=== PATIENT | female | born 1970 | race African-American/Black ===

== ENCOUNTER → 2016-10-05 | Outpatient (CLI) | payer OTHER ==
--- NOTE | 2016-10-05 12:25 | P.PN ---
Subjective This is follow-up visit for this patient with a history of severe and chronic low back pain secondary to lumbar degenerative disc disease, lumbar facet arthropathy, we have done interventional pain management injection, radiofrequency ablation of the medial branch lumbar area, and this helped her low back pain significantly, and is currently on pain medications 1- [place] 10/325 every 6 hours 2- Motrin 800 mg when necessary Patient denies any side effects of the medication, denies excessive drowsiness or sleepiness, denies suicidal ideation, and reports that the current pain medication is helping To control the pain and improve activity of daily living the description is complaining of neck pain happened today, he denies any motor or sensory deficit she denies any numbness or tingling sensation in the upper extremities Physical Examinations : 1-Constitutiona : Cooperative , not in acute distress . 2-HEENT : nech ; supple , no Lymphadenopathy , no Thyromegaly , normal thyroid size . eyes : no ptosis , no icterus, no photophobia . ENT : normal of hearing , normal oropharynx , no Thrush . 3- Respiratory : Chest clear to auscultations Bilaterally , no wheezing , no Rhonchi . 4- Cardiovascular : regular rate and rhythem , S1 , S2 , no S3 , no S4. 5- Gastrointestinal : abdomen soft no tenderness , bowel sounds positive all four quadrents , no organomegally . 6- Genitourinary : Defferred . 7- neurologic : Cranial nerve II to XII intact , no focal neurological deffecit . 8-psychatric : alert , oriented X 3 , appropriate affect , intact judgment and insight . 9-Lymphatic : no Lymphadenopathy . 10- musculoskeltal : exams of the cervical spine = motor strength normal bilateral upper extremities positive trigger point on the left-sided cervical paravertebral muscles . exams of the Lumber spine = motor strength lower extremities ,thigh and legs .5/5 deep tendon reflexes : normal Knee Jerk , normal ankle Jerk . Assessment and plan = - Chronic low back pain secondary to lumbar degenerative disc disease , lumbar spondylosis with facet arthropathy without myelopathy , status post radiofrequency ablation of the medial branch lumbar area, pain in the low back area improved. -chronic and current use of high-risk medication (Opioids). The patient was counseled about risk of opioid use, psychological risk associated with opioids and was orally counseled to not overuse , abuse , divert ,or sell dictations to take medications as prescribed only , and to restore medication in safe location , and patient counseled against driving while using narcotic medications, and also not to use alcohol or any illicit recreational drugs the patient's verbalized understanding that the lack of compliance will result in failure to renew narcotic prescription and possible discharge from the clinic - diagnoses, prognosis, and treatment options including but not limited to physical therapy, surgical interventions, interventional therapies and medication management including narcotics and adjuvant medication were discussed with the patient and all questions answered to the patient's satisfaction. -medication refile =1- and she will follow up with the pain clinic in 2 months Objective - Vital Signs Vital signs: Vital Signs Temp 98.8 F 10/05/16 12:02 Pulse 87 10/05/16 12:02 Resp 16 10/05/16 12:02 BP 172/85 10/05/16 12:02 Pulse Ox 97 10/05/16 12:02 Intake & Output 10/04/16 10/05/16 10/05/16 18:59 06:59 18:59 Weight 79.832 kg
== END | disposition home or self-care (01) ==
CPT/HCPCS: 99211

== ENCOUNTER → 2016-11-30 | Outpatient (CLI) | payer OTHER ==
[2016-11-30 12:20] VITALS: BP 265/102; PULSE 98; RESP 18
--- NOTE | 2016-11-30 12:49 | P.PN ---
Progress Note - Text Patient returns for followup for chronic back pain with radiation to lower extremities bilaterally. Patient recently underwent left and right lumbar RFA near the end of 2015, which provided some relief for 3-4 months' interval. Patient continues on [place] and Motrin medications for pain with good relief. Patient denies adverse drug effects from medications. Today, pt denies new- onset weakness, bowel/bladder incontinence, or any other signs or symptoms of cauda equina syndrome. There are no signs of acute intoxication, and no indications of medication diversion or overuse. In addition to above, 13-point review of systems is also negative for chest pain , shortness of breath, changes in vision, changes in hearing, new onset weakness , abdominal pain, diarrhea, extreme fatigue, malaise, fever, skin changes, homicidal or suicidal ideation, or bowel or bladder incontinence. Vital Signs: Reviewed in EMR Gen: WDWN, AAOx3, NAD HEENT: NCAT, EOMI, hearing grossly normal Pulm: resp unlabored Abd: soft, NT, ND Neck: supple, trachea midline ROM in flexion lumbar spine: reduced ROM in extension lumbar spine: reduced Lumbar paravertebral tenderness: bilateral Facet loading: + bilaterally, worse on left side SI joint tenderness: + bilaterally, L > R Desmond's test: + bilaterally, L > R Straight leg raise: neg Lower extremity: +4/5 extremity strength bilaterally Neuro: CN II-XII grossly intact Imaging: Reviewed in EMR Assessment: 1. lumbar spondylosis without myelopathy 2. sacroiliitis 3. chronic pain syndrome 4. tobacco abuse Plan: 1. Explanation: Opioid and psychological risk scores were reviewed. Diagnoses , prognoses, and multiple treatment options including but not limited to physical therapy, interventional therapies, adjuvant medical therapies, narcotic medication therapies, and surgery were discussed with the patient and all questions were answered to the patient's satisfaction. 2. Opioid agreement: Patient has previously signed narcotic agreement, and was orally counseled to not overuse, abuse, divert, or cell medications, and to take them as prescribed by only 1 healthcare provider. The patient was also counseled to store opioid medications in a safe and preferably locked location. Patient was also counseled against driving while using narcotic medications and also to not use alcohol or any illicit or recreational drugs. The patient verbalized understanding that lack of compliance with any of the above and likely result in failure to renew narcotic prescriptions, possible discharge from the clinic, and possible legal ramifications thereafter if indicated. 3. Counseling: The patient was counseled extensively on SMOKING CESSATION, BODY MASS INDEX, EXERCISE. Specifically, the patient was instructed regarding the importance of smoking cessation, obesity, and exercise in the context of both chronic pain and overall health. 4. Procedures: repeat right lumbar RFA in 4-6 weeks, then left lumbar RFA after that 5. Consultations: None 6. Investigations: none 7. Medications: [place] 10/325 TID #90 with one refill 8. Disposition: f/u for procedure as scheduled PQRS measures: 1-Patient's medications are documented in the chart. 2-Tobacco use is positive, counseling given 3-Patient has not had a pneumococcal vaccine. 4-Advanced care planning discussed, patient unable to give. 5-Opioid contract signed with the patient 6-Pain positive, follow-up visit or procedure scheduled 7-Patient's blood pressure measured and documented, and patient will follow up with the primary care due to hypertension. 8-Patient's weight was measured, and body mass index ABOVE the normal limits, and counseling was done. Patient instructed to follow up with PCP. 9-Patient WAS NOT identified as an unhealthy alcohol user.
== END | disposition home or self-care (01) ==
LOC: PNWHC3 12:03
PROVIDERS: ATTEND Anesthesiology
DX: G89.4 Chronic pain syndrome (principal); M47.816 Spondylosis without myelopathy or radiculopathy, lumbar region; M46.1 Sacroiliitis, not elsewhere classified; I10 Essential (primary) hypertension; E66.9 Obesity, unspecified; F17.200 Nicotine dependence, unspecified, uncomplicated; Z71.6 Tobacco abuse counseling; Z79.899 Other long term (current) drug therapy
CPT/HCPCS: 99211

== ENCOUNTER 2017-01-06 10:41 | Day surgery (SDC) | payer OTHER ==
[2017-01-04 15:43] VITALS: BMI 28.4
[2017-01-06 11:58] VITALS: TEMP 98
[2017-01-06] MEDS: LACTATED RINGERS 1,000 ML IV SCH ×2 (12:18→12:55)
[2017-01-06] MEDS ORDERED: LIDOCAINE 1% 20 ML VIAL (10MG/ML) FOR IV START INTRADERMA ONE (12:18)
[2017-01-06] MEDS ORDERED: fentaNYL (PF) 50 MCG/ML 2 ML AMP ONE (12:49)
[2017-01-06] MEDS ORDERED: TRIAMCINOLONE ACETONIDE 40 MG/ML 1 ML VIAL ONE (12:49)
[2017-01-06] MEDS ORDERED: BUPIVACAINE (PF) 0.5% 30 ML VIAL ONE (12:49)
[2017-01-06] MEDS ORDERED: MIDAZOLAM 2 MG/2 ML VIAL ONE (12:49)
--- NOTE | 2017-01-06 13:11 | P.PCN ---
Date of Procedure: 01/06/17 Procedure(s) Performed: PREOPERATIVE DIAGNOSIS: 1-Lumbar Spondylosis with Facet Arthropathy without myelopathy. 2- sacroiliitis POSTOPERATIVE DIAGNOSIS: 1- Lumbar Spondylosis with Facet Arthropathy without myelopathy. 2- sacroiliitis PROCEDURES : Right Radiofrequency thermocoagulation, L3-L4, L4-L5, and L5-S1 medial branch, with fluoroscopic guidance ANESTHESIA: IV sedation with versed 4 mg and fentaneyl 100 mcg and local infiltration with lidocaine 1% 6 ml EBL: Minimal PROCEDURE INDICATION: The patient with low back pain secondary to lumbar facet arthropathy who had more than 50% relief of her pain with previous diagnostic lumbar medial branch block with bupivacaine. PROCEDURE DESCRIPTION / TECHNIQUE: The patient was seen and identified in the preoperative area. Risks, benefits, complications, including but not limited to risk of infection ,bleeding , allergic reactions to the medications and no complete pain releife , and alternatives were discussed with the patient, the patient agreed to proceed with the procedure and signed the consent. IV was started. Vital signs remained stable throughout the procedure. Patient was taken to the OR and time out was completed. The patient was placed in the prone position on the procedure table. The lumber area was prepped and draped in the usual sterile fashion. . Vital signs were closely monitored during the procedure .IV sedation was used during the procedure to decrease patients anxiety. Using AP and then oblique fluoroscopy, the ``eye of the Davis dog corresponding to the connection between the superior and transverse articular processes of right L3, L4, and L5 were identified, marked, and localized with 1 % lidocaine. Subsequently, a 18 -wr radiofrequency cannula with a 10- mm active tip was advanced guided by fluoroscopy to each of the ``eyes of the Davis dog at right L3, L4, and L5. Each site then underwent sensory testing at 50 Hz and 0 to 1 volt and motor testing at 2.5 Hz and 0 to 3 volt with local stimulation, but no radicular symptoms down the legs. Thereafter the right L3-4, L4-5, and L5-S1 sites underwent radiofrequency thermocoagulation at 80 degrees celsius for 90 seconds after injecting 0.5 ml of PF lidocaine 1%. ,then After the thermocoagulation done , 1 ml of the block solution containing Kenalog 40 mg and 3 ml of marain 0.5% was injected at the right L3- 4 , L4-5 , and L5-S1, levels after negative aspiration of CSF and blood and with no paresthesias. Cannulas were retracted while injecting lidocaine 1% until the needle is out. At the end of the procedure, the skin was cleansed and bandages were applied. COMPLICATIONS: No acute complications. DISPOSITION / PLANS: The patient was placed in a supine position and transferred to the recovery area in a stable condition for observation and was discharged from the recovery room after meeting discharge criteria. Home discharge instructions given to the patient by the staff. The patient was reexamined prior to discharge. The patient will schedule a follow up in the clinic in 2-4 weeks.
[2017-01-06 13:49] VITALS: BP 154/98; PULSE 57; RESP 20
[2017-01-06] MEDS ORDERED: IV FLUID CONTINUATION 1,000 ML IV ONE (13:49)
--- NOTE | 2017-01-06 14:04 | FL ---
Fluoroscopy INDICATION: Pain FINDINGS: Fluoroscopy time: 25 seconds. Images obtained: 4. IMPRESSIONS: 1. Documentation of fluoroscopy.
== END 2017-01-06 13:52 ==
LOC: ORPAIN 10:41
PROVIDERS: ATTEND Specialist
DX: M47.816 Spondylosis without myelopathy or radiculopathy, lumbar region (principal); M46.96 Unspecified inflammatory spondylopathy, lumbar region; M46.1 Sacroiliitis, not elsewhere classified; Z88.8 Allergy status to other drugs, medicaments and biological substances
CPT/HCPCS: 64635; 64636; 99152; J2250; J3301; J3010

== ENCOUNTER → 2017-01-24 | Outpatient (CLI) | payer OTHER ==
--- NOTE | 2017-01-24 13:02 | P.PN ---
Subjective Principal diagnosis: This is follow-up visit for this patient with a history of severe and chronic low back pain secondary to , lumbar spondylosis with facet arthropathy , we have done interventional pain management injection,, diagnostic medial branch block , RFA of the medial branches lumbar area ,and is currently on pain medications 1-[place] 10/325 every 6 hour Patient denies any side effects of the medication, denies excessive drowsiness or sleepiness, denies suicidal ideation, and reports that the current pain medication is NOT helping To control the pain and improve activity of daily living Patient denies any motor or sensory deficit , patient denies any fever or night sweats, denies any change in the bowel movements or urination Physical Examinations : 1-Constitutiona : Cooperative , not in acute distress . 2-HEENT : nech ; supple , no Lymphadenopathy , no Thyromegaly , normal thyroid size . eyes : no ptosis , no icterus, no photophobia . ENT : normal of hearing , normal oropharynx , no Thrush . 3- Respiratory : Chest clear to auscultations Bilaterally , no wheezing , no Rhonchi . 4- Cardiovascular : regular rate and rhythem , S1 , S2 , no S3 , no S4. 5- Gastrointestinal : abdomen soft no tenderness , bowel sounds positive all four quadrents , no organomegally . 6- Genitourinary : Defferred . 7- neurologic : Cranial nerve II to XII intact , no focal neurological deffecit . 8-psychatric : alert , oriented X 3 , appropriate affect , intact judgment and insight . 9-Lymphatic : no Lymphadenopathy . 10- musculoskeltal : exams of the Lumber spine = motor strength lower extremities ,thigh and legs .5/5 deep tendon reflexes : normal Knee Jerk , normal ankle Jerk . Assessment and plan= - Chronic low back pain secondary to , lumbar spondylosis with facet arthropathy without myelopathy , status post radiofrequency ablation of the medial branch lumbar area Left side in July 2016 on the right side done in December 2016 , patient doing well, her pain improved significantly after the radiofrequency - chronic and current use of high-risk medication (Opioids). The patient was counseled about risk of opioid use, psychological risk associated with opioids and was orally counseled to not overuse , divert,or sell dictations to take medications as prescribed only , and to restore medication in safe location , and the patient counseled against driving while using narcotic medications, and also not to use alcohol or any illicit recreational drugs, the patient's verbalized understanding that the lack of compliance will result in failure to renew narcotic prescription and possible discharge from the clinic - diagnoses, prognosis, and treatment options including but not limited to physical therapy, surgical interventions, interventional therapies , and medication management including narcotics and adjuvant medication were discussed with the patient . She will be given prescription refill to [facility] 10/325 every 6 hours since 120 with 2 refills Objective - Vital Signs Vital signs: Intake & Output 01/23/17 01/24/17 01/24/17 18:59 06:59 18:59 Weight 77.564 kg
[2017-01-24 13:10] VITALS: BP 135/88; PULSE 76; RESP 16; TEMP 98.2
== END | disposition home or self-care (01) ==
LOC: PNWHC3 12:06
PROVIDERS: ATTEND Specialist
DX: M47.816 Spondylosis without myelopathy or radiculopathy, lumbar region (principal); M46.96 Unspecified inflammatory spondylopathy, lumbar region; G89.29 Other chronic pain
CPT/HCPCS: 99211

== ENCOUNTER → 2017-04-18 | Outpatient (CLI) | payer OTHER ==
[2017-04-18 12:05] VITALS: BP 147/98; PULSE 98; RESP 18
--- NOTE | 2017-04-18 12:49 | P.PN ---
Progress Note - Text This is a 47-year-old female with history of chronic axial lower back pain due to degenerative disc disease and lumbar spondylosis without myelopathy. The patient has been getting injections on the lumbar spine which have been giving her temporary pain relief, she also takes [place] 10 mg 4 times a day for her pain. Her pain has been relatively well controlled however she complains of weight loss after she had her cholecystectomy. I advised the patient to follow-up with her primary care physician to workup her weight loss problem. I will decrease the patient's [place] from 4 to 3 pills a day starting next month. The patient was not really happy about this decision however I told her that for chronic nonmalignant pain patient should not be on opioids for long time. We will see the patient 2 months from now for follow-up.
== END | disposition home or self-care (01) ==
LOC: PNWHC3 11:48
PROVIDERS: ATTEND Anesthesiology
DX: M51.36 Other intervertebral disc degeneration, lumbar region (principal); M47.816 Spondylosis without myelopathy or radiculopathy, lumbar region
CPT/HCPCS: 99211

== ENCOUNTER → 2017-06-13 | Outpatient (CLI) | payer OTHER ==
[2017-06-13 12:17] VITALS: BP 149/94; PULSE 76; RESP 16; TEMP 97.6
--- NOTE | 2017-06-13 12:37 | P.PN ---
Progress Note - Text This is a 47-year-old female with lower back pain with radiation to the legs bilaterally however the pain does not cross the knees. The patient has been on opioids for many years as she states and last time I saw her I went down on the dose of [place] from to 4 pills a day to 3 times a day. The patient states that her pain has been getting worse lately and she usually gets good relief of pain after getting lumbar medial branch I'll defer see ablation that she had previously She denies any bowel or bladder dysfunction. The patient was diagnosed recently with stage II kidney dysfunction. At this point I will schedule the patient to have lumbar medial branch RFA and I will continue with [place] 3 pills a day as needed for pain. The patient is alert oriented 3 in no apparent distress she does not show any signs of oversedation , and she denies any suicidal or homicidal thoughts.
== END | disposition home or self-care (01) ==
LOC: PNWHC3 11:42
PROVIDERS: ATTEND Anesthesiology
DX: M54.5 Low back pain (principal); N28.9 Disorder of kidney and ureter, unspecified; Z79.899 Other long term (current) drug therapy; Z79.891 Long term (current) use of opiate analgesic
CPT/HCPCS: 99211

== ENCOUNTER 2017-06-28 09:37 | Day surgery (SDC) | payer OTHER ==
[~2017-06-28 09:37] MED LIST: LACTATED RINGERS 1,000 ML IV ONE
[2017-06-28 09:54] VITALS: TEMP 98.2
[2017-06-28] MEDS ORDERED: LIDOCAINE 1% 20 ML VIAL (10MG/ML) FOR IV START INTRADERMA ONE (10:10)
--- NOTE | 2017-06-28 10:48 | P.PCN ---
Date of Procedure: 06/28/17 Procedure(s) Performed: PREOPERATIVE DIAGNOSIS: 1-Lumbar Spondylosis with Facet Arthropathy without myelopathy. 2-sacroiliitis POSTOPERATIVE DIAGNOSIS: 1- Lumbar Spondylosis with Facet Arthropathy without myelopathy. 2-sacroiliitis PROCEDURES : Right Radiofrequency thermocoagulation, L3-L4, L4-L5, and L5-S1 medial branch, with fluoroscopic guidance ANESTHESIA: IV sedation with versed 4 mg and fentaneyl 100 mcg and local infiltration with lidocaine 1% 6 ml EBL: Minimal PROCEDURE INDICATION: The patient with low back pain secondary to lumbar facet arthropathy who had more than 50% relief of her pain with previous diagnostic lumbar medial branch block with bupivacaine. PROCEDURE DESCRIPTION / TECHNIQUE: The patient was seen and identified in the preoperative area. Risks, benefits, complications, including but not limited to risk of infection ,bleeding , allergic reactions to the medications and no complete pain releife , and alternatives were discussed with the patient, the patient agreed to proceed with the procedure and signed the consent. IV was started. Vital signs remained stable throughout the procedure. Patient was taken to the OR and time out was completed. The patient was placed in the prone position on the procedure table. The lumber area was prepped and draped in the usual sterile fashion. . Vital signs were closely monitored during the procedure .IV sedation was used during the procedure to decrease patients anxiety. Using AP and then oblique fluoroscopy, the ``eye of the Davis dog corresponding to the connection between the superior and transverse articular processes of right L3, L4, and L5 were identified, marked, and localized with 1 % lidocaine. Subsequently, a 18 -pu radiofrequency cannula with a 10- mm active tip was advanced guided by fluoroscopy to each of the ``eyes of the Davis dog at right L3, L4, and L5. Each site then underwent sensory testing at 50 Hz and 0 to 1 volt and motor testing at 2.5 Hz and 0 to 3 volt with local stimulation, but no radicular symptoms down the legs. Thereafter the right L3-4, L4-5, and L5-S1 sites underwent radiofrequency thermocoagulation at 80 degrees celsius for 90 seconds after injecting 0.5 ml of PF lidocaine 1%. then After the thermocoagulation done , 1 ml of the block solution containing Kenalog 40 mg and 3 ml of marain 0.5% was injected at the right L3- 4 , L4-5 , and L5-S1, levels after negative aspiration of CSF and blood and with no paresthesias. Cannulas were retracted while injecting lidocaine 1% until the needle is out. At the end of the procedure, the skin was cleansed and bandages were applied. COMPLICATIONS: No acute complications. DISPOSITION / PLANS: The patient was placed in a supine position and transferred to the recovery area in a stable condition for observation and was discharged from the recovery room after meeting discharge criteria. Home discharge instructions given to the patient by the staff. The patient was reexamined prior to discharge. The patient will schedule a follow up in the clinic in 2-4 weeks.
[2017-06-28 10:59] VITALS: RESP 16
--- NOTE | 2017-06-28 11:05 | FL ---
EXAMINATION TYPE: FL guided pain mgmt statistic DATE OF EXAM: 06/28/2017 CLINICAL HISTORY: Low back pain. TECHNIQUE: Fluoroscopy. COMPARISON: None. FINDINGS: Fluoroscopic guidance was provided during pain relief procedure performed by Dr. Thomas . A total of 12 seconds of fluoroscopic time was utilized during the procedure and 3 spot images are acquired. Images acquired shows needle localization at several levels in the lower lumbar spine. IMPRESSION: As Above.
[2017-06-28 11:15] VITALS: BP 129/85; PULSE 77
[2017-06-28] MEDS ORDERED: IV FLUID CONTINUATION 1,000 ML IV ONE (11:15)
== END 2017-06-28 11:20 | disposition home or self-care (01) ==
LOC: ORPAIN 09:37
PROVIDERS: ATTEND Specialist
DX: M46.96 Unspecified inflammatory spondylopathy, lumbar region (principal); M47.816 Spondylosis without myelopathy or radiculopathy, lumbar region; M46.1 Sacroiliitis, not elsewhere classified; Z88.8 Allergy status to other drugs, medicaments and biological substances
CPT/HCPCS: 64635; 64636 ×2; 99152; 99153 ×2; J2250; J3301; J3010

== ENCOUNTER → 2017-08-08 | Outpatient (CLI) | payer OTHER ==
[2017-08-08 12:39] VITALS: BP 157/100; PULSE 82; RESP 18
--- NOTE | 2017-08-08 12:55 | P.PN ---
Progress Note - Text Progress Note Date: 08/08/17 This is a 47-year-old female with chronic history of right lower back pain. The patient had multiple injections in the back including lumbar epidural steroid injection and medial branch block also lately RFA on the medial branches which gave her only very short period of pain relief. By physical exam today she is alert oriented 3 in no apparent distress however she says that her pain is 8 out of 10 today. She has significant tenderness around the right sacroiliac joint. She denies any bowel or bladder dysfunction or any weakness in the lower extremities. I think the patient may benefit from getting right sacroiliac joint steroid injection under fluoroscopic guidance and if it does not give long period of pain relief then we can plan on doing RFA on the right sacroiliac joint. The patient takes [place] 10 mg 3 times a day and I'll give her prescription to last her for 2 months. PQRS measures: 1-Patient's medications are documented in the chart. 2-Tobacco use is negative, counseling given 3-Patient has not had a pneumococcal vaccine. 4-Advanced care planning discussed, patient unable to give 5-Opioid contract signed with the patient. 6-Pain positive, follow-up visit or procedure scheduled 7-Patient's blood pressure measured and documented , blood pressure is moderately elevated and the patient is encouraged to follow-up with her family physician.. 8-Patient's weight was measured, and body mass index ABOVE the normal limits, and counseling was done. Patient instructed to follow up with PCP. 9-Patient WAS NOT identified as an unhealthy alcohol user.
== END | disposition home or self-care (01) ==
LOC: PNWHC3 12:17
PROVIDERS: ATTEND Anesthesiology
DX: M54.5 Low back pain (principal)
CPT/HCPCS: 99211

== ENCOUNTER → 2017-08-15 | Outpatient (CLI) | payer OTHER ==
[2017-08-15 15:21] LABS: Amorphous Sediment,Urine Rare /hpf; Appearance,Urine Cloudy (Clear); Bilirubin,Urine Negative (Negative); CH 29.3; CHCM 32.6; Glucose,Urine (UA) Negative (Negative); HCT 42.3 % (34.0-46.0); Ketones,Urine Negative (Negative); Leukocyte Esterase,Urine Negative (Negative); MCH 29.8 pg (25.0-35.0); MCV 90.3 fL (80.0-100.0); Mean Platelet Volume 8.6; Mucus,Urine Rare /hpf; Nitrite,Urine Negative (Negative); PH, Urine 5.5 (5.0-8.0); Particle Count 3958; Protein,Urine Trace (Negative); RBC 4.68 m/uL (3.80-5.40); RBC,Urine 1 /hpf (0-5); RDW 13.9 % (11.5-15.5); Specific Gravity,Urine 1.024 (1.001-1.035); Squamous Epithelial Cell,Urine 16 /hpf (0-4); UA Billing (MACRO vs. MICRO) MICRO; WBC 9.8 k/uL (3.8-10.6); WBC,Urine 3 /hpf (0-5)
[2017-08-15 15:25] LABS: ALT 31 U/L (9-52); AST 24 U/L (14-36); Alkaline Phosphatase 45 U/L (38-126); Anion Gap 9 mmol/L; Blood Urea Nitrogen 13 mg/dL (7-17); Carbon Dioxide 26 mmol/L (22-30); Chloride 105 mmol/L (98-107); Glucose 87 mg/dL (74-99); Non-African American GFR(MDRD) >60 (>60 ml/min/1.73 sqM); Phosphorous 3.4 mg/dL (2.5-4.5); Potassium 4.3 mmol/L (3.5-5.1); Sodium 140 mmol/L (137-145); Total Bilirubin 0.5 mg/dL (0.2-1.3); Total Protein 7.5 g/dL (6.3-8.2)
== END | disposition home or self-care (01) ==
LOC: LABWHC1 13:35
PROVIDERS: ATTEND Internal Medicine Nephrology
DX: D64.9 Anemia, unspecified (principal); E83.39 Other disorders of phosphorus metabolism; N39.0 Urinary tract infection, site not specified
CPT/HCPCS: 36415; 80053; 81001; 84100; 85027

== ENCOUNTER → 2017-10-03 | Outpatient (CLI) | payer OTHER ==
[2017-10-03 14:20] VITALS: BP 166/91; PULSE 86; RESP 16; TEMP 98.1
--- NOTE | 2017-10-03 14:35 | P.PN ---
Progress Note - Text Progress Note Date: 10/03/17 Patient returns for followup for chronic left hand and low back and hip pain. Patient recently underwent R SIJ injection with 100% relief of pain on the right side of her low back and hip. Patient continues on [place] medications for pain with good relief. Patient denies adverse drug effects from medications. Today, pt denies new-onset weakness, bowel/bladder incontinence, or any other signs or symptoms of cauda equina syndrome. There are no signs of acute intoxication, and no indications of medication diversion or overuse. In addition to above, 13-point review of systems is also negative for chest pain , shortness of breath, changes in vision, changes in hearing, new onset weakness , abdominal pain, diarrhea, extreme fatigue, malaise, fever, skin changes, homicidal or suicidal ideation, or bowel or bladder incontinence. Vital Signs: Reviewed in EMR Gen: WDWN, AAOx3, NAD HEENT: NCAT, EOMI, hearing grossly normal Pulm: resp unlabored Abd: soft, NT, ND Neck: supple, trachea midline ROM in flexion lumbar spine: reduced ROM in extension lumbar spine: reduced Lumbar paravertebral tenderness: + Facet loading: + bilateral SI joint tenderness: + L side Desmond's test: + L side Straight leg raise: neg Lower extremity: decreased ROM dorsiflexion/plantarflexion strength, hip flexion/extension, and knee flexion/extension secondary to pain Neuro: CN II-XII grossly intact, muscle strength lower extremities PRESERVED Imaging: Reviewed in EMR Assessment: 1. SIJ dysfunction 2. lumbar spondylosis without myelopathy 3. chronic pain syndrome Plan: 1. Explanation: Opioid and psychological risk scores were reviewed. Diagnoses , prognoses, and multiple treatment options including but not limited to physical therapy, interventional therapies, adjuvant medical therapies, narcotic medication therapies, and surgery were discussed with the patient and all questions were answered to the patient's satisfaction. 2. Opioid agreement: Patient has previously signed narcotic agreement, and was orally counseled to not overuse, abuse, divert, or cell medications, and to take them as prescribed by only 1 healthcare provider. The patient was also counseled to store opioid medications in a safe and preferably locked location. Patient was also counseled against driving or operating heavy equipment while using narcotic medications and also to not use alcohol or any illicit or recreational drugs. The patient verbalized understanding that lack of compliance with any of the above and likely result in failure to renew narcotic prescriptions, possible discharge from the clinic, and possible legal ramifications thereafter if indicated. 3. Counseling: The patient was counseled extensively on BODY MASS INDEX, EXERCISE. Specifically, the patient was instructed regarding the importance of weight control, and exercise in the context of both chronic pain and overall health. 4. Procedures: L SIJ injection 5. Consultations: None 6. Investigations: None 7. Medications: [place] 10/325 #75 with no refill (for October) 8. Disposition: f/u for procedure as scheduled and for follow-up visit in clinic in 6 weeks; anticipate decreasing [place] to #60 PQRS measures: 1-Patient's medications are documented in the chart. 2-Tobacco use is positive 3-Patient has not had a pneumococcal vaccine. 4-Advanced care planning discussed, patient unable to give. 5-Opioid contract signed with the patient. 6-Pain positive, follow-up visit or procedure scheduled 7-Patient's blood pressure measured and documented, and patient will follow up with the primary care due to hypertension. 8-Patient's weight was measured, and body mass index WNL 9-Patient WAS NOT identified as an unhealthy alcohol user.
== END | disposition home or self-care (01) ==
LOC: PNWHC3 13:40
PROVIDERS: ATTEND Anesthesiology
DX: M47.816 Spondylosis without myelopathy or radiculopathy, lumbar region (principal); M53.88 Other specified dorsopathies, sacral and sacrococcygeal region; G89.4 Chronic pain syndrome; Z79.891 Long term (current) use of opiate analgesic; Z72.0 Tobacco use; Z71.6 Tobacco abuse counseling
CPT/HCPCS: 99211

== ENCOUNTER 2017-11-14 09:29 | Day surgery (SDC) | payer OTHER ==
[2017-11-14] MEDS ORDERED: LACTATED RINGERS 1,000 ML IV SCH (09:45)
[2017-11-14 10:15] VITALS: TEMP 97.7
[2017-11-14] MEDS ORDERED: LIDOCAINE 1% 20 ML VIAL (10MG/ML) FOR IV START INTRADERMA ONE (10:19)
--- NOTE | 2017-11-14 10:48 | P.PCN ---
Date of Procedure: 11/14/17 Surgeon: Padilla Leiva Pathology: none sent Condition: stable Disposition: PACU Description of Procedure: PREOPERATIVE DIAGNOSIS: 1-Right sacroiliitis. 2 Lumbar DDD POSTOPERATIVE DIAGNOSIS:. 1-Right sacroiliitis. 2 Lumbar DDD PROCEDURES: Right Sacroiliac joint steroid injection with fluoroscopic guidance ANESTHESIA: Local with 1% lidocaine; conscious sedation EBL: Minimal. PROCEDURE INDICATIONS: This patient with a history of low back pain secondary to sacroiliitis and lumbar DDD unresponsive to conservative management, presents for R SI joint injection today. No use of blood thinners. PROCEDURE DESCRIPTION: The patient was seen and identified in the preoperative area. Risks, benefits, complications, and alternatives were discussed with the patient (including but not limited to incomplete pain relief, bleeding, infection, nerve damage, and allergies to medications), the patient agreed to proceed with the procedure and signed the consent after all questions were answered. Patient was taken to the OR and time out was completed to verify proper patient , position, laterality of pain, and allergies. Pt was placed in the prone position and a pillow was placed under the abdomen to reduce lumbar lordosis. The lumbosacral area was prepped and draped in the usual sterile fashion. Critical pause was taken. Vital signs were closely monitored during the procedure. The fluoroscopic camera was placed in contralateral oblique view and right sacroiliiac joint lower pole was identified. After local infiltration with 1% lidocaine 2 ml, Subsequently, a 22-gauge 3.5 inch spinal needle was introduced into the posteroinferior aspect of the right sacroiliac joint under direct fluoroscopic visualization. Subsequently, 4 ml of a solution of a total of 4 ml solution containing total 2 mL of 0.5% preservative-free bupivicaine mixed with 80 mg of Kenalog was injected after negative aspiration for CSF, blood, and air and negative for paresthesia. Needle was withdrawn intact. Skin was cleansed, and bandages were applied. COMPLICATIONS: None. COMMENTS: DISPOSITION / PLANS: The patient was placed in a supine position and transferred to the recovery area in a stable condition for observation and was discharged from the recovery room after meeting discharge criteria. Home discharge instructions given to the patient by the staff. The patient was reexamined prior to discharge. The patient will return for follow-up visit in clinic in November.
[2017-11-14] MEDS ORDERED: IV FLUID CONTINUATION 700 ML IV ONE (10:55)
[2017-11-14 10:59] VITALS: RESP 18
[2017-11-14 11:13] VITALS: BP 134/76; PULSE 77
--- NOTE | 2017-11-14 11:25 | FL ---
EXAMINATION TYPE: FL guided pain mgmt statistic DATE OF EXAM: 11/14/2017 CLINICAL HISTORY: Low back and right sacroiliac joint pain. TECHNIQUE: Fluoroscopy. COMPARISON: None. FINDINGS: Fluoroscopic guidance was provided during pain relief procedure performed by Dr. Leiva . A total of 3 seconds of fluoroscopic time was utilized during the procedure and two spot images are a cquired. Images acquired shows needle localization at level of sacroiliac joint. IMPRESSION: As Above.
== END 2017-11-14 11:30 | disposition home or self-care (01) ==
LOC: ORPAIN 09:29
PROVIDERS: ATTEND Anesthesiology
DX: M46.1 Sacroiliitis, not elsewhere classified (principal); M51.36 Other intervertebral disc degeneration, lumbar region; M51.26 Other intervertebral disc displacement, lumbar region; I10 Essential (primary) hypertension; F32.9 Major depressive disorder, single episode, unspecified; E78.5 Hyperlipidemia, unspecified; Z88.8 Allergy status to other drugs, medicaments and biological substances; Z90.710 Acquired absence of both cervix and uterus
CPT/HCPCS: J2250; J3301; J3010; G0260; 27096

== ENCOUNTER → 2017-11-24 | Outpatient (CLI) | payer OTHER ==
[2017-11-24 13:28] VITALS: BP 149/88; PULSE 88; RESP 16
--- NOTE | 2017-11-24 19:16 | P.PN ---
Subjective Progress Note Date: 11/24/17 This is follow-up visit for this patient with a history of severe and chronic low back pain secondary to lumbar degenerative disc disease, lumbar facet arthropathy, sacroiliitis we have done radiofrequency ablation of the medial branch lumbar area , she gets good pain relief , and recently we have done right-sided sacroiliac joint steroid injection , she had excellent pain relief after the right sacroiliac joint steroid injection done on 2 different occasions , hip pain and trunk from 6-8/10 before the procedure ,the decreased to 0/10 after the procedure patient currently on [place] 10/325 2-3 times a day Patient denies any side effects of the medication, denies excessive drowsiness or sleepiness, denies suicidal ideation, and reports that the current pain medication is NOT helping To control the pain and improve activity of daily living . Patient denies any motor or sensory deficit, denies change in bowel movement or urination, patient denies any fever or night sweats and patient here for follow-up visit and medication refill Objective - Vital Signs Vital signs: Vital Signs Temp Pulse 88 11/24/17 13:18 Resp 16 11/24/17 13:18 BP 149/88 11/24/17 13:18 Pulse Ox Intake & Output 11/24/17 11/24/17 11/25/17 06:59 18:59 06:59 Weight 68.039 kg - Exam Physical Examinations : 1-Constitutiona : Cooperative , not in acute distress . 2-HEENT : nech ; supple , no Lymphadenopathy , normal thyroid size . eyes : no ptosis , no icterus, no photophobia . ENT : normal of hearing , normal oropharynx , no Thrush . 3- Respiratory : Chest clear to auscultations Bilaterally , no wheezing , no Rhonchi . 4- Cardiovascular : regular rate and rhythem , S1 , S2 , no S3 , no S4. 5- Gastrointestinal : abdomen soft no tenderness , bowel sounds positive all four quadrents , no organomegally . 6- Genitourinary : Defferred . 7- neurologic : Cranial nerve II to XII intact , no focal neurological deffecit . 8-psychatric : alert , oriented X 3 , appropriate affect , intact judgment and insight . 9-Lymphatic : no Lymphadenopathy . 10- musculoskeltal : , Lumber spine = normal moter stegnth lower extremities ,thigh and legs .5/5 deep tendon reflexes : normal Knee Jerk , normal ankle Jerk . lumber facet Loading Test positive strait leg raising test negative bilaterally Fabere test negative bilaterally Sever tenderness over the Sacroiliac joint on the Right , and negative Left side Assessment and Plan Plan: Assessment and plan= chronic low back pain secondary to lumbar degenerative disc disease , lumbar spondylosis with lumbar facet arthropathy , and right sacroiliitis chronic and current use of high-risk medication (opioids) Patient denies any side effects of the current pain medication and the current treatment/medication ML and the patient to do activity of daily living , Diagnoses, prognosis, treatment options, including but not limited to physical therapy, medication management, interventional therapies, and surgery, were discussed with the patient All the questions answered Patient signed the narcotic agreement, and he was orally counseled, not to overuse, not to abuse, not to Divert , not tp sell pain medication, and to take it as prescribed only, Patient was counseled not to drive or operate heavy equipment while using narcotic medication, and advised not to use alcohol or any Illicit drugs while using the narcotis, the patient's verbalized understanding that lack of compliance with any of the above instructions and will likely to cause discharge from the pain service, not to renew his narcotic prescriptions, patient had a good result after the right sacroiliac joint steroid injections done twice, she will be good candidate for radiofrequency ablation of the right sacroiliac joint , ( radiofrequency ablation of the right L5-S1 dorsal ramus , and the radiofrequency ablation of the right side lateral branches S1/S2/S3 Medication managements= patient will be given prescription refills for [place] 10/325 every 6-8 hours dispense 70 with 1 refill, and she could benefit from Motrin 600 mg 3 times a day when necessary , Time with Patient: Less than 30
== END | disposition home or self-care (01) ==
LOC: PNWHC3 12:28
PROVIDERS: ATTEND Specialist
DX: G89.29 Other chronic pain (principal); M51.36 Other intervertebral disc degeneration, lumbar region; M47.816 Spondylosis without myelopathy or radiculopathy, lumbar region; M46.96 Unspecified inflammatory spondylopathy, lumbar region; M46.1 Sacroiliitis, not elsewhere classified; Z79.891 Long term (current) use of opiate analgesic
CPT/HCPCS: 99211

== ENCOUNTER 2017-12-26 07:22 | Day surgery (SDC) | payer OTHER ==
[2017-12-21 09:29] VITALS: BMI 25.9
[~2017-12-26 07:22] MED LIST changes: -LACTATED RINGERS 1,000 ML IV ONE; +LACTATED RINGERS 1,000 ML IV SCH
[2017-12-26 07:59] VITALS: TEMP 98.8
[2017-12-26] MEDS ORDERED: LIDOCAINE 1% 20 ML VIAL (10MG/ML) FOR IV START INTRADERMA ONE (08:10)
--- NOTE | 2017-12-26 09:19 | P.PCN ---
Date of Procedure: 12/26/17 Procedure(s) Performed: PREOPERATIVE DIAGNOSIS: 1-Lumbosacral spondylosis with facet arthropathy without myelopathy. 2- sacroiliit. post operative Diagnosis: . 1-Lumbosacral spondylosis with facet arthropathy without myelopathy. 2- sacroiliit. PROCEDURES: 1- Right radiofrequency thermocoagulation/ablation of the L5 dorsal ramus. 2- Right multi-site radiofrequency thermocoagulation/ablation of the S1, S2, lateral branchs. The procedure was performed using fluoroscopic guidance during needle placement to assure proper position and maximize safety . ANESTHESIA: LOCAL ANESTHESIA = moderate sedation with intravenous versed 3 mg and Fentanyle 100 mcg EBL: NONE INDICATION/MEDICAL NECESSITY: History of low back pain secondary to sacroiliitis and lumbosacral arthropathy unresponsive to more conservative treatments. The patient reported more than 50 % relief of pain symptoms following 2 previous diagnostic blocks with Bupivacaine. PROCEDURE DESCRIPTION: The patient was seen and identified in the preoperative area. Risks, benefits, complications, and alternatives were discussed with the patient. The patient agreed to proceed with the procedure and signed the consent. Vital signs were checked before and after the procedure and they remained stable. Patient ambulated to the procedure room and time out was completed. The patient was placed in the prone position on the procedure table and a pillow was placed under the abdomen to reduce lumbar lordosis. The lumbosacral area was prepped and draped in the usual sterile fashion. Critical pause was taken. L5 Dorsal Ramus RF: Using right oblique fluoroscopy, the junction of the transverse process and the superior articular process of the right S1 vertebra, which correspond to the fluoroscopic image of the "eye of the Davis dog" was identified. Subsequently, a 10-cm 20 -gauge radiofrequency cannula with a 10-mm active tip was advanced under fluoroscopic guidance until contact was made with periosteum. At this level, the Sensory testing of the L5 dorsal ramus was performed at 50 Hz and 0 to 1 volt with production of concordant pain starting at 0.5 volt. Motor stimulation was done at 2.5 Hz with stimulation of mulitifidus muscle contration . No radicular symptoms or paresthesias were produced during the testing. Subsequently, the L5 dorsal ramus was subjected to a radiofrequency ablation at 80 degree celsius for 90 seconds . after 0.5% Bupivacaine 1 ml injected at each level after negative aspirations .. S1, S2, Lateral Branch RF: The lateral margins of the Right S1, S2, foramina were identified using AP fluoroscopy. Under fluoroscopic guidance, three 10-cm 20 -gauge radiofrequency cannula with a 10-mm active tip were inserted at 8-10 mm peripheral to the posterior S1 foramen, at various locations using clock-face coordinates. The center of the clock was registered at the lateral margin of the foramen. The 2: 30, 4:00, and 5:30 oclock positions were used. At this level, the sensory testing of the S1 lateral branch was performed at 50 Hz and 0 to 1 volt at the three levels with production of concordant pain starting at 0.5 volt. Motor stimulation was done at 2.5 Hz. No radicular symptoms or paresthesias were produced during the testing. Subsequently, the S1 lateral branch was subjected to a radiofrequency ablation at a mode of 90 seconds at 80 degrees Celsius at the 3 levels after negative motor and sensory testing and after injecting 0.5 ml of preservative free Bupivacaine 0.5 %. The same procedure was performed at the level of the S2 foramen. . The plane was to the lateral branches for this S3 also , but I could not visualize the S3 foraminal for this reason we" doing only the lateral branches for S1 and S2 The needle was withdrawn intact after each injection. COMPLICATIONS: The patient tolerated the procedure well without any acute complications. DISPOSTION/PLAN: The patient ambulated to the recovery area after the procedure in a stable condition for observation. Patient was reexamined prior to discharge. Patient was observed for 30 minutes in the recovery area and was discharged home, accompanied by an adult, after meeting discharged criteria. Discharge instructions were give to the patient by the staff. Patient was specifically instructed not to drive today and to rest for the rest of the day. The patient will schedule a follow up visit in the clinic in weeks or earlier if needed.
[2017-12-26] MEDS ORDERED: IV FLUID CONTINUATION 725 ML IV ONE (09:24)
[2017-12-26 09:28] VITALS: RESP 18
[2017-12-26 09:38] VITALS: BP 131/95; PULSE 85
--- NOTE | 2017-12-26 10:42 | FL ---
EXAMINATION TYPE: FL guided pain mgmt statistic DATE OF EXAM: 12/26/2017 COMPARISON: NONE HISTORY: Back pain. Radio frequency right sacroiliac joint. TECHNIQUE: Fluoroscopy. FINDINGS/IMPRESSION: Fluoroscopic guidance was provided during procedure performed by Dr. Crain. A total of 6 seconds of fluoroscopic time was utilized during the procedure and 23 spot images was a cquired.
== END 2017-12-26 09:48 | disposition home or self-care (01) ==
LOC: ORPAIN 07:22
PROVIDERS: ATTEND Specialist
DX: G89.29 Other chronic pain (principal); M47.817 Spondylosis without myelopathy or radiculopathy, lumbosacral region; M46.1 Sacroiliitis, not elsewhere classified; M51.36 Other intervertebral disc degeneration, lumbar region; I10 Essential (primary) hypertension; K21.9 Gastro-esophageal reflux disease without esophagitis; F41.9 Anxiety disorder, unspecified; F31.9 Bipolar disorder, unspecified; F17.200 Nicotine dependence, unspecified, uncomplicated; Z88.8 Allergy status to other drugs, medicaments and biological substances
CPT/HCPCS: 64635; 64640 ×2; J2250; J3301; J3010; 99152; 99153

== ENCOUNTER → 2018-01-19 | Outpatient (CLI) | payer OTHER ==
[2018-01-19 13:52] VITALS: BP 140/85; PULSE 98; RESP 16
--- NOTE | 2018-01-19 14:34 | P.PN ---
Subjective Progress Note Date: 01/19/18 Principal diagnosis: Right lower back pain The patient has severe facet arthropathy at the L5-S1 level as per her last MRI that was done in 2015. She's been having RFA on the lumbar medial branches and the lateral branches of the sacral area. After her last sacral RFA she feels numbness in her vagina that lasted for about 8 hours after the procedure. The patient wants us to go up on her [place] to 90 pills per month as she was taking previously. Objective - Vital Signs Vital signs: Vital Signs Temp Pulse 98 01/19/18 13:43 Resp 16 01/19/18 13:43 BP 140/85 01/19/18 13:43 Pulse Ox Intake & Output 01/18/18 01/19/18 01/19/18 18:59 06:59 18:59 Weight 73.028 kg - Constitutional General appearance: Present: average body habitus - EENT ENT: Absent: hard of hearing, hearing grossly normal, NA/AT, normal oropharynx, other, pharyngeal erythema, thrush, tonsillar exudates, tonsillar swelling - Respiratory Respiratory: bilateral: CTA - Cardiovascular Rhythm: regular - Neurologic Neurologic: Present: CNII-XII intact - Psychiatric Psychiatric: Present: A&O x's 3, appropriate affect, intact judgment & insight Assessment and Plan Plan: This is a 47-year-old female with lumbar spondylosis without myelopathy and severe facet arthropathy at the L5-S1 level as per MRI. The patient is doing better after the last RFA of the sacroiliac joint which gave her 1 week of very good pain relief then the pain came back with lower intensity afterwards. However she asks me today for follow-up on her [place], but I told her that we cannot do that at this point and we have to continue with the same dose of [place] and even we have to plan on going down on it further in the future. Explanation: Opioid and psychological risk scores were reviewed. Diagnoses, prognoses, and multiple treatment options including but not limited to physical therapy, interventional therapies, adjuvant medical therapies, narcotic medication therapies, and surgery were discussed with the patient and all questions were answered to the patient's satisfaction. Opioid agreement: Signed with the patient and the patient is warned not to use opioids while driving or before driving and not to combine opioids with benzodiazepines or alcohol. I'll give her prescription for 75 pills of [place] 10 mg with 1 refill and we'll see HER-2 months from now.
== END | disposition home or self-care (01) ==
LOC: PNWHC3 13:29
PROVIDERS: ATTEND Anesthesiology
DX: M47.816 Spondylosis without myelopathy or radiculopathy, lumbar region (principal); M46.87 Other specified inflammatory spondylopathies, lumbosacral region; Z79.891 Long term (current) use of opiate analgesic
CPT/HCPCS: 99211

== ENCOUNTER 2018-01-26 08:21 | Day surgery (SDC) | payer OTHER ==
[2018-01-25 09:36] VITALS: BMI 25.9
[2018-01-26 08:37] VITALS: TEMP 97.2
[2018-01-26] MEDS ORDERED: LIDOCAINE 1% 20 ML VIAL (10MG/ML) FOR IV START INTRADERMA ONE (08:42)
[2018-01-26] MEDS ORDERED: LIDOCAINE 1% INJ 10MG/ML (20 ML MDV) ONE (10:21)
[2018-01-26] MEDS ORDERED: PROPOFOL 10 MG/ML 20 ML VIAL IV ONE (10:21)
[2018-01-26 11:02] VITALS: BP 138/88; PULSE 83
[2018-01-26 11:05] VITALS: RESP 16
--- NOTE | 2018-01-26 11:19 | P.PCN ---
Date of Procedure: 01/26/18 Procedure(s) Performed: Procedure: Esophagogastroduodenoscopy and biopsy. Preoperative diagnosis: Epigastric pain. Postoperative diagnosis: 1. Sliding hiatal hernia with suspected Malka esophagitis. 2. Antral gastritis. 3. Biopsies obtained from the duodenum, antrum and esophagus. Preparation and sedation: Was provided by anesthesia. Brief clinical history: The patient is a 47-year-old female who is scheduled for this evaluation because of epigastric pains that has been going on since even before she had her gallbladder surgery around 1 year ago. This is not improving with Prilosec. She has no alarm alarm symptoms. Procedure: With the patient on her left lateral decubitus position and after informed consent and adequate sedation, I passed the Olympus-GIF 160 video upper endoscope through the cricopharyngeus down the esophagus. GE junction was around 36 cm from the incisors and there was a small sliding hiatal hernia. The distal esophagus showed some white sticky exudates that could represent malka esophagitis, but there was no erosions, ulcers or strictures. No Flor's esophagus. The endoscope was then passed into the stomach which was insufflated with air and inspected in detail including the retroflex view in the cardia. There was mottling and erythema in the antrum and couple of healed erosions but no ulcers or bleeding. Pyloric channel, duodenal bulb, post bulbar area and descending duodenum appeared within normal limits. Because of her symptoms, I obtained biopsies from the duodenum, antrum and esophagus then the endoscope was withdrawn. The patient tolerated the procedure well. Plan: The patient was reassured. Will await biopsy results and make further plans based on her course and biopsy results. We will keep you updated on her progress.
== END 2018-01-26 11:32 | disposition home or self-care (01) ==
LOC: ORWHC2ENDO 08:21
DX: K29.50 Unspecified chronic gastritis without bleeding (principal); K21.0 Gastro-esophageal reflux disease with esophagitis; B37.81 Candidal esophagitis; K44.9 Diaphragmatic hernia without obstruction or gangrene; I10 Essential (primary) hypertension; I25.10 Atherosclerotic heart disease of native coronary artery without angina pectoris; M19.90 Unspecified osteoarthritis, unspecified site; K58.9 Irritable bowel syndrome, unspecified; Z88.8 Allergy status to other drugs, medicaments and biological substances; Z79.899 Other long term (current) drug therapy
CPT/HCPCS: 88305; 88312; 43239; J2001; J2704

== ENCOUNTER → 2018-03-16 | Outpatient (CLI) | payer OTHER ==
[2018-03-16 14:39] VITALS: BP 156/100; PULSE 74; RESP 16
--- NOTE | 2018-03-18 18:57 | P.PAINPG ---
Subjective Progress Note Date: 03/16/18 This is 47 years old female, with a chronic history of severe low back pain, he is diagnosed with lumbar facet arthropathy without myelopathy, and sacroiliitis , we have done interventional pain management procedures on her she got excellent pain relief, and recently we did the radiofrequency ablation of the right sacroiliac joint, and she reports her pain on the right side improved significantly but she is currently complaining of severe pain on her left side, the pain is localized in the low back area on the left side, she denies any motor or sensory deficit, she denies any fever or night sweats and there is no change in the bowel movements or urination, patient had the radiofrequency ablation of the medial branch lumbar area done and of 2015 we did radiofrequency ablation of the left side medial branch lumbar area at L3/L4 5/L5 -S1 , and patient did fairly well until recently she started complaining of pain on the left side, she continued to use [place] 10/325 every 8 hours, she denies any side effect of the medication, and she reported the current medication helping her to control her pain and improve quality of life and do activities of daily livings Objective - Vital Signs Vital signs: Vital Signs Temp Pulse 74 03/16/18 14:29 Resp 16 03/16/18 14:29 BP 156/100 03/16/18 14:29 Pulse Ox 97 03/16/18 14:29 - Exam Physical Examinations : 1-Constitutiona : Cooperative , not in acute distress . 2-HEENT : nech ; supple , no Lymphadenopathy , normal thyroid size . eyes : no ptosis , no icterus , no photophobia . ENT : normal of hearing , normal oropharynx , no Thrush . 3- Respiratory : Chest clear to auscultations Bilaterally , no wheezing , no Rhonchi . 4- Cardiovascular : regular rate and rhythem , S1 , S2 , no S3 , no S4. 5- Gastrointestinal : abdomen soft no tenderness , bowel sounds , no organomegally . 6- Genitourinary : Defferred . 7- neurologic : Cranial nerve II to XII intact , no focal neurological deffecit . 8-psychatric : alert , oriented X 3 , appropriate affect , intact judgment and insight . 9-Lymphatic : no Lymphadenopathy . 10- musculoskeltal : , Lumber spine = normal moter stegnth lower extremities ,thigh and legs .5/5 deep tendon reflexes : normal Knee Jerk , normal ankle Jerk . lumber facet Loading Test positive on the left side strait leg raising test negative bilaterally Fabere test negative bilaterally Sever tenderness over the Sacroiliac joint on the Left side Assessment and Plan Plan: Assessment and plan= chronic low back pain secondary to sacroiliitis , lumbar spondylosis with lumbar facet arthropathy . Pain improved on the right side after radiofrequency ablation of the lumbar medial branch on the right side and radiofrequency of the right sacroiliac joint on the right side Currently she is complaining of severe pain on the left side on the exam positive for lumbar facet arthropathy etiology, that causing the pain, patient had radiofrequency ablation of the medial branch on the left side done more than a year ago, and she had excellent pain relief chronic and current use of high-risk medication (opioids) Patient denies any side effects of the current pain medication and the current treatment/medication helping the patient to do activity of daily living , Diagnoses, prognosis, treatment options, including but not limited to physical therapy, medication management, interventional therapies, and surgery, were discussed with the patient All the questions answered The narcotic consent was signed and patient agreed and understood the side effects and complications of opioid treatment. Patient signed the narcotic agreement, and was orally counseled, not to overuse, not to abuse, not to Divert , not tp sell pain medication, and to take it as prescribed only, Patient was counseled not to drive or operate heavy equipment while using narcotic medication, and advised not to use alcohol or any Illicit drugs while using the narcotis, the patient's verbalized understanding that lack of compliance with any of the above instructions, will likely to cause discharge from, the pain service, not to renew his narcotic prescriptions Medication managements= patient will be given prescription refills for [place] 10/325 every 8 hours dispense 75 with one refill Patient will be scheduled to have repeat radiofrequency ablation of the left- sided medial branch at L3-4 /L4 5/L5-S1 under fluoroscopy guidance , PQRS Measure Charge Sheet Measure #130: Documentation of Current Meds in Medical Chart: Patient's medications documented in chart Measure #226: Tobacco Use: Screen & Cessation Intervention: Pt screened for tobacco use AND intervention given Measure #111: Pneumonia Vaccination: Pneumococcal vaccine NOT administered or previously given Measure #47: Advance Care Plan: Advance care planning discussed & documented, plan or surrogate given Measure #412: Opioid Treatment Agreement: Documented signed opioid trtmnt agreemnt min once during opioid trtmnt Measure #408: Opioid Therapy Follow-up Evaluation: Patient had f/u eval minimum every 3 months during opioid therapy Measure #317: Preventitive Care & Scrn High Bld Press & F/U: Pre-hypertensive or hypertensive BP documented, pt will f/u with PCP Measure #128: Body Mass Index (BMI) Screening & Follow-up: BMI documented ABOVE normal parameters - f/u documented Measure #131: Pain Assessment & Follow-up: Pain positive & plan documented, Follow-up scheduled Measure #431: Unhealthy Alcohol Use Preventative Care & Scrn: Patient not identified as an unhealthy alcohol user PQRS Narrative: Smoking Status Current every day smoker Do You Want the Pneumonia No Vaccine AT THIS TIME? Narcotic Agreement Date Signed 10/03/17 Blood Pressure 156/100 Pain Intensity [Lower Back] 8 Scale Used Numeric (1 - 10) Hx Alcohol Use (MH) Yes: occ Home Medications: Ambulatory Orders Albuterol Inhaler [Ventolin Hfa Inhaler] 2 puff INHALATION Q6H PRN 09/29/15 Aspirin [Adult Low Dose Aspirin EC] 81 mg PO DAILY 09/05/17 HYDROcodone/APAP 10-325MG [[place] 10-325] 1 tab PO Q6H PRN #75 tab 11/24/17 Lisinopril [Zestril] 20 mg PO QAM 01/25/18 Omeprazole [PriLOSEC] 20 mg PO AC-BRKFST 01/25/18 Controlled Substance Measures - Controlled Substance Measures Is patient prescribed a controlled substance at discharge?: Yes When asked, does pt state using other controlled substances?: No If prescribed controlled substance>3 days was MAPS reviewed?: Yes If Rx opioid, was Start Talking consent form obtained?: Yes If opioid is for acute pain is fill amount 7 days or less?: No Was information provided regarding opioid addiction?: Yes
== END | disposition home or self-care (01) ==
LOC: PNWHC3 13:07
PROVIDERS: ATTEND Specialist
DX: G89.29 Other chronic pain (principal); M54.5 Low back pain; M46.1 Sacroiliitis, not elsewhere classified; M47.816 Spondylosis without myelopathy or radiculopathy, lumbar region; M46.86 Other specified inflammatory spondylopathies, lumbar region; F17.200 Nicotine dependence, unspecified, uncomplicated; Z79.891 Long term (current) use of opiate analgesic; Z79.51 Long term (current) use of inhaled steroids; Z79.82 Long term (current) use of aspirin; Z79.899 Other long term (current) drug therapy
CPT/HCPCS: 99211

== ENCOUNTER 2018-04-01 16:23 | Emergency (ER) | payer OTHER ==
[2018-04-01 16:37] VITALS: BP 148/102; PULSE 94; RESP 16; TEMP 97.8
[2018-04-01] MEDS ORDERED: MORPHINE SULFATE 2 MG/ML SYRINGE IM STA (17:02)
[2018-04-01] MEDS ORDERED: LIDOCAINE 5% PATCH TOPICAL STA (17:03)
--- NOTE | 2018-04-01 17:10 | ED ---
Back Pain HPI - General Chief Complaint: Back Pain/Injury Stated Complaint: Back Pain Time Seen by Provider: 04/01/18 16:54 Source: patient, RN notes reviewed Mode of arrival: ambulatory Limitations: no limitations - History of Present Illness Initial Comments: this is a 48-year-old female presented to emergency department for chronic back pain. Patient states she is scheduled for an ablation on Tuesday. Patient states that she's been having increasing pain last couple days with no trauma. She states she's had exacerbation of her chronic back pain. She has any bowel, bladder and incontinence or retention. Denies any saddle last seizures or lower extremity paresthesias. She does have some pain that radiates from her left low back to her left knee there is no social paresthesia. Patient denies any discoloration of her leg. She has no difficulty walking other than complaining of pain to her lumbar region. Patient denies abdominal pain, nausea , vomiting, diarrhea constipation. - Related Data Home Medications Medication Instructions Recorded Confirmed Albuterol Inhaler [Ventolin Hfa 2 puff INHALATION Q6H PRN 09/29/15 04/01/18 Inhaler] Aspirin [Adult Low Dose Aspirin EC] 81 mg PO DAILY 09/05/17 04/01/18 Lisinopril [Zestril] 20 mg PO QAM 01/25/18 04/01/18 Omeprazole [PriLOSEC] 20 mg PO AC-BRKFST 01/25/18 04/01/18 Previous Rx's Medication Instructions Recorded HYDROcodone/APAP 10-325MG [[place] 1 tab PO Q6H PRN #75 tab 11/24/17 10-325] Allergies Allergy/AdvReac Type Severity Reaction Status Date / Time pregabalin [From Lyrica] Allergy Swelling Verified 04/01/18 16:37 of ankles quetiapine fumarate Allergy Swelling Verified 04/01/18 16:37 [From Seroquel] of ankles Review of Systems ROS Statement: Those systems with pertinent positive or pertinent negative responses have been documented in the HPI. ROS Other: All systems not noted in ROS Statement are negative. Past Medical History Past Medical History: Chest Pain / Angina, GERD/Reflux, Hypertension, Musculoskeletal Disorder, Osteoarthritis (OA), Renal Disease Additional Past Medical History / Comment(s): Herniated discs, IBS, coughing fits that result in SOB, uses Albuterol Inhaler PRN, chronic diarrhea. Kidney failure stage 2, sees Dr Rogers. History of Any Multi-Drug Resistant Organisms: None Reported Past Surgical History: Appendectomy, Cholecystectomy, Heart Catheterization, Hysterectomy, Orthopedic Surgery Additional Past Surgical History / Comment(s): Left knee surgery, left hand surgery FOR TENDON DAMAGE, ANAL FISSURES, HEART CATH 08/11/16-NO BLOCKAGE. Past Anesthesia/Blood Transfusion Reactions: No Reported Reaction Past Psychological History: Anxiety, Bipolar, Depression Smoking Status: Current every day smoker Past Alcohol Use History: Occasional Past Drug Use History: None Reported - Past Family History Father Family Medical History: Cancer General Exam Limitations: no limitations General appearance: alert, in no apparent distress Respiratory exam: Present: normal lung sounds bilaterally. Absent: respiratory distress, wheezes, rales, rhonchi, stridor Cardiovascular Exam: Present: regular rate, normal rhythm, normal heart sounds. Absent: systolic murmur, diastolic murmur, rubs, gallop, clicks GI/Abdominal exam: Present: soft, normal bowel sounds. Absent: distended, tenderness, guarding, rebound, rigid Extremities exam: Present: normal inspection, full ROM, normal capillary refill. Absent: tenderness, pedal edema, joint swelling, calf tenderness Back exam: Present: normal inspection, full ROM (Discomfort with range of motion ), tenderness (Left lumbar region), paraspinal tenderness. Absent: vertebral tenderness Skin exam: Present: warm, dry, intact, normal color. Absent: rash Course Vital Signs 04/01/18 16:34 Temperature 97.8 F Pulse Rate 94 Respiratory 16 Rate Blood Pressure 148/102 O2 Sat by Pulse 98 Oximetry Medical Decision Making - Medical Decision Making 48-year-old female presented for chronic pain. Patient has no acute findings, no red flag symptoms has normal exam at this time. Patient we given a sharp pain meds and discharged. She was also given Lidoderm patch. Patient has an appointment for ablation on Tuesday. Return parameters were discussed. Disposition Clinical Impression: Acute exacerbation of chronic low back pain Disposition: HOME SELF-CARE Condition: Stable Instructions: Chronic Back Pain (ED) Additional Instructions: Please return to the Emergency Department if symptoms worsen or any other concerns. Is patient prescribed a controlled substance at d/c from ED?: No Referrals: Channing Hernandez DO [Primary Care Provider] - 1-2 days Time of Disposition: 17:10
== END 2018-04-01 18:10 | disposition home or self-care (01) ==
LOC: EC 16:23
DX: G89.29 Other chronic pain (principal); M54.5 Low back pain; I12.9 Hypertensive chronic kidney disease with stage 1 through stage 4 chronic kidney disease, or unspecified chronic kidney disease; N18.2 Chronic kidney disease, stage 2 (mild); K58.9 Irritable bowel syndrome, unspecified; K21.9 Gastro-esophageal reflux disease without esophagitis; F17.200 Nicotine dependence, unspecified, uncomplicated; Z79.82 Long term (current) use of aspirin; Z79.899 Other long term (current) drug therapy; Z88.8 Allergy status to other drugs, medicaments and biological substances; Z95.818 Presence of other cardiac implants and grafts
CPT/HCPCS: 99283; 96372; J2270

== ENCOUNTER 2018-04-04 07:30 | Day surgery (SDC) | payer OTHER ==
[2018-04-03 14:54] VITALS: BMI 26.8
[2018-04-04 06:45] VITALS: TEMP 97
[~2018-04-04 07:30] MED LIST changes: +LIDOCAINE 1% 20 ML VIAL (10MG/ML) FOR IV START INTRADERMA ONE
--- NOTE | 2018-04-04 07:56 | P.PCN ---
Date of Procedure: 04/04/18 Procedure(s) Performed: PREOPERATIVE DIAGNOSIS: 1-Lumbar Spondylosis with Facet Arthropathy without myelopathy. 2-sacroiliitis POSTOPERATIVE DIAGNOSIS: 1- Lumbar Spondylosis with Facet Arthropathy without myelopathy. 2-sacroiliitis PROCEDURES : Left Radiofrequency thermocoagulation, L3-L4, L4-L5, and L5-S1 medial branch, with fluoroscopic guidance ANESTHESIA: Moderate sedation with intravenous versed 2 mg and fentaneyl 100 mcg and local infiltration with lidocaine 1% 6 ml EBL: Minimal PROCEDURE INDICATION: The patient with low back pain secondary to lumbar facet arthropathy who had more than 50% relief of her pain with previous diagnostic lumbar medial branch block with bupivacaine. PROCEDURE DESCRIPTION / TECHNIQUE: The patient was seen and identified in the preoperative area. Risks, benefits, complications, including but not limited to risk of infection ,bleeding , allergic reactions to the medications and no complete pain releife , and alternatives were discussed with the patient, the patient agreed to proceed with the procedure and signed the consent. IV was started. Vital signs remained stable throughout the procedure. Patient was taken to the OR and time out was completed. The patient was placed in the prone position on the procedure table. The lumber area was prepped and draped in the usual sterile fashion. . Vital signs were closely monitored during the procedure .IV sedation was used during the procedure to decrease patients anxiety. Using AP and then oblique fluoroscopy, the ``eye of the Davis dog corresponding to the connection between the superior and transverse articular processes of left L3, L4, and L5 were identified, marked, and localized with 1 % lidocaine. Subsequently, a 18 [id number] radiofrequency cannula with a 10- mm active tip was advanced guided by fluoroscopy to each of the ``eyes of the Davis dog at left L3, L4, and L5. Each site then underwent sensory testing at 50 Hz and 0 to 1 volt and motor testing at 2.5 Hz and 0 to 3 volt with local stimulation, but no radicular symptoms down the legs.then the left L3 -4, L4-5, and L5-S1 sites underwent radiofrequency thermocoagulation at 80 degrees celsius for 90 seconds after injecting 0.5 ml of PF lidocaine 1%. then After the thermocoagulation done , 1 ml of the block solution containing Kenalog 40 mg and 3 ml Ropivacain 0.5% was injected at the left L3-4 , L4-5 , and L5-S1, levels after negative aspiration of CSF and blood and with no paresthesias. Cannulas were retracted while injecting lidocaine 1% until the needle is out. At the end of the procedure, the skin was cleansed and bandages were applied. COMPLICATIONS: No acute complications. DISPOSITION / PLANS: The patient was placed in a supine position and transferred to the recovery area in a stable condition for observation and was discharged from the recovery room after meeting discharge criteria. Home discharge instructions given to the patient by the staff. The patient was reexamined prior to discharge. The patient will schedule a follow up in the clinic in 2-4 weeks.
[2018-04-04 08:03] VITALS: BP 117/79; RESP 18
[2018-04-04] MEDS ORDERED: IV FLUID CONTINUATION 1,000 ML IV ONE (08:04)
--- NOTE | 2018-04-04 08:19 | FL ---
EXAMINATION TYPE: FL guided pain mgmt statistic DATE OF EXAM: 04/04/2018 HISTORY: Pain 9sec fluoro time,3 images scanned
[2018-04-04 08:21] VITALS: PULSE 79
== END 2018-04-04 09:30 | disposition home or self-care (01) ==
LOC: ORPAIN 07:30
PROVIDERS: ATTEND Specialist
DX: M47.816 Spondylosis without myelopathy or radiculopathy, lumbar region (principal); M46.1 Sacroiliitis, not elsewhere classified; I10 Essential (primary) hypertension; K21.9 Gastro-esophageal reflux disease without esophagitis; Z88.8 Allergy status to other drugs, medicaments and biological substances
CPT/HCPCS: 64635; 64636; J2250; J3301; J3010; 99152

== ENCOUNTER → 2018-05-11 | Outpatient (CLI) | payer OTHER ==
[2018-05-11 13:52] VITALS: BP 130/80; PULSE 101; RESP 16
--- NOTE | 2018-05-11 21:19 | P.PAINPG ---
Subjective Progress Note Date: 05/11/18 This is follow-up visit for this patient with a history of severe and chronic low back pain secondary to lumbar degenerative disc disease, lumbar facet arthropathy, sacroiliitis We have done an interventional pain procedure, radiofrequency ablation of the medial branch lumbar area, and radiofrequency ablation of the sacroiliac joint The patient currently on [place] 10/325 every 8 hours Patient denies any side effect of the medication , patient denies any excessive drowsiness or sleepiness, patient denies any suicidal ideation, Patient reported that the current medication is helping to control the pain and improve the activity of daily livings, Patient denies any motor or sensory deficit, denies any change in the bowel movement or urination, patient denies any fever or night sweats. Patient here today for follow-up visit and medication refill Objective - Vital Signs Vital signs: Vital Signs Temp Pulse 101 H 05/11/18 13:41 Resp 16 05/11/18 13:41 BP 130/80 05/11/18 13:41 Pulse Ox Intake & Output 05/11/18 05/11/18 05/12/18 06:59 18:59 06:59 Weight 70.76 kg - Exam Physical Examinations : 1-Constitutiona : Cooperative , not in acute distress . 2-HEENT : nech ; supple , no Lymphadenopathy , normal thyroid size . eyes : no ptosis , no icterus , no photophobia . ENT : normal of hearing , normal oropharynx , no Thrush . 3- Respiratory : Chest clear to auscultations Bilaterally , no wheezing , no Rhonchi . 4- Cardiovascular : regular rate and rhythem , S1 , S2 , no S3 , no S4. 5- Gastrointestinal : abdomen soft no tenderness , bowel sounds , no organomegally . 6- Genitourinary : Defferred . 7- neurologic : Cranial nerve II to XII intact , no focal neurological deffecit . 8-psychatric : alert , oriented X 3 , appropriate affect , intact judgment and insight . 9-Lymphatic : no Lymphadenopathy . 10- musculoskeltal : Lumber spine moter stegnth lower extremities ,thigh and legs 5/5 Right side , 5/5 Left side deep tendon reflexes : normal Knee Jerk , normal ankle Jerk positive lumber facet Loading Test Range of motion of the lumbar spine Flexion 60 degrees, extension 30 degrees strait leg raising test negative bilaterally Fabere test negative bilaterally mild tenderness over the Sacroiliac joint on the R and L sides Assessment and Plan Plan: Assessment and plan= chronic low back pain secondary to sacroiliitis, lumbar spondylosis with lumbar facet arthropathy . Pain improved after the radiofrequency ablation of the medial branch chronic and current use of high-risk medication (opioids) Patient denies any side effects of the current pain medication and the current treatment/medication helping the patient to do activity of daily living , Diagnoses, prognosis, treatment options, including but not limited to physical therapy, medication management, interventional therapies, and surgery, were discussed with the patient All the questions answered The narcotic consent was signed and patient agreed and understood the side effects and complications of opioid treatment. Patient signed the narcotic agreement, and was orally counseled, not to overuse, not to abuse, not to Divert , not tp sell pain medication, and to take it as prescribed only, Patient was counseled not to drive or operate heavy equipment while using narcotic medication, and advised not to use alcohol or any Illicit drugs while using the narcotis, the patient's verbalized understanding that lack of compliance with any of the above instructions, will likely to cause discharge from, the pain service, not to renew his narcotic prescriptions Medication managements= patient will be given prescription refills for [place] 10/325 every 8 hours dispense 90 with 1 refill MAPS are reviewed today and it was appropriate, urine drug screen done today , PQRS Measure Charge Sheet Measure #130: Documentation of Current Meds in Medical Chart: Patient's medications documented in chart Measure #226: Tobacco Use: Screen & Cessation Intervention: Pt screened for tobacco use AND intervention given Measure #111: Pneumonia Vaccination: Pneumococcal vaccine NOT administered or previously given Measure #47: Advance Care Plan: Advance care planning discussed & documented, pt chose/unable to give Measure #412: Opioid Treatment Agreement: Documented signed opioid trtmnt agreemnt min once during opioid trtmnt Measure #408: Opioid Therapy Follow-up Evaluation: Patient had f/u eval minimum every 3 months during opioid therapy Measure #317: Preventitive Care & Scrn High Bld Press & F/U: Normal blood pressure, f/u not required Measure #128: Body Mass Index (BMI) Screening & Follow-up: BMI documented ABOVE normal parameters - f/u documented Measure #131: Pain Assessment & Follow-up: Pain positive & plan documented, Follow-up scheduled Measure #431: Unhealthy Alcohol Use Preventative Care & Scrn: Patient not identified as an unhealthy alcohol user PQRS Narrative: Smoking Status Current every day smoker Do You Want the Pneumonia No Vaccine AT THIS TIME? Narcotic Agreement Date Signed 10/03/17 Blood Pressure 130/80 Pain Intensity [Right Lower 7 Back] Scale Used Numeric (1 - 10) Hx Alcohol Use (MH) Yes: occ Home Medications: Ambulatory Orders Albuterol Inhaler [Ventolin Hfa Inhaler] 2 puff INHALATION Q6H PRN 09/29/15 Aspirin [Adult Low Dose Aspirin EC] 81 mg PO DAILY 09/05/17 Lisinopril [Zestril] 20 mg PO QAM 01/25/18 Omeprazole [PriLOSEC] 20 mg PO AC-BRKFST 01/25/18 HYDROcodone/APAP 10-325MG [[place] 10-325] 1 tab PO Q6H PRN #90 tab 05/11/18 HYDROcodone/APAP 10-325MG [[place] 10-325] 1 tab PO Q8HR PRN 30 Days #90 tab 05/11 Controlled Substance Measures - Controlled Substance Measures Is patient prescribed a controlled substance at discharge?: Yes When asked, does pt state using other controlled substances?: No If prescribed controlled substance>3 days was MAPS reviewed?: Yes If Rx opioid, was Start Talking consent form obtained?: Yes If opioid is for acute pain is fill amount 7 days or less?: No Was information provided regarding opioid addiction?: Yes
== END ==
LOC: PNWHC3 13:09
PROVIDERS: ATTEND Specialist
DX: G89.29 Other chronic pain (principal); M47.816 Spondylosis without myelopathy or radiculopathy, lumbar region; M46.96 Unspecified inflammatory spondylopathy, lumbar region; M46.1 Sacroiliitis, not elsewhere classified; F17.200 Nicotine dependence, unspecified, uncomplicated; Z79.899 Other long term (current) drug therapy; Z79.82 Long term (current) use of aspirin; Z79.891 Long term (current) use of opiate analgesic
CPT/HCPCS: 80307; G0482; G0463; 99211

== ENCOUNTER → 2018-07-06 | Outpatient (CLI) | payer OTHER ==
[2018-07-06 13:26] VITALS: BP 142/92; PULSE 80; RESP 16
--- NOTE | 2018-07-07 19:55 | P.PAINPG ---
Subjective Progress Note Date: 07/06/18 This is 47 years old female, with a chronic history of severe low back pain, he is diagnosed with lumbar facet arthropathy without myelopathy, and sacroiliitis , we have done interventional pain management procedures , we have done radiofrequency ablation on the left side lumbar area in February 2018, and also we have done radiofrequency ablation of the right sacroiliac joint in December 2017, and radiofrequency ablation of the right-sided lumbar medial branch in June 2017, she got excellent pain relief after the interventional pain procedures, but currently she is complaining of severe numbness and tingling sensation in the lower extremities she denies any motor or sensory deficit, she denies any fever or night sweats and there is no change in the bowel movements or urination , she continued to use [place] 10/325 every 8 hours, she denies any side effect of the medication, and she reported the current medication helping her to control her pain and improve quality of life and do activities of daily livings Physical Examinations : 1-Constitutiona : Cooperative , not in acute distress . 2-HEENT : nech ; supple , no Lymphadenopathy , normal thyroid size . eyes : no ptosis , no icterus , no photophobia . ENT : normal of hearing , normal oropharynx , no Thrush . 3- Respiratory : Chest clear to auscultations Bilaterally , no wheezing , no Rhonchi . 4- Cardiovascular : regular rate and rhythem , S1 , S2 , no S3 , no S4. 5- Gastrointestinal : abdomen soft no tenderness , bowel sounds , no organomegally . 6- Genitourinary : Defferred . 7- neurologic : Cranial nerve II to XII intact , no focal neurological deffecit . 8-psychatric : alert , oriented X 3 , appropriate affect , intact judgment and insight . 9-Lymphatic : no Lymphadenopathy . 10- musculoskeltal : , Lumber spine = normal moter stegnth lower extremities ,thigh and legs .5/5 bilaterally, normal sensation in the lower extremity deep tendon reflexes : normal Knee Jerk , normal ankle Jerk . lumber facet Loading Test positive on the right side only strait leg raising test also developed 30 bilaterally Fabere test positive bilaterally Sever tenderness over the Sacroiliac joint on the right side only Assessment and plan= chronic low back pain secondary to sacroiliitis , lumbar spondylosis with lumbar facet arthropathy . Patient currently complaining of severe numbness and tingling sensation in the lower extremity( lummbar radiculitis ) The narcotic consent was signed and patient agreed and understood the side effects and complications of opioid treatment. Patient signed the narcotic agreement, and was orally counseled, not to overuse, not to abuse, not to Divert , not tp sell pain medication, and to take it as prescribed only, Patient was counseled not to drive or operate heavy equipment while using narcotic medication, and advised not to use alcohol or any Illicit drugs while using opioids understanding that lack of compliance with any of the above instructions, will likely to cause discharge from, the pain service, not to renew his narcotic prescriptions Medication managements= patient will be given prescription refills for [place] 10/325 every 8 hours ,with one refill Patient will be referred to had MRI of the lumbar spine , without contrast She could benefit from lumbar epidural steroid injections , Objective - Vital Signs Vital signs: Vital Signs Temp Pulse 80 07/06/18 13:16 Resp 16 07/06/18 13:16 BP 142/92 07/06/18 13:16 Pulse Ox 98 07/06/18 13:16 PQRS Measure Charge Sheet Measure #130: Documentation of Current Meds in Medical Chart: Patient's medications documented in chart Measure #226: Tobacco Use: Screen & Cessation Intervention: Pt screened for tobacco use AND intervention given Measure #111: Pneumonia Vaccination: Pneumococcal vaccine NOT administered or previously given Measure #47: Advance Care Plan: Advance care planning discussed & documented, pt chose/unable to give Measure #412: Opioid Treatment Agreement: Documented signed opioid trtmnt agreemnt min once during opioid trtmnt Measure #408: Opioid Therapy Follow-up Evaluation: Patient had f/u eval minimum every 3 months during opioid therapy Measure #317: Preventitive Care & Scrn High Bld Press & F/U: Pre-hypertensive or hypertensive BP documented, pt will f/u with PCP Measure #128: Body Mass Index (BMI) Screening & Follow-up: BMI documented ABOVE normal parameters - f/u documented Measure #131: Pain Assessment & Follow-up: Follow-up scheduled Measure #431: Unhealthy Alcohol Use Preventative Care & Scrn: Patient not identified as an unhealthy alcohol user PQRS Narrative: Smoking Status Current every day smoker Do You Want the Pneumonia No Vaccine AT THIS TIME? Narcotic Agreement Date Signed 10/03/17 Blood Pressure 142/92 Pain Intensity [Bilateral Leg] 8 Scale Used Numeric (1 - 10) Hx Alcohol Use (MH) Yes: occ Home Medications: Ambulatory Orders Albuterol Inhaler [Ventolin Hfa Inhaler] 2 puff INHALATION Q6H PRN 09/29/15 Aspirin [Adult Low Dose Aspirin EC] 81 mg PO DAILY 09/05/17 Lisinopril [Zestril] 20 mg PO QAM 01/25/18 Omeprazole [PriLOSEC] 20 mg PO AC-BRKFST 01/25/18 ALPRAZolam [Xanax] 1 mg PO HS PRN 07/06/18 HYDROcodone/APAP 10-325MG [Agu[place] 10-325] 1 tab PO Q8HR PRN 30 Days #90 tab 07/06 HYDROcodone/APAP 10-325MG [[place] 10-325] 1 tab PO Q8HR PRN 30 Days #90 tab 07/06 Ibuprofen [Motrin] 600 mg PO Q8HR PRN #90 tab 07/06/18 Controlled Substance Measures - Controlled Substance Measures Is patient prescribed a controlled substance at discharge?: Yes When asked, does pt state using other controlled substances?: No If prescribed controlled substance>3 days was MAPS reviewed?: Yes If Rx opioid, was Start Talking consent form obtained?: Yes If opioid is for acute pain is fill amount 7 days or less?: No Was information provided regarding opioid addiction?: Yes
== END ==
LOC: PNWHC3 12:57
PROVIDERS: ATTEND Specialist
DX: G89.29 Other chronic pain (principal); M47.816 Spondylosis without myelopathy or radiculopathy, lumbar region; M46.96 Unspecified inflammatory spondylopathy, lumbar region; M46.1 Sacroiliitis, not elsewhere classified; F17.200 Nicotine dependence, unspecified, uncomplicated; Z79.899 Other long term (current) drug therapy; Z79.82 Long term (current) use of aspirin; Z79.891 Long term (current) use of opiate analgesic; Z79.1 Long term (current) use of non-steroidal anti-inflammatories (NSAID)
CPT/HCPCS: 99211

== ENCOUNTER 2018-07-20 06:16 | Day surgery (SDC) | payer OTHER ==
[2018-07-14 13:58] VITALS: BMI 26.9
[~2018-07-20 06:16] MED LIST changes: -LACTATED RINGERS 1,000 ML IV SCH; -LIDOCAINE 1% 20 ML VIAL (10MG/ML) FOR IV START INTRADERMA ONE; +SODIUM CHLORIDE 0.9% 500 ML 500 ML IV SCH
[2018-07-20 06:37] VITALS: TEMP 98.1
--- NOTE | 2018-07-20 07:26 | P.PCN ---
Date of Procedure: 07/20/18 Surgeon: Margarette Collins Pathology: none sent Condition: stable Disposition: PACU Description of Procedure: PREOPERATIVE DIAGNOSIS: 1-Lumbar radiculopathy 2- Lumber Degenerative Disc Diseases. POSTOPERATIVE DIAGNOSIS: 1-Lumbar radiculopathy. 2-Lumber Degenerative Disc Diseases PROCEDURE 1. Lumbar epidural steroid injection under fluoroscopic guidance at the L5-S1 level. 2. Lumbar epidurogram. ANESTHESIA: Local with 1% lidocaine; IV sedation with Versed -2--mg ,and 100 fentanyl EBL: Minimal PROCEDURE INDICATION: The patient with low back pain and radiculitis symptoms unresponsive to conservative treatment. Fluoroscopy was used to optimize visualization of the needle placement and to maximize safety. PROCEDURE DESCRIPTION / TECHNIQUE: The patient was seen and identified in the preoperative area. Risks, benefits , complications including but not limited to infections ,bleeding ,allergic reaction to the medications ,nerve damage and not complete pain relief , and alternatives were discussed with the patient. The patient agreed to proceed with the procedure and signed the consent. IV was started, and vital signs were stable. Patient was taken to the OR and time out was completed. The patient was placed in the prone position on procedure table and a pillow was placed under the abdomen to reduce lumbar lordosis. The lumbosacral area was prepped and draped in the usual sterile fashion with ChloraPrep.Patient was closely monitored during the procedure. Conscious sedation was used during the procedure to decrease patients anxiety. Vital signs were monitered during the entire procedure. Using anterior-posterior fluoroscopy, the L5-S1 interlaminar space was identified and the skin over this site was marked and then infiltrated with 1% lidocaine subcutaneously. Subsequently, a 20-gauge Tuohy epidural needle was inserted and advanced toward the epidural space using the Loss of resistance to air technique and guided by AP and lateral fluoroscopy. The correct needle position in the epidural space was verified with the injection of 1 mL of the water soluble contrast dye Omnipaque 180 contrast and observing an excellent epidurogram with the epidural spread of the dye, after negative aspiration for blood and CSF and in the absence of paresthesias. Again after negative aspiration, a 8 ml mixture containing 40 mg of Kenalog and 5 ml of preservative free Normal Saline, and 2 ml of preservative free ropivacaine 0.5% solution was injected and a washout of epidurogram was seen. Needle was withdrawn intact, skin was cleansed, and bandages were applied. patient tolerated procedure well and was transferred to PACU in stable condition. COMPLICATIONS: None
[2018-07-20 07:33] VITALS: PULSE 71; RESP 16
[2018-07-20 07:46] VITALS: BP 124/82
--- NOTE | 2018-07-20 08:20 | FL ---
EXAMINATION TYPE: FL guided pain mgmt statistic DATE OF EXAM: 07/20/2018 HISTORY: Pain LESI 5 SECS FLUORO AND 2 PAPER IMAGES
== END 2018-07-20 07:58 | disposition home or self-care (01) ==
LOC: ORPAIN 06:16
PROVIDERS: ATTEND Anesthesiology
DX: M51.16 Intervertebral disc disorders with radiculopathy, lumbar region (principal); Z88.8 Allergy status to other drugs, medicaments and biological substances
CPT/HCPCS: 62323; J2250; J3301; J3010; Q9966; 99152

== ENCOUNTER → 2018-08-22 | Day surgery (SDC) | payer OTHER ==
[2018-08-01 11:08] VITALS: BMI 27.1
[~2018-08-22] MED LIST changes: +SODIUM CHLORIDE 0.9% 250 ML IV ONE
[2018-08-22 08:56] VITALS: RESP 18; TEMP 98.6
--- NOTE | 2018-08-22 09:45 | P.PCN ---
Date of Procedure: 08/22/18 Procedure(s) Performed: PREOPERATIVE DIAGNOSIS: 1- Lumbar radiculopathy. 2-Lumbar spondylosis with Facet arthropathy without myelopathy POSTOPERATIVE DIAGNOSIS: 1-Lumber radiculopathy. 2-Lumbar spondylosis with Facet arthropathy without myelopathy PROCEDURE 1. Lumbar epidural steroid injection under fluoroscopic guidance at the L5-S1 level. 2. Lumbar epidurogram. ANESTHESIA: Local with 1% lidocaine 3 ml and , moderate sedation with intravenous Versed 2 mg ,and fentanyle 100 Mcg EBL: Minimal PROCEDURE INDICATION: The patient with low back pain and radiculitis symptoms unresponsive to conservative treatment. Fluoroscopy was used to optimize visualization of the needle placement and to maximize safety. PROCEDURE DESCRIPTION / TECHNIQUE: The patient was seen and identified in the preoperative area. Risks, benefits , complications including but not limited to infections ,bleeding ,allergic reaction to the medications ,nerve damage and not complete pain releife , and alternatives were discussed with the patient. The patient agreed to proceed with the procedure and signed the consent. IV was started, and vital signs were stable. Patient was taken to the OR and time out was completed. The patient was placed in the prone position on procedure table and a pillow was placed under the abdomen to reduce lumbar lordosis. The lumbosacral area was prepped and draped in the usual sterile fashion.ere closely monitored during the procedure. Conscious sedation was used during the procedure to decrease patients anxiety. Vital signs was monitered during the entire procedure. Using anterior-posterior fluoroscopy, the L5-S1 interlaminar space was identified and the skin over this site was marked and then infiltrated with 1% lidocaine subcutaneously. Subsequently, a 20-gauge Tuohy epidural needle was inserted and advanced toward the epidural space using the ``Loss of resistance technique and guided by AP and lateral fluoroscopy. The correct needle position in the epidural space was verified with the injection of 2 mL of the water soluble contrast dye Isovue 200 contrast and observing an excellent epidurogram with the epidural spread of the dye, after negative aspiration for blood and CSF and in the absence of paresthesias. Again after negative aspiration, a 6 ml mixture containing 40 mg of Depo-medrol , and 2 ml of preservative free Normal Saline, and 2 ml of preservative free lidocaine 1% solution was injected and a washout of epidurogram was seen. Needle was withdrawn intact, skin was cleansed, and bandages were applied. COMPLICATIONS: None DISPOSITION / PLANS: The patient was placed in a supine position and transferred to the recovery area in a stable condition for observation. There was no evidence of lower extremity motor or sensory deficit after the procedure. Patient was discharged from the recovery room after meeting discharge criteria. Home discharge instructions were given to the patient by the staff. The patient was reexamined prior to discharge. The patient will schedule a follow up in the clinic in 2-4 weeks.
--- NOTE | 2018-08-22 09:59 | FL ---
EXAMINATION TYPE: FL guided pain mgmt statistic DATE OF EXAM: 08/22/2018 HISTORY: Pain 3 SEC FL, 1 FILM
[2018-08-22 10:21] VITALS: BP 122/82; PULSE 76
== END | disposition home or self-care (01) ==
LOC: ORPAIN 08:01
PROVIDERS: ATTEND Specialist
DX: M47.26 Other spondylosis with radiculopathy, lumbar region (principal); M46.96 Unspecified inflammatory spondylopathy, lumbar region; Z88.8 Allergy status to other drugs, medicaments and biological substances
CPT/HCPCS: 62323; J2250; J1030; J3010; Q9966

== ENCOUNTER → 2018-08-31 | Outpatient (CLI) | payer OTHER ==
[2018-08-31 14:03] VITALS: BP 167/99; PULSE 82; RESP 16
--- NOTE | 2018-08-31 14:15 | P.PN ---
Subjective Progress Note Date: 08/31/18 Principal diagnosis: low back pain Diana is a 48 y/o female presenting as a follow up for low back pain. She is s /p LESI at 5/ on 08/23/18 and has had RFA earlier this year on the lumbar spine. She reports of the recent lumbar epidural steroid injection significant improved her pain. She reports her back pain is about 3 out of 10 now. She continues to have bilateral lower extremity aching in both legs. The pain is nondermatomal was not related to any back flexion or extension. She reports she see her primary care physician yesterday and she does not believe he is alert any lab work to rule out any electrolyte disturbances or mineral deficiencies. She reports she continues to take [place] as needed and denies any side effects from the medications. There is been no changes in her medical, social, surgical history since the last time with seen her. Objective - Exam General: Awake and alert oriented 3 no distress Respiratory exam: No audible wheezing no accessory muscle usage Cardiovascular exam: regular rate, palpable bilateral pulses, no lower extremity edema Abdominal exam: No distention nontender to palpation Cervical spine: Normal alignment, Spurling's negative, facet loading negative Lumbar spine: Loss of lumbar lordosis, normal alignment, tender to palpation over bilateral paraspinal muscles, facet loading is negative bilaterally. Straight leg raise is negative. Sacroiliac joints: Nontender to palpation, AUGUSTIN is negative, Gaenselon negative Neuro exam: Normal sensation in bilateral upper extremities, deep tendon reflexes are 2+ bilateral upper extremities. Normal sensation in bilateral lower extremities. Deep tendon reflexes are 2+ in lower extremities Psych exam: Cooperative, appropriate mood Assessment and Plan Assessment: #1 lumbar spondylosis without myelopathy #2 sacroiliitis #3 lumbar radiculopathy #4 lower extremity pain Plan: On today's visit I have discussed the patient she should follow up with her primary care physician in order to rule out any electrolyte or mineral deficiencies as a cause of her lower extremity pain. I will refill her medications today. They're dated 28 days apart. Maps was reviewed and is normal. Urine drug screen has been appropriate. Opioid start talking form has been in the chart. Narcotic contract also been signed in the chart. We will see the patient back in 8-10 weeks we will follow-up on her MRI that she is can have done in August
== END ==
LOC: PNWHC3 13:44
PROVIDERS: ATTEND Hospitalist
DX: M47.26 Other spondylosis with radiculopathy, lumbar region (principal); M46.1 Sacroiliitis, not elsewhere classified; M79.669 Pain in unspecified lower leg
CPT/HCPCS: 99211

== ENCOUNTER → 2018-10-26 | Outpatient (CLI) | payer OTHER ==
[2018-10-26 14:30] VITALS: BP 155/98; PULSE 86; RESP 20
--- NOTE | 2018-10-26 14:58 | P.PN ---
Subjective Progress Note Date: 10/26/18 This is 48 years old female, with a chronic history of severe low back pain, she is diagnosed with lumbar facet arthropathy without myelopathy, and sacroiliitis, we have done interventional pain management procedures , we have done lumbar epidural steroid injections , and she gets excellent pain relief, and her activity of daily livings improved significantly, she denies any motor or sensory deficit, she denies any fever or night sweats and there is no change in the bowel movements or urination, she continued to use [place] 10/325 every 8 hours, she denies any side effect of the medication, and she reported the current medication helping her to control her pain and improve quality of life and do activities of daily livings Physical Examinations : 1-Constitutiona : Cooperative , not in acute distress . 2-HEENT : nech ; supple , no Lymphadenopathy , normal thyroid size . eyes : no ptosis , no icterus , no photophobia . ENT : normal of hearing , normal oropharynx , no Thrush . 3- Respiratory : Chest clear to auscultations Bilaterally , no wheezing , no Rhonchi . 4- Cardiovascular : regular rate and rhythem , S1 , S2 , no S3 , no S4. 5- Gastrointestinal : abdomen soft no tenderness , bowel sounds , no organomegally . 6- Genitourinary : Defferred . 7- neurologic : Cranial nerve II to XII intact , no focal neurological deffecit . 8-psychatric : alert , oriented X 3 , appropriate affect , intact judgment and insight . 9-Lymphatic : no Lymphadenopathy . 10- musculoskeltal : , Lumber spine = normal moter stegnth lower extremities ,thigh and legs .5/5 bilaterally, normal sensation in the lower extremity deep tendon reflexes : normal Knee Jerk , normal ankle Jerk . lumber facet Loading Test positive on the right side only strait leg raising test also developed 60 bilaterally Fabere test positive bilaterally some tenderness over the Sacroiliac joint on the right side only Assessment and plan= chronic low back pain secondary to sacroiliitis , lumbar spondylosis with lumbar facet arthropathy . Lumbar radiculopathy Pain improved significantly( or than 50% decrease in her pain level and improving activity) after lumbar epidural steroid injections The narcotic consent was signed and patient agreed and understood the side effects and complications of opioid treatment. Patient signed the narcotic agreement, and was orally counseled, not to overuse, not to abuse, not to Divert , not tp sell pain medication, and to take it as prescribed only, Patient was counseled not to drive or operate heavy equipment while using narcotic medication, and advised not to use alcohol or any Illicit drugs while using opioids understanding that lack of compliance with any of the above instructions, will likely to cause discharge from, the pain service, not to renew his narcotic prescriptions Medication managements= patient will be given prescription refills for [place] 10/325 every 8 hours ,with one refill MAPS reviewed and it was appropriate . SIDE NOTE = patient had ovarian cyst and she will have the fluoroscopic cyst removal from her ovary in November 06, and patient will get pain medication for a few days from her gas pumper, PQRS Measure Charge Sheet Measure #130: Documentation of Current Meds in Medical Chart: Patient's medications documented in chart Measure #226: Tobacco Use: Screen & Cessation Intervention: Pt screened for tobacco use AND intervention given Measure #111: Pneumonia Vaccination: Pneumococcal vaccine NOT administered or previously given Measure #47: Advance Care Plan: Advance care planning discussed & documented, pt chose/unable to give Measure #412: Opioid Treatment Agreement: Documented signed opioid trtmnt agreemnt min once during opioid trtmnt Measure #408: Opioid Therapy Follow-up Evaluation: Patient had f/u eval minimum every 3 months during opioid therapy Measure #317: Preventitive Care & Scrn High Bld Press & F/U: Pre-hypertensive or hypertensive BP documented, pt will f/u with PCP Measure #128: Body Mass Index (BMI) Screening & Follow-up: BMI documented ABOVE normal parameters - f/u documented Measure #131: Pain Assessment & Follow-up: Follow-up scheduled Measure #431: Unhealthy Alcohol Use Preventative Care & Scrn: Patient not identified as an unhealthy alcohol user PQRS Narrative: - Controlled Substance Measures Is patient prescribed a controlled substance at discharge?: Yes When asked, does pt state using other controlled substances?: No If prescribed controlled substance>3 days was MAPS reviewed?: Yes If Rx opioid, was Start Talking consent form obtained?: Yes If opioid is for acute pain is fill amount 7 days or less?: No Was information provided regarding opioid addiction?: Yes Objective - Vital Signs Vital signs: Vital Signs Temp Pulse 86 10/26/18 14:22 Resp 20 01/31/19 14:22 BP 155/98 10/26/18 14:22 Pulse Ox 99 10/26/18 14:22 Intake & Output 10/25/18 10/26/18 10/26/18 18:59 06:59 18:59 Weight 76.204 kg
== END ==
LOC: PNWHC3 13:58
PROVIDERS: ATTEND Specialist
DX: G89.29 Other chronic pain (principal); M47.26 Other spondylosis with radiculopathy, lumbar region; M46.96 Unspecified inflammatory spondylopathy, lumbar region; M46.1 Sacroiliitis, not elsewhere classified; Z79.891 Long term (current) use of opiate analgesic
CPT/HCPCS: 99211

== ENCOUNTER → 2018-12-21 | Outpatient (CLI) | payer OTHER ==
[2018-12-21 11:01] VITALS: BP 162/102; PULSE 94; RESP 16
--- NOTE | 2018-12-21 11:12 | P.PN ---
Subjective Progress Note Date: 12/21/18 This is a 48-year-old lady with history of chronic lower back pain with radiation to the lower extremities however today she denies any pain in her legs but she complains of increasing pain in her lower back surgery on the left side of her lower back. She had multiple injection previously including lumbar spine medial branch RFA and lumbar epidural steroid injection. She usually gets very good results after these injections. She still takes Stamps 10 mg 3 times a day for her pain. Today, pt denies new-onset weakness, bowel/bladder incontinence, or any other signs or symptoms of cauda equina syndrome. There are no signs of acute intoxication, and no indications of medication diversion or overuse. In addition to above, 13-point review of systems is also negative for chest pain, shortness of breath, changes in vision, changes in hearing, new onset weakness, abdominal pain, diarrhea, extreme fatigue, malaise, fever, skin changes, homicidal or suicidal ideation, or bowel or bladder incontinence. Vital Signs: Reviewed in EMR Gen: AAOx3, NAD HEENT: PERRLA,hearing grossly normal Pulm: resp unlabored Neck: supple, trachea midline Neuro exam of the lower extremities: Areflexia, normal muscle strength bilaterally and symmetrically Straight leg raising test: Desmond's test: Range of motion of the lumbar spine: Facet loading test: Positive bilaterally Tenderness in the paravertebral musculature: Positive tenderness in the lumbar paravertebral area bilaterally more on the left side than the right side Neuro: CN II-XII grossly intact, Imaging: Reviewed in EMR/chart Assessment: Lumbar spondylosis without myelopathy Lumbar degenerative disc disease with a severe degree at L5-S1 level Opioid dependence Plan: 1. Explanation: Opioid and psychological risk scores were reviewed. Diagnoses, prognoses, and multiple treatment options including but not limited to physical therapy, interventional therapies, adjuvant medical therapies, narcotic medication therapies, and surgery were discussed with the patient and all questions were answered to the patient's satisfaction. 2. Opioid agreement: Signed with the patient and the patient is warned not to use opioids while driving or before driving and not to combine opioids with benzodiazepines or alcohol. 3. Counseling: The patient was counseled extensively on SMOKING CESSATION, BODY MASS INDEX, EXERCISE. Specifically, the patient was instructed regarding the importance of smoking cessation, obesity, and exercise in the context of both chronic pain and overall health. 4. Procedures: Schedule for left lumbar medial branch RFA for levels L3 4, L4 5, and L5-S1. 5. Consultations: None 6. Investigations: None 7. Medications: Continue Stamps 10 mg 3 times a day. 8. Disposition: Return to clinic in 8 weeks into the above-mentioned procedure as soon as possible 9. Maps were reviewed and were appropriate. PQRS measures: 1-Patient's medications are documented in the chart. 2-Tobacco use is positive, counseling given 3-Patient has not had a pneumococcal vaccine. 4-Advanced care planning discussed, patient unable to give 5-Opioid contract signed with the patient. 6-Pain positive, follow-up visit or procedure scheduled 7-Patient's blood pressure measured and documented above limits. The patient will follow up with his primary care physician. 8-Patient's weight was measured, and body mass index ABOVE the normal limits, and counseling was done. Patient instructed to follow up with PCP. 9-Patient WAS NOT identified as an unhealthy alcohol user. Controlled Substance Measures Is patient prescribed a controlled substance at discharge?: Yes When asked, does pt state using other controlled substances?: No If prescribed controlled substance>3 days was MAPS reviewed?: Yes If Rx opioid, was Start Talking consent form obtained?: Yes If opioid is for acute pain is fill amount 7 days or less?: No Was information provided regarding opioid addiction?: Yes Objective - Vital Signs Vital signs: Vital Signs Temp Pulse 94 12/21/18 10:56 Resp 16 12/21/18 10:56 BP 162/102 12/21/18 10:56 Pulse Ox 94 L 12/21/18 10:56 Intake & Output 12/20/18 12/21/18 12/21/18 18:59 06:59 18:59 Weight 79.832 kg
== END | disposition home or self-care (01) ==
LOC: PNWHC3 10:33
PROVIDERS: ATTEND Anesthesiology
DX: G89.29 Other chronic pain (principal); M51.37 Other intervertebral disc degeneration, lumbosacral region; M47.816 Spondylosis without myelopathy or radiculopathy, lumbar region; F11.20 Opioid dependence, uncomplicated; Z72.0 Tobacco use; Z71.6 Tobacco abuse counseling
CPT/HCPCS: 99211

== ENCOUNTER 2019-01-04 08:57 | Day surgery (SDC) | payer OTHER ==
[2019-01-02 14:33] VITALS: BMI 28.8
[~2019-01-04 08:57] MED LIST changes: +LACTATED RINGERS 1,000 ML IV SCH; -SODIUM CHLORIDE 0.9% 250 ML IV ONE; -SODIUM CHLORIDE 0.9% 500 ML 500 ML IV SCH
[2019-01-04] MEDS ORDERED: LIDOCAINE 1% 20 ML VIAL (10MG/ML) FOR IV START INTRADERMA ONE (09:34)
[2019-01-04 09:37] VITALS: RESP 16; TEMP 97.5
--- NOTE | 2019-01-04 10:05 | P.PCN ---
Date of Procedure: 01/04/19 Procedure(s) Performed: PREOPERATIVE DIAGNOSIS: 1-Lumbar Spondylosis with Facet Arthropathy without myelopathy. 2-sacroiliitis POSTOPERATIVE DIAGNOSIS: 1- Lumbar Spondylosis with Facet Arthropathy without myelopathy. 2-sacroiliitis PROCEDURES : Left Radiofrequency thermocoagulation, L3-L4, L4-L5, and L5-S1 medial branch, with fluoroscopic guidance ANESTHESIA: Moderate sedation with intravenous versed 2 mg and fentaneyl 150 mcg and local infiltration with lidocaine 1% 6 ml EBL: Minimal PROCEDURE INDICATION: The patient with low back pain secondary to lumbar facet arthropathy who had more than 50% relief of her pain with previous diagnostic lumbar medial branch block with bupivacaine. PROCEDURE DESCRIPTION / TECHNIQUE: The patient was seen and identified in the preoperative area. Risks, benefits, complications, including but not limited to risk of infection ,bleeding , allergic reactions to the medications and no complete pain releife , and alternatives were discussed with the patient, the patient agreed to proceed with the procedure and signed the consent. IV was started. Vital signs remained stable throughout the procedure. Patient was taken to the OR and time out was completed. The patient was placed in the prone position on the procedure table. The lumber area was prepped and draped in the usual sterile fashion. . Vital signs were closely monitored during the procedure .IV sedation was used during the procedure to decrease patients anxiety. Using AP and then oblique fluoroscopy, the ``eye of the Davis dog corresponding to the connection between the superior and transverse articular processes of left L3, L4, and L5 were identified, marked, and localized with 1% lidocaine. Subsequently, a [id number] radiofrequency cannula with a 10-mm active tip was advanced guided by fluoroscopy to each of the ``eyes of the Davis dog at left L3, L4, and L5. Each site then underwent sensory testing at 50 Hz and 0 to 1 volt and motor testing at 2.5 Hz and 0 to 3 volt with local stimulation, but no radicular symptoms down the legs.then the left L3-4, L 4-5, and L5-S1 sites underwent radiofrequency thermocoagulation at 80 degrees celsius for 90 seconds after injecting 0.5 ml of PF lidocaine 1%. then After the thermocoagulation done , 1 ml of the block solution containing Depo-Medrol 40 mg and 3 ml Ropivacain 0.5% was injected at the left L3-4 , L4-5 , and L5-S1, levels after negative aspiration of CSF and blood and with no paresthesias. Cannulas were retracted while injecting lidocaine 1% until the needle is out. At the end of the procedure, the skin was cleansed and bandages were applied. COMPLICATIONS: No acute complications. DISPOSITION / PLANS: The patient was placed in a supine position and transferred to the recovery area in a stable condition for observation and was discharged from the recovery room after meeting discharge criteria. Home discharge instructions given to the patient by the staff. The patient was reexamined prior to discharge. The patient will schedule a follow up in the clinic in 2-4 weeks.
--- NOTE | 2019-01-04 10:12 | FL ---
Fluoroscopy INDICATION: Pain FINDINGS: Fluoroscopy time: 5 seconds. Images obtained: 4. IMPRESSIONS: 1. Documentation of fluoroscopy.
[2019-01-04 10:32] VITALS: BP 121/89; PULSE 88
[2019-01-04] MEDS ORDERED: IV FLUID CONTINUATION 1,000 ML IV ONE (10:34)
== END 2019-01-04 10:35 | disposition home or self-care (01) ==
LOC: ORPAIN 08:57
PROVIDERS: ATTEND Specialist
DX: M47.816 Spondylosis without myelopathy or radiculopathy, lumbar region (principal); M46.1 Sacroiliitis, not elsewhere classified; Z88.8 Allergy status to other drugs, medicaments and biological substances
CPT/HCPCS: 64635; 64636; J2250; J1030; J3010; 99152

== ENCOUNTER 2019-01-18 07:50 | Day surgery (SDC) | payer OTHER ==
[2019-01-15 16:02] VITALS: BMI 29.3
[2019-01-18 08:41] VITALS: RESP 16; TEMP 98.9
[2019-01-18] MEDS ORDERED: LIDOCAINE 1% 20 ML VIAL (10MG/ML) FOR IV START INTRADERMA ONE (08:41)
[2019-01-18] MEDS ORDERED: LACTATED RINGERS 1,000 ML IV ONE (08:51)
--- NOTE | 2019-01-18 09:35 | P.PCN ---
Date of Procedure: 01/18/19 Procedure(s) Performed: PREOPERATIVE DIAGNOSIS: 1-Lumbar Spondylosis with Facet Arthropathy without myelopathy. 2- sacroiliitis. POSTOPERATIVE DIAGNOSIS: 1- Lumbar Spondylosis with Facet Arthropathy without myelopathy. 2-sacroiliitis. PROCEDURES : Right Radiofrequency thermocoagulation, L3-L4, L4-L5, and L5-S1 medial branch, with fluoroscopic guidance ANESTHESIA: Moderate sedation with intravenous versed 3 mg and fentaneyl 100 mcg, and local infiltration with Ropivacaine 0.5 % . EBL: Minimal PROCEDURE INDICATION: The patient with low back pain secondary to lumbar facet arthropathy who had more than 50% relief of her pain with previous diagnostic lumbar medial branch block with bupivacaine. PROCEDURE DESCRIPTION / TECHNIQUE: The patient was seen and identified in the preoperative area. Risks, benefits, complications, including but not limited to risk of infection ,bleeding , allergic reactions to the medications and no complete pain releife , and alternatives were discussed with the patient, the patient agreed to proceed with the procedure and signed the consent. IV was started. Vital signs remained stable throughout the procedure. Patient was taken to the OR and time out was completed. The patient was placed in the prone position on the procedure table. The lumber area was prepped and draped in the usual sterile fashion. . Vital signs were closely monitored during the procedure .IV sedation was used during the procedure to decrease patients anxiety. Using AP and then oblique fluoroscopy, the ``eye of the Davis dog corresponding to the connection between the superior and transverse articular processes of right L3, L4, and L5 were identified, marked, and localized with 1% lidocaine. Subsequently, a 18 -uw radiofrequency cannula with a 10- mm active tip was advanced guided by fluoroscopy to each of the``eyes of the Davis dog at right L3, L4, and L5. Each site then underwent sensory testing at 50 Hz and 0 to 1 volt and motor testing at 2.5 Hz and 0 to 3 volt with local stimulation, but no radicular symptoms down the legs. Thereafter the right L3-4, L4-5, and L5-S1 sites underwent radiofrequency thermocoagulation at 80 degrees celsius for 90 seconds after injecting 0.5 ml of PF Ropivacaine 1ml, then after the thermocoagulation done , 1 ml of the block solution containing Depo-medrol 40 mg and 3 ml of Ropivacaine 0.5% was injected at the right L3-4 , L4-5 , and L5-S1, levels after negative aspiration of CSF and blood and with no paresthesias. Cannulas were retracted while injecting lidocaine 1% until the needle is out. At the end of the procedure, the skin was cleansed and bandages were applied. COMPLICATIONS: No acute complications. DISPOSITION / PLANS: The patient was placed in a supine position and transferred to the recovery area in a stable condition for observation and was discharged from the recovery room after meeting discharge criteria. Home discharge instructions given to the patient by the staff. The patient was reexamined prior to discharge. The patient will schedule a follow up in the clinic in 2-4 weeks.
[2019-01-18] MEDS ORDERED: IV FLUID CONTINUATION 1,000 ML IV ONE (09:42)
[2019-01-18 09:56] VITALS: BP 129/69; PULSE 64
--- NOTE | 2019-01-18 10:38 | FL ---
EXAMINATION TYPE: FL guided pain mgmt statistic DATE OF EXAM: 01/18/2019 CLINICAL HISTORY: Low back pain. TECHNIQUE: Fluoroscopy. COMPARISON: None. FINDINGS: Fluoroscopic guidance was provided during pain relief procedure performed by Dr. Thomas . A total of 9 seconds of fluoroscopic time was utilized during the procedure and 3 spot images are acquired. Images acquired shows multilevel localization of the lumbar spine. IMPRESSION: As Above.
== END 2019-01-18 10:05 | disposition home or self-care (01) ==
LOC: ORPAIN 07:50
PROVIDERS: ATTEND Specialist
DX: M47.816 Spondylosis without myelopathy or radiculopathy, lumbar region (principal); M46.1 Sacroiliitis, not elsewhere classified; J45.909 Unspecified asthma, uncomplicated; I20.9 Angina pectoris, unspecified; Z91.09 Other allergy status, other than to drugs and biological substances
CPT/HCPCS: 81025; 64635; 64636 ×2; J2250; J1030; J3010; 99152

== ENCOUNTER → 2019-02-08 | Outpatient (CLI) | payer OTHER ==
[2019-02-08 11:44] VITALS: BP 143/100; PULSE 89; RESP 16
--- NOTE | 2019-02-08 12:18 | P.PN ---
Progress Note - Text Progress Note Date: 02/08/19 Patient returns for followup for chronic left hand and low back and hip pain. He status post bilateral radio frequency ablation of L3-L4, L4-L5, L5-S1. He reports relief greater than 80%. VAS in her low back is a 2 out of 10 in severity. She has some complaints of pain in her cervical spine along the midline. Denies any radiating symptoms into her extremities, any numbness or tingling. VAS in her neck is a 5-6 out of 10 in severity describes as a throbbing aching pain localized to her midline cervical spine. This intermittent, and relatively infrequent. This been ongoing for the past 2-3 days. Patient denies adverse drug effects from medications. Today, pt denies new-onset weakness, bowel/bladder incontinence, or any other signs or symptoms of cauda equina syndrome. There are no signs of acute intoxication, and no indications of medication diversion or overuse. In addition to above, 13-point review of systems is also negative for chest pain, shortness of breath, changes in vision, changes in hearing, new onset weakness, abdominal pain, diarrhea, extreme fatigue, malaise, fever, skin changes, homicidal or suicidal ideation, or bowel or bladder incontinence. Vital Signs: Reviewed in EMR Gen: WDWN, AAOx3, NAD HEENT: NCAT, EOMI, hearing grossly normal Pulm: resp unlabored Abd: soft, NT, ND Neck: supple, trachea midline ROM in flexion lumbar spine: Pain with flexion greater than 60 ROM in extension lumbar spine: Pain with extension at -10 Lumbar paravertebral tenderness: + Facet loading: + bilateral SI joint tenderness: Negative bilateral Desmond's test: Negative bilateral Straight leg raise: Negative bilateral Lower extremity: Muscle strength 5 out of 5 in quadriceps, hamstring, dorsiflexion, plantar flexion Cervical spine exam: Tenderness to palpation along cervical paraspinal musculature from C3 to C6 area flexion-extension appropriate lateral rotation appropriate bilateral. No pain with movement. No numbness and tingling in extremities or digits, 5 out of 5 muscle strength in tricep, bicep, deltoid, wrist flexors and extensors, and hand chemist. Deep tendon reflex symmetrical bilateral in tricep, brachioradialis and biceps. Negative Karen's, negative Lhermitte Sign, no gait abnormalities Neuro: CN II-XII grossly intact, muscle strength lower extremities PRESERVED Imaging: Reviewed in EMR Assessment: 1. Lumbar spondylosis without myelopathy 2. Myofascial paincervical paraspinals 3. Tobacco dependence 4. Opioid dependence Plan: 1. Explanation: Opioid and psychological risk scores were reviewed. Diagnoses, prognoses, and multiple treatment options including but not limited to physical therapy, interventional therapies, adjuvant medical therapies, narcotic medication therapies, and surgery were discussed with the patient and all questions were answered to the patient's satisfaction. 2. Opioid agreement: Patient has previously signed narcotic agreement, and was orally counseled to not overuse, abuse, divert, or cell medications, and to take them as prescribed by only 1 healthcare provider. The patient was also counseled to store opioid medications in a safe and preferably locked location. Patient was also counseled against driving or operating heavy equipment while using narcotic medications and also to not use alcohol or any illicit or recreational drugs. The patient verbalized understanding that lack of compliance with any of the above and likely result in failure to renew narcotic prescriptions, possible discharge from the clinic, and possible legal ramifications thereafter if indicated. 3. Counseling: The patient was counseled extensively on BODY MASS INDEX, EXERCISE. Specifically, the patient was instructed regarding the importance of weight control, and exercise in the context of both chronic pain and overall he alth. 4. Procedures: None at the moment, discussed cervical paraspinal trigger point injections bilaterally. We'll proceed with conservative therapy first with increasing water intake as well as magnesium oxide. I strongly advised her to undertake smoking cessation. 5. Consultations: None 6. Investigations: Maps reviewed and appropriate with patient's history. Her last UDS was in April 2018. We'll repeat in April 7. Medications: [place] 10/325 #70 tablets with one refill 8. Disposition: Follow-up in 8 weeks. Discussed cervical trigger point injections of her bilateral paraspinal muscles. I advised her to increase her water intake to over 80 ounces a day. We'll prescribe her magnesium oxide 400 mg twice a day. PQRS measures: 1-Patient's medications are documented in the chart. 2-Tobacco use is positive, counseling refused 3-Patient has not had a pneumococcal vaccine. 4-Advanced care planning discussed, patient unable to give. 5-Opioid contract signed with the patient. 6-Pain positive, follow-up visit or procedure scheduled 7-Patient's blood pressure measured and documented, and patient will follow up with the primary care due to hypertension. 8-Patient's weight was measured, and body mass index WNL 9-Patient WAS NOT identified as an unhealthy alcohol user.
== END ==
LOC: PNWHC3 11:31
PROVIDERS: ATTEND Anesthesiology
DX: M47.816 Spondylosis without myelopathy or radiculopathy, lumbar region (principal); M79.18 Myalgia, other site; F11.20 Opioid dependence, uncomplicated; F17.200 Nicotine dependence, unspecified, uncomplicated; Z79.891 Long term (current) use of opiate analgesic
CPT/HCPCS: 99211

== ENCOUNTER → 2019-04-05 | Outpatient (CLI) | payer OTHER ==
[2019-04-05 13:38] VITALS: BP 138/87; PULSE 97; RESP 16; TEMP 98.8
--- NOTE | 2019-04-06 13:13 | P.PAINPG ---
Subjective Progress Note Date: 04/05/19 Patient returns for followup for chronic low back and hip pain and medication management. At her last visit she was counseled extensively on smoking cessation and her prescription for [place] 10 was reduced from #90 to #70 stop Patient is taking medications appropriately and denies adverse drug effects from medications. She ran out of her [place] a few days ago and is upset that her prescription was reduced. Today her primary pain complaint is her low back and bilateral lower extremities left greater than right. Leg pain is described as a constant ache in her thighs however she is unable to localize as to whether this is anterior, lateral or posterior thigh pain. She did slip a few weeks ago and this seems to have aggravated her back pain. She also fell on her left knee which is causing some knee pain. Today, pt denies new-onset weakness, bowel/bladder incontinence, or any other signs or symptoms of cauda equina syndrome. There are no signs of acute intoxication, and no indications of medication diversion or overuse. In addition to above, 13-point review of systems is also negative for chest pain, shortness of breath, changes in vision, changes in hearing, new onset weakness, abdominal pain, diarrhea, extreme fatigue, malaise, fever, skin changes, homicidal or suicidal ideation, or bowel or bladder incontinence. Vital Signs: Reviewed in EMR Gen: WDWN, AAOx3, NAD HEENT: NCAT, EOMI, hearing grossly normal Pulm: resp unlabored Abd: Nondistended Psych: Normal mood and affect Neck: supple, trachea midline ROM in flexion lumbar spine: Pain with flexion greater than 60 ROM in extension lumbar spine: Pain with extension at -10 Lumbar paravertebral tenderness: + , Trigger point palpable in bilateral paraspinal musculature Facet loading: + bilateral SI joint tenderness: Negative bilateral Desmond's test: Negative bilateral Straight leg raise: Negative bilateral Lower extremity: Muscle strength 5 out of 5 in quadriceps, hamstring, dorsiflexion, plantar flexion Neuro: CN II-XII grossly intact, muscle strength lower extremities PRESERVED. No clonus. Imaging: No new imaging Assessment: 1. Lumbar spondylosis without myelopathy 2. Myofascial pain lumbar paraspinals 3. Tobacco dependence 4. Opioid dependence Plan: 1. Explanation: Opioid and psychological risk scores were reviewed. Diagnoses, prognoses, and multiple treatment options including but not limited to physical therapy, interventional therapies, adjuvant medical therapies, narcotic medication therapies, and surgery were discussed with the patient and all questions were answered to the patient's satisfaction. 2. Opioid agreement: Patient has previously signed narcotic agreement, and was orally counseled to not overuse, abuse, divert, or cell medications, and to take them as prescribed by only 1 healthcare provider. The patient was also counseled to store opioid medications in a safe and preferably locked location. Patient was also counseled against driving or operating heavy equipment while using narcotic medications and also to not use alcohol or any illicit or recreational drugs. The patient verbalized understanding that lack of compliance with any of the above and likely result in failure to renew narcotic prescriptions, possible discharge from the clinic, and possible legal ramifications thereafter if indicated. We discussed that we would not be increasing her narcotic prescription as long-term opioids are not likely to address her chronic pain completely. 3. Counseling: The patient was counseled extensively on smoking cessation, BODY MASS INDEX, EXERCISE. Specifically, the patient was instructed regarding the importance of smoking cessation, and exercise in the context of both chronic pain and overall health. 4. Procedures: Will schedule lumbar paraspinal trigger point injections bilaterally. 5. Consultations: As a cotherapy prescription given today for lumbar stretching and strengthening, core strengthening, home exercise program. The patient was counseled extensively on the importance of daily exercises as it pertains to the lumbar spine. 6. Investigations: Maps reviewed and appropriate with patient's history. Her last UDS was in April 2018. We'll repeat in April 7. Medications: [place] 10/325 #70 tablets with one refill. New prescription for Flexeril 5 mg 3 times a day when necessary given today with one refill. Patient encouraged to take this in place of narcotics 8. Disposition: Follow-up for procedure. Objective - Vital Signs Vital signs: Vital Signs Temp 98.8 F 04/05/19 13:31 Pulse 97 04/05/19 13:31 Resp 16 04/05/19 13:31 BP 138/87 04/05/19 13:31 Pulse Ox 98 04/05/19 13:31 Intake & Output 04/05/19 04/06/19 04/06/19 18:59 06:59 18:59 Weight 83.461 kg PQRS Measure Charge Sheet Measure #130: Documentation of Current Meds in Medical Chart: Patient's medications documented in chart Measure #226: Tobacco Use: Screen & Cessation Intervention: Pt screened for tobacco use AND intervention given Measure #111: Pneumonia Vaccination: Pneumococcal vaccine NOT administered or previously given Measure #47: Advance Care Plan: Advance care planning discussed & documented, pt chose/unable to give Measure #412: Opioid Treatment Agreement: Documented signed opioid trtmnt agreemnt min once during opioid trtmnt Measure #408: Opioid Therapy Follow-up Evaluation: Patient had f/u eval minimum every 3 months during opioid therapy Measure #317: Preventitive Care & Scrn High Bld Press & F/U: Normal blood pressure, f/u not required Measure #128: Body Mass Index (BMI) Screening & Follow-up: BMI documented ABOVE normal parameters - f/u documented Measure #131: Pain Assessment & Follow-up: Pain positive & plan documented, Follow-up scheduled Measure #431: Unhealthy Alcohol Use Preventative Care & Scrn: Patient not identified as an unhealthy alcohol user PQRS Narrative: Smoking Status Current every day smoker Narcotic Agreement Date Signed 04/05/19 Blood Pressure 138/87 Pain Intensity [Bilateral 7 Lower Back] Scale Used Numeric (1 - 10) Hx Alcohol Use (MH) Yes: occ Home Medications: Ambulatory Orders Albuterol Inhaler [Ventolin Hfa Inhaler] 2 puff INHALATION Q6H PRN 09/29/15 Lisinopril [Zestril] 20 mg PO QAM 01/25/18 Omeprazole [PriLOSEC] 20 mg PO AC-BRKFST 01/25/18 HYDROcodone/APAP 10-325MG [[place] 10-325] 1 tab PO Q8HR PRN 30 Days #90 tab 10/26/18 Aspirin [Adult Low Dose Aspirin EC] 81 mg PO DAILY 01/04/19 Controlled Substance Measures - Controlled Substance Measures Is patient prescribed a controlled substance at discharge?: Yes When asked, does pt state using other controlled substances?: No If prescribed controlled substance>3 days was MAPS reviewed?: Yes If Rx opioid, was Start Talking consent form obtained?: Yes If opioid is for acute pain is fill amount 7 days or less?: No Was information provided regarding opioid addiction?: Yes
== END | disposition home or self-care (01) ==
LOC: PNWHC3 12:59
PROVIDERS: ATTEND Anesthesiology
DX: G89.29 Other chronic pain (principal); M47.816 Spondylosis without myelopathy or radiculopathy, lumbar region; M79.18 Myalgia, other site; F11.20 Opioid dependence, uncomplicated; F17.200 Nicotine dependence, unspecified, uncomplicated
CPT/HCPCS: 99211

== ENCOUNTER 2019-04-17 08:28 | Day surgery (SDC) | payer OTHER ==
[2019-04-16 11:57] VITALS: BMI 29.9
[2019-04-17 09:27] VITALS: TEMP 97.6
[2019-04-17] MEDS ORDERED: IV FLUID CONTINUATION 500 ML IV ONE (10:42)
[2019-04-17 10:44] VITALS: RESP 16
[2019-04-17 11:00] VITALS: BP 138/78; PULSE 79
--- NOTE | 2019-04-17 12:19 | P.PCN ---
Date of Procedure: 04/17/19 Procedure(s) Performed: Date of procedure: 04/17/2019 Preoperative Diagnosis: myofascial pain syndrome of lumbar paraspinal muscles Postoperative diagnosis: Same Anesthesia: Local, moderate sedation with 1 mg Versed Surgeon: Rosalina Marin M.D. Estimated blood loss: 0 ml Indications for procedure: This is a 49-year-old patient with myofascial pain and palpable trigger points in bilateral lumbar paraspinal muscles. The patient consents for an injection after an explanation of risks including but not limited to bleeding and infection, benefits, and alternatives and the patient has signed a consent form indicating understanding of all of them. Description of procedure: After informed consent was obtained the patient's back was sterilely prepped in the usual fashion with ChloraPrep. #8 trigger points were identified via palpation of the bilateral lumbar paraspinal muscles and marked sterilely. Each trigger point was injected with a 25-gauge half inch needle, with 1.2 mL of ropivacaine 0.5% for total of 10 mls. The patient's vital signs were stable afterwards and the procedure was tolerated well. Patient was discharged home with follow-up instructions.
== END 2019-04-17 11:13 | disposition home or self-care (01) ==
LOC: ORPAIN 08:28
PROVIDERS: ATTEND Anesthesiology
DX: M79.18 Myalgia, other site (principal); M47.816 Spondylosis without myelopathy or radiculopathy, lumbar region; M54.5 Low back pain; M25.559 Pain in unspecified hip; G89.29 Other chronic pain; F11.20 Opioid dependence, uncomplicated; F17.210 Nicotine dependence, cigarettes, uncomplicated; Z79.899 Other long term (current) drug therapy
CPT/HCPCS: 20552; J2250

== ENCOUNTER → 2019-05-09 | Outpatient (CLI) | payer OTHER ==
--- NOTE | 2019-05-09 15:27 | P.PAINPG ---
Subjective Progress Note Date: 05/09/19 CC: Low back pain She returns from follow-up after trigger point injections. She states that she had good benefit from trigger point injections however, the relief only lasted for 5 days. Today she states that the worse pain is in her right lower back. This pain has previously improved with the lumbar RFA that she would like a lumbar RFA today. Otherwise she does not report any new symptoms. Today, pt denies new-onset weakness, bowel/bladder incontinence, or any other signs or symptoms of cauda equina syndrome. There are no signs of acute intoxication, and no indications of medication diversion or overuse. In addition to above, 13-point review of systems is also negative for chest pain, shortness of breath, changes in vision, changes in hearing, new onset weakness, abdominal pain, diarrhea, extreme fatigue, malaise, fever, skin changes, homicidal or suicidal ideation, or bowel or bladder incontinence.. Objective - Vital Signs Vital signs: Vital Signs Temp Pulse 105 H 05/09/19 12:33 Resp 18 05/09/19 12:33 BP 179/112 05/09/19 12:33 Pulse Ox 98 05/09/19 12:33 Intake & Output 05/08/19 05/09/19 05/09/19 18:59 06:59 18:59 Weight 84.368 kg - Exam Gen: WDWN, AAOx3, NAD HEENT: NCAT, EOMI, hearing grossly normal Pulm: resp unlabored Abd: soft, NT, ND Neck: supple, trachea midline ROM in flexion lumbar spine: Normal ROM in extension lumbar spine: Normal Lumbar paravertebral tenderness: She does have pain more so on the right side and left side Facet loading: Positive Neuro: muscle strength lower extremities he has full strength 5 out of 5. Assessment and Plan Plan: Assessment: 1. Lumbar facet arthropathy 2. Myofascial pain 3. Chronic opioid use Plan: 1. I have scheduled her for right lumbar RFA per her request 2. I did decrease her opiate dosage 60 tablets of [place] per month down from 70 tablets of [place] per month, she was upset about this. I asked her to take magnesium 400 mg per day for myofascial pain. 3. She'll be seen in follow-up for her procedure and a weak follow-up for medication PQRS Measure Charge Sheet PQRS Narrative: Smoking Status Current every day smoker Narcotic Agreement Date Signed 04/05/19 Blood Pressure 179/112 Pain Intensity [Right Lower 7 Back] Scale Used Numeric (1 - 10) Hx Alcohol Use (MH) Yes: occ Home Medications: Ambulatory Orders Albuterol Inhaler [Ventolin Hfa Inhaler] 2 puff INHALATION Q6H PRN 09/29/15 Lisinopril [Zestril] 20 mg PO QAM 01/25/18 Omeprazole [PriLOSEC] 20 mg PO AC-BRKFST 01/25/18 HYDROcodone/APAP 10-325MG [[place] 10-325] 1 tab PO Q8HR PRN 30 Days #90 tab 10/26/18 Aspirin [Adult Low Dose Aspirin EC] 81 mg PO DAILY 01/04/19 Controlled Substance Measures - Controlled Substance Measures Is patient prescribed a controlled substance at discharge?: Yes When asked, does pt state using other controlled substances?: No If prescribed controlled substance>3 days was MAPS reviewed?: Yes If Rx opioid, was Start Talking consent form obtained?: Yes Was information provided regarding opioid addiction?: Yes
== END ==
CPT/HCPCS: 99211

== ENCOUNTER → 2019-07-04 | Outpatient (CLI) | payer OTHER ==
[2019-07-04 13:06] VITALS: BP 142/88; PULSE 89; RESP 18
--- NOTE | 2019-07-05 14:35 | P.PAINPG ---
Subjective Progress Note Date: 07/04/19 CC: Low back pain This is a 49-year-old female patient who returns today for follow-up. She has been previously diagnosed with myofascial pain syndrome, lumbar facet arthropathy. She has been managed with a combination of pain medications and interventional procedures. At her last appointment in April, she had requested lumbar radiofrequency ablation, however has not yet undergone the procedure. It is scheduled for later this month. She returns today for follow-up. Otherwise she does not report any new symptoms. Over the last few visits, we have weaned her [place] 10/325 from 90 tablets to 60 tablets. Of note, she has been recently diagnosed with type 2 diabetes. She has had a significant amount of diarrhea since being on metformin and was recently switched to pioglitazone. Today, pt denies new-onset weakness, bowel/bladder incontinence, or any other signs or symptoms of cauda equina syndrome. There are no signs of acute intoxication, and no indications of medication diversion or overuse. In addition to above, 13-point review of systems is also negative for chest pain, shortness of breath, changes in vision, changes in hearing, new onset weakness, abdominal pain, diarrhea, extreme fatigue, malaise, fever, skin changes, homicidal or suicidal ideation, or bowel or bladder incontinence.. Objective Vitals: Reviewed in EMR HEENT: NCAT, EOMI, hearing grossly normal Pulm: resp unlabored Abd: Nondistended Neck: supple, trachea midline ROM in flexion lumbar spine: Normal ROM in extension lumbar spine: Normal Lumbar paravertebral tenderness: She does have pain more so on the right side and left side Facet loading: Positive Neuro: muscle strength lower extremities she has full strength 5 out of 5. Assessment and Plan Plan: Assessment: 1. Lumbar facet arthropathy 2. Myofascial pain 3. Chronic opioid use Plan: 1. Right lumbar RFA is scheduled for later this month 2. At her last visit, her opiate dosage was reduced from 70 tablets to 60 tablets of [place] per month. I informed her that this time, given that she will undergo procedure, we will not reduce her opioids. However, at next visit the plan will be to reduce to 50 tablets. She is amenable to this. 3. We had a lengthy discussion regarding the importance of weight loss and smoking cessation. I spent 3 minutes on discussion of smoking cessation, as it pertains to chronic pain states and overall well-being. I encouraged her to quit smoking and begin exercising. 4. Follow-up: for procedure and in 8 weeks for medication management PQRS Measure Charge Sheet Measure #130: Documentation of Current Meds in Medical Chart: Patient's medications documented in chart Measure #226: Tobacco Use: Screen & Cessation Intervention: Pt screened for tobacco use AND intervention given Measure #111: Pneumonia Vaccination: Pneumococcal vaccine NOT administered or previously given Measure #47: Advance Care Plan: Advance care planning discussed & documented, pt chose/unable to give Measure #412: Opioid Treatment Agreement: Documented signed opioid trtmnt agreemnt min once during opioid trtmnt Measure #408: Opioid Therapy Follow-up Evaluation: Patient had f/u eval minimum every 3 months during opioid therapy Measure #317: Preventitive Care & Scrn High Bld Press & F/U: Pre-hypertensive or hypertensive BP documented, pt will f/u with PCP Measure #128: Body Mass Index (BMI) Screening & Follow-up: BMI documented ABOVE normal parameters - f/u documented Measure #131: Pain Assessment & Follow-up: Pain positive & plan documented, Follow-up scheduled Measure #431: Unhealthy Alcohol Use Preventative Care & Scrn: Patient not i dentified as an unhealthy alcohol user PQRS Narrative: Smoking Status Current every day smoker Narcotic Agreement Date Signed 04/05/19 Hx Alcohol Use (MH) Yes: occ Home Medications: Ambulatory Orders Albuterol Inhaler [Ventolin Hfa Inhaler] 2 puff INHALATION Q6H PRN 09/29/15 Lisinopril [Zestril] 20 mg PO QAM 01/25/18 Omeprazole [PriLOSEC] 20 mg PO AC-BRKFST PRN 01/25/18 HYDROcodone/APAP 10-325MG [[place] 10-325] 1 tab PO Q8HR PRN 30 Days #90 tab 10/26/18 Cyclobenzaprine [Flexeril] 5 mg PO BID PRN 06/28/19 Pioglitazone [Actos] 15 mg PO DAILY 06/28/19 Loratadine [Claritin] 10 mg PO DIRECTED PRN 07/04/19 amLODIPine [Norvasc] 5 mg PO DAILY 07/04/19 Controlled Substance Measures - Controlled Substance Measures Is patient prescribed a controlled substance at discharge?: Yes When asked, does pt state using other controlled substances?: No If prescribed controlled substance>3 days was MAPS reviewed?: Yes If Rx opioid, was Start Talking consent form obtained?: Yes If opioid is for acute pain is fill amount 7 days or less?: No Was information provided regarding opioid addiction?: Yes
== END | disposition home or self-care (01) ==
LOC: PNWHC3 12:47
PROVIDERS: ATTEND Anesthesiology
DX: M46.96 Unspecified inflammatory spondylopathy, lumbar region (principal); M79.18 Myalgia, other site; F11.90 Opioid use, unspecified, uncomplicated; F17.200 Nicotine dependence, unspecified, uncomplicated; Z79.84 Long term (current) use of oral hypoglycemic drugs
CPT/HCPCS: 99211

== ENCOUNTER 2019-07-23 07:52 | Day surgery (SDC) | payer OTHER ==
[2019-07-19 11:29] VITALS: BMI 29.9
[2019-07-23 08:17] VITALS: TEMP 97.3
[2019-07-23 08:18] LABS: Glucose,Whole Blood 156 mg/dL (75-99)
[2019-07-23] MEDS ORDERED: LIDOCAINE 1% 20 ML VIAL (10MG/ML) FOR IV START INTRADERMA ONE (08:18)
[2019-07-23] MEDS ORDERED: IV FLUID CONTINUATION 1,000 ML IV ONE ×2 (09:17)
--- NOTE | 2019-07-23 09:19 | P.PCN ---
Date of Procedure: 07/23/19 Procedure(s) Performed: PREOPERATIVE DIAGNOSIS: 1-Lumbar Spondylosis with Facet Arthropathy without myelopathy. 2- sacroiliitis. POSTOPERATIVE DIAGNOSIS: 1- Lumbar Spondylosis with Facet Arthropathy without myelopathy. 2-sacroiliitis. PROCEDURES : Right Radiofrequency thermocoagulation, L3 , L4 , and L5 medial branch, with fluoroscopic guidance (fluoroscopy images available in the Radiology Department ) ANESTHESIA: Moderate sedation with intravenous versed 4 mg and fentaneyl 100 mcg, and local infiltration with Ropivacaine 0.5 % . EBL: Minimal PROCEDURE INDICATION: The patient with low back pain secondary to lumbar facet arthropathy who had more than 50% relief of her pain with previous diagnostic lumbar medial branch block with bupivacaine. PROCEDURE DESCRIPTION / TECHNIQUE: The patient was seen and identified in the preoperative area. Risks, benefits, complications, including but not limited to risk of infection ,bleeding , allergic reactions to the medications and no complete pain releife , and alternatives were discussed with the patient, the patient agreed to proceed with the procedure and signed the consent. IV was started. Vital signs remained stable throughout the procedure. Patient was taken to the OR and time out was completed. The patient was placed in the prone position on the procedure table. The lumber area was prepped and draped in the usual sterile fashion. . Vital signs were closely monitored during the procedure .IV sedation was used during the procedure to decrease patients anxiety. Using AP and then oblique fluoroscopy, the ``eye of the Davis dog corresponding to the connection between the superior and transverse articular processes of right L3, L4, and L5 were identified, marked, and localized with 1% lidocaine. Subsequently, a [id number] radiofrequency cannula with a 10- mm active tip was advanced guided by fluoroscopy to each of the``eyes of the Davis dog at right L3, L4, and L5. Each site then underwent sensory testing at 50 Hz and 0 to 1 volt and motor testing at 2.5 Hz and 0 to 3 volt with local stimulation, but no radicular symptoms down the legs. Thereafter the right L3 , L4 , and L5 sites underwent radiofrequency thermocoagulation at 80 degrees celsius for 90 seconds after injecting 0.5 ml of PF Ropivacaine 1ml, then after the thermocoagulation done , 1 ml of the block solution containing Depo-medrol 40 mg and 3 ml of Ropivacaine 0.5% was injected at the right L3 , L4, and L5, levels after negative aspiration of CSF and blood and with no paresthesias. Cannulas were retracted while injecting lidocaine 1% until the needle is out. At the end of the procedure, the skin was cleansed and bandages were applied. COMPLICATIONS: No acute complications. DISPOSITION / PLANS: The patient was placed in a supine position and transferred to the recovery area in a stable condition for observation and was discharged from the recovery room after meeting discharge criteria. Home discharge instructions given to the patient by the staff. The patient was reexamined prior to discharge. The patient will schedule a follow up in the clinic in 2-4 weeks.
[2019-07-23 09:23] VITALS: RESP 18
--- NOTE | 2019-07-23 09:27 | FL ---
Fluoroscopy INDICATION: Pain FINDINGS: Fluoroscopy time: 8 seconds. Images obtained: 4. IMPRESSIONS: 1. Documentation of fluoroscopy.
[2019-07-23 09:36] VITALS: BP 109/72; PULSE 79
== END 2019-07-23 09:50 | disposition home or self-care (01) ==
LOC: ORPAIN 07:52
PROVIDERS: ATTEND Specialist
DX: M47.816 Spondylosis without myelopathy or radiculopathy, lumbar region (principal); M46.1 Sacroiliitis, not elsewhere classified; E11.9 Type 2 diabetes mellitus without complications
CPT/HCPCS: 64635; 64636; J2250; J1030; J3010; 99152

== ENCOUNTER → 2019-08-29 | Outpatient (CLI) | payer OTHER ==
[2019-08-29 12:48] VITALS: BP 133/82; PULSE 90; RESP 16
--- NOTE | 2019-08-29 13:31 | P.PAINPG ---
Subjective Progress Note Date: 08/29/19 This is Follow up Visit for this 49 years old female, with a chronic history of severe low back pain, he is diagnosed with lumbar facet arthropathy without myelopathy, and sacroiliitis, her pain management pain interventional pain management procedures and medication management ,she denies any motor or sensory deficit, she denies any fever or night sweats and there is no change in the bowel movements or urination, she continued to use [place] 10/325 every 8 hours, she denies any side effect of the medication, and she reported the current medication helping her to control her pain and improve quality of life and do activities of daily livings, recently we have done [place] the median branch lumbar area on the right side and we are waiting for insurance approval to do the RFA on the left side, she is currently getting 60 tablets of [place] 10/325 and the plan was to decrease it to 50 tablets this visit, but patient reported that her pain level increased significantly over the last few weeks, and hopefully we can decrease the quantity of the [place] to 50 Visit by that time hopefully we will be able to do the RFA of the medial branch on the left side Objective - Vital Signs Vital signs: Vital Signs Temp Pulse 90 08/29/19 12:42 Resp 16 08/29/19 12:42 BP 133/82 08/29/19 12:42 Pulse Ox 98 08/29/19 12:42 - Exam Physical Examinations : -Constitutiona : Cooperative , not in acute distress . -HEENT : nech : supple , no Lymphadenopathy , normal thyroid size . : eyes : no ptosis , no icterus, no photophobia . - neurologic : Cranial nerve II to XII intact , no focal neurological deffecit . -psychatric : alert , oriented X 3 , appropriate affect , intact judgment and insight . -Lymphatic : no Lymphadenopathy . - musculoskeltal : Lumber spine moter stegnth lower extremities ,thigh and legs 5/5 Right side , 5/5 Left side deep tendon reflexes : normal Knee Jerk , normal ankle Jerk lumber facet Loading Test = positive Left Assessment and Plan Plan: Assessment and plan= chronic low back pain secondary to lumbar degenerative disc disease , lumbar spondylosis with lumbar facet arthropathy, sacroiliitis . chronic and current use of high-risk medication (opioids) Patient denies any side effects of the current pain medication and the current treatment/medication helping the patient to do activity of daily living , Diagnoses, prognosis, treatment options, including but not limited to physical therapy, medication management, interventional therapies, and surgery, were discussed with the patient All the questions answered The narcotic consent was signed and patient agreed and understood the side effects and complications of opioid treatment. Patient signed the narcotic agreement, and was orally counseled, not to overuse, not to abuse, not to Divert , not tp sell pain medication, and to take it as prescribed only, Patient was counseled not to drive or operate heavy equipment while using narcotic medication, and advised not to use alcohol or any Illicit drugs while using the narcotis. understanding that lack of compliance with any of the above instructions, will likely to cause discharge from, the pain service, not to renew his narcotic prescriptions MAPS Reviwed and it was apropriate . Medication managements= patient will be given prescription refills for [place] 10/325 every 8 hours dispense 60 with 1 refill Interventions= patient will be scheduled for RFA of the medial branch lumbar area left side L3, L4, L5 , Time with Patient: Less than 30 PQRS Measure Charge Sheet Measure #130: Documentation of Current Meds in Medical Chart: Patient's medications documented in chart Measure #226: Tobacco Use: Screen & Cessation Intervention: Pt screened for tobacco use AND intervention given Measure #111: Pneumonia Vaccination: Pneumococcal vaccine NOT administered or previously given Measure #47: Advance Care Plan: Advance care planning discussed & documented, pt chose/unable to give Measure #412: Opioid Treatment Agreement: Documented signed opioid trtmnt agreemnt min once during opioid trtmnt Measure #408: Opioid Therapy Follow-up Evaluation: Patient had f/u eval minimum every 3 months during opioid therapy Measure #317: Preventitive Care & Scrn High Bld Press & F/U: Normal blood pressure, f/u not required Measure #128: Body Mass Index (BMI) Screening & Follow-up: BMI documented ABOVE normal parameters - f/u documented Measure #131: Pain Assessment & Follow-up: Pain positive & plan documented, Follow-up scheduled Measure #431: Unhealthy Alcohol Use Preventative Care & Scrn: Patient not identified as an unhealthy alcohol user PQRS Narrative: Smoking Status Current every day smoker Narcotic Agreement Date Signed 04/05/19 Blood Pressure 133/82 Pain Intensity [Lower Back] 8 Scale Used Numeric (1 - 10) Hx Alcohol Use (MH) Yes: occ Home Medications: Ambulatory Orders Albuterol Inhaler [Ventolin Hfa Inhaler] 2 puff INHALATION Q6H PRN 09/29/15 Lisinopril [Zestril] 20 mg PO QAM 01/25/18 Omeprazole [PriLOSEC] 20 mg PO AC-BRKFST PRN 01/25/18 Pioglitazone [Actos] 15 mg PO BID 06/28/19 Loratadine [Claritin] 10 mg PO DIRECTED PRN 07/04/19 amLODIPine [Norvasc] 5 mg PO DAILY 07/04/19 Cyclobenzaprine [Flexeril] 5 mg PO BID PRN #60 tab 08/29/19 HYDROcodone/APAP 10-325MG [[place] 10-325] 1 tab PO Q8HR PRN 30 Days #60 tab 08/29/19 HYDROcodone/APAP 10-325MG [[place] 10-325] 1 tab PO Q8HR PRN 30 Days #60 tab 08/29/19 Controlled Substance Measures - Controlled Substance Measures Is patient prescribed a controlled substance at discharge?: Yes When asked, does pt state using other controlled substances?: No If prescribed controlled substance>3 days was MAPS reviewed?: Yes If Rx opioid, was Start Talking consent form obtained?: Yes If opioid is for acute pain is fill amount 7 days or less?: No Was information provided regarding opioid addiction?: Yes
== END ==
LOC: PNWHC3 12:30
PROVIDERS: ATTEND Specialist
DX: G89.29 Other chronic pain (principal); M51.36 Other intervertebral disc degeneration, lumbar region; M47.816 Spondylosis without myelopathy or radiculopathy, lumbar region; M46.96 Unspecified inflammatory spondylopathy, lumbar region; M46.1 Sacroiliitis, not elsewhere classified; F17.200 Nicotine dependence, unspecified, uncomplicated; Z79.899 Other long term (current) drug therapy; Z79.891 Long term (current) use of opiate analgesic
CPT/HCPCS: 99211

== ENCOUNTER 2019-10-03 09:07 | Day surgery (SDC) | payer OTHER ==
[2019-09-28 14:35] VITALS: BMI 29.7
[~2019-10-03 09:07] MED LIST changes: +BUPIVACAINE (PF) 0.5% 30 ML VIAL ONE; +MIDAZOLAM 2 MG/2 ML VIAL ONE; +fentaNYL (PF) 50 MCG/ML 2 ML AMP ONE; +methylPREDNISolone ACETATE 40 MG/ML 1 ML VIAL ONE
[2019-10-03 09:32] VITALS: TEMP 98.6
[2019-10-03] MEDS ORDERED: LIDOCAINE 1% 20 ML VIAL (10MG/ML) FOR IV START INTRADERMA ONE (09:35)
[2019-10-03 09:42] LABS: Glucose,Whole Blood 123 mg/dL (75-99)
--- NOTE | 2019-10-03 10:27 | P.PCN ---
Date of Procedure: 10/03/19 Procedure(s) Performed: PREOPERATIVE DIAGNOSIS: 1-Lumbar Spondylosis with Facet Arthropathy without myelopathy. 2- sacroiliitis. POSTOPERATIVE DIAGNOSIS: 1- Lumbar Spondylosis with Facet Arthropathy without myelopathy. 2-sacroiliitis. PROCEDURES : Left Radiofrequency thermocoagulation, L3 , L4 , and L5 medial branch, with fluoroscopic guidance (fluoroscopy images available in the Radiology Department ) ANESTHESIA: Moderate sedation with intravenous versed 3 mg and fentaneyl 100 mcg, and local infiltration with Ropivacaine 0.5 % . EBL: Minimal PROCEDURE INDICATION: The patient with low back pain secondary to lumbar facet arthropathy who had more than 50% relief of her pain with previous diagnostic lumbar medial branch block with bupivacaine. PROCEDURE DESCRIPTION / TECHNIQUE: The patient was seen and identified in the preoperative area. Risks, benefits, complications, including but not limited to risk of infection ,bleeding , allergic reactions to the medications and no complete pain releife , and alternatives were discussed with the patient, the patient agreed to proceed with the procedure and signed the consent. IV was started. Vital signs remained stable throughout the procedure. Patient was taken to the OR and time out was completed. The patient was placed in the prone position on the procedure table. The lumber area was prepped and draped in the usual sterile fashion. . Vital signs were closely monitored during the procedure .IV sedation was used during the procedure to decrease patients anxiety. Using AP and then oblique fluoroscopy, the ``eye of the Davis dog corresponding to the connection between the superior and transverse articular processes of Left L3, L4, and L5 were identified, marked, and localized with 1% lidocaine. Subsequently, a 18 [id number] radiofrequency cannula with a 10-mm active tip was advanced guided by fluoroscopy to each of the``eyes of the Davis dog at Left L3, L4, and L5. Each site then underwent sensory testing at 50 Hz and 0 to 1 volt and motor testing at 2.5 Hz and 0 to 3 volt with local stimulation, but no radicular symptoms down the legs. Thereafter the Left L3 , L4 , and L5 sites underwent radiofrequency thermocoagulation at 80 degrees celsius for 90 seconds after injecting 0.5 ml of PF Ropivacaine 1ml, then after the thermocoagulation done , 1 ml of the block solution containing Depo-medrol 40 mg and 3 ml of Ropivacaine 0.5% was injected at the Left L3 , L4, and L5, levels after negative aspiration of CSF and blood and with no paresthesias. Cannulas were retracted while injecting lidocaine 1% until the needle is out. At the end of the procedure, the skin was cleansed and bandages were applied. COMPLICATIONS: No acute complications. DISPOSITION / PLANS: The patient was placed in a supine position and transferred to the recovery area in a stable condition for observation and was discharged from the recovery room after meeting discharge criteria. Home discharge instructions given to the patient by the staff. The patient was reexamined prior to discharge. The patient will schedule a follow up in the clinic in 2-4 weeks.
[2019-10-03] MEDS ORDERED: LACTATED RINGERS 1,000 ML IV ONE ×2 (10:33)
[2019-10-03 10:39] VITALS: BP 94/76; PULSE 72; RESP 16
[2019-10-03] MEDS ORDERED: IV FLUID CONTINUATION 1,000 ML IV ONE (10:55)
--- NOTE | 2019-10-03 20:04 | FL ---
EXAMINATION TYPE: FL guided pain mgmt statistic DATE OF EXAM: 10/03/2019 FLUOROSCOPY Fluoroscopy time of 6 seconds was used during left lumbar radiofrequency ablation. 3 image/s documen t/s the procedure.
== END 2019-10-03 11:03 | disposition home or self-care (01) ==
LOC: ORPAIN 09:07
PROVIDERS: ATTEND Specialist
DX: M47.816 Spondylosis without myelopathy or radiculopathy, lumbar region (principal); M46.1 Sacroiliitis, not elsewhere classified; Z88.1 Allergy status to other antibiotic agents; Z88.2 Allergy status to sulfonamides; Z88.8 Allergy status to other drugs, medicaments and biological substances; Z90.710 Acquired absence of both cervix and uterus
CPT/HCPCS: 64635; 64636; J2250; J1030; J3010; 99152

== ENCOUNTER → 2019-10-22 | Outpatient (CLI) | payer OTHER ==
[2019-10-22 13:03] VITALS: BP 112/78; PULSE 87; RESP 18
--- NOTE | 2019-10-22 13:21 | P.PAINPG ---
Subjective Progress Note Date: 10/22/19 This is Follow up Visit for this 49 years old female, with a chronic history of severe low back pain, he is diagnosed with lumbar facet arthropathy without myelopathy, and sacroiliitis, her pain management pain interventional pain management procedures and medication management ,she denies any motor or sensory deficit, she denies any fever or night sweats and there is no change in the bowel movements or urination, she continued to use [place] 10/325 every 8 hours, Flexeril 5 mg when necessary ,she denies any side effect of the medication, and she reported the current medication helping her to control her pain and improve quality of life and do activities of daily livings, recently we have done an RFA of the medial branch lumbar area, this improved her pain level and improve her quality of life. Objective - Vital Signs Vital signs: Vital Signs Temp Pulse 87 10/22/19 12:58 Resp 18 10/22/19 12:58 BP 112/78 10/22/19 12:58 Pulse Ox 97 10/22/19 12:58 - Exam Physical Examinations : -Constitutiona : Cooperative , not in acute distress . -HEENT : nech : supple , no Lymphadenopathy , normal thyroid size . : eyes : no ptosis , no icterus, no photophobia . - neurologic : Cranial nerve II to XII intact , no focal neurological deffecit . -psychatric : alert , oriented X 3 , appropriate affect , intact judgment and insight . -Lymphatic : no Lymphadenopathy . - musculoskeltal : . Lumber spine moter stegnth lower extremities ,thigh and legs 5/5 Right side , 5/5 Left side Assessment and Plan Assessment: Assessment and plan= chronic low back pain secondary to lumbar degenerative disc disease , lumbar spondylosis with lumbar facet arthropathy, and sacroiliitis chronic and current use of high-risk medication (opioids) Patient denies any side effects of the current pain medication and the current treatment/medication helping the patient to do activity of daily living , Diagnoses, prognosis, treatment options, including but not limited to physical therapy, medication management, interventional therapies, and surgery, were discussed with the patient All the questions answered The narcotic consent was signed and patient agreed and understood the side effects and complications of opioid treatment. Patient signed the narcotic agreement, and was orally counseled, not to overuse, not to abuse, not to Divert , not tp sell pain medication, and to take it as prescribed only, Patient was counseled not to drive or operate heavy equipment while using narcotic medication, and advised not to use alcohol or any Illicit drugs while using the narcotis. understanding that lack of compliance with any of the above instructions, will likely to cause discharge from, the pain service, not to renew his narcotic prescriptions MAPS Reviwed and it was apropriate . Medication managements= patient will be given prescription refills for [place] 10/325 every 12 hours when necessary dispense 60 with 1 refill, Flexeril 5 mg daily dispense 30 with one refill , Time with Patient: Less than 30 PQRS Measure Charge Sheet Measure #130: Documentation of Current Meds in Medical Chart: Patient's medications documented in chart Measure #226: Tobacco Use: Screen & Cessation Intervention: Pt screened for tobacco use AND intervention given Measure #111: Pneumonia Vaccination: Pneumococcal vaccine administered or previo usly received Measure #47: Advance Care Plan: Advance care planning discussed & documented, pt chose/unable to give Measure #412: Opioid Treatment Agreement: Documented signed opioid trtmnt agreemnt min once during opioid trtmnt Measure #408: Opioid Therapy Follow-up Evaluation: Patient had f/u eval minimum every 3 months during opioid therapy Measure #317: Preventitive Care & Scrn High Bld Press & F/U: Normal blood pressure, f/u not required Measure #128: Body Mass Index (BMI) Screening & Follow-up: BMI documented ABOVE normal parameters - f/u documented Measure #131: Pain Assessment & Follow-up: Pain positive & plan documented, Follow-up scheduled Measure #431: Unhealthy Alcohol Use Preventative Care & Scrn: Patient not identified as an unhealthy alcohol user PQRS Narrative: Smoking Status Current every day smoker Narcotic Agreement Date Signed 04/05/19 Blood Pressure 112/78 Pain Intensity [Back] 6 Scale Used Numeric (1 - 10) Hx Alcohol Use (MH) Yes: occ Home Medications: Ambulatory Orders Albuterol Inhaler [Ventolin Hfa Inhaler] 2 puff INHALATION Q6H PRN 09/29/15 Lisinopril [Zestril] 20 mg PO QAM 01/25/18 Pioglitazone [Actos] 15 mg PO BID 06/28/19 Loratadine [Claritin] 10 mg PO DIRECTED PRN 07/04/19 amLODIPine [Norvasc] 5 mg PO DAILY 07/04/19 Cyclobenzaprine [Flexeril] 5 mg PO BID PRN #60 tab 08/29/19 HYDROcodone/APAP 10-325MG [[place] 10-325] 1 tab PO Q8HR PRN 30 Days #60 tab 08/29/19 HYDROcodone/APAP 10-325MG [[place] 10-325] 1 tab PO Q8HR PRN 30 Days #60 tab Controlled Substance Measures - Controlled Substance Measures Is patient prescribed a controlled substance at discharge?: Yes When asked, does pt state using other controlled substances?: No If prescribed controlled substance>3 days was MAPS reviewed?: Yes If Rx opioid, was Start Talking consent form obtained?: Yes If opioid is for acute pain is fill amount 7 days or less?: No Was information provided regarding opioid addiction?: Yes
== END | disposition home or self-care (01) ==
LOC: PNWHC3 12:42
PROVIDERS: ATTEND Specialist
DX: G89.29 Other chronic pain (principal); M51.36 Other intervertebral disc degeneration, lumbar region; M47.816 Spondylosis without myelopathy or radiculopathy, lumbar region; M46.96 Unspecified inflammatory spondylopathy, lumbar region; M46.1 Sacroiliitis, not elsewhere classified; F17.200 Nicotine dependence, unspecified, uncomplicated; Z79.899 Other long term (current) drug therapy
CPT/HCPCS: 99211

== ENCOUNTER → 2020-02-20 | Outpatient (CLI) | payer OTHER ==
--- NOTE | 2020-02-20 13:27 | P.PAINPG ---
Subjective Progress Note Date: 02/20/20 THIS ENCOUNTER WAS PERFORMED A TELEMEDICINE VISIT VIA SECURE TWO-WAY AUDIO TO MINIMIZE RISK AND TRANSMISSION OF COVID-19. This is a Follow up Visit for this 49 years old female, with a chronic history of severe low back pain, she is diagnosed with lumbar facet arthropathy without myelopathy, and sacroiliitis Today, pain located in bilateral low back, occasionally radiating to left lower extremity- buttock, posterior thigh, occasional numbness, denies weakness. Pain rated 8/10, described as sharp stabbing, worse with standing, sitting; better with medications. her pain has been managed with a combination of interventional pain management procedures and medication management ,most recently she underwent lumbar radiofrequency ablation, last done in September 2019. She obtained son benefit from this, lasting 6 months. she continues to use [place] 10/325 every 12 hours, Flexeril 5 mg when necessary ,she denies any side effect of the medication, and she reported the current medication helping her to control her pain and improve quality of life and do activities of daily livings Review of systems is negative for chest pain, shortness of breath, changes in vision, changes in hearing, new onset weakness, abdominal pain, diarrhea, extreme fatigue, malaise, fever, skin changes, homicidal or suicidal ideation, or bowel or bladder incontinence. Objective Physical exam is unable to be performed due to audio only telemetry visit Assessment and Plan Assessment: Assessment and plan= chronic low back pain secondary to lumbar degenerative disc disease , lumbar spondylosis with lumbar facet arthropathy, and sacroiliitis chronic and current use of high-risk medication (opioids) Patient denies any side effects of the current pain medication and the current treatment/medication helping the patient to do activity of daily living , The narcotic consent was signed and is on file MAPS Reviewed and it was appropriate . Medication managements= patient will be given prescription refills for [place] 10/325 every 12 hours when necessary dispense 60 with 1 refill, Flexeril 5 mg daily dispense 60 with one refillthis was increased from 30 tablets per month Procedures: Patient will benefit from repeat lumbar radiofrequency ablation to L3, L4, L5 medial branches for facets L4-5 and L5-S1, left side first follow-up: For above-mentioned procedure and in 2 months for medication management PQRS Measure Charge Sheet PQRS Narrative: Smoking Status Current every day smoker Narcotic Agreement Date Signed 04/05/19 Hx Alcohol Use (MH) Yes: occ Home Medications: Ambulatory Orders Albuterol Inhaler (Mhu) [Ventolin Hfa Inhaler] 2 puff INHALATION Q6H PRN 09/29/15 Lisinopril [Zestril] 20 mg PO QAM 01/25/18 Pioglitazone [Actos] 15 mg PO BID 06/28/19 Loratadine [Claritin] 10 mg PO DIRECTED PRN 07/04/19 amLODIPine [Norvasc] 5 mg PO DAILY 07/04/19 HYDROcodone/APAP 10-325MG [[place] 10-325] 1 tab PO Q8HR PRN 30 Days #60 tab 08/29/19 Cyclobenzaprine [Flexeril] 5 mg PO BID PRN #60 tab 12/17/19 HYDROcodone/APAP 10-325MG [[place] 10-325] 1 tab PO Q8HR PRN 30 Days #60 tab 12/17/19 Cyclobenzaprine [Flexeril] 5 mg PO BID PRN #60 tab 12/31/19 HYDROcodone/APAP 10-325MG [[place] 10-325] 1 tab PO Q6HR PRN 30 Days #60 tab 12/31/19 Controlled Substance Measures - Controlled Substance Measures Is patient prescribed a controlled substance at discharge?: Yes When asked, does pt state using other controlled substances?: No If prescribed controlled substance>3 days was MAPS reviewed?: Yes If Rx opioid, was Start Talking consent form obtained?: Yes If opioid is for acute pain is fill amount 7 days or less?: No Was information provided regarding opioid addiction?: Yes
== END | disposition home or self-care (01) ==
LOC: PNWHC3 07:16
PROVIDERS: ATTEND Anesthesiology
DX: Z53.9 Procedure and treatment not carried out, unspecified reason (principal)

== ENCOUNTER 2020-03-13 08:52 | Day surgery (SDC) | payer OTHER ==
[2020-03-12 10:29] VITALS: BMI 30.2
[~2020-03-13 08:52] MED LIST changes: -BUPIVACAINE (PF) 0.5% 30 ML VIAL ONE; -MIDAZOLAM 2 MG/2 ML VIAL ONE; -fentaNYL (PF) 50 MCG/ML 2 ML AMP ONE; -methylPREDNISolone ACETATE 40 MG/ML 1 ML VIAL ONE
[2020-03-13] MEDS ORDERED: LACTATED RINGERS 1,000 ML IV ONE (09:41)
[2020-03-13] MEDS ORDERED: LIDOCAINE 1% (10MG/ML) FOR IV START INTRADERMA ONE (09:51)
[2020-03-13 09:54] LABS: Glucose,Whole Blood 143 mg/dL (75-99)
[2020-03-13 09:56] VITALS: TEMP 97.3
[2020-03-13] MEDS ORDERED: MIDAZOLAM 2 MG/2 ML VIAL ONE (10:21)
[2020-03-13] MEDS ORDERED: LIDOCAINE 4% (PF) 5 ML AMP ONE (10:21)
[2020-03-13] MEDS ORDERED: fentaNYL (PF) 50 MCG/ML 2 ML AMP ONE (10:21)
--- NOTE | 2020-03-13 10:48 | P.PCN ---
Date of Procedure: 03/13/20 Procedure(s) Performed: PREOPERATIVE DIAGNOSIS: Lumbar Spondylosis POSTOPERATIVE DIAGNOSIS: Same PROCEDURES: Radiofrequency ablation of the L3, L4, L5 medial branches with fluoroscopic guidance on the left side SURGEON: Rosalina Marin MD. ANESTHESIA: Lidocaine 1% 5 mL, Moderate sedation with intravenous Versed and fentanyl, sedation time 19 minutes EBL: Minimal Fluoroscopy was used for the procedure and images were saved in the radiology portion of the chart. PROCEDURE INDICATION: The patient with low back pain secondary to lumbar facet arthropathy who had more than 50% relief of pain with previous diagnostic lumbar medial branch block X2. PROCEDURE DESCRIPTION / TECHNIQUE: The patient was seen and identified in the preoperative area. Risks, benefits, complications, including but not limited to risk of infection ,bleeding , allergic reactions to the medications and incomplete pain relief , and alternatives were discussed with the patient, the patient agreed to proceed with the procedure and signed the consent. IV was started. The operative site was marked. Patient was taken to the OR and time out was completed. The patient was placed in the prone position on the procedure table. The lumbar area was prepped and draped in the usual sterile fashion. . Vital signs were closely monitored during the procedure .IV sedation was used during the procedure to decrease patients anxiety. Using AP and then oblique fluoroscopy, the "eye of the Davis dog" corresponding to the connection between the superior and transverse articular processes of the L4 and L5 as well as the sacral ala were identified, marked, and localized with 1% lidocaine. Subsequently, an 18 guage 100 mL radiofrequency cannula with a 10-mm active tip was advanced guided by fluoroscopy to the identified target at each site. Needle positioning was confirmed on AP, oblique and lateral fluoroscopy. Motor testing at 2.5 Hz was done with paraspinal muscle stimulation only, and no radicular symptoms down the legs. Then 1 mL of 4% lidocaine was injected in each site. Radiofrequency thermocoagulation at 80 degrees celsius for 90 seconds was then performed. [place] were removed. Sterile dressings were applied. COMPLICATIONS: No acute complications. DISPOSITION / PLANS: The patient was placed in a supine position and transferred to the recovery area in a stable condition for observation and was discharged from the recovery room after meeting discharge criteria. Home discharge instructions given to the patient by the staff. The patient will follow up in clinic in 4 weeks.
[2020-03-13] MEDS ORDERED: IV FLUID CONTINUATION 1,000 ML IV ONE (10:53)
--- NOTE | 2020-03-13 11:09 | FL ---
EXAMINATION TYPE: FL guided pain mgmt statistic DATE OF EXAM: 03/13/2020 FLUOROSCOPY Fluoroscopy time of 13 seconds was used during 3 level left-sided lumbar radiofrequency ablation. 8 image/s document/s the procedure.
[2020-03-13 11:12] VITALS: BP 126/79; PULSE 76; RESP 17
== END 2020-03-13 11:25 | disposition home or self-care (01) ==
LOC: ORPAIN 08:52
PROVIDERS: ATTEND Anesthesiology
DX: M47.816 Spondylosis without myelopathy or radiculopathy, lumbar region (principal); R73.03 Prediabetes; Z90.710 Acquired absence of both cervix and uterus
CPT/HCPCS: 64635; 64636; J2001; J2250; J3010; 99152

== ENCOUNTER → 2020-04-16 | Outpatient (CLI) | payer OTHER ==
--- NOTE | 2020-04-16 14:05 | P.PAINPG ---
Subjective Progress Note Date: 04/16/20 This is a Follow up Visit for this 50 year old female, with a chronic history of severe low back pain, she is diagnosed with lumbar facet arthropathy without myelopathy, and sacroiliitis. She has been managed with a combination of medications and interventional pain procedures. She most recently underwent radiofrequency ablation of left L3, L4, L5 medial branches on 03/13/2020. She returns today for follow-up. She reports excellent pain relief from this procedure, and would like to schedule right sided radiofrequency ablation. Today, pain is located in the right low back, rated as 5-7/10, described as an aching, radiating, throbbing pain. Pain is worse with standing, sitting and better with medications, injections. She does report a new pain in the left groin that she describes as a twinge, this is intermittent and has been ongoing for 2 weeks. she continues to use [place] 10/325 every 12 hours, Flexeril 5 mg when necessary ,she denies any side effect of the medication, and she reported the current medication helping her to control her pain and improve quality of life and do activities of daily livings Review of systems is negative for chest pain, shortness of breath, changes in vision, changes in hearing, new onset weakness, abdominal pain, diarrhea, extreme fatigue, malaise, fever, skin changes, homicidal or suicidal ideation, or bowel or bladder incontinence. Objective Physical exam: Vitals: Reviewed in EMR GENERAL: Well appearing, in no acute distress PSYCH: Mood and affect is appropriate. Awake, alert, and oriented SKIN: Skin color, texture, turgor normal, no rashes or lesions HEENT: Normocephalic, atraumatic. EOM intact CV: No pedal edema RESP: Respirations are unlabored, no audible wheezing GI: Abdomen non-distended MUSCULOSKELETAL: Bilateral lower extremity strength is normal and symmetric. No atrophy or tone abnormalities are noted. Lumbar spine: Straight leg raising in the sitting position is negative for radicular pain tenderness to palpation over the lumbar spine and right-sided paraspinous muscles. Positive on the right side for pain with facet loading and back extension/rotation. Extremities: Peripheral joint ROM is full and pain free without obvious instability or laxity in all four extremities. No edema or skin discolorations noted. Left sided Fadir test is negative NEUR: Cranial nerves are grossly intact No loss of sensation is noted. Assessment and Plan Assessment: Assessment and plan= chronic low back pain secondary to lumbar degenerative disc disease , lumbar spondylosis with lumbar facet arthropathy, and sacroiliitis chronic and current use of high-risk medication (opioids) Patient denies any side effects of the current pain medication and the current treatment/medication helping the patient to do activity of daily living , The narcotic consent was signed and is on file MAPS Reviewed and it was appropriate . Urine drug screen ordered today Medication managements= patient will be given prescription refills for [place] 10/325 every 12 hours when necessary dispense 60 with 1 refill, Flexeril 5 mg daily dispense 60 with one refill Procedures: Patient has good benefit from repeat lumbar radiofrequency ablation to L3, L4, L5 medial branches on the left side, we will schedule her for right- sided procedure follow-up: For above-mentioned procedure and in 2 months for medication manageme nt PQRS Measure Charge Sheet Measure #130: Documentation of Current Meds in Medical Chart: Patient's medications documented in chart Measure #226: Tobacco Use: Screen & Cessation Intervention: Pt screened for tobacco use AND intervention given Measure #111: Pneumonia Vaccination: Pneumococcal vaccine NOT administered or previously given Measure #47: Advance Care Plan: Advance care planning discussed & documented, pt chose/unable to give Measure #412: Opioid Treatment Agreement: Documented signed opioid trtmnt agreemnt min once during opioid trtmnt Measure #408: Opioid Therapy Follow-up Evaluation: Patient had f/u eval minimum every 3 months during opioid therapy Measure #317: Preventitive Care & Scrn High Bld Press & F/U: Normal blood pressure, f/u not required Measure #128: Body Mass Index (BMI) Screening & Follow-up: BMI documented ABOVE normal parameters - f/u documented Measure #131: Pain Assessment & Follow-up: Pain positive & plan documented, Follow-up scheduled Measure #431: Unhealthy Alcohol Use Preventative Care & Scrn: Patient not identified as an unhealthy alcohol user PQRS Narrative: Smoking Status Current every day smoker Narcotic Agreement Date Signed 04/05/19 Hx Alcohol Use (MH) Yes: occ Home Medications: Ambulatory Orders Albuterol Inhaler (Mhu) [Ventolin Hfa Inhaler] 2 puff INHALATION Q6H PRN 09/29/15 lisinopriL [Zestril] 20 mg PO QAM 01/25/18 Loratadine [Claritin] 10 mg PO DIRECTED 07/04/19 amLODIPine [Norvasc] 5 mg PO DAILY 07/04/19 DULoxetine HCL [Cymbalta] 20 mg PO DAILY 03/12/20 Ondansetron HCl [Zofran] 4 mg PO DAILY 03/12/20 traZODone HCL 100 mg PO HS 03/12/20 Cyclobenzaprine [Flexeril] 5 mg PO BID PRN #60 tab 04/16/20 HYDROcodone/APAP 10-325MG [[place] 10-325] 1 tab PO Q8HR PRN 30 Days #60 tab 04/16/20 HYDROcodone/APAP 10-325MG [[place] 10-325] 1 tab PO Q8HR PRN 30 Days #60 tab 04/16/20 Controlled Substance Measures - Controlled Substance Measures Is patient prescribed a controlled substance at discharge?: Yes When asked, does pt state using other controlled substances?: No If prescribed controlled substance>3 days was MAPS reviewed?: Yes If Rx opioid, was Start Talking consent form obtained?: Yes If opioid is for acute pain is fill amount 7 days or less?: No Was information provided regarding opioid addiction?: Yes
[2020-04-16 14:09] VITALS: BP 116/73; PULSE 83; RESP 16
== END | disposition home or self-care (01) ==
LOC: PNWHC3 13:27
PROVIDERS: ATTEND Anesthesiology
DX: G89.29 Other chronic pain (principal); M51.36 Other intervertebral disc degeneration, lumbar region; M47.816 Spondylosis without myelopathy or radiculopathy, lumbar region; M46.1 Sacroiliitis, not elsewhere classified; Z98.890 Other specified postprocedural states; Z79.899 Other long term (current) drug therapy
CPT/HCPCS: 80307; G0482; G0463; 99211

== ENCOUNTER 2020-05-08 12:12 | Day surgery (SDC) | payer OTHER ==
[2020-05-08] MEDS ORDERED: LIDOCAINE 1% (10MG/ML) FOR IV START INTRADERMA ONE (13:34)
[2020-05-08 13:43] VITALS: TEMP 97.4
[2020-05-08 13:54] LABS: Glucose,Whole Blood 111 mg/dL (75-99)
[2020-05-08] MEDS ORDERED: methylPREDNISolone ACETATE 40 MG/ML 1 ML VIAL ONE (14:02)
[2020-05-08] MEDS ORDERED: ROPIVACAINE 5MG/ML 20ML VIAL ONE (14:02)
[2020-05-08] MEDS ORDERED: fentaNYL (PF) 50 MCG/ML 2 ML AMP ONE (14:02)
[2020-05-08] MEDS ORDERED: MIDAZOLAM 2 MG/2 ML VIAL ONE (14:02)
--- NOTE | 2020-05-08 14:36 | P.PCN ---
Date of Procedure: 05/08/20 Procedure(s) Performed: PREOPERATIVE DIAGNOSIS: 1-Lumbar Spondylosis with Facet Arthropathy without myelopathy. POSTOPERATIVE DIAGNOSIS: 1- Lumbar Spondylosis with Facet Arthropathy without myelopathy. PROCEDURES : Right Radiofrequency thermocoagulation, L3 , L4 , and L5 medial branch, with fluoroscopic guidance (fluoroscopy images available in the radiology department) ( to denervate the facet joint at L4-5 ,and L5-S1 levels ) ANESTHESIA: Moderate sedation with intravenous versed 4 mg and fentaneyl 200 mcg, and local infiltration with Ropivacaine 0.5 % . EBL: Minimal PROCEDURE INDICATION: The patient with low back pain secondary to lumbar facet arthropathy who had more than 50% relief of her pain with previous diagnostic lumbar medial branch block with bupivacaine. PROCEDURE DESCRIPTION / TECHNIQUE: The patient was seen and identified in the preoperative area. Risks, benefits, complications, including but not limited to risk of infection ,bleeding , allergic reactions to the medications and no complete pain releife , and alternatives were discussed with the patient, the patient agreed to proceed with the procedure and signed the consent. IV was started. Vital signs remained stable throughout the procedure. Patient was taken to the OR and time out was completed. The patient was placed in the prone position on the procedure table. The lumber area was prepped and draped in the usual sterile fashion. . Vital signs were closely monitored during the procedure .IV sedation was used during the procedure to decrease patients anxiety. Using AP and then oblique fluoroscopy, the ``eye of the Davis dog corresponding to the connection between the superior and transverse articular processes of right L3, L4, and L5 were identified, marked, and localized with 1% lidocaine. Subsequently, a 18 [id number] radiofrequency cannula with a 10- mm active tip was advanced guided by fluoroscopy to each of the``eyes of the Davis dog at right L3, L4, and L5. Each site then underwent sensory testing at 50 Hz and 0 to 1 volt and motor testing at 2.5 Hz and 0 to 3 volt with local stimulation, but no radicular symptoms down the legs. Thereafter each sites underwent radiofrequency thermocoagulation at 80 degrees celsius for 90 seconds after injecting 0.5 ml of PF Ropivacaine 1ml, then after the thermocoagulation done , 1 ml of the block solution containing Depo-Medrol 40 mg and 3 ml of Ropivacaine 0.5% was injected at the right L3 , L4 , and L5 , levels after negative aspiration of CSF and blood and with no paresthesias. Cannulas were retracted while injecting lidocaine 1% until the needle is out At the end of the procedure, the skin was cleansed and bandages were applied. COMPLICATIONS: No acute complications. DISPOSITION / PLANS: The patient was placed in a supine position and transferred to the recovery area in a stable condition for observation and was discharged from the recovery room after meeting discharge criteria. Home discharge instructions given to the patient by the staff. The patient was reexamined prior to discharge. The patient will schedule a follow up in the clinic in 2-4 weeks.
[2020-05-08] MEDS ORDERED: IV FLUID CONTINUATION 1,000 ML IV ONE (14:42)
[2020-05-08 14:47] VITALS: PULSE 88; RESP 18
[2020-05-08 15:09] VITALS: BP 125/74
--- NOTE | 2020-05-08 16:46 | FL ---
EXAMINATION TYPE: FL guided pain mgmt statistic DATE OF EXAM: 05/08/2020 CLINICAL HISTORY: Low back pain. TECHNIQUE: Fluoroscopy. COMPARISON: None. FINDINGS: Fluoroscopic guidance was provided during pain relief procedure performed by Dr. Thomas . A total of 0.32 minutes of fluoroscopic time was utilized during the procedure and 4 spot images a re acquired. Images acquired shows needle localization at several levels in the mid to lower lumbar spine. Incidental spina bifida defect L5 level. IMPRESSION: As Above.
== END 2020-05-08 15:14 | disposition home or self-care (01) ==
LOC: ORPAIN 12:12
PROVIDERS: ATTEND Specialist
DX: M47.816 Spondylosis without myelopathy or radiculopathy, lumbar region (principal); Z90.710 Acquired absence of both cervix and uterus; R73.03 Prediabetes; Z88.8 Allergy status to other drugs, medicaments and biological substances; Z88.2 Allergy status to sulfonamides
CPT/HCPCS: 64635; 64636; J2250; J1030; J3010; J2795; 99152; 99153

== ENCOUNTER → 2020-06-11 | Outpatient (CLI) | payer OTHER ==
--- NOTE | 2020-06-11 12:50 | P.PN ---
Subjective Progress Note Date: 06/11/20 This is a 50-year-old lady with history of mostly axial lower back pain with no radiation to the lower extremities. The patient also denies any paresthesia or weakness in the lower extremities. Her pain is worse on the right side of her spine. She did have lumbar medial branch RFA last month which did not give her the expected pain relief. She controls her pain by combination of interventional pain procedures and oral opioids including Jasper 10 mg twice a day. She also uses Flexeril 5 mg twice a day if needed. Patient denies new-onset weakness, bowel/bladder incontinence, or any other signs or symptoms of cauda equina syndrome. There are no signs of acute intoxication, and no indications of medication diversion or overuse. In addition to above, 13-point review of systems is also negative for chest pain, shortness of breath, changes in vision, changes in hearing, new onset weakness, abdominal pain, diarrhea, extreme fatigue, malaise, fever, skin changes, homicidal or suicidal ideation, or bowel or bladder incontinence. Vital Signs: Reviewed in EMR Gen: AAOx3, NAD HEENT: PERRLA,hearing grossly normal Pulm: resp unlabored Heart: Regular Neck: supple, trachea midline Neuro exam of the lower extremities: Normal muscle strength bilaterally Straight leg raising test: Negative bilaterally Positive tenderness in the lumbar paravertebral musculature bilaterally Positive tenderness around the right sacroiliac joint significantly Neuro: CN II-XII grossly intact, Imaging: Reviewed in EMR/chart Assessment: Lumbar spondylosis without myelopathy Right sacroiliitis Plan: 1. Explanation: Opioid and psychological risk scores were reviewed. Diagnoses, prognoses, and multiple treatment options including but not limited to physical therapy, interventional therapies, adjuvant medical therapies, narcotic medication therapies, and surgery were discussed with the patient and all questions were answered to the patient's satisfaction. 2. Opioid agreement: Signed with the patient and the patient is warned not to use opioids while driving or before driving and not to combine opioids with benzodiazepines or alcohol. 3. Counseling: The patient was counseled extensively on SMOKING CESSATION, BODY MASS INDEX, EXERCISE. Specifically, the patient was instructed regarding the importance of smoking cessation, obesity, and exercise in the context of both chronic pain and overall health. 4. Procedures: Scheduled for right sacroiliac joint steroid injection 5. Consultations: None 6. Investigations: None 7. Medications: Continue Jasper 10 mg twice a day if needed for pain 8. Disposition: Return to clinic in 8 weeks and for the above-mentioned procedure as soon as possible 9. Maps were reviewed and were appropriate.
[2020-06-11 13:01] VITALS: BP 142/91; PULSE 75; RESP 14; TEMP 98.1
== END | disposition home or self-care (01) ==
LOC: PNWHC3 12:28
PROVIDERS: ATTEND Anesthesiology
DX: M47.816 Spondylosis without myelopathy or radiculopathy, lumbar region (principal); M46.1 Sacroiliitis, not elsewhere classified; Z79.891 Long term (current) use of opiate analgesic; Z79.899 Other long term (current) drug therapy
CPT/HCPCS: 99211

== ENCOUNTER 2020-07-01 13:06 | Day surgery (SDC) | payer OTHER ==
[2020-06-30 11:06] VITALS: BMI 29.9
[2020-07-01] MEDS ORDERED: LIDOCAINE 1% (10MG/ML) FOR IV START INTRADERMA ONE (13:20)
[2020-07-01 13:30] VITALS: TEMP 97
[2020-07-01 13:31] LABS: Glucose,Whole Blood 107 mg/dL (75-99)
[2020-07-01] MEDS ORDERED: fentaNYL (PF) 50 MCG/ML 2 ML AMP ONE (13:53)
[2020-07-01] MEDS ORDERED: MIDAZOLAM 2 MG/2 ML VIAL ONE (13:53)
[2020-07-01] MEDS ORDERED: ROPIVACAINE 5MG/ML 20ML VIAL ONE (13:53)
[2020-07-01] MEDS ORDERED: methylPREDNISolone ACETATE 40 MG/ML 1 ML VIAL ONE (13:53)
--- NOTE | 2020-07-01 14:08 | P.PCN ---
Date of Procedure: 07/01/20 Procedure(s) Performed: Procedure= Right sacroiliac joints steroid injection under fluoroscopy guidance (fluoroscopy image stored on file in the radiology Department ) Preoperative diagnosis= 1-Right sacroiliitis 2-lumbar degenerative disc disease 3-lumbar facet arthropathy Postoperative diagnosis=Same as preop Diagnosis . Complication = none Condition= stable Anesthesia= moderate sedation with intravenous Versed 2 mg , and fentanyl 100 micrograms . Indication for the procedure= patient complaining of low back pain , examination was positive for severe tenderness over the sacroiliac joints bilaterally and patient diagnosed with sacroiliitis, for this reason , she was good candidate f or sacroiliac joint steroid injection. Description of the procedure= procedure risk and benefits discussed with the patient, including but not limited, risk of infection and bleeding, and ALLERGIC reaction to the medication and not complete pain relief and patient agreed with the preceding patient taken to the operating room, placed in prone position or standard monitors applied to the patient then after induction of anesthesia back prepped with chlorhexidine 3 times , Then under strict sterile technique, I did the right sacroiliac joint the which was identified under fluoroscopy guidance been local infiltration of the skin and subcu interstitial with lidocaine 1% then 22-gauge Qu[place]ke Needle advanced slowly under fluoroscopy and placed in the right sacroiliac joint needle placement confirmed with AP and oblique and lateral view and after appropriate needle placement confirmed and after negative aspiration, or heme , then Ropivacaine 0.5% 3 mL, and 40 mg of Depo-Medrol mixed together and injected in the right sacroiliac joint after negative aspiration patient tolerated the procedure well without any complication.
[2020-07-01] MEDS ORDERED: IV FLUID CONTINUATION 1,000 ML IV ONE (14:10)
[2020-07-01 14:17] VITALS: BP 112/78; PULSE 78; RESP 18
--- NOTE | 2020-07-01 15:02 | FL ---
EXAMINATION TYPE: FL guided pain mgmt statistic DATE OF EXAM: 07/01/2020 CLINICAL HISTORY: Right sacroiliac joint pain. TECHNIQUE: Fluoroscopy. COMPARISON: None. FINDINGS: Fluoroscopic guidance was provided during pain relief procedure performed by Dr. Thomas . A total of 4 seconds of fluoroscopic time was utilized during the procedure and single spot images are acquired. Single image acquired shows needle localization inferior right sacroiliac joint. IMPRESSION: As Above.
== END 2020-07-01 14:39 | disposition home or self-care (01) ==
LOC: ORPAIN 13:06
PROVIDERS: ATTEND Specialist
DX: M46.1 Sacroiliitis, not elsewhere classified (principal); M51.36 Other intervertebral disc degeneration, lumbar region; M47.816 Spondylosis without myelopathy or radiculopathy, lumbar region; E11.9 Type 2 diabetes mellitus without complications; Z90.710 Acquired absence of both cervix and uterus; Z88.2 Allergy status to sulfonamides; Z88.8 Allergy status to other drugs, medicaments and biological substances
CPT/HCPCS: J2250; J1030; J3010; J2795; G0260; 27096

== ENCOUNTER 2020-07-22 13:16 | Day surgery (SDC) | payer OTHER ==
[2020-07-21 10:33] VITALS: BMI 29.9
[2020-07-22] MEDS ORDERED: LACTATED RINGERS 1,000 ML IV SCH (13:27)
[2020-07-22 13:33] VITALS: TEMP 97.8
[2020-07-22] MEDS ORDERED: LACTATED RINGERS 1,000 ML IV ONE ×2 (13:34→14:11)
[2020-07-22 13:35] LABS: Glucose,Whole Blood 97 mg/dL (75-99)
[2020-07-22] MEDS ORDERED: MIDAZOLAM 2 MG/2 ML VIAL ONE (13:36)
[2020-07-22] MEDS ORDERED: methylPREDNISolone ACETATE 40 MG/ML 1 ML VIAL ONE (13:36)
[2020-07-22] MEDS ORDERED: fentaNYL (PF) 50 MCG/ML 2 ML AMP ONE (13:36)
[2020-07-22] MEDS ORDERED: ROPIVACAINE 5MG/ML 20ML VIAL ONE (13:36)
--- NOTE | 2020-07-22 13:51 | P.PCN ---
Date of Procedure: 07/22/20 Description of Procedure: Procedure: Sacroiliac joint injection right Preoperative diagnosis: Sacroiliitis Postoperative diagnosis: Sacroiliitis Imaging: Fluoroscopy was used, images where saved to the medical record Complications: none Anesthesia: 1% lidocaine 5cc 2 mg of Versed 100 g fentanyl Description of the procedure: procedure risk and benefits discussed with the patient, including but not limited, risk of infection and bleeding, and allergic reaction to the medication and incomplete pain relief. Patient agreed and signed consent. Patient was taken to the room and placed in a prone position. Chlorhexidine was used to cleanse the skin. Under sterile conditions patient skin was anesthetized 1% lidocaine. Subcutaneous tissues were also anesthetized with a total 5 mL of 1% lidocaine. After that, a 22-gauge spinal needle was advanced through the anesthetized location under fluoroscopic guidance. Needle was advanced into the inferior portion of the sacroiliac joint. IV contrast was used to confirm spread within the joint. After adequate spread was achieved, 2.5 ML's of 0.5% ropivacaine with 40 mg of depomedrol was injected into the joint (steroid split between both sides if bilateral). Patient tolerated the procedure well. Sent to the recovery room in stable condition. Patient will follow up as directed.
[2020-07-22 13:57] VITALS: RESP 16
[2020-07-22 14:11] VITALS: BP 134/88; PULSE 80
[2020-07-22] MEDS ORDERED: IV FLUID CONTINUATION 800 ML IV ONE (14:11)
--- NOTE | 2020-07-22 14:11 | FL ---
EXAMINATION TYPE: FL guided pain mgmt statistic DATE OF EXAM: 07/22/2020 CLINICAL HISTORY: Right sacroiliac joint pain. TECHNIQUE: Fluoroscopy. COMPARISON: None. FINDINGS: Fluoroscopic guidance was provided during pain relief procedure performed by Dr. Stark . A total of 3 seconds of fluoroscopic time was utilized during the procedure and 1 spot images are a cquired. Single image acquired shows needle localization at inferior level of sacroiliac joint. IMPRESSION: As Above.
== END 2020-07-22 14:27 | disposition home or self-care (01) ==
LOC: ORPAIN 13:16
PROVIDERS: ATTEND Hospitalist
DX: M46.1 Sacroiliitis, not elsewhere classified (principal); M53.3 Sacrococcygeal disorders, not elsewhere classified; E11.9 Type 2 diabetes mellitus without complications; Z88.2 Allergy status to sulfonamides; Z88.8 Allergy status to other drugs, medicaments and biological substances; Z90.710 Acquired absence of both cervix and uterus
CPT/HCPCS: J2250; J1030; J3010; J2795; G0260; 27096; 99152

== ENCOUNTER → 2020-08-06 | Outpatient (CLI) | payer OTHER ==
[2020-08-06 11:35] VITALS: BP 153/90; PULSE 74; RESP 16; TEMP 98.2
--- NOTE | 2020-08-06 15:10 | P.PN ---
Subjective Progress Note Date: 08/06/20 This is Follow up Visit for this 50 years old female, with a chronic history of severe low back pain, he is diagnosed with lumbar facet arthropathy without myelopathy, and sacroiliitis, her pain management pain interventional pain management procedures and medication management ,she denies any motor or sensory deficit, she denies any fever or night sweats and there is no change in the bowel movements or urination, she continued to use [place] 10/325 every 8 hours, Flexeril 5 mg when necessary ,she denies any side effect of the medication, and she reported the current medication helping her to control her pain and improve quality of life and do activities of daily livings, recently we have done an RFA of the medial branch lumbar area, this improved her pain level and improve her quality of life. Recently we did right-sided sacroiliac joint steroid injection she gets good benefit for a few weeks after each injection Objective - Vital Signs Vital signs: Vital Signs Temp 98.2 F 08/06/20 11:27 Pulse 74 08/06/20 11:27 Resp 16 08/06/20 11:27 BP 153/90 08/06/20 11:27 Pulse Ox 98 08/06/20 11:27 Intake & Output 08/05/20 08/06/20 08/06/20 18:59 06:59 18:59 Weight 84.368 kg - Exam Physical Examinations : -Constitutiona : Cooperative , not in acute distress . -HEENT : nech : supple , no Lymphadenopathy , normal thyroid size . : eyes : no ptosis , no icterus, no photophobia . - neurologic : Cranial nerve II to XII intact , no focal neurological deffecit . -psychatric : alert , oriented X 3 , appropriate affect , intact judgment and insight . -Lymphatic : no Lymphadenopathy . - musculoskeltal : Lumber spine moter stegnth lower extremities ,thigh and legs 5/5 Right side , 5/5 Left side deep tendon reflexes : normal Knee Jerk , normal ankle Jerk lumber facet Loading Test =positive Right , positive Left Range of motion of the lumbar spine Flexion 30 degrees, extension 10 degrees strait leg raising test = positive at 45 degree Fabere test= positive Right , and positive LT . Sever tenderness over the Sacroiliac joint on the Right , and Left sides Gaenslen test= positive right ,and positive left . Seated flexion test= positive right ,and positive Left . Assessment and Plan Plan: Assessment and plan= chronic low back pain secondary to lumbar degenerative disc disease , lumbar spondylosis with lumbar facet arthropathy, and bilateral sacroiliitis Patient had significant improvement of her low back pain after a right sacroiliac joint steroid injections done on 2 different occasions chronic and current use of high-risk medication (opioids) Patient denies any side effects of the current pain medication and the current treatment/medication helping the patient to do activity of daily living , Diagnoses, prognosis, treatment options, including but not limited to physical therapy, medication management, interventional therapies, and surgery, were discussed with the patient All the questions answered The narcotic consent was signed and patient agreed and understood the side effects and complications of opioid treatment. Patient signed the narcotic agreement, and was orally counseled, not to overuse, not to abuse, not to Divert , not tp sell pain medication, and to take it as prescribed only, Patient was counseled not to drive or operate heavy equipment while using narcotic medication, and advised not to use alcohol or any Illicit drugs while using the narcotis. understanding that lack of compliance with any of the above instructions, will likely to cause discharge from, the pain service, not to renew his narcotic prescriptions MAPS Reviwed and it was apropriate . Medication managements= patient will be given prescription refills for [place] 10/325 every 8 hours when necessary dispense 75 with 1 refill, Flexeril 5 mg daily dispense 30 with one refill Interventions= patient could benefit from RFA of the right sacroiliac joint, (RFA the L5-S1 dorsal ramus, RFA of the lateral branches S1, S2, S3 ) , Time with Patient: Less than 30 - PQRS measures = - Patient's medications are documented in the chart. -Tobacco use is positive and counseling.Given. -Patient's has not received pneumococcal vaccine. -Advanced care planning discussed, patient not eligible. -Opiate contract signed. -Pain positive and follow-up visit/procedure is scheduled. -Patient's blood pressure measured [153/90 ] , and documented in the record ,and patient will follow up with the primary care. -Patient's weight was measured and body mass index [ 30.0 ] above the normal limits and counseling was done. and patient instructed to follow-up with the primary care physician. -Patient was not identified as an unhealthy alcohol user Time with Patient: Less than 30
== END | disposition home or self-care (01) ==
LOC: PNWHC3 10:54
PROVIDERS: ATTEND Specialist
DX: M46.1 Sacroiliitis, not elsewhere classified (principal); M51.36 Other intervertebral disc degeneration, lumbar region; M47.816 Spondylosis without myelopathy or radiculopathy, lumbar region; Z79.891 Long term (current) use of opiate analgesic
CPT/HCPCS: 99211

== ENCOUNTER 2020-08-12 07:12 | Day surgery (SDC) | payer OTHER ==
[2020-08-08 10:09] VITALS: BMI 29.9
[2020-08-12 07:38] VITALS: TEMP 97.3
[2020-08-12 07:38] LABS: Glucose,Whole Blood 124 mg/dL (75-99)
[2020-08-12] MEDS ORDERED: LIDOCAINE 1% (10MG/ML) FOR IV START INTRADERMA ONE (07:39)
[2020-08-12] MEDS ORDERED: PROPOFOL 10 MG/ML 20 ML VIAL IV ONE (07:46)
[2020-08-12] MEDS ORDERED: LIDOCAINE 1% INJ 10MG/ML (20 ML MDV) ONE (07:46)
--- NOTE | 2020-08-12 08:08 | P.PCN ---
Date of Procedure: 08/12/20 Description of Procedure: BRIEF HISTORY: Patient is a 50-year-old female presenting for outpatient colonoscopy for screening for malignant neoplasm of the colon. Previously she has undergone endoscopic evaluation with colonoscopy in 2015 which was incomplete due to a tortuous colon. She does have a history of IBS. PROCEDURE PERFORMED: Colonoscopy aborted/incomplete secondary to poor prep. PREOPERATIVE DIAGNOSIS: Screening for malignant neoplasm of the colon, last colonoscopy 2014. ESTIMATED BLOOD LOSS: Minimal. IV sedation per Anesthesia. PROCEDURE: After informed consent was obtained, the patient, was brought into the endoscopy unit. IV sedation was administered by Anesthesia under continuous monitoring. Digital rectal examination was normal. Initially the Olympus CF-190 flexible video colonoscope was then inserted in the rectum, gradually advanced into the descending colon at which time the procedure was aborted secondary to poor prep. The prep was extremely poor with liquid and solid stool throughout the entire examined colon. The patient tolerated the procedure well. IMPRESSION: Incomplete/aborted colonoscopy secondary to poor prep. RECOMMENDATIONS: Findings of this examination were discussed with the patient. Okay to resume diet. Okay to resume medications. Recommend repeat colonoscopy in 3-6 months with 2 day prep for screening.
[2020-08-12 08:40] VITALS: BP 146/92; PULSE 76; RESP 20
== END 2020-08-12 08:34 | disposition home or self-care (01) ==
LOC: ORWHC2ENDO 07:12
PROVIDERS: ATTEND Internal Medicine
DX: Z12.11 Encounter for screening for malignant neoplasm of colon (principal); K21.9 Gastro-esophageal reflux disease without esophagitis; I12.9 Hypertensive chronic kidney disease with stage 1 through stage 4 chronic kidney disease, or unspecified chronic kidney disease; E11.22 Type 2 diabetes mellitus with diabetic chronic kidney disease; N18.2 Chronic kidney disease, stage 2 (mild); E78.5 Hyperlipidemia, unspecified; F17.210 Nicotine dependence, cigarettes, uncomplicated; K58.9 Irritable bowel syndrome, unspecified; Z90.49 Acquired absence of other specified parts of digestive tract; Z90.710 Acquired absence of both cervix and uterus; Z98.890 Other specified postprocedural states; I10 Essential (primary) hypertension; Z79.84 Long term (current) use of oral hypoglycemic drugs; Z79.891 Long term (current) use of opiate analgesic; Z79.899 Other long term (current) drug therapy; Z88.2 Allergy status to sulfonamides; Z88.8 Allergy status to other drugs, medicaments and biological substances; Z97.2 Presence of dental prosthetic device (complete) (partial)
CPT/HCPCS: 45330; J2001; J2704; 45378

== ENCOUNTER 2020-08-18 14:55 | Emergency (ER) | payer OTHER ==
[2020-08-18 15:05] VITALS: RESP 18
[2020-08-18] MEDS ORDERED: KETOROLAC 15 MG/ML 1 ML VIAL IVP STA (16:03)
[2020-08-18] MEDS ORDERED: diazePAM 2 MG TAB PO STA (16:04)
[2020-08-18 16:39] LABS: Basophils # (A) 0.1 k/uL (0-0.2); Basophils % (A) 1 %; Eosinophils # (A) 0.2 k/uL (0-0.7); Eosinophils % (A) 2 %; HCT 43.7 % (34.0-46.0); HGB 14.7 gm/dL (11.4-16.0); Lymphocytes # (A) 2.3 k/uL (1.0-4.8); Lymphocytes % (A) 20 %; MCHC 33.7 g/dL (31.0-37.0); MCV 86.1 fL (80.0-100.0); Mean Platelet Volume 7.9; Monocytes # (A) 0.3 k/uL (0-1.0); Monocytes % (A) 3 %; Neutrophils # (A) 8.1 k/uL (1.3-7.7); Neutrophils % (A) 73 %; Platelet Count 248 k/uL (150-450); RBC 5.08 m/uL (3.80-5.40); RDW 13.1 % (11.5-15.5); WBC 11.1 k/uL (3.8-10.6)
[2020-08-18 16:44] LABS: Appearance,Urine Cloudy (Clear); Bacteria,Urine Rare /hpf; Bilirubin,Urine Negative (Negative); Blood,Urine Negative (Negative); Color,Urine Yellow; Glucose,Urine (UA) Negative (Negative); Ketones,Urine Negative (Negative); Leukocyte Esterase,Urine Negative (Negative); Mucus,Urine Occasional /hpf; Nitrite,Urine Negative (Negative); Protein,Urine Trace (Negative); RBC,Urine 2 /hpf (0-5); Specific Gravity,Urine 1.013 (1.001-1.035); Squamous Epithelial Cell,Urine 7 /hpf (0-4); Urobilinogen,Urine <2.0 mg/dL (<2.0); WBC,Urine 9 /hpf (0-5)
[2020-08-18 16:45] LABS: Albumin 4.5 g/dL (3.5-5.0); Calcium 9.8 mg/dL (8.4-10.2); Total Bilirubin 0.7 mg/dL (0.2-1.3); Total Protein 7.5 g/dL (6.3-8.2)
[2020-08-18] MEDS ORDERED: MORPHINE SULFATE 4 MG/ML SYRINGE IVP STA (17:06)
--- NOTE | 2020-08-18 17:07 | ED ---
Back Pain HPI - General Chief Complaint: Back Pain/Injury Stated Complaint: Back pain Time Seen by Provider: 08/18/20 15:42 Source: patient Limitations: no limitations - History of Present Illness Initial Comments: Patient is a 50-year-old female presenting to the emergency Department with complaints of an acute low back pain that started about 2 hours prior to arrival. Patient states she doesn't history of chronic low back pain, she currently gets several different treatments to help control her pain, takes [place] at home. Patient states she was washing a dish at home prior to arrival when she started having some very sharp discomfort in her very low back with some radiation across both sides. Patient states she stopped and take a break but the pain continued. Patient states the pain was very intense for about 10 minutes. She states this pain was different than her normal back pain. She states she does have a history of kidney disease but has not been to her PCP for a checkup in quite a few years. She denies history of kidney stones. She denies any fever, chills, nausea, vomiting, saddle paresthesias. She denies any bowel or bladder incontinence. He denies any falls or trauma. She is no further complaints at this time. Upon arrival to the ER vitals are stable. - Related Data Home Medications Medication Instructions Recorded Confirmed lisinopriL [Zestril] 20 mg PO PC-LUNCH 01/25/18 08/08/20 traZODone HCL 100 mg PO HS PRN 03/12/20 08/08/20 Pioglitazone [Actos] 15 mg PO DAILY 05/08/20 08/08/20 Loratadine 10 mg PO DAILY 06/15/20 08/08/20 Previous Rx's Medication Instructions Recorded Cyclobenzaprine [Flexeril] 5 mg PO BID PRN #60 tab 04/16/20 Atorvastatin [Lipitor] 20 mg PO DAILY #30 tab 06/16/20 HYDROcodone/APAP 10-325MG [[place] 1 tab PO Q8HR PRN 30 Days #75 tab 08/06/20 10-325] Allergies Allergy/AdvReac Type Severity Reaction Status Date / Time pregabalin [From Lyrica] Allergy Swelling Verified 08/18/20 15:02 of ankles quetiapine fumarate Allergy Swelling Verified 08/18/20 15:02 [From Seroquel] of ankles sulfamethoxazole Allergy Rash/Hives Verified 08/18/20 15:02 [From Bactrim] trimethoprim [From Bactrim] Allergy Rash/Hives Verified 08/18/20 15:02 Review of Systems ROS Statement: Those systems with pertinent positive or pertinent negative responses have been documented in the HPI. ROS Other: All systems not noted in ROS Statement are negative. Past Medical History Past Medical History: Chest Pain / Angina, Diabetes Mellitus, GERD/Reflux, Hyperlipidemia, Hypertension, Osteoarthritis (OA), Renal Disease Additional Past Medical History / Comment(s): angina, Herniated discs, IBS, coughing fits that result in SOB, chronic diarrhea, Kidney failure stage II History of Any Multi-Drug Resistant Organisms: None Reported Past Surgical History: Appendectomy, Cholecystectomy, Heart Catheterization, Hy sterectomy, Orthopedic Surgery Additional Past Surgical History / Comment(s): Left knee arthroscopy, left hand surgery for tendon injury, ANAL FISSURES, PAIN CLINIC PROCEDURES cyst removed from left ovary, right oophorectomy. Past Anesthesia/Blood Transfusion Reactions: No Reported Reaction Past Psychological History: Anxiety, Bipolar, Depression Smoking Status: Current every day smoker Past Alcohol Use History: None Reported Past Drug Use History: None Reported - Past Family History Father Family Medical History: Cancer General Exam - General Exam Comments Initial Comments: GENERAL: Patient is well-developed and well-nourished. Patient is nontoxic and in mild distress. HEAD: Atraumatic, normocephalic. EYES: Pupils equal round and reactive to light, extraocular movements intact, sclera anicteric, conjunctiva are normal. Eyelids were unremarkable. ENT: TMs normal, nares patent, oropharynx clear without exudates. Moist mucous membranes. NECK: Normal range of motion, supple without lymphadenopathy or JVD. LUNGS: Unlabored respirations. Breath sounds clear to auscultation bilaterally and equal. No wheezes rales or rhonchi. HEART: Regular rate and rhythm without murmurs, rubs or gallops. ABDOMEN: Soft, nontender, normoactive bowel sounds. No guarding, no rebound. No masses appreciated. : Deferred MUSCULOSKELETAL: Normal extremities with adequate strength and normal range of motion, no pitting or edema. No clubbing or cyanosis. She has some mild discomfort with palpation of the lower lumbar region, lumbar paraspinals. She has full trunk range of motion. Patient is equal in bilateral lower extremities. Her strength is 5 out of 5 in the lower extremities bilaterally. NEUROLOGICAL: Patient is alert and oriented x 3. Motor and sensory are also intact. Cranial nerves II through XII grossly intact. Symmetrical smile. Normal speech, normal gait. PSYCH: Normal mood, normal affect. SKIN: Warm, Dry, normal turgor, no rashes or lesions noted. Limitations: no limitations Course Vital Signs 08/18/20 08/18/20 08/18/20 15:02 16:40 17:22 Temperature 97.8 F 98.1 F Pulse Rate 100 98 96 Respiratory 18 18 18 Rate Blood Pressure 152/96 128/89 118/87 O2 Sat by Pulse 100 97 98 Oximetry Medical Decision Making - Medical Decision Making Patient is a 50-year-old female, with history of chronic low back pain presenting with an acute onset of back pain that is different. Her vital signs are stable she is afebrile. She has no neuro deficits, no saddle paresthesias, no bowel or bladder incontinence. I did check basic labs which are normal, her kidney function is normal, her urine shows no evidence of infection or hematuria. To give patient some pain meds, she reports improvement in her symptoms. I discussed the patient is most likely an acute flare of her chronic pain. She is stable for discharge. She will follow-up with her normal physicians. Strict return parameters were discussed with the patient and she verbalized understanding. Case discussed with Dr. Ruby - Lab Data Result diagrams: 08/18/20 16:26 08/18/20 16:26 Lab Results 08/18/20 08/18/20 08/18/20 Range/Units 16:26 16:26 16:28 WBC 11.1 H (3.8-10.6) k/uL RBC 5.08 (3.80-5.40) m/uL Hgb 14.7 (11.4-16.0) gm/dL Hct 43.7 (34.0-46.0) % MCV 86.1 (80.0-100.0) fL MCH 29.0 (25.0-35.0) pg MCHC 33.7 (31.0-37.0) g/dL RDW 13.1 (11.5-15.5) % Plt Count 248 (150-450) k/uL MPV 7.9 Neutrophils % 73 % Lymphocytes % 20 % Monocytes % 3 % Eosinophils % 2 % Basophils % 1 % Neutrophils # 8.1 H (1.3-7.7) k/uL Lymphocytes # 2.3 (1.0-4.8) k/uL Monocytes # 0.3 (0-1.0) k/uL Eosinophils # 0.2 (0-0.7) k/uL Basophils # 0.1 (0-0.2) k/uL Sodium 138 (137-145) mmol/L Potassium 4.0 (3.5-5.1) mmol/L Chloride 107 (98-107) mmol/L Carbon Dioxide 23 (22-30) mmol/L Anion Gap 8 mmol/L BUN 16 (7-17) mg/dL Creatinine 1.02 (0.52-1.04) mg/dL Est GFR (CKD-EPI)AfAm 74 (>60 ml/min/1.73 sqM) Est GFR (CKD-EPI)NonAf 64 (>60 ml/min/1.73 sqM) Glucose 127 H (74-99) mg/dL Calcium 9.8 (8.4-10.2) mg/dL Total Bilirubin 0.7 (0.2-1.3) mg/dL AST 24 (14-36) U/L ALT 20 (4-34) U/L Alkaline Phosphatase 100 (38-126) U/L Total Protein 7.5 (6.3-8.2) g/dL Albumin 4.5 (3.5-5.0) g/dL Urine Color Yellow Urine Appearance Cloudy H (Clear) Urine pH 6.0 (5.0-8.0) Ur Specific [place] 1.013 (1.001-1.035) Urine Protein Trace H (Negative) Urine Glucose (UA) Negative (Negative) Urine Ketones Negative (Negative) Urine Blood Negative (Negative) Urine Nitrite Negative (Negative) Urine Bilirubin Negative (Negative) Urine Urobilinogen <2.0 (<2.0) mg/dL Ur Leukocyte Esterase Negative (Negative) Urine RBC 2 (0-5) /hpf Urine WBC 9 H (0-5) /hpf Ur Squamous Epith Cells 7 H (0-4) /hpf Urine Bacteria Rare H (None) /hpf Urine Mucus Occasional H (None) /hpf Disposition Clinical Impression: Acute exacerbation of chronic low back pain Disposition: HOME SELF-CARE Condition: Stable Instructions (If sedation given, give patient instructions): Acute Low Back Pain (ED) Additional Instructions: Please return to the Emergency Department if symptoms worsen or any other concerns. Continue with your already prescribed pain medication. Apply heat and/or ice to the area, rest. Follow-up with your regular physicians. Is patient prescribed a controlled substance at d/c from ED?: No Referrals: Mariely Wheeler MD [Primary Care Provider] - 1-2 days
[2020-08-18 17:24] VITALS: BP 118/87; PULSE 96; TEMP 98.1
== END 2020-08-18 17:24 | disposition home or self-care (01) ==
LOC: EC 14:55
DX: M54.5 Low back pain (principal); G89.29 Other chronic pain; F31.9 Bipolar disorder, unspecified; F41.9 Anxiety disorder, unspecified; F17.200 Nicotine dependence, unspecified, uncomplicated; E11.9 Type 2 diabetes mellitus without complications; I10 Essential (primary) hypertension; Z79.84 Long term (current) use of oral hypoglycemic drugs; Z79.899 Other long term (current) drug therapy; Z88.1 Allergy status to other antibiotic agents; Z88.2 Allergy status to sulfonamides; Z88.8 Allergy status to other drugs, medicaments and biological substances; Z95.5 Presence of coronary angioplasty implant and graft; Z90.721 Acquired absence of ovaries, unilateral; X50.3XXA Overexertion from repetitive movements, initial encounter; Y93.G1 Activity, food preparation and clean up; Y92.89 Other specified places as the place of occurrence of the external cause
CPT/HCPCS: 99283; 96374; 96375; 36415; 80053; 85025; 81001; J2270; J1885

== ENCOUNTER → 2020-10-01 | Outpatient (CLI) | payer OTHER ==
[2020-10-01 13:32] VITALS: BP 149/90; PULSE 79; RESP 18; TEMP 98.9
--- NOTE | 2020-10-01 13:46 | P.PN ---
Subjective Progress Note Date: 10/01/20 This is a 50-year-old lady with history of chronic lower back pain with aching pain in both thighs anteriorly. The patient also has tingling in her toes with allodynia to touch most likely due to diabetic peripheral neuropathy. The patient tried Lyrica before which cause severe swelling in her feet but she never tried Neurontin as she states. She is scheduled to have right sacroiliac joint RFA after with response to sacroiliac joint steroid injection previously. The patient has been using [place] 5 mg twice a day and occasionally Flexeril 5 mg. Patient denies new-onset weakness, bowel/bladder incontinence, or any other signs or symptoms of cauda equina syndrome. There are no signs of acute intoxication, and no indications of medication diversion or overuse. In addition to above, 13-point review of systems is also negative for chest pain, shortness of breath, changes in vision, changes in hearing, new onset weakness, abdominal pain, diarrhea, extreme fatigue, malaise, fever, skin changes, homicidal or suicidal ideation, or bowel or bladder incontinence. Vital Signs: Reviewed in EMR Gen: AAOx3, NAD HEENT: PERRLA,hearing grossly normal Pulm: resp unlabored Neck: supple, trachea midline Neuro exam of the lower extremities: Decreased muscle strength to 4 out of 5 for knee flexion and extension bilaterally and normal ankle flexion and extension bilaterally. Straight leg raising test: Desmond's test: Range of motion of the lumbar spine: Facet loading test: Tenderness in the paravertebral musculature: Positive tenderness around the right sacroiliac joint and also on the right side of her lower lumbar spine. Neuro: CN II-XII grossly intact, Imaging: Reviewed in EMR/chart Assessment: Lumbar spondylosis without myelopathy Bilateral sacroiliitis Plan: 1. Explanation: Opioid and psychological risk scores were reviewed. Diagnoses, prognoses, and multiple treatment options including but not limited to physical therapy, interventional therapies, adjuvant medical therapies, narcotic medication therapies, and surgery were discussed with the patient and all questions were answered to the patient's satisfaction. 2. Opioid agreement: Signed with the patient and the patient is warned not to use opioids while driving or before driving and not to combine opioids with benzodiazepines or alcohol. 3. Counseling: The patient was counseled extensively on SMOKING CESSATION, BODY MASS INDEX, EXERCISE. Specifically, the patient was instructed regarding the importance of smoking cessation, obesity, and exercise in the context of both chronic pain and overall health. 4. Procedures: The patient is scheduled already for right sacroiliac joint RFA 5. Consultations: None 6. Investigations: None 7. Medications: Continue [place] 5 mg twice a day, and I will add Neurontin 300 mg to be increased gradually up to 900 mg a day. 8. Disposition: Return to the above-mentioned procedure as scheduled and to pain clinic in 8 weeks. 9. Maps were reviewed and were appropriate. Controlled Substance Measures Is patient prescribed a controlled substance at discharge?: Yes When asked, does pt state using other controlled substances?: No If prescribed controlled substance>3 days was MAPS reviewed?: Yes If Rx opioid, was Start Talking consent form obtained?: Yes If opioid is for acute pain is fill amount 7 days or less?: No Was information provided regarding opioid addiction?: Yes Objective - Vital Signs Vital signs: Vital Signs Temp 98.9 F 10/01/20 13:27 Pulse 79 10/01/20 13:27 Resp 18 10/01/20 13:27 BP 149/90 10/01/20 13:27 Pulse Ox 97 10/01/20 13:27 Intake & Output 09/30/20 10/01/20 10/01/20 18:59 06:59 18:59 Weight 85.729 kg
== END | disposition home or self-care (01) ==
LOC: PNWHC3 13:18
PROVIDERS: ATTEND Anesthesiology
DX: M46.1 Sacroiliitis, not elsewhere classified (principal); M47.816 Spondylosis without myelopathy or radiculopathy, lumbar region; Z79.891 Long term (current) use of opiate analgesic; Z79.899 Other long term (current) drug therapy
CPT/HCPCS: 80307; G0482; G0463; 99212

== ENCOUNTER 2020-10-09 13:42 | Day surgery (SDC) | payer OTHER ==
[2020-10-07 15:05] VITALS: BMI 30.4
[2020-10-09 14:07] LABS: Glucose,Whole Blood 97 mg/dL (75-99)
[2020-10-09 14:09] VITALS: RESP 16; TEMP 97.2
[2020-10-09] MEDS ORDERED: methylPREDNISolone ACETATE 40 MG/ML 1 ML VIAL ONE (14:33)
[2020-10-09] MEDS ORDERED: fentaNYL (PF) 50 MCG/ML 2 ML AMP ONE (14:33)
[2020-10-09] MEDS ORDERED: MIDAZOLAM 2 MG/2 ML VIAL ONE (14:33)
[2020-10-09] MEDS ORDERED: ROPIVACAINE 5MG/ML 20ML VIAL ONE (14:33)
--- NOTE | 2020-10-09 14:48 | P.PCN ---
Date of Procedure: 10/09/20 Procedure(s) Performed: Procedure= Right sacroiliac joints steroid injection under fluoroscopy guidance (fluoroscopy image stored on file in the radiology Department ). Preoperative diagnosis= 1-sacroiliitis 2-lumbar spondylosis with facet arthropathy Postoperative diagnosis=Same as preop Diagnosis . Complication = none Condition= stable Anesthesia= moderate sedation with intravenous Versed 4 mg , and fentanyl 100 micrograms . Indication for the procedure= patient complaining of low back pain , examination was positive for severe tenderness over the sacroiliac joints bilaterally and patient diagnosed with sacroiliitis, for this reason , she was good candidate for sacroiliac joint steroid injection. Description of the procedure= procedure risk and benefits discussed with the patient, including but not limited, risk of infection and bleeding, and ALLERGIC reaction to the medication and not complete pain relief and patient agreed with the preceding patient taken to the operating room, placed in prone position or standard monitors applied to the patient then after induction of anesthesia back prepped with chlorhexidine 3 times , Then under strict sterile technique, first I did the right sacroiliac joint the which was identified under fluoroscopy guidance been local infiltration of the skin and subcu interstitial with lidocaine 1% then 22-gauge Quincke Needle advanced slowly under fluoroscopy and placed in the right sacroiliac joint needle placement confirmed with AP and oblique and lateral view and after appropriate needle placement confirmed and after negative aspiration, or heme , then Ropivacaine 0.5% 3 mL, and 40 mg of Depo-Medrol mixed together and injected in the right sacroiliac joint after negative aspiration patient tolerated the procedure well without any complication. The patient was complaining of severe low back pain on both sides and examination was positive for severe tenderness on the left sacroiliac joint area, patient will be scheduled to have left-sided sacroiliac joint steroid injection within the next few weeks, after we get insurance approval.
[2020-10-09] MEDS ORDERED: IV FLUID CONTINUATION 400 ML IV ONE (14:50)
[2020-10-09 15:11] VITALS: BP 126/81; PULSE 78
--- NOTE | 2020-10-09 17:32 | FL ---
EXAMINATION TYPE: FL guided pain mgmt statistic DATE OF EXAM: 10/09/2020 FLUOROSCOPY Fluoroscopy time of 16 seconds was used during right SI joint injection. 1 image/s document/s the chyna moore.
== END 2020-10-09 15:20 | disposition home or self-care (01) ==
LOC: ORPAIN 13:42
PROVIDERS: ATTEND Specialist
DX: M46.1 Sacroiliitis, not elsewhere classified (principal); M47.896 Other spondylosis, lumbar region; E11.9 Type 2 diabetes mellitus without complications; Z88.2 Allergy status to sulfonamides; Z88.8 Allergy status to other drugs, medicaments and biological substances; Z90.710 Acquired absence of both cervix and uterus
CPT/HCPCS: J2250; J1030; J3010; J2795; G0260; 27096

== ENCOUNTER 2020-11-11 09:25 | Day surgery (SDC) | payer OTHER ==
[2020-11-11 09:45] VITALS: TEMP 97.3
[2020-11-11] MEDS ORDERED: LACTATED RINGERS 1,000 ML IV ONE (09:48)
[2020-11-11] MEDS ORDERED: fentaNYL (PF) 50 MCG/ML 2 ML AMP ONE (09:50)
[2020-11-11] MEDS ORDERED: ROPIVACAINE 5MG/ML 20ML VIAL ONE (09:50)
[2020-11-11] MEDS ORDERED: IOPAMIDOL M200 10 ML VIAL ONE (09:50)
[2020-11-11] MEDS ORDERED: TRIAMCINOLONE ACETONIDE 40 MG/ML 1 ML VIAL ONE (09:50)
[2020-11-11] MEDS ORDERED: MIDAZOLAM 2 MG/2 ML VIAL ONE (09:50)
--- NOTE | 2020-11-11 09:59 | P.PCN ---
Date of Procedure: 11/11/20 Description of Procedure: Preoperative diagnoses: left sacroilitis Postoperative diagnoses: left sacroilitis. Procedure: left sacroiliac joint steroid injection under fluoroscopic guidance. Surgeon: Danie Queen MD Anesthesia: [2 mL of 1% lidocaine and moderate sedation per hospital guidelines ], sedation time 6 min Fluoroscopy was used for the procedure and fluoroscopic images were saved to the radiology portion of the patient's chart. EBL: None Procedure indication: The patient had a history of severe chronic low back pain, diagnosed with sacroiliitis unresponsive to conservative treatment. Procedure description: The patient was seen and identified in the preoperative holding area, risks and benefits and alternative of the procedure and possible complications discussed with the patient, and patient agreed with the preceding, patient signed the consent, an IV was started, and vital signs were monitored and were stable throughout the procedure, patient was placed in the prone position on table and the lumbosacral area was prepped and draped with a sterile fashion, vital signs were closely monitored during the procedure, the fluoroscopy camera was placed in the contralateral oblique view on the left sacroiliac joint and the lower part of the joint was identified . Then the skin and subcutaneous tissue was anesthetized using 2 mL of 1% lidocaine then a 22- gauge Quincke-type spinal needle advanced slowly under fluoroscopy and placed in the posterior and inferior border of the right sacroiliac joint, placement confirmed with AP and lateral view, and after appropriate needle placement confirmed and after negative aspiration for heme, 1 mL of Isovue 200 was injected revealing intra-articular spread. Then a solution consisting of 2 ml of ropivacaine 0.5% and 40 mg of Kenalog injected after negative aspiration, no paresthesia during the injection, no resistance to injection, and the needle was removed. . Patient tolerated the procedure well without any complication. The patient was returned to supine position after the back was cleaned and a Band-Aid applied, the patient was transported to recovery room in stable condition and monitored for 30 minutes before being discharged home. The patient will follow up with the pain clinic in a few weeks
[2020-11-11 10:02] LABS: Glucose,Whole Blood 126 mg/dL (75-99)
[2020-11-11] MEDS ORDERED: IV FLUID CONTINUATION 850 ML IV ONE (10:13)
[2020-11-11] MEDS ORDERED: LACTATED RINGERS 850 ML IV ONE (10:13)
[2020-11-11 10:34] VITALS: BP 139/88; PULSE 67; RESP 20
--- NOTE | 2020-11-11 11:11 | FL ---
EXAMINATION TYPE: FL guided pain mgmt statistic DATE OF EXAM: 11/11/2020 FLUOROSCOPY Fluoroscopy time of 6 seconds was used during right SI joint injection. 1 image/s document/s the [facility].
== END 2020-11-11 10:41 | disposition home or self-care (01) ==
LOC: ORPAIN 09:25
PROVIDERS: ATTEND Anesthesiology
DX: G89.29 Other chronic pain (principal); M46.1 Sacroiliitis, not elsewhere classified; E11.9 Type 2 diabetes mellitus without complications; Z90.710 Acquired absence of both cervix and uterus; Z88.1 Allergy status to other antibiotic agents; Z88.8 Allergy status to other drugs, medicaments and biological substances; Z88.2 Allergy status to sulfonamides
CPT/HCPCS: J2250; J3301; J3010; Q9966; J2795; G0260; 27096

== ENCOUNTER → 2020-11-26 | Outpatient (CLI) | payer OTHER ==
--- NOTE | 2020-11-26 13:17 | P.PAINPG ---
Subjective Progress Note Date: 11/26/20 This is a 50-year-old lady with history of chronic lower back pain with aching pain in both thighs anteriorly. The patient also has tingling in her toes with allodynia to touch most likely due to diabetic peripheral neuropathy. The patient tried Lyrica before which cause severe swelling in her feet but she never tried Neurontin as she states. The patient has been using [place] 5 mg twice a day and occasionally Flexeril 5 mg. She was scheduled to have R SIJ RFA but apparently her insurance does not approve it. Recently had bilateral SIJ injections (right on 09/2020 and left on 10/2020). We also added on Gabapentin 300 mg TID She got about 60% relief from the last sacroiliac joint injection and that is still holding. Most recently she had a left total knee replacement and she says that her knee is healing slower than the last time she had knee surgery. Overall her pain is mostly the same, mostly in her knee right now. She is currently taking Percocet which was given to her by her orthopedic surgeon. SHe will go back to Cumberland once she runs out of this. She feels the gabapentin we prescribed last visit isn't helping much Patient denies new-onset weakness, bowel/bladder incontinence, or any other signs or symptoms of cauda equina syndrome. There are no signs of acute intoxication, and no indications of medication diversion or overuse. In addition to above, 13-point review of systems is also negative for chest pain, shortness of breath, changes in vision, changes in hearing, new onset weakness, abdominal pain, diarrhea, extreme fatigue, malaise, fever, skin changes, homicidal or suicidal ideation, or bowel or bladder incontinence. Vital Signs: Reviewed in EMR Gen: AAOx3, NAD HEENT: PERRLA,hearing grossly normal Pulm: resp unlabored Neck: supple, trachea midline Neuro exam of the lower extremities: Decreased muscle strength to 4 out of 5 for knee flexion and extension bilaterally and normal ankle flexion and extension bilaterally. Tenderness in the paravertebral musculature: some tenderness around the right sacroiliac joint and also on the right side of her lower lumbar spine. Well healed surgical scar over left knee, ROM decreased due to pain Neuro: CN II-XII grossly intact, reflexes intact Imaging: Reviewed in EMR/chart Assessment: Lumbar spondylosis without myelopathy Bilateral sacroiliitis Plan: 1. Explanation: Opioid and psychological risk scores were reviewed. Diagnoses, prognoses, and multiple treatment options including but not limited to physical therapy, interventional therapies, adjuvant medical therapies, narcotic medication therapies, and surgery were discussed with the patient and all questions were answered to the patient's satisfaction. 2. Opioid agreement: Signed with the patient and the patient is warned not to use opioids while driving or before driving and not to combine opioids with benzodiazepines or alcohol. 3. Counseling: The patient was counseled extensively on SMOKING CESSATION, BODY MASS INDEX, EXERCISE. Specifically, the patient was instructed regarding the i mportance of smoking cessation, obesity, and exercise in the context of both chronic pain and overall health. 4. Procedures: Repeat SIJ injection in the future 5. Consultations: none 6. Investigations: UDS was negative for Cumberland last visit, we will repeat UDs again today, it should be positive for oxycodone as she is taking her Percocet she got from her surgeon posteroperatively 7. Medications: Continue [place] 5 mg twice a day and uptitrate gabapentin to 600 mg TID 8. Disposition: 4 weeks to go over UDS 9. Maps were reviewed and were appropriate. I spent 32 minutes reviewing the patient's chart, going over patient's medications, talking to the patient, and discussing plan of care Controlled Substance Measures Is patient prescribed a controlled substance at discharge?: Yes When asked, does pt state using other controlled substances?: No If prescribed controlled substance>3 days was MAPS reviewed?: Yes If Rx opioid, was Start Talking consent form obtained?: Yes If opioid is for acute pain is fill amount 7 days or less?: No Was information provided regarding opioid addiction?: Yes Objective - Vital Signs Vital signs: Intake & Output 11/24/20 11/25/20 11/25/20 18:59 06:59 18:59 Weight 88.904 kg PQRS Measure Charge Sheet PQRS Narrative: Smoking Status Current every day smoker Narcotic Agreement Date Signed 04/16/20 Pain Intensity [Lower Back] 7 Scale Used Numeric (1 - 10) Hx Alcohol Use (MH) Yes: occ Home Medications: Ambulatory Orders lisinopriL [Zestril] 20 mg PO PC-LUNCH 01/25/18 traZODone HCL 100 mg PO HS PRN 03/12/20 Pioglitazone [Actos] 15 mg PO DAILY 05/08/20 Loratadine 10 mg PO DAILY 06/15/20 Atorvastatin [Lipitor] 20 mg PO DAILY #30 tab 06/16/20 Cyclobenzaprine [Flexeril] 5 mg PO BID PRN #60 tab 11/26/20 Gabapentin 600 mg PO TID 30 Days #90 tab 11/26/20 HYDROcodone/APAP 10-325MG [[place] 10-325] 1 tab PO Q8HR PRN 30 Days #75 tab 11/26/20 Controlled Substance Measures - Controlled Substance Measures Is patient prescribed a controlled substance at discharge?: Yes When asked, does pt state using other controlled substances?: No If prescribed controlled substance>3 days was MAPS reviewed?: Yes If Rx opioid, was Start Talking consent form obtained?: Yes If opioid is for acute pain is fill amount 7 days or less?: No Was information provided regarding opioid addiction?: Yes
[2020-11-26 13:24] VITALS: BP 136/86; PULSE 95; RESP 16; TEMP 98.7
== END ==
LOC: PNWHC3 12:46
PROVIDERS: ATTEND Anesthesiology
DX: M47.816 Spondylosis without myelopathy or radiculopathy, lumbar region (principal); M46.1 Sacroiliitis, not elsewhere classified; F17.200 Nicotine dependence, unspecified, uncomplicated
CPT/HCPCS: 80307; G0482; G0463; 99212

== ENCOUNTER → 2020-12-24 | Outpatient (CLI) | payer OTHER ==
[2020-12-24 13:42] VITALS: BP 163/100; PULSE 89; RESP 18; TEMP 98.2
--- NOTE | 2020-12-24 13:42 | P.PN ---
Subjective Progress Note Date: 12/24/20 Diana is a 50-year-old female who presents for follow-up today. She reports that since her last visit she did have a fall on November 30. She fell on her back. She reports she's been having an exacerbation of her right-sided low back pain since the fall. We had performed radiofrequency ablation in April of last year she had been doing pretty well. She really using pain medication as needed. She reports that her left knee also hurts from the fall. She had had arthroscopic surgery in November 18. Her pain is in the right side of her low back. She reports pain across the back and into the upper buttocks. She denies any bowel or bladder incontinence. She continues to use the pain medication as needed and denies any side effects from the medication. Review of Systems: Denies any New chest pain, short of breath, Nausea/vomitting, abdominal pain, bowel or bladder incontinence, or any overt new neurologic symptoms in his upper or lower extremities. Objective - Vital Signs Vital signs: Intake & Output 12/23/20 12/24/20 12/24/20 18:59 06:59 18:59 Weight 88.904 kg - Exam General: Awake and alert oriented 3 no distress Respiratory exam: No audible wheezing no accessory muscle usage Cardiovascular exam: regular rate, palpable bilateral pulses, no lower extremity edema Cervical spine: Normal alignment, Spurling's negative, facet loading negative, Linoleum Layer Apprentice strength is 5/5, chris negative Lumbar spine: Loss of lumbar lordosis, normal alignment, tender to palpation over bilateral paraspinal muscles, facet loading is positive bilaterally. Straight leg raise is negative. Limited range of motion due to pain with flexion, extension and side bending. Neuro exam: Normal sensation in bilateral upper extremities, deep tendon reflexes are 2+ bilateral upper extremities. Normal sensation in bilateral lower extremities. Deep tendon reflexes are 2+ in lower extremities Psych exam: Cooperative, appropriate mood Assessment and Plan Assessment: #1 lumbar spondylosis without myelopathy #2 lumbar radiculopathy #3 knee pain #4 opioid dependence Plan: After review the records and examination the patient, I believe the patient has pain coming from the right side of her low back likely from the facet joints. She had facet neural lysis done about 8 months ago and had been doing well to the fall. She like to move forward with a second radiofrequency ablation given the fact that she had greater than 80% relief from the prior one. We will schedule her for the radiofrequency ablation of the L3-L4, L4-L5, L5-S1 on the right side. I will refill her medications today. Last urine drug screen was positive for oxycodone and not hydrocodone. I believe this is appropriate she had oxycodone from her knee surgery. We have take another urine sample from her today and the sample should be positive for hydrocodone only. I have spent 31 minutes on patient care today. The time was used to review the medical records including relevant urine studies and Prescription history (MAPs), review of the available imaging, evaluation and examination of the patient, coordination of care with the medical staff and if applicable referring physicians, as well as creation of the medical record. Maps were checked and appropriate, opioid start talking form is on file and updated, urine drug screens of been appropriate and have been reviewed.
== END ==
LOC: PNWHC3 13:08
PROVIDERS: ATTEND Hospitalist
DX: M47.26 Other spondylosis with radiculopathy, lumbar region (principal); M25.562 Pain in left knee; F11.20 Opioid dependence, uncomplicated; F17.200 Nicotine dependence, unspecified, uncomplicated
CPT/HCPCS: 80307; G0482; G0463; 99212

== ENCOUNTER 2021-01-02 11:23 | Day surgery (SDC) | payer OTHER ==
[2020-12-30 12:02] VITALS: BMI 31.6
[2021-01-02 12:50] VITALS: RESP 16; TEMP 97.2
[2021-01-02] MEDS ORDERED: LIDOCAINE 1% (10MG/ML) FOR IV START INTRADERMA ONE (12:55)
[2021-01-02 13:02] LABS: Glucose,Whole Blood 109 mg/dL (75-99)
[2021-01-02] MEDS ORDERED: methylPREDNISolone ACETATE 40 MG/ML 1 ML VIAL ONE (13:09)
[2021-01-02] MEDS ORDERED: ROPIVACAINE 5MG/ML 20ML VIAL ONE (13:09)
[2021-01-02] MEDS ORDERED: MIDAZOLAM 2 MG/2 ML VIAL ONE (13:10)
[2021-01-02] MEDS ORDERED: fentaNYL (PF) 50 MCG/ML 2 ML AMP ONE (13:10)
--- NOTE | 2021-01-02 13:33 | P.PCN ---
Date of Procedure: 01/02/21 Procedure(s) Performed: PREOPERATIVE DIAGNOSIS: 1-Lumbar Spondylosis with Facet Arthropathy without myelopathy. POSTOPERATIVE DIAGNOSIS: 1- Lumbar Spondylosis with Facet Arthropathy without myelopathy. PROCEDURES : Right Radiofrequency thermocoagulation, L3 , L4 , and L5 medial branch, with fluoroscopic guidance (fluoroscopy images available in the radiology department) ( to denervate the facet joint at L4-5 ,and L5-S1 levels ) ANESTHESIA: Monitored anesthesia care as per anesthesia department. EBL: Minimal PROCEDURE INDICATION: The patient with low back pain secondary to lumbar facet arthropathy who had more than 50% relief of her pain with previous diagnostic lumbar medial branch block with bupivacaine. PROCEDURE DESCRIPTION / TECHNIQUE: The patient was seen and identified in the preoperative area. Risks, benefits, complications, including but not limited to risk of infection ,bleeding , allergic reactions to the medications and no complete pain releife , and alternatives were discussed with the patient, the patient agreed to proceed with the procedure and signed the consent. IV was started. Vital signs remained stable throughout the procedure. Patient was taken to the OR and time out was completed. The patient was placed in the prone position on the procedure table. The lumber area was prepped and draped in the usual sterile fashion. . Vital signs were closely monitored during the procedure .IV sedation was used during the procedure to decrease patients anxiety. Using AP and then oblique fluoroscopy, the ``eye of the Davis dog corresponding to the connection between the superior and transverse articular processes of right L3, L4, and L5 were identified, marked, and localized with 1% lidocaine. Subsequently, a 18 -pk radiofrequency cannula with a 10- mm active tip was advanced guided by fluoroscopy to each of the``eyes of the Davis dog at right L3, L4, and L5. Each site then underwent sensory testing at 50 Hz and 0 to 1 volt and motor testing at 2.5 Hz and 0 to 3 volt with local stimulation, but no radicular symptoms down the legs. Thereafter each sites underwent radiofrequency thermocoagulation at 80 degrees celsius for 90 seconds after injecting 0.5 ml of PF Ropivacaine 1ml, then after the thermocoagulation done , 1 ml of the block solution containing Depo-Medrol 40 mg and 3 ml of Ropivacaine 0.5% was injected at the right L3 , L4 , and L5 , levels after negative aspiration of CSF and blood and with no paresthesias. Cannulas were retracted while injecting lidocaine 1% until the needle is out At the end of the procedure, the skin was cleansed and bandages were applied. COMPLICATIONS: No acute complications. DISPOSITION / PLANS: The patient was placed in a supine position and transferred to the recovery area in a stable condition for observation and was discharged from the recovery room after meeting discharge criteria. Home discharge instructions given to the patient by the staff. The patient was reexamined prior to discharge. The patient will schedule a follow up in the clinic in 2-4 weeks.
--- NOTE | 2021-01-02 13:39 | FL ---
Fluoroscopy INDICATION: Pain FINDINGS: Fluoroscopy time: 12 seconds. Images obtained: 3. IMPRESSIONS: 1. Documentation of fluoroscopy.
[2021-01-02 14:13] VITALS: BP 143/91; PULSE 80
[2021-01-02] MEDS ORDERED: IV FLUID CONTINUATION 1,000 ML IV ONE (14:13)
== END 2021-01-02 14:14 | disposition home or self-care (01) ==
LOC: ORPAIN 11:23
PROVIDERS: ATTEND Specialist
DX: M47.816 Spondylosis without myelopathy or radiculopathy, lumbar region (principal); I12.9 Hypertensive chronic kidney disease with stage 1 through stage 4 chronic kidney disease, or unspecified chronic kidney disease; E11.22 Type 2 diabetes mellitus with diabetic chronic kidney disease; N18.2 Chronic kidney disease, stage 2 (mild); E78.5 Hyperlipidemia, unspecified; F31.9 Bipolar disorder, unspecified; Z79.899 Other long term (current) drug therapy
CPT/HCPCS: 64635; 64636; J2250; J1030; J3010; J2795

== ENCOUNTER → 2021-02-18 | Outpatient (CLI) | payer OTHER ==
[2021-02-18 13:18] VITALS: BP 136/90; PULSE 88; RESP 18; TEMP 98.9
--- NOTE | 2021-02-18 13:55 | P.PN ---
Subjective Progress Note Date: 02/18/21 This is Follow up Visit for this 50 years old female, with a chronic history of severe low back pain, he is diagnosed with lumbar facet arthropathy without myelopathy, and sacroiliitis, her pain controled between interventional , pain management procedures ,and medication management ,she denies any motor or sensory deficit, she denies any fever or night sweats and there is no change in the bowel movements or urination, she continued to use [place] 10/325 every 8 hours, Flexeril 5 mg when necessary , and the Neurontin 600 3 times a day ,she denies any side effect of the medication, and she reported the current medication helping her to control her pain and improve quality of life and do activities of daily livings, recently we have done an RFA of the medial branch lumbar area on the right side , and currently she is having severe pain on the left side only Physical Examinations : -Constitutiona : Cooperative , not in acute distress . -HEENT : nech : supple , no Lymphadenopathy , normal thyroid size . : eyes : no ptosis , no icterus, no photophobia . - neurologic : Cranial nerve II to XII intact , no focal neurological deffecit . -psychatric : alert , oriented X 3 , appropriate affect , intact judgment and insight . -Lymphatic : no Lymphadenopathy . - musculoskeltal : Lumber spine moter stegnth lower extremities ,thigh and legs 5/5 Right side , 5/5 Left side deep tendon reflexes : normal Knee Jerk , normal ankle Jerk lumber facet Loading Test =negative Right , positive Left Range of motion of the lumbar spine Flexion 30 degrees, extension 10 degrees strait leg raising test = positive at 45 degree Fabere test= positive Right , and positive LT . Sever tenderness over the Sacroiliac joint on the Right , and Left sides Gaenslen test= positive right ,and positive left . Seated flexion test= positive right ,and positive Left Assessment and plan= chronic low back pain secondary to lumbar degenerative disc disease , lumbar spondylosis with lumbar facet arthropathy, and bilateral sacroiliitis Patient had significant improvement of her low back pain after right-sided medial branch RFA chronic and current use of high-risk medication (opioids) Patient denies any side effects of the current pain medication and the current treatment/medication helping the patient to do activity of daily living , Diagnoses, prognosis, treatment options, including but not limited to physical therapy, medication management, interventional therapies, and surgery, were discussed with the patient All the questions answered The narcotic consent was signed and patient agreed and understood the side effects and complications of opioid treatment. Patient signed the narcotic agreement, and was orally counseled, not to overuse, not to abuse, not to Divert , not tp sell pain medication, and to take it as prescribed only, Patient was counseled not to drive or operate heavy equipment while using narcotic medication, and advised not to use alcohol or any Illicit drugs while using the narcotis. understanding that lack of compliance with any of the above instructions, will likely to cause discharge from, the pain service, not to renew his narcotic prescriptions MAPS Reviwed and it was apropriate . Medication managements= patient will be given prescription refills for [place] 10/325 every 8 hours when necessary dispense 75 with 1 refill, Flexeril 5 mg daily dispense 30 with one refill Neurontin 600 mg 3 times a day dispense 90 with 1 refill Interventions= patient could benefit from RFA of the left L3, L4 ,L5 , - PQRS measures = - Patient's medications are documented in the chart. -Tobacco use is positive and counseling.Given. -Patient's has not received pneumococcal vaccine. -Advanced care planning discussed, patient not eligible. -Opiate contract signed. -Pain positive and follow-up visit/procedure is scheduled. -Patient's blood pressure measured [136/90 ] , and documented in the record ,and patient will follow up with the primary care. -Patient's weight was measured and body mass index [ 32.0 ] above the normal limits and counseling was done. and patient instructed to follow-up with the primary care physician. -Patient was not identified as an unhealthy alcohol user Objective - Vital Signs Vital signs: Vital Signs Temp 98.9 F 02/18/21 13:14 Pulse 88 02/18/21 13:14 Resp 18 02/18/21 13:14 BP 136/90 02/18/21 13:14 Pulse Ox 97 02/18/21 13:14 Intake & Output 02/17/21 02/18/21 02/18/21 18:59 06:59 18:59 Weight 89.811 kg
== END ==
LOC: PNWHC3 13:07
PROVIDERS: ATTEND Specialist
DX: M51.36 Other intervertebral disc degeneration, lumbar region (principal); M47.816 Spondylosis without myelopathy or radiculopathy, lumbar region; M46.1 Sacroiliitis, not elsewhere classified; G89.29 Other chronic pain; Z98.890 Other specified postprocedural states; Z79.891 Long term (current) use of opiate analgesic; Z88.2 Allergy status to sulfonamides; Z88.6 Allergy status to analgesic agent; Z88.8 Allergy status to other drugs, medicaments and biological substances; F17.200 Nicotine dependence, unspecified, uncomplicated
CPT/HCPCS: 99211

== ENCOUNTER 2021-03-11 17:23 | Emergency (ER) | payer OTHER ==
[2021-03-11 18:13] VITALS: BP 136/79; PULSE 98; RESP 20; TEMP 98.1
[2021-03-11] MEDS ORDERED: KETOROLAC 15 MG/ML 1 ML VIAL IVP STA (18:25)
[2021-03-11] MEDS ORDERED: cefTRIAXone IN SWFI 1,000 MG/10 ML SYRINGE IVP STA (18:26)
--- NOTE | 2021-03-11 18:31 | ED ---
General Adult HPI - General Chief complaint: ENT Stated complaint: sinus headaches, ear pain Time Seen by Provider: 03/11/21 18:17 Source: patient, RN notes reviewed Mode of arrival: ambulatory Limitations: no limitations - History of Present Illness Initial comments: Patient is a pleasant 50-year-old female presenting to the emergency department with complaints of chronic sinus problems and ear problems. Symptoms have been worse the past few months. Symptoms overall have been ongoing for many years. Patient does have an appointment to see a specialist coming up soon. Patient recently has been on Cipro and doxycycline she just finished. Patient did receive a Toradol injection recently which helped her symptoms significantly for a day. Patient does get associated headaches. Headaches are not new. No weakness or confusion. - Related Data Home Medications Medication Instructions Recorded Confirmed lisinopriL [Zestril] 20 mg PO PC-LUNCH 01/25/18 02/18/21 traZODone HCL 100 mg PO HS PRN 03/12/20 02/18/21 Pioglitazone [Actos] 15 mg PO DAILY 05/08/20 02/18/21 Loratadine 10 mg PO DAILY 06/15/20 02/18/21 Previous Rx's Medication Instructions Recorded Cyclobenzaprine [Flexeril] 5 mg PO BID PRN #60 tab 02/18/21 Gabapentin 600 mg PO TID #90 tab 02/18/21 HYDROcodone/APAP 10-325MG [[place] 1 tab PO Q8H PRN 30 Days #75 tab 02/18/21 10-325] HYDROcodone/APAP 10-325MG [[place] 1 tab PO Q8HR PRN 30 Days #75 tab 02/18/21 10-325] predniSONE [Deltasone] 20 mg PO BID #10 tab 03/11/21 Allergies Allergy/AdvReac Type Severity Reaction Status Date / Time pregabalin [From Lyrica] Allergy Swelling Verified 03/11/21 18:12 of ankles quetiapine fumarate Allergy Swelling Verified 03/11/21 18:12 [From Seroquel] of ankles sulfamethoxazole Allergy Rash/Hives Verified 03/11/21 18:12 [From Bactrim] trimethoprim [From Bactrim] Allergy Rash/Hives Verified 03/11/21 18:12 Review of Systems ROS Statement: Those systems with pertinent positive or pertinent negative responses have been documented in the HPI. ROS Other: All systems not noted in ROS Statement are negative. Constitutional: Denies: fever Eyes: Denies: eye pain ENT: Reports: as per HPI, ear pain, congestion Respiratory: Denies: dyspnea Cardiovascular: Denies: chest pain Endocrine: Denies: fatigue Gastrointestinal: Denies: abdominal pain Genitourinary: Denies: urgency Musculoskeletal: Denies: back pain Skin: Denies: rash Neurological: Reports: as per HPI, headache. Denies: weakness, confusion Past Medical History Past Medical History: Chest Pain / Angina, Diabetes Mellitus, GERD/Reflux, Hyperlipidemia, Hypertension, Osteoarthritis (OA), Renal Disease Additional Past Medical History / Comment(s): Angina, herniated discs, IBS, coughing fits that result in SOB, chronic diarrhea, kidney failure stage II. History of Any Multi-Drug Resistant Organisms: None Reported Past Surgical History: Appendectomy, Cholecystectomy, Heart Catheterization, Hysterectomy, Orthopedic Surgery Additional Past Surgical History / Comment(s): Left knee arthroscopy, left hand surgery for tendon injury, ANAL FISSURES, PAIN CLINIC PROCEDURES, cyst removed from left ovary, right oophorectomy. Past Anesthesia/Blood Transfusion Reactions: No Reported Reaction Past Psychological History: Anxiety, Bipolar, Depression Smoking Status: Current every day smoker Past Alcohol Use History: None Reported Past Drug Use History: None Reported - Past Family History Father Family Medical History: Cancer General Exam Limitations: no limitations General appearance: alert, in no apparent distress Head exam: Present: normocephalic Eye exam: Present: normal appearance, PERRL, EOMI ENT exam: Present: normal oropharynx, other (Mild fluid behind both ears. Minimal erythema right TM.) Neck exam: Present: normal inspection, full ROM. Absent: meningismus Respiratory exam: Present: normal lung sounds bilaterally Cardiovascular Exam: Present: regular rate, normal rhythm GI/Abdominal exam: Present: soft. Absent: tenderness Back exam: Present: normal inspection Neurological exam: Present: alert, oriented X3, CN II-XII intact. Absent: motor sensory deficit Psychiatric exam: Present: normal affect, normal mood Skin exam: Present: normal color Course Vital Signs 03/11/21 18:08 Temperature 98.1 F Pulse Rate 98 Respiratory 20 Rate Blood Pressure 136/79 O2 Sat by Pulse 98 Oximetry Disposition Clinical Impression: Sinusitis Disposition: HOME SELF-CARE Condition: Stable Instructions (If sedation given, give patient instructions): Earache (ED), Sinusitis (ED) Additional Instructions: Prescription has been sent to your pharmacy. Please follow-up with the specialist as planned. Return for weakness or confusion, change in headaches, fevers, or any other concerns. [id number] Claritin. Prescriptions: predniSONE [Deltasone] 20 mg PO BID #10 tab Is patient prescribed a controlled substance at d/c from ED?: No Referrals: Mariely Wheeler MD [Primary Care Provider] - 1-2 days Time of Disposition: 18:29
[2021-03-11] MEDS ORDERED: FLUCONAZOLE 150 MG TAB PO STA (18:36)
== END 2021-03-11 18:41 | disposition home or self-care (01) ==
LOC: EC 17:23
DX: J32.9 Chronic sinusitis, unspecified (principal); I12.9 Hypertensive chronic kidney disease with stage 1 through stage 4 chronic kidney disease, or unspecified chronic kidney disease; E11.22 Type 2 diabetes mellitus with diabetic chronic kidney disease; N18.2 Chronic kidney disease, stage 2 (mild); F17.200 Nicotine dependence, unspecified, uncomplicated; Z88.2 Allergy status to sulfonamides; Z88.8 Allergy status to other drugs, medicaments and biological substances; Z88.1 Allergy status to other antibiotic agents; Z79.899 Other long term (current) drug therapy; Z79.4 Long term (current) use of insulin
CPT/HCPCS: 99283 ×2; 96374 ×2; 96375 ×2; J0696; J1885

== ENCOUNTER → 2021-03-13 | Day surgery (SDC) | payer OTHER ==
[2021-03-12 09:16] VITALS: BMI 33.0
[~2021-03-13] MED LIST changes: +IV FLUID CONTINUATION 600 ML IV ONE; +LIDOCAINE 1% (10MG/ML) FOR IV START INTRADERMA ONE; +MIDAZOLAM 2 MG/2 ML VIAL ONE; +ROPIVACAINE 5MG/ML 20ML VIAL ONE; +fentaNYL (PF) 50 MCG/ML 2 ML AMP ONE; +methylPREDNISolone ACETATE 40 MG/ML 1 ML VIAL ONE
[2021-03-13 11:48] VITALS: TEMP 96.7
[2021-03-13 11:57] LABS: Glucose,Whole Blood 134 mg/dL (75-99)
--- NOTE | 2021-03-13 13:10 | P.PCN ---
Date of Procedure: 03/13/21 Procedure(s) Performed: PREOPERATIVE DIAGNOSIS: 1-Lumbar Spondylosis with Facet Arthropathy without myelopathy. POSTOPERATIVE DIAGNOSIS: 1- Lumbar Spondylosis with Facet Arthropathy without myelopathy. PROCEDURES : Left Radiofrequency thermocoagulation, L3 , L4 , and L5 medial branch, with fluoroscopic guidance (fluoroscopy images available in the radiology department) ( to denervate the facet joint at Left L4-5 ,and L5-S1 levels ) ANESTHESIA: Monitored anesthesia care as per anesthesia department. EBL: Minimal PROCEDURE INDICATION: The patient with low back pain secondary to lumbar facet arthropathy who had more than 50% relief of her pain with previous diagnostic lumbar medial branch block with bupivacaine. PROCEDURE DESCRIPTION / TECHNIQUE: The patient was seen and identified in the preoperative area. Risks, benefits, complications, including but not limited to risk of infection ,bleeding , allergic reactions to the medications and no complete pain releife , and alternatives were discussed with the patient, the patient agreed to proceed with the procedure and signed the consent. IV was started. Vital signs remained stable throughout the procedure. Patient was taken to the OR and time out was completed. The patient was placed in the prone position on the procedure table. The lumber area was prepped and draped in the usual sterile fashion. . Vital signs were closely monitored during the procedure .IV sedation was used during the procedure to decrease patients anxiety. Using AP and then oblique fluoroscopy, the ``eye of the Davis dog corresponding to the connection between the superior and transverse articular processes of Left L3, L4, and L5 were identified, marked, and localized with 1% lidocaine. Subsequently, a 18 [id number] radiofrequency cannula with a 10-mm active tip was advanced guided by fluoroscopy to each of the``eyes of the Davis dog at Left L3, L4, and L5. Each site then underwent sensory testing at 50 Hz and 0 to 1 volt and motor testing at 2.5 Hz and 0 to 3 volt with local stimulation, but no radicular symptoms down the legs. Thereafter each sites underwent radiofrequency thermocoagulation at 80 degrees celsius for 90 seconds after injecting 0.5 ml of PF Ropivacaine 1ml, then after the thermocoagulation done , 1 ml of the block solution containing Depo-Medrol 40 mg and 3 ml of Ropivacaine 0.5% was injected at the Left L3 , L4 , and L5 , levels after negative aspiration of CSF and blood and with no paresthesias. Cannulas were retracted while injecting lidocaine 1% until the needle is out At the end of the procedure, the skin was cleansed and bandages were applied. COMPLICATIONS: No acute complications. DISPOSITION / PLANS: The patient was placed in a supine position and transferred to the recovery area in a stable condition for observation and was discharged from the recovery room after meeting discharge criteria. Home discharge instructions given to the patient by the staff. The patient was reexamined prior to discharge. The patient will schedule a follow up in the clinic in 2-4 weeks.
[2021-03-13 13:35] VITALS: RESP 16
[2021-03-13 13:37] VITALS: BP 116/74; PULSE 72
--- NOTE | 2021-03-13 14:34 | FL ---
Fluoroscopy INDICATION: Pain FINDINGS: Fluoroscopy time: 16 seconds. Images obtained: 3. IMPRESSIONS: 1. Documentation of fluoroscopy.
== END ==
LOC: ORPAIN 11:20
PROVIDERS: ATTEND Specialist
DX: M47.816 Spondylosis without myelopathy or radiculopathy, lumbar region (principal); I10 Essential (primary) hypertension; E78.5 Hyperlipidemia, unspecified; F17.200 Nicotine dependence, unspecified, uncomplicated; K21.9 Gastro-esophageal reflux disease without esophagitis; Z79.84 Long term (current) use of oral hypoglycemic drugs; Z79.899 Other long term (current) drug therapy; Z88.2 Allergy status to sulfonamides; Z88.8 Allergy status to other drugs, medicaments and biological substances
CPT/HCPCS: 64635; 64636; J2250; J1030; J3010; J2795

== ENCOUNTER → 2021-06-10 | Outpatient (CLI) | payer OTHER ==
--- NOTE | 2021-06-10 14:30 | P.PN ---
Subjective Progress Note Date: 06/10/21 This is a 49-year-old lady with history of chronic lower back pain with occ asional radiation to the left lower extremity occasionally to the left foot. The patient had lumbar medial branch RFA which gave her good pain relief over the left side RFA did not give her as good as the pain relief she received 1 this was done on the right side of her spine. Her pain has been getting worse in the left lower back area as she states. The patient was still takes [place] 10 mg 2-3 times a day and Neurontin 600 mg 3 times a day. Patient denies new-onset weakness, bowel/bladder incontinence, or any other signs or symptoms of cauda equina syndrome. There are no signs of acute into xication, and no indications of medication diversion or overuse. In addition to above, 13-point review of systems is also negative for chest pain, shortness of breath, changes in vision, changes in hearing, new onset weakness, abdominal pain, diarrhea, extreme fatigue, malaise, fever, skin changes, homicidal or suicidal ideation, or bowel or bladder incontinence. Vital Signs: Reviewed in EMR Gen: AAOx3, NAD HEENT: PERRLA,hearing grossly normal Pulm: resp unlabored Neck: supple, trachea midline Neuro exam of the lower extremities: Slightly decreased muscle strength bilaterally to 4 out of 5 in the major muscle groups left sacroiliitis Lumbar spondylosis without myelopathy Opioid dependence Straight leg raising test: Desmond's test: Positive on the left side with significant tenderness around the left sacroiliac joint Range of motion of the lumbar spine: Facet loading test: Positive on the lumbar area Neuro: CN II-XII grossly intact, Imaging: Reviewed in EMR/chart Assessment: Lumbar spondylosis and myelopathy Left sacroiliitis Opioid dependence Plan: 1. Explanation: When patients on opioids, opioid and psychological risk scores were reviewed. Diagnoses, prognoses, and multiple treatment options including but not limited to physical therapy, interventional therapies, adjuvant medical therapies, narcotic medication therapies, and surgery were discussed with the patient and all questions were answered to the patient's satisfaction. 2. Opioid agreement:When patients are prescribed opoids through our clinic, opioid agreement is signed with the patient and the patient is warned not to use opioids while driving or before driving and not to combine opioids with benzodiazepines or alcohol. 3. Counseling: When patient is smoking or obese, the patient was counseled extensively on SMOKING CESSATION, BODY MASS INDEX, EXERCISE. Specifically, the patient was instructed regarding the importance of smoking cessation, obesity, and exercise in the context of both chronic pain and overall health. 4. Procedures: Schedule for left sacroiliac joint steroid injection under fluoroscopic guidance 5. Consultations: None 6. Investigations: None 7. Medications: Continue with [place] 10 mg 2-3 times a day as needed for pain #75 pills with no refills on 10 600 mg 3 times a day. 8. Disposition: Return to clinic in 4 weeks and to the above-mentioned procedure as soon as possible 9. Maps were reviewed and were appropriate. PQRS measures: 1-Patient's medications are documented in the chart. 2-Tobacco use is negative, counseling given 3-Patient has had a pneumococcal vaccine. 4-Advanced care planning discussed, patient unable to give 5-Opioid contract signed with the patient. 6-Pain positive, follow-up visit or procedure scheduled 7-Patient's blood pressure measured and documented above/ normal limits. The patient will follow up with his primary care physician. 8-Patient's weight was measured, and body mass index ABOVE the normal limits, and counseling was done. Patient instructed to follow up with PCP. 9-Patient WAS NOT identified as an unhealthy alcohol user. Controlled Substance Measures Is patient prescribed a controlled substance at discharge?: Yes When asked, does pt state using other controlled substances?: No If prescribed controlled substance>3 days was MAPS reviewed?: Yes If Rx opioid, was Start Talking consent form obtained?: Yes If opioid is for acute pain is fill amount 7 days or less?: No Was information provided regarding opioid addiction?: Yes Objective - Vital Signs Vital signs: Intake & Output 06/09/21 06/10/21 06/10/21 18:59 06:59 18:59 Weight 93.44 kg
[2021-06-10 14:47] VITALS: BP 126/65; PULSE 75; RESP 18; TEMP 98.7
== END | disposition home or self-care (01) ==
LOC: PNWHC3 13:33
PROVIDERS: ATTEND Anesthesiology
DX: M47.16 Other spondylosis with myelopathy, lumbar region (principal); F11.20 Opioid dependence, uncomplicated; M46.1 Sacroiliitis, not elsewhere classified
CPT/HCPCS: 80307; G0482; G0463; 99212

== ENCOUNTER 2021-07-02 12:45 | Day surgery (SDC) | payer OTHER ==
[~2021-07-02 12:45] MED LIST changes: -IV FLUID CONTINUATION 600 ML IV ONE; -LIDOCAINE 1% (10MG/ML) FOR IV START INTRADERMA ONE; -MIDAZOLAM 2 MG/2 ML VIAL ONE; -ROPIVACAINE 5MG/ML 20ML VIAL ONE; -fentaNYL (PF) 50 MCG/ML 2 ML AMP ONE; -methylPREDNISolone ACETATE 40 MG/ML 1 ML VIAL ONE
[2021-07-02 13:49] VITALS: TEMP 97
[2021-07-02 13:56] LABS: Glucose,Whole Blood 110 mg/dL (75-99)
[2021-07-02] MEDS ORDERED: TRIAMCINOLONE ACETONIDE 40 MG/ML 1 ML VIAL ONE (14:14)
[2021-07-02] MEDS ORDERED: fentaNYL (PF) 50 MCG/ML 2 ML AMP ONE (14:14)
[2021-07-02] MEDS ORDERED: MIDAZOLAM 2 MG/2 ML VIAL ONE (14:14)
[2021-07-02] MEDS ORDERED: ROPIVACAINE 5MG/ML 20ML VIAL ONE (14:14)
--- NOTE | 2021-07-02 14:24 | P.PCN ---
Date of Procedure: 07/02/21 Surgeon: Margarette Collins Pathology: none sent Condition: stable Disposition: PACU Description of Procedure: Preoperative diagnoses= sacroiliac joint dysfunction and sacroiliitis on the le ft side Postoperative diagnoses= same as preoperative diagnosis. Procedure= sacroiliac joint steroid injection under fluoroscopic guidance. Anesthesia= local anesthesia with lidocaine 1% and IV moderate conscious sedation with fentanyl and Versed Estimated blood loss=minimal. Procedure indication= the patient had a history of severe chronic low back pain, diagnosed with sacroiliitis and lumbar sacral facet arthropathy unresponsive to conservative treatment. Procedure description= the patient was seen and identified in the preoperative holding area, risks and benefits and alternative of the procedure and possible complications discussed with the patient, patient signed the consent. an IV was started, and vital signs were monitored and were stable throughout the pro cedure, patient was placed in the prone position or table and the lumbosacral area was prepped and draped with a sterile fashion, vital signs were closely monitored during the procedure.The sacroiliac joint was identified on the AP view of fluoroscopy then the C-arm was tilted to the contralateral oblique position to superimpose the anterior and posterior joint lines on each other and to have a unified joint line with the target point at the inferior one third of this line. I used 22-gauge 3-1/2 inch Quincke spinal needle for this procedure and after getting into the sacroiliac joint I injected 40 mg of Kenalog +2 MLS of Ropivacaine 0.5%. Patient tolerated the procedure well without any complication, The patient returned to supine position after the back was cleaned and a Band- Aid applied, the patient transported to recovery room in stable condition and he was monitored for 30 minutes before she was discharged home in stable condition . patient will follow up with the pain clinic in a few weeks. A copy of the needle placement was saved to the C-arm machine.
[2021-07-02] MEDS ORDERED: LACTATED RINGERS 1,000 ML IV ONE ×2 (14:31)
--- NOTE | 2021-07-02 14:33 | FL ---
EXAMINATION TYPE: FL guided pain mgmt statistic DATE OF EXAM: 07/02/2021 CLINICAL HISTORY: Left-sided sacroiliac joint pain. TECHNIQUE: Fluoroscopy. COMPARISON: None. FINDINGS: Fluoroscopic guidance was provided during pain relief procedure performed by Dr. Collins . A total of 3 seconds of fluoroscopic time was utilized during the procedure and 1 spot images are a cquired. Single limits acquired shows needle localization at level of left sacroiliac joint. IMPRESSION: As Above.
[2021-07-02 14:34] VITALS: RESP 18
[2021-07-02 14:50] VITALS: BP 125/84; PULSE 80
[2021-07-02] MEDS ORDERED: IV FLUID CONTINUATION 900 ML IV ONE (14:53)
== END 2021-07-02 15:04 | disposition home or self-care (01) ==
LOC: ORPAIN 12:45
PROVIDERS: ATTEND Anesthesiology
DX: M53.3 Sacrococcygeal disorders, not elsewhere classified (principal)
CPT/HCPCS: G0260; J2250; J3301; J3010; J2795; 27096

== ENCOUNTER → 2021-07-06 | Outpatient (CLI) | payer OTHER ==
[2021-07-06 14:35] VITALS: BP 143/86; PULSE 85; RESP 18
--- NOTE | 2021-07-06 15:13 | P.PN ---
Subjective Progress Note Date: 07/06/21 This is Follow up Visit for this 51 years old female, with a chronic history of severe low back pain, she is diagnosed with lumbar facet arthropathy without myelopathy, and sacroiliitis, her pain controled between interventional , pain management procedures ,and medication management ,she denies any motor or sensory deficit, she denies any fever or night sweats and there is no change in the bowel movements or urination, she continued to use [place] 10/325 every 8 hours, Flexeril 5 mg when necessary , and the Neurontin 600 prescriped 3 times a day ( she taked once daily ) ,she denies any side effect of the medication, and she reported the current medication helping her to control her pain and improve quality of life, and do activities of daily livings, and currently she is having severe pain on the right side only , recently we have done left-sided sacroiliac joint injection which helped her significantly Physical Examinations : -Constitutiona : Cooperative , not in acute distress . -HEENT : nech : supple , no Lymphadenopathy , normal thyroid size . : eyes : no ptosis , no icterus, no photophobia . - neurologic : Cranial nerve II to XII intact , no focal neurological deffecit . -psychatric : alert , oriented X 3 , appropriate affect , intact judgment and insight . -Lymphatic : no Lymphadenopathy . - musculoskeltal : Lumber spine moter stegnth lower extremities ,thigh and legs 5/5 Right side , 5/5 Left side deep tendon reflexes : normal Knee Jerk , normal ankle Jerk lumber facet Loading Test =negative Right , positive Left Range of motion of the lumbar spine Flexion 30 degrees, extension 10 degrees strait leg raising test = positive at 45 degree Fabere test= positive Right , and positive LT . Sever tenderness over the Sacroiliac joint on the Right side Gaenslen test= positive right ,and negative left . Seated flexion test= positive right ,and negative Left Assessment and plan= chronic low back pain secondary to lumbar degenerative disc disease , lumbar spondylosis with lumbar facet arthropathy, and bilateral sacroiliitis Currentely most of the pain is localized in the right side low back area chronic and current use of high-risk medication (opioids) Patient denies any side effects of the current pain medication and the current treatment/medication helping the patient to do activity of daily living , Diagnoses, prognosis, treatment options, including but not limited to physical therapy, medication management, interventional therapies, and surgery, were discussed with the patient All the questions answered The narcotic consent was signed and patient agreed and understood the side effects and complications of opioid treatment. Patient signed the narcotic agreement, and was orally counseled, not to overuse, not to abuse, not to Divert , not tp sell pain medication, and to take it as prescribed only, Patient was counseled not to drive or operate heavy equipment while using narcotic medication, and advised not to use alcohol or any Illicit drugs while using the narcotis. understanding that lack of compliance with any of the above instructions, will likely to cause discharge from, the pain service, not to renew his narcotic prescriptions MAPS Reviwed and it was apropriate . Medication managements= patient will be given prescription refills for [place] 10/325 every 8 hours when necessary dispense 75 with 1 refill, Flexeril 5 mg daily dispense 30 with one refill Patient's reported that she feels she had no benefit from the Neurontin and she's been taking it once a day for this reason explained to the patient and she has to take it every other day for 1 week then she can stop that after that Interventions= patient could benefit from right-sided sacroiliac joint steroid injection under fluoroscopy guidance , - PQRS measures = - Patient's medications are documented in the chart. -Tobacco use is positive and counseling.Given. -Patient's has not received pneumococcal vaccine. -Advanced care planning discussed, patient not eligible. -Opiate contract signed. -Pain positive and follow-up visit/procedure is scheduled. -Patient's blood pressure measured [143/86 ] , and documented in the record ,and patient will follow up with the primary care. -Patient's weight was measured and body mass index [ 31,6 ] above the normal limits and counseling was done. and patient instructed to follow-up with the primary care physician. -Patient was not identified as an unhealthy alcohol user Objective - Vital Signs Vital signs: Vital Signs Temp Pulse 85 07/06/21 14:22 Resp 18 07/06/21 14:22 BP 143/86 07/06/21 14:22 Pulse Ox 96 07/06/21 14:22 Intake & Output 07/05/21 07/06/21 07/06/21 18:59 06:59 18:59 Weight 88.904 kg
== END | disposition home or self-care (01) ==
LOC: PNWHC3 14:06
PROVIDERS: ATTEND Specialist
DX: M51.36 Other intervertebral disc degeneration, lumbar region (principal); M46.96 Unspecified inflammatory spondylopathy, lumbar region; M47.896 Other spondylosis, lumbar region; M46.1 Sacroiliitis, not elsewhere classified
CPT/HCPCS: 99211

== ENCOUNTER 2021-08-11 09:16 | Day surgery (SDC) | payer OTHER ==
[2021-08-11 09:50] VITALS: RESP 16; TEMP 97
[2021-08-11 09:59] LABS: Glucose,Whole Blood 112 mg/dL (75-99)
[2021-08-11] MEDS ORDERED: LIDOCAINE 1% (10MG/ML) FOR IV START SQ ONE (09:59)
[2021-08-11] MEDS ORDERED: LACTATED RINGERS 1,000 ML IV ONE (09:59)
[2021-08-11] MEDS ORDERED: LACTATED RINGERS 1,000 ML IV SCH (10:00)
[2021-08-11] MEDS ORDERED: methylPREDNISolone ACETATE 40 MG/ML 1 ML VIAL ONE (10:09)
[2021-08-11] MEDS ORDERED: MIDAZOLAM 2 MG/2 ML VIAL ONE (10:09)
[2021-08-11] MEDS ORDERED: ROPIVACAINE 5MG/ML 20ML VIAL ONE (10:09)
[2021-08-11] MEDS ORDERED: fentaNYL (PF) 50 MCG/ML 2 ML AMP ONE (10:09)
--- NOTE | 2021-08-11 10:28 | P.PCN ---
Date of Procedure: 08/11/21 Procedure(s) Performed: Procedure= Right sacroiliac joints steroid injection under fluoroscopy guidance (fluoroscopy image stored on file in the radiology Department ). Preoperative diagnosis= 1-sacroiliitis 2-lumbar spondylosis with facet arthropathy Postoperative diagnosis=Same as preop Diagnosis . Complication = none Condition= stable Anesthesia= moderate sedation with intravenous Versed 2 mg , and fentanyl 100 micrograms . Indication for the procedure= patient complaining of low back pain , examination was positive for severe tenderness over the sacroiliac joints bilaterally and patient diagnosed with sacroiliitis, for this reason , she was good candidate for sacroiliac joint steroid injection. Description of the procedure= procedure risk and benefits discussed with the patient, including but not limited, risk of infection and bleeding, and ALLERGIC reaction to the medication and not complete pain relief and patient agreed with the preceding patient taken to the operating room, placed in prone position or standard monitors applied to the patient then after induction of anesthesia back prepped with chlorhexidine 3 times , Then under strict sterile technique, I did the right sacroiliac joint the which was identified under fluoroscopy guidance been local infiltration of the skin and subcu interstitial with lidocaine 1% then 22-gauge Quincke Needle advanced slowly under fluoroscopy and placed in the right sacroiliac joint needle placement confirmed with AP and oblique and lateral view and after appropriate needle placement confirmed and after negative aspiration, or heme , then Ropivacaine 0.5% 4 mL, and 40 mg of Depo-Medrol mixed together and injected in the right sacroiliac joint after negative aspiration patient tolerated the procedure well without any complication. The patient was complaining of severe low back pain on both sides and exami nation was positive for severe tenderness on the left sacroiliac joint area, patient will be scheduled to have left-sided sacroiliac joint steroid injection within the next few weeks, after we get insurance approval.
[2021-08-11] MEDS ORDERED: IV FLUID CONTINUATION 700 ML IV ONE (10:36)
[2021-08-11 10:51] VITALS: BP 142/82; PULSE 80
--- NOTE | 2021-08-11 10:53 | FL ---
EXAMINATION TYPE: FL guided pain mgmt statistic DATE OF EXAM: 08/11/2021 HISTORY: Fluoroscopy time 6 seconds of fluoroscopy provided. IMPRESSION: 1. Fluoroscopy time.
== END 2021-08-11 11:02 | disposition home or self-care (01) ==
LOC: ORPAIN 09:16
PROVIDERS: ATTEND Specialist
DX: M46.1 Sacroiliitis, not elsewhere classified (principal)
CPT/HCPCS: G0260; J2250; J1030; J3010; J2795; 27096; 99152

== ENCOUNTER → 2021-08-31 | Outpatient (CLI) | payer OTHER ==
[2021-08-31 13:08] VITALS: BP 151/90; PULSE 80; RESP 18; TEMP 97
--- NOTE | 2021-08-31 13:22 | P.PN ---
Subjective Progress Note Date: 08/31/21 This is Follow up Visit for this 51 years old female, with a chronic history of severe low back pain, she is diagnosed with lumbar facet arthropathy without myelopathy, and sacroiliitis, her pain controled between interventional pain management procedures ,and medication management ,she denies any motor or sensory deficit, she denies any fever or night sweats and there is no change in the bowel movements or urination, she continued to use [place] 10/325 every 8 hours, Flexeril 5 mg when necessary ,she denies any side effect of the medication, and she reported the current medication helping her to control her pain and improve quality of life, and do activities of daily livings, and currently she is having severe pain on the right side only , recently we have done left-sided sacroiliac joint injection which helped her significantly as you have done RFA medial branch lumbar area and also we have done sacroiliac joint injection Physical Examinations : -Constitutiona : Cooperative , not in acute distress . -HEENT : nech : supple , no Lymphadenopathy , normal thyroid size . : eyes : no ptosis , no icterus, no photophobia . - neurologic : Cranial nerve II to XII intact , no focal neurological deffecit . -psychatric : alert , oriented X 3 , appropriate affect , intact judgment and insight . -Lymphatic : no Lymphadenopathy . - musculoskeltal : Lumber spine moter stegnth lower extremities ,thigh and legs 5/5 Right side , 5/5 Left side deep tendon reflexes : normal Knee Jerk , normal ankle Jerk lumber facet Loading Test =negative Right , positive Left Range of motion of the lumbar spine Flexion 30 degrees, extension 10 degrees strait leg raising test = positive at 45 degree Fabere test= positive Right , and positive LT . Sever tenderness over the Sacroiliac joint bilaterally Gaenslen test= positive right ,and positive left . Seated flexion test= positive right ,and positive Left Assessment and plan= chronic low back pain secondary to lumbar degenerative disc disease , lumbar spondylosis with lumbar facet arthropathy, and bilateral sacroiliitis Currentely most of the pain is localized in the right side low back area chronic and current use of high-risk medication (opioids) Patient denies any side effects of the current pain medication and the current treatment/medication helping the patient to do activity of daily living , Diagnoses, prognosis, treatment options, including but not limited to physical therapy, medication management, interventional therapies, and surgery, were discussed with the patient All the questions answered The narcotic consent was signed and patient agreed and understood the side effects and complications of opioid treatment. Patient signed the narcotic agreement, and was orally counseled, not to overuse, not to abuse, not to Divert , not tp sell pain medication, and to take it as prescribed only, Patient was counseled not to drive or operate heavy equipment while using narcotic medication, and advised not to use alcohol or any Illicit drugs while using the narcotis. understanding that lack of compliance with any of the above instructions, will likely to cause discharge from, the pain service, not to renew his narcotic prescriptions MAPS Reviwed and it was apropriate . Medication managements= patient will be given prescription refills for [place] 10/325 every 8 hours when necessary dispense 75 with 1 refill, Flexeril 5 mg daily dispense 30 with one refill Interventions= patient could benefit from bilateral sacroiliac joint steroid injection under fluoroscopy guidance , - PQRS measures = - Patient's medications are documented in the chart. -Tobacco use is positive and counseling.Given. -Patient's has not received pneumococcal vaccine. -Advanced care planning discussed, patient not eligible. -Opiate contract signed. -Pain positive and follow-up visit/procedure is scheduled. -Patient's blood pressure measured [151/90 ] , and documented in the record ,and patient will follow up with the primary care. -Patient's weight was measured and body mass index [ 31,6 ] above the normal limits and counseling was done. and patient instructed to follow-up with the primary care physician. -Patient was not identified as an unhealthy alcohol user Objective - Vital Signs Vital signs: Vital Signs Temp 97.0 F L 08/31/21 13:03 Pulse 80 08/31/21 13:03 Resp 18 08/31/21 13:03 BP 151/90 08/31/21 13:03 Pulse Ox 97 08/31/21 13:03 Intake & Output 08/30/21 08/31/21 08/31/21 18:59 06:59 18:59 Weight 88.904 kg
== END | disposition home or self-care (01) ==
LOC: PNWHC3 12:55
PROVIDERS: ATTEND Specialist
DX: M47.896 Other spondylosis, lumbar region (principal); M51.36 Other intervertebral disc degeneration, lumbar region; M46.1 Sacroiliitis, not elsewhere classified
CPT/HCPCS: 99211

== ENCOUNTER → 2021-10-26 | Outpatient (CLI) | payer OTHER ==
--- NOTE | 2021-10-26 13:37 | P.PN ---
Subjective Progress Note Date: 10/26/21 Principal diagnosis: A 51 yr old male/ female with a history of severe and chronic low back pain secondary to lumbar degenerative disc diseases and lumbar spondylosis with facet arthropathy presents today for medication refills. Patient has a scheduled knee surgery in 1 day. Pain level is 8 /10 in the lower lumbar spine, dull/ achy with sharp/ shooting pain towards the legs bilaterally occasionally. Pain is provoked by bending lifting or walking. Pain is alleviated with medications, topical, ice, heat, repositioning, use of a Jacuzzi, Epsom salt baths, stretching and rest. Patient is currently on Zullinger 10/325 TID prn #75 and Flexeril 5mg BID prn Patient denies any side effects of the medication(s), denies excessive drowsiness or sleepiness, denies suicidal ideation and reports that the current pain medication is helping to control the pain and improve activities of daily living. Patient denies any motor or sensory deficits. Patient denies any fever or night sweats, denies any change in the bowel movements or urination. Physical Examination: -Constitutional: Cooperative. Not in acute distress . -HEENT: Neck is supple. No lymphadenopathy. No thyromegaly. Normal thyroid size. Eyes: No ptosis , no icterus, no photophobia. ENT: No auditory deficits. Normal oropharynx. No Thrush. - Respiratory: Chest clear to auscultations bilaterally. No wheezing. No rhonchi. - Cardiovascular: Regular rate and rhythm. S1 / S2 , no S3 , no S4. - Gastrointestinal: Abdomen soft no tenderness. Bowel sounds positive in all four quadrants. No organomegaly. - Genitourinary: Deferred. - Neurologic: Cranial nerve II to XII intact. No focal neurological deficits. - Psychatric: Alert & oriented x 3. Matching mood & appropriate affect. Judgment and insight intact. - Lymphatic: No Lymphadenopathy. - Musculoskeletal: Cervical spine: Muscle bulk/ tone/ strength in the bilateral upper extremities normal. Facet loading test cervical area positive. Lumbar spine: Motor bulk/ tone/ strength lower extremities , thigh and legs : 5/5 Deep tendon reflexes : Normal Knee Jerk. Normal Ankle Jerk . Lumbar Facet Loading Test positive over L4-L5 & L5-S1 bilaterally Straight Leg Raise: positive at 30 degree right side/ left side Dian test: positive right side / left side Range of motion: Flexion of the lumbar spine <90 degrees Range of motion: Extension of the lumbar spine <20 degrees Severe tenderness over the Sacroiliac joint: right side> left side Assessment and plan: Chronic low back pain secondary to lumbar degenerative disc disease , lumbar spondylosis with facet arthropathy without myelopathy Chronic and current use of high-risk medication (Opioids). The patient was counseled about risk of opioid use, psychological risk associated with opioids and was orally counseled to not overuse , divert or sell medications. Pt is to store medication in a safe location. The patient is counseled against driving while using narcotic medications and also not to use alcohol or any illicit recreational drugs. Patient verbalized understanding that the lack of compliance will result in failure to renew narcotic prescription(s) as well as possible discharge from the clinic Diagnoses, prognosis and treatment options including but not limited to physical therapy, surgical interventions, interventional therapies and medication management including narcotics and adjuvant medication were discusse d. All questions answered Collect urine for UDS UDS reviewed from 12/24/20 was consistent for Hydrocodone MAPS reviewed and it was appropriate. Prescription refill for Zullinger 10/325mg TID prn p#75 with refill and Flexeril 5mg BID prn with refill. Discontinue Gabapentin I have spent 31 minutes on patient care today. Dr Thomas was available by phone for the evaluation of this patient. The time was used to review the medical records including relevant urine studies and Prescription history (MAPs), review of the available imaging, evaluation and examination of the patient, coordination of care with the medical staff and if applicable referring physicians, as well as creation of the medical record PQRS Measure Charge Sheet PQRS Narrative: Smoking Status Current every day smoker Narcotic Agreement Date Signed 04/16/20 Hx Alcohol Use (MH) Yes: occ Home Medications: Ambulatory Orders lisinopriL [Zestril] 20 mg PO PC-LUNCH 01/25/18 traZODone HCL 100 mg PO HS PRN 03/12/20 Pioglitazone [Actos] 15 mg PO DAILY 05/08/20 Loratadine 10 mg PO DAILY PRN 06/15/20 Dicyclomine [Bentyl] 20 mg PO TID PRN #20 tablet 05/26/21 Gabapentin [Neurontin] 600 mg PO TID 06/09/21 Menthol [Biofreeze] 1 applic TOPICAL DAILY PRN 06/09/21 Ondansetron [Zofran] 4 mg PO Q8HR PRN 06/09/21 Cyclobenzaprine [Flexeril] 5 mg PO BID PRN 30 Days #60 tab 10/26/21 HYDROcodone/APAP 10-325MG [Zullinger 10-325] 1 tab PO Q8H PRN 30 Days #75 tab 10/26/21 HYDROcodone/APAP 10-325MG [Zullinger 10-325] 1 tab PO Q8HR PRN 30 Days #75 tab 10/26/21
[2021-10-26 14:16] VITALS: BP 168/101; PULSE 79; RESP 18; TEMP 98.3
== END | disposition home or self-care (01) ==
LOC: PNWHC3 12:52
PROVIDERS: ATTEND Physician Assistant Medical
DX: M51.36 Other intervertebral disc degeneration, lumbar region (principal); M47.816 Spondylosis without myelopathy or radiculopathy, lumbar region; M46.96 Unspecified inflammatory spondylopathy, lumbar region
CPT/HCPCS: 80307; G0482; G0463; 99211

== ENCOUNTER → 2022-01-14 | Outpatient (CLI) | payer OTHER ==
--- NOTE | 2022-01-14 13:49 | P.PN ---
Subjective Progress Note Date: 01/14/22 Principal diagnosis: A 51 yr old female with a history of severe and chronic low back pain secondary to lumbar degenerative disc diseases and lumbar spondylosis with facet arthropathy presents today for medication refills and evaluation of lower back pain. Patient states lower back pain is 8 out of 10 in intensity, localized to the lower aspect of the lumbar spine, constant, sore, sharp with radiation of pain left and right of midline to the paraspinal muscles. Provoked with bending, lifting or climbing stairs. Pain is alleviated with medications, topicals, injections, ice, heat, physical therapy which she is currently an, use of a cane for ambulation, repositioning and rest. Going over pt's ODS from 10/26/21, pt stated she takes Flexeril as needed. Interventional pain procedures completed include BL SI joint, BL RFA L4-L5/ L5- S1 Patient is currently on Mullins, Flexeril, Lurica (which she no longer uses) Patient denies any side effects of the medication(s), denies excessive drowsiness or sleepiness, denies suicidal ideation and reports that the current pain medication is helping to control the pain and improve activities of daily living. Patient denies any motor or sensory deficits. Patient denies any fever or night sweats, denies any change in the bowel movements or urination. Physical Examination: -Constitutional: Cooperative. Not in acute distress . -HEENT: Neck is supple. No lymphadenopathy. No thyromegaly. Normal thyroid size. Eyes: No ptosis , no icterus, no photophobia. ENT: No auditory deficits. Normal oropharynx. No Thrush. - Respiratory: Chest clear to auscultations bilaterally. No wheezing. No rhonchi. - Cardiovascular: Regular rate and rhythm. S1 / S2 , no S3 , no S4. - Gastrointestinal: Abdomen soft no tenderness. Bowel sounds positive in all four quadrants. No organomegaly. - Genitourinary: Deferred. - Neurologic: Cranial nerve II to XII intact. No focal neurological deficits. - Psychatric: Alert & oriented x 3. Matching mood & appropriate affect. Judgment and insight intact. - Lymphatic: No Lymphadenopathy. - Musculoskeletal: Cervical spine: Muscle bulk/ tone/ strength in the bilateral upper extremities normal. Facet loading test cervical area positive. Lumbar spine: Motor bulk/ tone/ strength lower extremities , thigh and legs : 5/5 Deep tendon reflexes : Normal Knee Jerk. Normal Ankle Jerk . Vertebral body tenderness to palpation over Lumbar Facet Loading Test positive Straight Leg Raise: positive at 30 degrees right side/ left side Gaenslen's Test positive Sacral spine : Severe tenderness over the Sacroiliac joint: right side / left side Range of motion: Flexion of the lumbar spine <60 degrees Range of motion: Extension of the lumbar spine <20 degrees Gaenslen's Test positive Dian test: positive right side / left side Assessment and plan: Chronic low back pain secondary to lumbar degenerative disc disease , lumbar spondylosis with facet arthropathy without myelopathy Recommendation of left RFA L4-L5, L5-S1 with TPIs of bilateral L2 -L5. Risks, benefits of procedure discussed and patient verbalized understanding. Denies anticoagulant use or medical history of diabetes. Chronic and current use of high-risk medication (Opioids). The patient was counseled about risk of opioid use, psychological risk associated with opioids and was orally counseled to not overuse , divert or sell medications. Pt is to store medication in a safe location. The patient is counseled against driving while using narcotic medications and also not to use alcohol or any illicit recreational drugs. Patient verbalized understanding that the lack of compliance will result in failure to renew narcotic prescription(s) as well as possible discharge from the clinic Diagnoses, prognosis and treatment options including but not limited to physical therapy, surgical interventions, interventional therapies and medication management including narcotics and adjuvant medication were discussed. All patient questions answered MAPS reviewed and it was appropriate. UDS from 10/26/21 reviewed and consistent Prescription refill for Mullins & Flexeril w 1 refill. I have spent 31 minutes on patient care today. Dr Thomas was available by phone for the evaluation of this patient. The time was used to review the medical records including relevant urine studies and Prescription history (MAPs), review of the available imaging, evaluation and examination of the patient, coordination of care with the medical staff and if applicable referring physicians, as well as creation of the medical record PQRS Measure Charge Sheet PQRS Narrative: Smoking Status Current every day smoker Narcotic Agreement Date Signed 04/16/20 Hx Alcohol Use (MH) Yes: occ Home Medications: Ambulatory Orders lisinopriL [Zestril] 20 mg PO PC-LUNCH 01/25/18 traZODone HCL 100 mg PO HS PRN 03/12/20 Pioglitazone [Actos] 15 mg PO DAILY 05/08/20 Loratadine 10 mg PO DAILY PRN 06/15/20 Dicyclomine [Bentyl] 20 mg PO TID PRN #20 tablet 05/26/21 Menthol [Biofreeze] 1 applic TOPICAL DAILY PRN 06/09/21 Ondansetron [Zofran] 4 mg PO Q8HR PRN 06/09/21 Cyclobenzaprine [Flexeril] 5 mg PO BID PRN 30 Days #60 tab 10/26/21 HYDROcodone/APAP 10-325MG [Mullins 10-325] 1 tab PO Q8H PRN 30 Days #75 tab 10/26/21 HYDROcodone/APAP 10-325MG [Mullins 10-325] 1 tab PO Q8HR PRN 30 Days #75 tab 10/26/21 HYDROcodone/APAP 10-325MG [Mullins 10-325] 1 tab PO Q8HR PRN 30 Days #75 tab 12/17/21
[2022-01-14 13:50] VITALS: BP 157/102; PULSE 90; RESP 18; TEMP 98.9
== END | disposition home or self-care (01) ==
LOC: PNWHC3 13:13
PROVIDERS: ATTEND Specialist
DX: M47.896 Other spondylosis, lumbar region (principal)
CPT/HCPCS: 99211

== ENCOUNTER → 2022-03-11 | Outpatient (CLI) | payer OTHER ==
[2022-03-11 13:35] VITALS: PULSE 94; RESP 18; TEMP 98.4
--- NOTE | 2022-03-11 13:41 | P.PAINPG ---
PQRS Measure Charge Sheet Comment: A 51 yr old female with a history of severe and chronic low back pain secondary to lumbar degenerative disc diseases and lumbar spondylosis with facet arthropathy presents today for medication refills and L lumbar pain / LLE radiculopathy. Pain level is currently at 7 out of 10 in intensity, constant, throbbing pain in the left lower aspect of her lumbar spine with shooting pain down the left lower extremity. Pain is provoked with standing, walking and sitting for periods of 30 minutes or more. Pain is alleviated with medications, topicals, injections, physical therapy which she is currently an, daily home stretching regimen, repositioning and rest. Interventional pain procedures completed include BL SI joint injections, L RFA L3-L5. Patient is currently on Eighty Eight 10/325 #75, Flexeril 5 mg #60 when necessary. Patient denies any side effects of the medication(s), denies excessive drowsiness or sleepiness, denies suicidal ideation and reports that the current pain medication is helping to control the pain and improve activities of daily living. Patient denies any motor or sensory deficits. Patient denies any fever or night sweats, denies any change in the bowel movements or urination. Physical Examination: -Constitutional: Cooperative. Not in acute distress . -HEENT: Neck is supple. No lymphadenopathy. No thyromegaly. Normal thyroid size. Eyes: No ptosis , no icterus, no photophobia. ENT: No auditory deficits. Normal oropharynx. No Thrush. - Respiratory: Chest clear to auscultations bilaterally. No wheezing. No rhonchi. - Cardiovascular: Regular rate and rhythm. S1 / S2 , no S3 , no S4. - Gastrointestinal: Abdomen soft no tenderness. Bowel sounds positive in all four quadrants. No organomegaly. - Genitourinary: Deferred. - Neurologic: Cranial nerve II to XII intact. No focal neurological deficits. - Psychatric: Alert & oriented x 3. Matching mood & appropriate affect. Judgment and insight intact. - Lymphatic: No Lymphadenopathy. - Musculoskeletal: Cervical spine: Muscle bulk/ tone/ strength in the bilateral upper extremities normal Vertebral body tenderness to palpation over Facet loading test positive Thoracic spine Muscle bulk / tone/ strength in the bilateral paraspinal muscles normal Vertebral body tender to palpation over Facet loading test positive Lumbar spine: Motor bulk/ tone/ strength lower extremities , thigh and legs : 5/5 Deep tendon reflexes : Normal Knee Jerk. Normal Ankle Jerk . Vertebral body tenderness to palpation over Lumbar Facet Loading Test positive on the left with paraspinal TTP and accompanying spasms Straight Leg Raise: positive at 30 degrees right side/ left side Gaenslen's Test positive Sacral spine : Severe tenderness over the Sacroiliac joint: right side / left side Range of motion: Flexion of the lumbar spine <60 degrees Range of motion: Extension of the lumbar spine <20 degrees Gaenslen's Test positive Desmond's Test positive Dian test: positive right side / left side Thigh Thrust Test Sacral Thrust Test Assessment and plan: Chronic low back pain secondary to lumbar degenerative disc disease , lumbar spondylosis with facet arthropathy without myelopathy Recommendation of L RFA L4-L5, L5-S1. Patient is currently in PT for her lumbar spine and will finish session the 1st week of March 2022. Risks, benefits of procedure discussed and pt verbalized understanding. Denies anticoagulant use or medical history of diabetes. Chronic and current use of high-risk medication (Opioids). The patient was counseled about risk of opioid use, psychological risk associated with opioids and was orally counseled to not overuse , divert or sell medications. Pt is to store medication in a safe location. The patient is counseled against driving while using narcotic medications and also not to use alcohol or any illicit recreational drugs. Patient verbalized understanding that the lack of compliance will result in failure to renew narcotic prescription(s) as well as possible discharge from the clinic Diagnoses, prognosis and treatment options including but not limited to physical therapy, surgical interventions, interventional therapies and medication management including narcotics and adjuvant medication were discussed. All patient questions answered MAPS reviewed and it was appropriate. UDS collected today 03/11/22 Prescription refill for Flexeril and Eighty Eight 10/325 mg #75 with 1 refill I have spent 31 minutes on patient care today. Dr Thomas was available by phone for the evaluation of this patient. The time was used to review the medical records including relevant urine studies and Prescription history (MAPs), review of the available imaging, evaluation and examination of the patient, coordination of care with the medical staff and if applicable referring physicians, as well as creation of the medical record - Pain Location Left Lower Back Non-Pharmacological Interventions: Heat, Ice, Inactivity, Physical Therapy, Prayer Pharmacological Interventions: Epidural, PRN Medication, Scheduled Medication, Topical Medication PQRS Narrative: Smoking Status Current every day smoker Narcotic Agreement Date Signed 04/16/20 Hx Alcohol Use (MH) Yes: occ Home Medications: Ambulatory Orders lisinopriL [Zestril] 20 mg PO PC-LUNCH 01/25/18 traZODone HCL 100 mg PO HS PRN 03/12/20 Pioglitazone [Actos] 15 mg PO DAILY 05/08/20 Loratadine 10 mg PO DAILY PRN 06/15/20 Dicyclomine [Bentyl] 20 mg PO TID PRN #20 tablet 05/26/21 Menthol [Biofreeze] 1 applic TOPICAL DAILY PRN 06/09/21 Ondansetron [Zofran] 4 mg PO Q8HR PRN 06/09/21 HYDROcodone/APAP 10-325MG [Eighty Eight 10-325] 1 tab PO Q8HR PRN 30 Days #75 tab 01/14/22 Cyclobenzaprine [Flexeril] 5 mg PO BID PRN 30 Days #60 tab 03/11/22 HYDROcodone/APAP 10-325MG [Eighty Eight 10-325] 1 tab PO Q8H PRN 30 Days #75 tab 03/11/22 HYDROcodone/APAP 10-325MG [Eighty Eight 10-325] 1 tab PO Q8HR PRN 30 Days #75 tab 03/11/22 Controlled Substance Measures - Controlled Substance Measures Is patient prescribed a controlled substance at discharge?: Yes When asked, does pt state using other controlled substances?: Yes If prescribed controlled substance>3 days was MAPS reviewed?: Yes If Rx opioid, was Start Talking consent form obtained?: Yes If opioid is for acute pain is fill amount 7 days or less?: Yes Was information provided regarding opioid addiction?: Yes
== END | disposition home or self-care (01) ==
LOC: PNWHC3 13:02
PROVIDERS: ATTEND Specialist
DX: Z51.81 Encounter for therapeutic drug level monitoring (principal); M47.896 Other spondylosis, lumbar region; M51.36 Other intervertebral disc degeneration, lumbar region
CPT/HCPCS: 80307; G0482; G0463; 99211; 99212

== ENCOUNTER 2022-04-15 07:34 | Day surgery (SDC) | payer OTHER ==
[2022-04-14 14:49] VITALS: BMI 30.2
[2022-04-15] MEDS ORDERED: LIDOCAINE 1% (10MG/ML) FOR IV START INTRADERMA PRN (08:14)
[2022-04-15] MEDS ORDERED: LACTATED RINGERS 1,000 ML IV SCH (08:14)
[2022-04-15 08:30] VITALS: TEMP 97.3
[2022-04-15 08:45] LABS: Glucose,Whole Blood 141 mg/dL (70-110)
[2022-04-15] MEDS ORDERED: fentaNYL (PF) 50 MCG/ML 2 ML AMP ONE (09:11)
[2022-04-15] MEDS ORDERED: MIDAZOLAM 2 MG/2 ML VIAL ONE (09:11)
[2022-04-15] MEDS ORDERED: ROPIVACAINE 5 MG/ML 20 ML AMPULE ONE (09:11)
[2022-04-15] MEDS ORDERED: methylPREDNISolone ACETATE 40 MG/ML 1 ML VIAL ONE (09:11)
--- NOTE | 2022-04-15 09:39 | P.PCN ---
Date of Procedure: 04/15/22 Procedure(s) Performed: PREOPERATIVE DIAGNOSIS: 1-Lumbar Spondylosis with Facet Arthropathy without myelopathy. 2- Lumber degenerative disc disease. POSTOPERATIVE DIAGNOSIS: 1- Lumbar Spondylosis with Facet Arthropathy without myelopathy. 2- Lumber degenerative disc disease. PROCEDURES : Left Radiofrequency thermocoagulation, L3 , L4 , and L5 medial branch, with fluoroscopic guidance (fluoroscopy images available in the radiology department) ( to denervate the facet joint at Left L4-5 ,and L5-S1 levels ). ANESTHESIA: Monitored anesthesia care as per anesthesia department . EBL: Minimal PROCEDURE INDICATION: The patient with low back pain secondary to lumbar facet arthropathy who had more than 50% relief of her pain with previous diagnostic lumbar medial branch block with bupivacaine. PROCEDURE DESCRIPTION / TECHNIQUE: The patient was seen and identified in the preoperative area. Risks, benefits, complications, including but not limited to risk of infection ,bleeding , allergic reactions to the medications and no complete pain releife , and alternatives were discussed with the patient, the patient agreed to proceed with the procedure and signed the consent. IV was started. Vital signs remained stable throughout the procedure. Patient was taken to the OR and time out was completed. The patient was placed in the prone position on the procedure table. The lumber area was prepped and draped in the usual sterile fashion. . Vital signs were closely monitored during the procedure .IV sedation was used during the procedure to decrease patients anxiety. Using AP and then oblique fluoroscopy, the ``eye of the Davis dog corresponding to the connection between the superior and transverse articular processes of Left L3, L4, and L5 were identified, marked, and localized with 1% lidocaine. Subsequently, a 18 -mx radiofrequency cannula with a 10-mm active tip was advanced guided by fluoroscopy to each of the``eyes of the Davis dog at Left L3, L4, and L5. Each site then underwent sensory testing at 50 Hz and 0 to 1 volt and motor testing at 2.5 Hz and 0 to 3 volt with local stimulation, but no radicular symptoms down the legs. Thereafter each sites underwent radiofrequency thermocoagulation at 80 degrees celsius for 90 seconds after injecting 0.5 ml of PF Ropivacaine 1ml, then after the thermocoagulation done , 1 ml of the block solution containing Depo-Medrol 40 mg and 3 ml of Ropivacaine 0.5% was injected at the Left L3 , L4 , and L5 , levels after negative aspiration of CSF and blood and with no paresthesias. Cannulas were retracted while injecting lidocaine 1% until the needle is out. At the end of the procedure, the skin was cleansed and bandages were applied. COMPLICATIONS: No acute complications. DISPOSITION / PLANS: The patient was placed in a supine position and transferred to the recovery area in a stable condition for observation and was discharged from the recovery room after meeting discharge criteria. Home discharge instructions given to the patient by the staff. The patient was reexamined prior to discharge. The patient will schedule a follow up in the clinic in 2-4 weeks.
[2022-04-15] MEDS ORDERED: IV FLUID CONTINUATION 1,000 ML IV ONE (09:46)
[2022-04-15 09:56] VITALS: RESP 16
[2022-04-15 10:03] VITALS: BP 140/81; PULSE 77
--- NOTE | 2022-04-15 10:22 | FL ---
Intraoperative/procedural fluoroscopic services were provided. Total fluoroscopy time is 10.1 seconds with a total of 3 submitted images to PACS. Please see the operative/procedural note for further det ails.
== END 2022-04-15 10:18 | disposition home or self-care (01) ==
LOC: ORPAIN 07:34
PROVIDERS: ATTEND Specialist
DX: M47.816 Spondylosis without myelopathy or radiculopathy, lumbar region (principal); M51.36 Other intervertebral disc degeneration, lumbar region; I20.8 Other forms of angina pectoris; I10 Essential (primary) hypertension; F17.200 Nicotine dependence, unspecified, uncomplicated; F31.9 Bipolar disorder, unspecified; K21.9 Gastro-esophageal reflux disease without esophagitis; K58.9 Irritable bowel syndrome, unspecified; Z79.84 Long term (current) use of oral hypoglycemic drugs; Z79.891 Long term (current) use of opiate analgesic; Z79.899 Other long term (current) drug therapy; Z88.8 Allergy status to other drugs, medicaments and biological substances
CPT/HCPCS: 64635; 64636; J2250; J1030; J3010; J2795

== ENCOUNTER → 2022-05-06 | Outpatient (CLI) | payer OTHER ==
[2022-05-06 13:41] VITALS: BP 136/88; PULSE 98; RESP 18
--- NOTE | 2022-05-06 13:44 | P.PAINPG ---
PQRS Measure Charge Sheet Comment: A 51 yr old female with a history of severe and chronic low back pain secondary to lumbar degenerative disc diseases and lumbar spondylosis with facet arthropathy presents today for medication refills and evaluation s/p L RFA L3- L5. Pt states she received 70% pain relief s/p procedure. Pain level is curren tly at 8 out of 10 in intensity, constant, sharp pain in the R lower aspect of her lumbar spine with shooting pain down the R lower extremity. Pain is provoked with standing, walking and sitting for periods of 30 minutes or more. Pain is alleviated with medications ([place], Flexeril), topicals (Biofreeze gel), injections, PT which she completed this month, daily home stretching regimen, repositioning and rest. Interventional pain procedures completed include BL SI joint injections, L RFA L3-L5. Patient is currently on [place] 10/325 #75, Flexeril 5 mg #60 when necessary. Patient denies any side effects of the medication(s), denies excessive drowsiness or sleepiness, denies suicidal ideation and reports that the current pain medication is helping to control the pain and improve activities of daily living. Patient denies any motor or sensory deficits. Patient denies any fever or night sweats, denies any change in the bowel movements or urination. Physical Examination: -Constitutional: Cooperative. Not in acute distress . -HEENT: Neck is supple. No lymphadenopathy. No thyromegaly. Normal thyroid size. Eyes: No ptosis , no icterus, no photophobia. ENT: No auditory deficits. Normal oropharynx. No Thrush. - Respiratory: Chest clear to auscultations bilaterally. No wheezing. No rhonchi. - Cardiovascular: Regular rate and rhythm. S1 / S2 , no S3 , no S4. - Gastrointestinal: Abdomen soft no tenderness. Bowel sounds positive in all four quadrants. No organomegaly. - Genitourinary: Deferred. - Neurologic: Cranial nerve II to XII intact. No focal neurological deficits. - Psychatric: Alert & oriented x 3. Matching mood & appropriate affect. Judgment and insight intact. - Lymphatic: No Lymphadenopathy. - Musculoskeletal: Cervical spine: Muscle bulk/ tone/ strength in the bilateral upper extremities normal Vertebral body tenderness to palpation over Facet loading test positive Thoracic spine Muscle bulk / tone/ strength in the bilateral paraspinal muscles normal Vertebral body tender to palpation over Facet loading test positive Lumbar spine: Motor bulk/ tone/ strength lower extremities , thigh and legs : 5/5 Deep tendon reflexes : Normal Knee Jerk. Normal Ankle Jerk . Vertebral body tenderness to palpation over Lumbar Facet Loading Test positive on the left with paraspinal TTP and accompanying spasms Straight Leg Raise: positive at 30 degrees right side/ left side Gaenslen's Test positive Sacral spine : Severe tenderness over the Sacroiliac joint: right side / left side Range of motion: Flexion of the lumbar spine <60 degrees Range of motion: Extension of the lumbar spine <20 degrees Gaenslen's Test positive Desmond's Test positive Dian test: positive right side / left side Thigh Thrust Test Sacral Thrust Test Assessment and plan: Chronic low back pain secondary to lumbar degenerative disc disease , lumbar spondylosis with facet arthropathy without myelopathy Recommendation of R RFA L4-L5, L5-S1. She exhibited sufficient and satisfactory pain relief w prior RFA procedures. Risks, benefits of procedure discussed and pt verbalized understanding. Denies anticoagulant use or medical history of diabetes. Protocol for discontinuation/ continuation of medications dimas procedure discussed. Chronic and current use of high-risk medication (Opioids). The patient was counseled about risk of opioid use, psychological risk associated with opioids and was orally counseled to not overuse , divert or sell medications. Pt is to store medication in a safe location. The patient is counseled against driving while using narcotic medications and also not to use alcohol or any illicit recreational drugs. Patient verbalized understanding that the lack of compliance will result in failure to renew narcotic prescription(s) as well as possible discharge from the clinic Diagnoses, prognosis and treatment options including but not limited to physical therapy, surgical interventions, interventional therapies and medication management including narcotics and adjuvant medication were discussed. All patient questions answered MAPS reviewed and it was appropriate. UDS from 03/11/22 reviewed and consistent Prescription refill for Flexeril and [place] 10/325 mg #75 with 1 refill I have spent 31 minutes on patient care today. Dr Thomas was available by phone for the evaluation of this patient. The time was used to review the medical records including relevant urine studies and Prescription history (MAPs), review of the available imaging, evaluation and examination of the patient, coordination of care with the medical staff and if applicable referring physicians, as well as creation of the medical record PQRS Narrative: Smoking Status Current every day smoker Narcotic Agreement Date Signed 06/10/21 Hx Alcohol Use (MH) Yes: occ Home Medications: Ambulatory Orders lisinopriL [Zestril] 20 mg PO PC-LUNCH 01/25/18 traZODone HCL 100 mg PO HS PRN 03/12/20 Pioglitazone [Actos] 15 mg PO DAILY 05/08/20 Loratadine 10 mg PO DAILY PRN 06/15/20 Menthol [Biofreeze] 1 applic TOPICAL DAILY PRN 06/09/21 Ondansetron [Zofran] 4 mg PO Q8HR PRN 06/09/21 Cyclobenzaprine [Flexeril] 5 mg PO BID PRN 30 Days #60 tab 05/06/22 HYDROcodone/APAP 10-325MG [[place] 10-325] 1 tab PO Q8HR PRN 30 Days #75 tab 05/06/22 HYDROcodone/APAP 10-325MG [[place] 10-325] 1 tab PO Q8HR PRN 30 Days #75 tab 05/06/22 Controlled Substance Measures - Controlled Substance Measures Is patient prescribed a controlled substance at discharge?: Yes When asked, does pt state using other controlled substances?: No If prescribed controlled substance>3 days was MAPS reviewed?: Yes If Rx opioid, was Start Talking consent form obtained?: Yes Was information provided regarding opioid addiction?: Yes
== END ==
LOC: PNWHC3 13:14
PROVIDERS: ATTEND Specialist
DX: M51.36 Other intervertebral disc degeneration, lumbar region (principal); M47.816 Spondylosis without myelopathy or radiculopathy, lumbar region; G89.29 Other chronic pain; Z79.891 Long term (current) use of opiate analgesic; Z88.2 Allergy status to sulfonamides; Z88.8 Allergy status to other drugs, medicaments and biological substances; F17.200 Nicotine dependence, unspecified, uncomplicated
CPT/HCPCS: 99211

== ENCOUNTER → 2022-06-22 | Outpatient (CLI) | payer OTHER ==
--- NOTE | 2022-06-23 10:02 | MR ---
EXAMINATION TYPE: MR brain wo con DATE OF EXAM: 06/22/2022 4:22 PM COMPARISON: None. CLINICAL INDICATION:Female, 52 years old with history of R51.9 Headaches; TECHNIQUE: Multi planar, multi sequence imaging was performed through the brain including: T1, T2, In version recovery, Diffusion weighted imaging, and gradient echo imaging. No gadolinium was given. FINDINGS: The castro-white junctions, ventricular system, and cisterns appear unremarkable. No significant white matter changes identified. Midline structures show no abnormality. Diffusion-weighted imaging shows n o evidence of restricted diffusion. The susceptibility weighted images do not reveal any evidence for micro-hemorrhage. The bone marrow signal is within normal limits. The paranasal sinuses and globes are unremarkable. IMPRESSION: No evidence of intracranial mass or acute/subacute infarct.
== END | disposition home or self-care (01) ==
LOC: RADMRIMAIN 15:34
PROVIDERS: ATTEND Family Medicine
DX: R51.9 Headache, unspecified (principal); G89.29 Other chronic pain
CPT/HCPCS: 70551

== ENCOUNTER → 2022-07-01 | Outpatient (CLI) | payer OTHER ==
[2022-07-01 13:28] VITALS: BP 149/95; PULSE 93; RESP 18; TEMP 98.7
--- NOTE | 2022-07-01 14:52 | P.PAINPG ---
PQRS Measure Charge Sheet Comment: A 52 yr old female with a history of severe and chronic low back pain secondary to lumbar degenerative disc diseases and lumbar spondylosis with facet arthropathy without myelopathy presents today for medication refills. Pain level is currently at 8/10 in intensity, constant, localized in the lower lumbar spine, sharp in character w shooting towards R buttocks and RLE. Pain is provoked by sitting/standing/laying for periods of 30 min or more. Pain is alleviated with PT currently in, heat, ice, medications ([place], Flexeril), topicals, repositioning and rest. Increased frequency as her R RFA L3-L5 had been denied by her insurance company and pt has relied heavily on medications to put her through PT. Interventional pain procedures completed include L RFA L3-L5, BL SI injection. Patient is currently on [place] 10/325mg #75, Flexeril Patient denies any side effects of the medication(s), denies excessive drowsiness or sleepiness, denies suicidal ideation and reports that the current pain medication is helping to control the pain and improve activities of daily living. Patient denies any motor or sensory deficits. Patient denies any fever or night sweats, denies any change in the bowel movements or urination. Physical Examination: -Constitutional: Cooperative. Not in acute distress . - Neurologic: Cranial nerve II to XII intact. No focal neurological deficits. - Psychatric: Alert & oriented x 3. Matching mood & appropriate affect. Judgment and insight intact. - Musculoskeletal: Cervical spine: Muscle bulk/ tone/ strength in the bilateral upper extremities normal Vertebral body tenderness to palpation over Spurling test positive Distraction test positive Facet loading test positive Thoracic spine Muscle bulk / tone/ strength in the bilateral paraspinal muscles normal Vertebral body tender to palpation over Facet loading test positive Lumbar spine: Motor bulk/ tone/ strength lower extremities , thigh and legs : 5/5 Deep tendon reflexes : Normal Knee Jerk. Normal Ankle Jerk . Vertebral body tenderness to palpation over Lumbar Facet Loading Test positive w lateral flexion over BL L4-L5, L5-S1 Straight Leg Raise: positive at 30 degrees right side/ left side Gaenslen's Test positive Sacral spine : Severe tenderness over the Sacroiliac joint: right side / left side Range of motion: Flexion of the lumbar spine <60 degrees Range of motion: Extension of the lumbar spine <20 degrees Gaenslen's Test positive Desmond's Test positive Dian test: positive right side / left side Thigh Thrust Test Sacral Thrust Test Assessment and plan: Chronic low back pain secondary to lumbar degenerative disc disease , lumbar spondylosis with facet arthropathy without myelopathy Recommendation of R RFA L4-L5, L5-S1. Pt exhibited optimal pain relief w prior procedure(s). Risks, benefits of procedure discussed and pt verbalized understanding. Denies anticoagulant use and admits to medical history of diabetes. Protocol for discontinuation/ continuation of medications dimas procedure discussed. Chronic and current use of high-risk medication (Opioids). The patient was counseled about risk of opioid use, psychological risk associated with opioids and was orally counseled to not overuse , divert or sell medications. Pt is to store medication in a safe location. The patient is counseled against driving while using narcotic medications and also not to use alcohol or any illicit recreational drugs. Patient verbalized understanding that the lack of compliance will result in failure to renew narcotic prescription(s) as well as possible discharge from the clinic Diagnoses, prognosis and treatment options including but not limited to physical therapy, surgical interventions, interventional therapies and medication management including narcotics and adjuvant medication were discussed. All patient questions answered MAPS reviewed and it was appropriate. Narcotic & Opiate agreement renewed today 07/01/22 Prescription refill for [place] 10 /325mg #90 w 1 RF I have spent less than 30 minutes on patient care today. Dr Thomas was available by phone for the evaluation of this patient. The time was used to review the medical records including relevant urine studies and Prescription history (MAPs), review of the available imaging, evaluation and examination of the patient, coordination of care with the medical staff and if applicable referring physicians, as well as creation of the medical record - Pain Location Right Lower Back Non-Pharmacological Interventions: Heat, Ice Pharmacological Interventions: Epidural, Scheduled Medication, Topical Medication PQRS Narrative: Smoking Status Current every day smoker Narcotic Agreement Date Signed 06/10/21 Hx Alcohol Use (MH) Yes: occ Home Medications: Ambulatory Orders lisinopriL [Zestril] 20 mg PO PC-LUNCH 01/25/18 traZODone HCL 100 mg PO HS PRN 03/12/20 Pioglitazone [Actos] 15 mg PO DAILY 05/08/20 Loratadine 10 mg PO DAILY PRN 06/15/20 Menthol [Biofreeze] 1 applic TOPICAL DAILY PRN 06/09/21 Ondansetron [Zofran] 4 mg PO Q8HR PRN 06/09/21 Cyclobenzaprine [Flexeril] 5 mg PO BID PRN 30 Days #60 tab 07/01/22 HYDROcodone/APAP 10-325MG [[place] 10-325] 1 tab PO Q8HR PRN 30 Days #90 tab 07/01/22 HYDROcodone/APAP 10-325MG [[place] 10-325] 1 tab PO Q8HR PRN 30 Days #90 tab 07/01/22 Controlled Substance Measures - Controlled Substance Measures Is patient prescribed a controlled substance at discharge?: Yes When asked, does pt state using other controlled substances?: No If prescribed controlled substance>3 days was MAPS reviewed?: Yes If Rx opioid, was Start Talking consent form obtained?: Yes Was information provided regarding opioid addiction?: Yes
== END ==
LOC: PNWHC3 12:55
PROVIDERS: ATTEND Specialist
DX: M47.816 Spondylosis without myelopathy or radiculopathy, lumbar region (principal); M51.36 Other intervertebral disc degeneration, lumbar region; G89.29 Other chronic pain; Z88.2 Allergy status to sulfonamides; Z88.8 Allergy status to other drugs, medicaments and biological substances; F17.200 Nicotine dependence, unspecified, uncomplicated; E66.9 Obesity, unspecified; Z68.29 Body mass index [BMI] 29.0-29.9, adult
CPT/HCPCS: 99211

== ENCOUNTER 2022-08-06 09:11 | Day surgery (SDC) | payer OTHER ==
[2022-08-03 12:08] VITALS: BMI 29.7
[~2022-08-06 09:11] MED LIST changes: +LIDOCAINE 1% (10MG/ML) FOR IV START INTRADERMA PRN
[2022-08-06 09:40] LABS: Glucose,Whole Blood 135 mg/dL (70-110)
[2022-08-06 09:44] VITALS: RESP 16; TEMP 97.5
[2022-08-06] MEDS ORDERED: methylPREDNISolone ACETATE 40 MG/ML 1 ML VIAL ONE (10:20)
[2022-08-06] MEDS ORDERED: ROPIVACAINE 5 MG/ML 20 ML AMPULE ONE (10:20)
[2022-08-06] MEDS ORDERED: MIDAZOLAM 2 MG/2 ML VIAL ONE (10:20)
[2022-08-06] MEDS ORDERED: fentaNYL (PF) 50 MCG/ML 2 ML AMP ONE (10:20)
[2022-08-06] MEDS ORDERED: KETAMINE 10 MG/ML 20 ML VIAL ONE (10:20)
--- NOTE | 2022-08-06 10:40 | P.PCN ---
Date of Procedure: 08/06/22 Procedure(s) Performed: PREOPERATIVE DIAGNOSIS: 1-Lumbar Spondylosis with Facet Arthropathy without myelopathy. POSTOPERATIVE DIAGNOSIS: 1- Lumbar Spondylosis with Facet Arthropathy without myelopathy. PROCEDURES : Right Radiofrequency thermocoagulation, L3 , L4 , and L5 medial branch, with fluoroscopic guidance (fluoroscopy images available in the radiology department) ( to denervate the facet joint at right L4-5 ,and L5-S1 levels ). ANESTHESIA: Monitored anesthesia care as per anesthesia department. EBL: Minimal PROCEDURE INDICATION: The patient with low back pain secondary to lumbar facet arthropathy who had more than 50% relief of her pain with previous diagnostic lumbar medial branch block with bupivacaine. PROCEDURE DESCRIPTION / TECHNIQUE: The patient was seen and identified in the preoperative area. Risks, benefits, complications, including but not limited to risk of infection ,bleeding , allergic reactions to the medications and no complete pain releife , and alternatives were discussed with the patient, the patient agreed to proceed with the procedure and signed the consent. IV was started. Vital signs remained stable throughout the procedure. Patient was taken to the OR and time out was completed. The patient was placed in the prone position on the procedure table. The lumber area was prepped and draped in the usual sterile fashion. . Vital signs were closely monitored during the procedure .IV sedation was used during the procedure to decrease patients anxiety. Using AP and then oblique fluoroscopy, the ``eye of the Davis dog corresponding to the connection between the superior and transverse articular processes of right L3, L4, and L5 were identified, marked, and localized with 1% lidocaine. Subsequently, a 18 -yf radiofrequency cannula with a 10- mm active tip was advanced guided by fluoroscopy to each of the``eyes of the Davis dog at right L3, L4, and L5. Each site then underwent sensory testing at 50 Hz and 0 to 1 volt and motor testing at 2.5 Hz and 0 to 3 volt with local stimulation, but no radicular symptoms down the legs. Thereafter each sites underwent radiofrequency thermocoagulation at 80 degrees celsius for 90 seconds after injecting 0.5 ml of PF Ropivacaine 1ml, then after the thermocoagulation done , 1 ml of the block solution containing Depo-Medrol 40 mg and 3 ml of Ropivacaine 0.5% was injected at the right L3 , L4 , and L5 , levels after negative aspiration of CSF and blood and with no paresthesias. Cannulas were retracted while injecting lidocaine 1% until the needle is out At the end of the procedure, the skin was cleansed and bandages were applied. COMPLICATIONS: No acute complications. DISPOSITION / PLANS: The patient was placed in a supine position and transferred to the recovery area in a stable condition for observation and was discharged from the recovery room after meeting discharge criteria. Home discharge instructions given to the patient by the staff. The patient was reexamined prior to discharge. The patient will schedule a follow up in the clinic in 2-4 weeks.
[2022-08-06] MEDS ORDERED: IV FLUID CONTINUATION 700 ML IV ONE (10:47)
[2022-08-06 11:01] VITALS: BP 133/92; PULSE 81
--- NOTE | 2022-08-06 12:27 | FL ---
Fluoroscopy INDICATION: Pain FINDINGS: Fluoroscopy time: 4 seconds. Images obtained: 3. IMPRESSIONS: 1. Documentation of fluoroscopy.
== END 2022-08-06 11:27 | disposition home or self-care (01) ==
LOC: ORPAIN 09:11
PROVIDERS: ATTEND Specialist
DX: M47.816 Spondylosis without myelopathy or radiculopathy, lumbar region (principal); F17.210 Nicotine dependence, cigarettes, uncomplicated; Z88.8 Allergy status to other drugs, medicaments and biological substances; Z79.899 Other long term (current) drug therapy
CPT/HCPCS: 64635; 64636; J2250; J1030; J3010; J2795

== ENCOUNTER 2022-08-21 15:44 | Emergency (ER) | payer OTHER ==
[2022-08-21 16:24] LABS: Basophils # (A) 0.1 k/uL (0-0.2); Basophils % (A) 1 %; Eosinophils # (A) 0.2 k/uL (0-0.7); Eosinophils % (A) 2 %; HCT 43.7 % (34.0-46.0); HGB 14.8 gm/dL (11.4-16.0); Lymphocytes # (A) 3.4 k/uL (1.0-4.8); Lymphocytes % (A) 33 %; MCH 28.6 pg (25.0-35.0); MCHC 33.8 g/dL (31.0-37.0); MCV 84.5 fL (80.0-100.0); Mean Platelet Volume 9.3; Monocytes # (A) 0.3 k/uL (0-1.0); Monocytes % (A) 3 %; Neutrophils # (A) 6.2 k/uL (1.3-7.7); Neutrophils % (A) 61 %; Platelet Count 237 k/uL (150-450); RBC 5.17 m/uL (3.80-5.40); RDW 12.6 % (11.5-15.5); WBC 10.2 k/uL (3.8-10.6)
[2022-08-21 16:33] LABS: INR 0.9 (<1.2); Partial Thromboplastin Time 22.8 sec (22.0-30.0); Prothrombin Time 10.3 sec (9.0-12.0)
[2022-08-21 16:39] LABS: AST 34 U/L (14-36); African American GFR (CKD) >90 (>60 ml/min/1.73 sqM); Albumin 4.8 g/dL (3.5-5.0); Alkaline Phosphatase 104 U/L (38-126); Anion Gap 12 mmol/L; Blood Urea Nitrogen 9 mg/dL (7-17); Carbon Dioxide 24 mmol/L (22-30); Chloride 105 mmol/L (98-107); Glucose 189 mg/dL (74-99); Magnesium 1.7 mg/dL (1.6-2.3); Non-African American GFR(CKD) >90 (>60 ml/min/1.73 sqM); Potassium 3.5 mmol/L (3.5-5.1); Sodium 141 mmol/L (137-145); Total Bilirubin 0.9 mg/dL (0.2-1.3); Total Protein 7.3 g/dL (6.3-8.2)
[2022-08-21 16:45] LABS: ALT 45 U/L (4-34)
--- NOTE | 2022-08-21 17:03 | XR ---
EXAMINATION TYPE: XR chest 2V DATE OF EXAM: 08/21/2022 COMPARISON: 06/15/2020 HISTORY: Chest pain TECHNIQUE: FINDINGS: Heart and mediastinum are normal. Lungs are clear. Diaphragm is normal. Bony thorax is inta ct. IMPRESSION: Normal chest. No change.
[2022-08-21 20:05] VITALS: BP 145/82; PULSE 70; RESP 16; TEMP 98.2
--- NOTE | 2022-08-21 20:05 | ED ---
Chest Pain HPI - General Chief Complaint: Chest Pain Stated Complaint: Chest pain Time Seen by Provider: 08/21/22 16:16 Source: patient Mode of arrival: wheelchair Limitations: no limitations - History of Present Illness Initial Comments: 52-year-old female presents with complaints of chest pain retrosternal with some left arm pain. She's had this multiple times in the past she states she's had workups including cardiac catheterization which showed no obstruction. She states it feels like similar episode she's had the past but she was concerned cu rrently she is pain-free no fevers chills nausea vomiting sweats cough or other symptoms reported to me at this time. MD Complaint: chest pain - Related Data Home Medications Medication Instructions Recorded Confirmed lisinopriL [Zestril] 20 mg PO PC-LUNCH 01/25/18 08/03/22 traZODone HCL 100 mg PO HS PRN 03/12/20 08/03/22 Pioglitazone [Actos] 15 mg PO DAILY 05/08/20 08/03/22 Loratadine 10 mg PO DAILY PRN 06/15/20 08/03/22 Menthol [Biofreeze] 1 applic TOPICAL DAILY PRN 06/09/21 08/06/22 Ondansetron [Zofran] 4 mg PO Q8HR PRN 06/09/21 08/06/22 Previous Rx's Medication Instructions Recorded Cyclobenzaprine [Flexeril] 5 mg PO BID PRN 30 Days #60 tab 07/01/22 HYDROcodone/APAP 10-325MG [[facility] 1 tab PO Q8HR PRN 30 Days #90 tab 07/01/22 10-325] Nitroglycerin 0.4 mg SL Q5M #25 tab 08/21/22 Allergies Allergy/AdvReac Type Severity Reaction Status Date / Time quetiapine fumarate Allergy Swelling Verified 08/21/22 16:02 [From Seroquel] of ankles Review of Systems ROS Statement: Those systems with pertinent positive or pertinent negative responses have been documented in the HPI. ROS Other: All systems not noted in ROS Statement are negative. EKG Findings - EKG Results: EKG: interpreted by BIJU, sinus rhythm (EKG read by me shows normal sinus rhythm 82. Interval 134 QRS duration 91 QT since QTC 372/410 of his ankle the right bundle-branch block pulses criteria for LVH nonspecific inferior changes. This is compared with EKG dated 06/15/20 showing similar configuration) Past Medical History Past Medical History: Chest Pain / Angina, Diabetes Mellitus, GERD/Reflux, Hyperlipidemia, Hypertension, Osteoarthritis (OA), Renal Disease Additional Past Medical History / Comment(s): Angina, herniated discs, IBS, coughing fits that result in SOB, chronic diarrhea, kidney failure stage II. History of Any Multi-Drug Resistant Organisms: None Reported Past Surgical History: Appendectomy, Cholecystectomy, Heart Catheterization, Hysterectomy, Joint Replacement, Orthopedic Surgery Additional Past Surgical History / Comment(s): Left knee arthroscopy, left hand surgery for tendon injury, ANAL FISSURES, PAIN CLINIC PROCEDURES, cyst removed from left ovary, right oophorectomy. left knee replacement Past Anesthesia/Blood Transfusion Reactions: No Reported Reaction Past Psychological History: Anxiety, Bipolar, Depression Smoking Status: Current every day smoker - Past Family History Father Family Medical History: Cancer General Exam - General Exam Comments Initial Comments: This is a well-developed well-nourished awake alert oriented 4 female Limitations: no limitations General appearance: alert, in no apparent distress Head exam: Present: atraumatic, normocephalic, normal inspection Eye exam: Present: normal appearance, PERRL, EOMI. Absent: scleral icterus, conjunctival injection, periorbital swelling ENT exam: Present: normal exam, mucous membranes moist Neck exam: Present: normal inspection, full ROM, other. Absent: tenderness, meningismus, lymphadenopathy Respiratory exam: Present: normal lung sounds bilaterally. Absent: respiratory distress, wheezes, rales, rhonchi, stridor, chest wall tenderness (No stridor JVD or bruits) Cardiovascular Exam: Present: regular rate, normal rhythm, normal heart sounds. Absent: systolic murmur, diastolic murmur, rubs, gallop, clicks GI/Abdominal exam: Present: soft, normal bowel sounds. Absent: distended, tenderness, guarding, rebound, rigid Extremities exam: Present: normal inspection, full ROM, normal capillary refill. Absent: tenderness, pedal edema, joint swelling, calf tenderness Back exam: Present: normal inspection Neurological exam: Present: alert, oriented X3, CN II-XII intact Psychiatric exam: Present: normal affect, normal mood Skin exam: Present: warm, dry, intact, normal color. Absent: rash Course Vital Signs 08/21/22 08/21/22 08/21/22 16:00 18:12 20:04 Temperature 98.4 F 98.2 F Pulse Rate 87 81 70 Pulse Rate [ 80 [employer] Tender ] Respiratory 16 18 16 Rate Blood Pressure 148/89 141/76 145/82 O2 Sat by Pulse 99 100 99 Oximetry Chest Pain MDM - MDM I did review the x-ray show no evidence of acute findings. I did reevaluate patient several occasions she has no further pain we did a long discussion regarding the findings the workup thus far is negative she would like to go home and follow-up with her doctor. We did discuss return parameters. She was requesting a Nitro prescription which she had before with this I will write a short prescription for she is invited to return when necessary or follow-up with her doctor in 2 days. Disposition Clinical Impression: Atypical chest pain Disposition: HOME SELF-CARE Condition: Good Instructions (If sedation given, give patient instructions): Chest Pain (ED) Prescriptions: Nitroglycerin 0.4 mg SL Q5M #25 tab Is patient prescribed a controlled substance at d/c from ED?: No Referrals: Mariely Wheeler MD [Primary Care Provider] - 1-2 days Decision Date: 08/21/22 Decision Time: 20:10
== END 2022-08-21 20:17 | disposition home or self-care (01) ==
LOC: EC 15:44
DX: R07.89 Other chest pain (principal); F17.200 Nicotine dependence, unspecified, uncomplicated; K21.9 Gastro-esophageal reflux disease without esophagitis; E78.5 Hyperlipidemia, unspecified; M19.90 Unspecified osteoarthritis, unspecified site; E11.9 Type 2 diabetes mellitus without complications; I10 Essential (primary) hypertension; I45.10 Unspecified right bundle-branch block; Z88.8 Allergy status to other drugs, medicaments and biological substances
CPT/HCPCS: 36415; 71046; 80053; 83735; 84484; 85025; 85379; 85610; 85730; 93005; 99285

== ENCOUNTER → 2022-08-26 | Outpatient (CLI) | payer OTHER ==
[2022-08-26 14:05] VITALS: BP 156/94; PULSE 86; RESP 16
--- NOTE | 2022-08-26 15:06 | P.PAINPG ---
PQRS Measure Charge Sheet Comment: A 52 yr old female with a history of severe and chronic low back pain secondary to lumbar DDD and spondylosis with facet arthropathy without myelopathy presents today for medication refills and follow up for R RFA L3-L5. Pt states she experienced 65% pain relief s/p procedure. Pain level is currently at 7/10 in intensity, constant, localized in the lumbar spine, throbbing/ stabbing in character w shooting towards the BLEs. Pain is provoked by standing for periods of 30 min or more. Pain is alleviated with PT x 6 wks in Jul 2022 which provoked her pain, medications, topicals, heat, ice, repositioning and rest. Interventional pain procedures completed include BL RFA L3-L5 Patient is currently on [place] 10/325mg #90, Flexeril Patient denies any side effects of the medication(s), denies excessive drowsiness or sleepiness, denies suicidal ideation and reports that the current pain medication is helping to control the pain and improve activities of daily living. Patient denies any motor or sensory deficits. Patient denies any fever or night sweats, denies any change in the bowel movements or urination. Physical Examination: -Constitutional: Cooperative. Not in acute distress . - Neurologic: Cranial nerve II to XII intact. No focal neurological deficits. - Psychatric: Alert & oriented x 3. Matching mood & appropriate affect. Judgment and insight intact. - Musculoskeletal: Cervical spine: Muscle bulk/ tone/ strength in the bilateral upper extremities normal Vertebral body tenderness to palpation over Spurling test positive Distraction test positive Facet loading test positive Thoracic spine Muscle bulk / tone/ strength in the bilateral paraspinal muscles normal Vertebral body tender to palpation over Facet loading test positive Lumbar spine: Motor bulk/ tone/ strength lower extremities , thigh and legs : 5/5 Deep tendon reflexes : Normal Knee Jerk. Normal Ankle Jerk . Vertebral body tenderness to palpation over R lateral L5 Lumbar Facet Loading Test positive Straight Leg Raise: positive at 30 degrees right side/ left side Gaenslen's Test positive Sacral spine : Severe tenderness over the Sacroiliac joint: right side / left side Range of motion: Flexion of the lumbar spine <60 degrees Range of motion: Extension of the lumbar spine <20 degrees Gaenslen's Test positive Dian test: positive right side / left side Thigh Thrust Test Sacral Thrust Test Assessment and plan: Chronic low back pain secondary to lumbar degenerative disc disease, spondylosis with facet arthropathy without myelopathy Recommendation of R iliolumbar ligament injection. May need a series, up to 2 within a 4 mo period, for optimal pain relief. Risks, benefits of procedure discussed and pt verbalized understanding. Admits to anticoagulant use or medical history of diabetes. Refill of [place] 10/325mg #90, Flexeril 10mg w 1 RF. Use, side effects and adverse reactions discussed and pt verbalized understanding. Opiate and narcotic agreement up to date. UDS collected today 08/26/22. All patient questions answered I have spent less than 30 minutes on patient care today. Dr Thomas was av ailable by phone for the evaluation of this patient. The time was used to review the medical records including relevant urine studies and Prescription history (MAPs), review of the available imaging, evaluation and examination of the patient, coordination of care with the medical staff and if applicable referring physicians, as well as creation of the medical record - Pain Location Lower Back Non-Pharmacological Interventions: Exercise, Heat, Home Exercise, Ice, Inactivity, Physical Therapy, Position/Reposition, Relaxation Technique, Stretching Pharmacological Interventions: Block, Epidural, Scheduled Medication, Topical Medication PQRS Narrative: Smoking Status Current every day smoker Narcotic Agreement Date Signed 07/01/22 Hx Alcohol Use (MH) Yes: occ Home Medications: Ambulatory Orders lisinopriL [Zestril] 20 mg PO PC-LUNCH 01/25/18 traZODone HCL 100 mg PO HS PRN 03/12/20 Pioglitazone [Actos] 15 mg PO DAILY 05/08/20 Loratadine 10 mg PO DAILY PRN 06/15/20 Menthol [Biofreeze] 1 applic TOPICAL DAILY PRN 06/09/21 Ondansetron [Zofran] 4 mg PO Q8HR PRN 06/09/21 Nitroglycerin 0.4 mg SL Q5M #25 tab 08/21/22 Cyclobenzaprine [Flexeril] 5 mg PO BID PRN 30 Days #60 tab 08/26/22 HYDROcodone/APAP 10-325MG [[place] 10-325] 1 tab PO Q8HR PRN 30 Days #90 tab 08/26/22 HYDROcodone/APAP 10-325MG [[place] 10-325] 1 tab PO Q8HR PRN 30 Days #90 tab 08/26/22 Controlled Substance Measures - Controlled Substance Measures Is patient prescribed a controlled substance at discharge?: No
== END ==
LOC: PNWHC3 13:13
PROVIDERS: ATTEND Specialist
DX: M47.816 Spondylosis without myelopathy or radiculopathy, lumbar region (principal); M51.36 Other intervertebral disc degeneration, lumbar region; G89.29 Other chronic pain; Z79.01 Long term (current) use of anticoagulants; E11.9 Type 2 diabetes mellitus without complications; F17.200 Nicotine dependence, unspecified, uncomplicated; Z79.84 Long term (current) use of oral hypoglycemic drugs; Z88.8 Allergy status to other drugs, medicaments and biological substances
CPT/HCPCS: 80307; G0482; G0463; 99212

== ENCOUNTER 2022-09-30 06:38 | Day surgery (SDC) | payer OTHER ==
[2022-09-30 07:20] VITALS: TEMP 97.8
[2022-09-30] MEDS ORDERED: LACTATED RINGERS 1,000 ML IV SCH (07:30)
[2022-09-30 07:35] LABS: Glucose,Whole Blood 190 mg/dL (70-110)
[2022-09-30] MEDS ORDERED: ROPIVACAINE 5 MG/ML 20 ML AMPULE ONE (07:36)
[2022-09-30] MEDS ORDERED: fentaNYL (PF) 50 MCG/ML 2 ML AMP ONE (07:36)
[2022-09-30] MEDS ORDERED: MIDAZOLAM 2 MG/2 ML VIAL ONE (07:36)
[2022-09-30] MEDS ORDERED: TRIAMCINOLONE ACETONIDE 40 MG/ML 1 ML VIAL ONE (07:36)
[2022-09-30] MEDS ORDERED: IV FLUID CONTINUATION 1,000 ML IV ONE (07:50)
--- NOTE | 2022-09-30 07:50 | P.PCN ---
Date of Procedure: 09/30/22 Description of Procedure: Preoperative diagnosis: . Iliolumbar syndrome Postoperative diagnosis: . Iliolumbar syndrome Procedure: Right-sided iliolumbar ligament injection EBL: None Anesthesia: 2 mL of 1% lidocaine for skin infiltration. Versed 2+1 mg and fentanyl 100 mcg Sedation supervision start time : 740 sedation Supervision end time: 745 Specimen removed: None Fluoroscopic image: Saved to electronic medical records Procedure indication: Patient had a history of chronic low back pain along with sacroiliac joint area, and posterior superior iliac spine area.. Patient tried conservative therapy, scheduled for diagnostic Right iliolumbar treatment injection for better pain relief. Procedure description: Patient was discussed regarding procedure in the preop holding area, risks benefits, complications, alternatives discussed with the patient. Patient agreed to proceed for the procedure. Using anteroposterior fluoroscopic view that side L5 transverse process, and sacral alae identified. Area of iliolumbar ligament trajectory identified on the Right side using fluoroscopy. Then using a 22 G 3.5 inch needle used advance in the trajectory of iliolumbar ligament area then after negative aspiration for blood, paresthesia, any other bodily fluids , after that in a fan-shaped manner 10 mL of block solution injected. The block solution containing 9 mL of 0.5% ropivacaine with 40 mg of Kenalog. Needle removed intact. Skin cleaned, and Band-Aid applied. Complications: None DISPOSITION / PLANS: The patient was placed in a supine position and transferred to the recovery area in a stable condition for observation. Patient was dischar ged from the recovery room after meeting discharge criteria. Home discharge instructions given to the patient by the staff. The patient was reexamined prior to discharge. The patient will schedule a follow up in the clinic in 4 weeks
[2022-09-30 07:55] VITALS: RESP 16
--- NOTE | 2022-09-30 07:59 | FL ---
Intraoperative/procedural fluoroscopic services were provided for iliolumbar ligament injection. Tota l fluoroscopy time is 1 second with a total of 2 submitted images to PACS. Please see the operative n ote for further details.
[2022-09-30 08:02] VITALS: BP 116/76; PULSE 80
== END 2022-09-30 08:28 | disposition home or self-care (01) ==
LOC: ORPAIN 06:38
DX: M51.86 Other intervertebral disc disorders, lumbar region (principal); G89.29 Other chronic pain; I10 Essential (primary) hypertension; E11.9 Type 2 diabetes mellitus without complications; Z98.890 Other specified postprocedural states; Z90.710 Acquired absence of both cervix and uterus; Z88.8 Allergy status to other drugs, medicaments and biological substances; Z79.84 Long term (current) use of oral hypoglycemic drugs; Z79.899 Other long term (current) drug therapy
CPT/HCPCS: 20550; J2250; J3301; J3010; J2795; 99152

== ENCOUNTER → 2022-10-08 | Outpatient (CLI) | payer OTHER ==
[2022-10-09 01:32] LABS: Gliadin AB IgA, Deaminated NEGATIVE (NEGATIVE); Gliadin AB IgA, Unit 0.3 U/mL; Gliadin AB IgG, Deaminated NEGATIVE (NEGATIVE); Gliadin AB IgG, Unit <0.4 U/mL
== END | disposition home or self-care (01) ==
LOC: LABWHC1 15:11
PROVIDERS: ATTEND Nurse Practitioner Family
DX: K52.9 Noninfective gastroenteritis and colitis, unspecified (principal)
CPT/HCPCS: 36415; 83516

== ENCOUNTER → 2022-10-21 | Outpatient (CLI) | payer OTHER ==
[2022-10-21 13:54] VITALS: BP 132/89; PULSE 92; RESP 18; TEMP 98.1
--- NOTE | 2022-10-21 14:59 | P.PAINPG ---
PQRS Measure Charge Sheet Comment: A 52 yr old female with a history of severe and chronic LBP secondary to lumbar DDD and spondylosis with facet arthropathy without myelopathy presents today for medication refills and evaluation s/p R iliolumbar injection. Pt states she experienced 75% pain relief x 3 days s/p procedure. Pt also states that her L RFA of the L4-L5, L5-S1 in February 2022, she experienced 70 % pain relief x 6 mo s/p procedure. Pain level is provoked at 8/10 in intensity, constant, localized in the lumbar spine, throbbing, sharp in character w shooting towards the BLEs. Pain is provoked by standing/ walking/ sitting for periods of 20 min or more. Pain is alleviated with medications ([place] 10/325mg #90), topicals, PT x 6 wks in Jul 2022, heat, ice, sitting, repositioning and rest. Interventional pain procedures completed include BL RFA L3-L5 (2021), R iliolumbar x1 Patient is currently on [place] 10/325mg #90, Flexeril Patient denies any side effects of the medication(s), denies excessive drowsiness or sleepiness, denies suicidal ideation and reports that the current pain medication is helping to control the pain and improve activities of daily living. Patient denies any motor or sensory deficits. Patient denies any fever or night sweats, denies any change in the bowel movements or urination. Physical Examination: -Constitutional: Cooperative. Not in acute distress . - Neurologic: Cranial nerve II to XII intact. No focal neurological deficits. - Psychatric: Alert & oriented x 3. Matching mood & appropriate affect. Judgment and insight intact. - Musculoskeletal: Cervical spine: Muscle bulk/ tone/ strength in the bilateral upper extremities normal Vertebral body tenderness to palpation over Spurling test positive Distraction test positive Facet loading test positive Thoracic spine Muscle bulk / tone/ strength in the bilateral paraspinal muscles normal Vertebral body tender to palpation over Facet loading test positive Lumbar spine: Motor bulk/ tone/ strength lower extremities , thigh and legs : 5/5 Deep tendon reflexes : Normal Knee Jerk. Normal Ankle Jerk . Vertebral body tenderness to palpation Lumbar Facet Loading Test positive TTP over L L4-L5, L5-S1 facets Straight Leg Raise: positive at 30 degrees right side/ left side Gaenslen's Test positive Sacral spine : Severe tenderness over the Sacroiliac joint: right side / left side Range of motion: Flexion of the lumbar spine <60 degrees Range of motion: Extension of the lumbar spine <20 degrees Gaenslen's Test positive Dian test: positive right side / left side Thigh Thrust Test Sacral Thrust Test Assessment and plan: Chronic LBP secondary to lumbar DDD, spondylosis with facet arthropathy without myelopathy Recommendation of L RFA L4-L5, L5-S1. Pt exhibited substantial pain relief w prior RFA in February 2022. Risks, benefits of procedure discussed and pt verbalized understanding. Admits to anticoagulant use. Protocol for discontinuation/ continuation of medications dimas procedure discussed. Script provided for Behavioral Health Eval for PNS trial for R L4-L5, L5- S1 re: G89.2, G90.521 Chronic and current use of high-risk medication (Opioids). The patient was counseled about risk of opioid use, psychological risk associated with opioids and was orally counseled to not overuse , divert or sell medications. Pt is to store medication in a safe location. The patient is counseled against driving while using narcotic medications and also not to use alcohol or any illicit recreational drugs. Patient verbalized understanding that the lack of compliance will result in failure to renew narcotic prescription(s) as well as possible discharge from the clinic Diagnoses, prognosis and treatment options including but not limited to physical therapy, surgical interventions, interventional therapies and medication management including narcotics and adjuvant medication were discussed. All patient questions answered MAPS reviewed and it was appropriate. UDS from Aug 2022 reviewed and consistent. Prescription refill for [place] 10/325#90, Flexeril with 1 refill I have spent less than 30 minutes on patient care today. Dr Thomas was available by phone for the evaluation of this patient. The time was used to review the medical records including relevant urine studies and Prescription history (MAPs), review of the available imaging, evaluation and examination of the patient, coordination of care with the medical staff and if applicable referring physicians, as well as creation of the medical record PQRS Narrative: Smoking Status Current every day smoker Narcotic Agreement Date Signed 07/01/22 Hx Alcohol Use (MH) Yes: occ Home Medications: Ambulatory Orders lisinopriL [Zestril] 20 mg PO PC-LUNCH 01/25/18 traZODone HCL 100 mg PO HS PRN 03/12/20 Pioglitazone [Actos] 15 mg PO DAILY 05/08/20 Loratadine 10 mg PO DAILY PRN 06/15/20 Menthol [Biofreeze] 1 applic TOPICAL DAILY PRN 06/09/21 Ondansetron [Zofran] 4 mg PO Q8HR PRN 06/09/21 Nitroglycerin 0.4 mg SL Q5M #25 tab 08/21/22 Cyclobenzaprine [Flexeril] 5 mg PO BID PRN 30 Days #60 tab 10/21/22 HYDROcodone/APAP 10-325MG [[place] 10-325] 1 tab PO Q8HR PRN 30 Days #90 tab 10/21/22 HYDROcodone/APAP 10-325MG [[place] 10-325] 1 tab PO Q8HR PRN 30 Days #90 tab 10/21/22 Controlled Substance Measures - Controlled Substance Measures Is patient prescribed a controlled substance at discharge?: Yes When asked, does pt state using other controlled substances?: No If prescribed controlled substance>3 days was MAPS reviewed?: Yes If Rx opioid, was Start Talking consent form obtained?: Yes If opioid is for acute pain is fill amount 7 days or less?: No Was information provided regarding opioid addiction?: Yes
== END ==
LOC: PNWHC3 13:08
PROVIDERS: ATTEND Specialist
DX: M47.816 Spondylosis without myelopathy or radiculopathy, lumbar region (principal); M51.36 Other intervertebral disc degeneration, lumbar region; G89.29 Other chronic pain; Z88.8 Allergy status to other drugs, medicaments and biological substances; F17.200 Nicotine dependence, unspecified, uncomplicated
CPT/HCPCS: 99211

== ENCOUNTER → 2022-12-16 | Outpatient (CLI) | payer OTHER ==
[2022-12-16 14:02] VITALS: BP 136/87; PULSE 82; RESP 18; TEMP 98.2
--- NOTE | 2022-12-16 14:32 | P.PAINPG ---
PQRS Measure Charge Sheet Comment: A 52 yr old female with a history of severe and chronic LBP x years secondary to lumbar DDD and spondylosis with facet arthropathy without myelopathy presents today for LBP. Pain level is provoked at 8 /10 in intensity, constant, localized in the lumbar spine, sharp in character w shooting towards the BLEs. Pain is provoked by any position for periods of 20 min or more. Pain is alleviated with PT x 6 wks in Jun 2022 which was ineffective, medications, topicals, CBD products, heat, ice, repositioning and rest. Interventional pain procedures completed include BL RFA L3-L5, LESIs Patient is currently on [place] , Flexeril Patient denies any side effects of the medication(s), denies excessive drowsiness or sleepiness, denies suicidal ideation and reports that the current pain medication is helping to control the pain and improve activities of daily living. Patient denies any motor or sensory deficits. Patient denies any fever or night sweats, denies any change in the bowel movements or urination. Physical Examination: -Constitutional: Cooperative. Not in acute distress . - Neurologic: Cranial nerve II to XII intact. No focal neurological deficits. - Psychatric: Alert & oriented x 3. Matching mood & appropriate affect. Judgment and insight intact. - Musculoskeletal: Cervical spine: Muscle bulk/ tone/ strength in the bilateral upper extremities normal Vertebral body tenderness to palpation over Spurling test positive Distraction test positive Facet loading test positive TTP Thoracic spine Muscle bulk / tone/ strength in the bilateral paraspinal muscles normal Vertebral body tender to palpation over Facet loading test positive TTP Lumbar spine: Motor bulk/ tone/ strength lower extremities , thigh and legs : 5/5 Deep tendon reflexes : Normal Knee Jerk. Normal Ankle Jerk . Vertebral body tenderness to palpation over L4, L5 Lumbar Facet Loading Test positive Straight Leg Raise: positive at 30 degrees right side/ left side Gaenslen's Test positive Sacral spine : Severe tenderness over the Sacroiliac joint: right side / left side Range of motion: Flexion of the lumbar spine <60 degrees Range of motion: Extension of the lumbar spine <20 degrees Gaenslen's Test positive right side / left side Dian test: positive right side / left side Thigh Thrust Test positive right side / left side Sacral Thrust Test positive right side / left side Assessment and plan: Chronic LBP secondary to lumbar DDD, spondylosis with facet arthropathy without myelopathy Recommendation of SCS Trial. Script for behavioral health provided G 89.2, G 90.521 Risks, benefits of procedure discussed and pt verbalized understanding. Admits to anticoagulant use or medical history of diabetes. Protocol for discontinuation/ continuation of medications dimas procedure discussed. All questions answered. Chronic and current use of high-risk medication (Opioids). The patient was counseled about risk of opioid use, psychological risk associated with opioids and was orally counseled to not overuse , divert or sell medications. Pt is to store medication in a safe location. The patient is counseled against driving while using narcotic medications and also not to use alcohol or any illicit recreational drugs. Patient verbalized understanding that the lack of compliance will result in failure to renew narcotic prescription(s) as well as possible discharge from the clinic Diagnoses, prognosis and treatment options including but not limited to physical therapy, surgical interventions, interventional therapies and medication management including narcotics and adjuvant medication were discussed. All patient questions answered MAPS reviewed and it was appropriate. Prescription refill for [place] #90, Flexeril with 1 refill I have spent less than 30 minutes on patient care today. Dr Thomas was available by phone for the evaluation of this patient. The time was used to review the medical records including relevant urine studies and Prescription history (MAPs), review of the available imaging, evaluation and examination of the patient, coordination of care with the medical staff and if applicable referring physicians, as well as creation of the medical record - Pain Location Bilateral Lower Back Non-Pharmacological Interventions: Heat, Ice, Inactivity, Physical Therapy, Position/Reposition Pharmacological Interventions: Scheduled Medication, Topical Medication PQRS Narrative: Smoking Status Current every day smoker Narcotic Agreement Date Signed 07/01/22 Hx Alcohol Use (MH) Yes: occ Home Medications: Ambulatory Orders lisinopriL [Zestril] 20 mg PO PC-LUNCH 01/25/18 traZODone HCL 100 mg PO HS PRN 03/12/20 Pioglitazone [Actos] 15 mg PO DAILY 05/08/20 Loratadine 10 mg PO DAILY PRN 06/15/20 Menthol [Biofreeze] 1 applic TOPICAL DAILY PRN 06/09/21 Ondansetron [Zofran] 4 mg PO Q8HR PRN 06/09/21 Nitroglycerin 0.4 mg SL Q5M #25 tab 08/21/22 Fluticasone Nasal [place] [Flonase Nasal [place]] 1 spray EA NOSTRIL DAILY PRN 11/09/22 Cyclobenzaprine [Flexeril] 5 mg PO BID PRN 30 Days #60 tab 12/16/22 HYDROcodone/APAP 10-325MG [[place] 10-325] 1 tab PO Q8HR PRN 30 Days #90 tab 12/16/22 HYDROcodone/APAP 10-325MG [[place] 10-325] 1 tab PO Q8HR PRN 30 Days #90 tab 12/16/22 Controlled Substance Measures - Controlled Substance Measures Is patient prescribed a controlled substance at discharge?: Yes
== END ==
LOC: PNWHC3 13:30
PROVIDERS: ATTEND Specialist
DX: M51.36 Other intervertebral disc degeneration, lumbar region (principal); M47.816 Spondylosis without myelopathy or radiculopathy, lumbar region; Z79.891 Long term (current) use of opiate analgesic; F17.200 Nicotine dependence, unspecified, uncomplicated; Z88.8 Allergy status to other drugs, medicaments and biological substances
CPT/HCPCS: 99211

== ENCOUNTER → 2023-01-13 | Outpatient (CLI) | payer OTHER ==
[2023-01-13 14:18] VITALS: BP 146/94; PULSE 78; RESP 16; TEMP 98.9
--- NOTE | 2023-01-13 14:33 | P.PAINPG ---
PQRS Measure Charge Sheet Comment: A 52 yr old female with a history of severe and chronic LBP secondary to lumbar DDD and spondylosis with facet arthropathy without myelopathy presents today for R LBP. Pt states she experienced 65% pain relief x 4 mo w prior RFA procedure of the R L4-L5, L5-S1 in Jun 2022. Pain level is provoked at 8 /10 in intensity, constant, localized in the R lower lumbar spine, achy in character w/o shooting pain. Pain is provoked by weight bearing activity. Pain is alleviated with medications ([place] 10/325mg #90), topicals, PT x 6 wks in Jul 2022, heat, ice, sitting, repositioning and rest. Interventional pain procedures completed include BL RFA L3-L5, LESIs Patient is currently on [place] 10/325mg #90, Flexeril Patient denies any side effects of the medication(s), denies excessive drowsiness or sleepiness, denies suicidal ideation and reports that the current pain medication is helping to control the pain and improve activities of daily living. Patient denies any motor or sensory deficits. Patient denies any fever or night sweats, denies any change in the bowel movements or urination. Physical Examination: -Constitutional: Cooperative. Not in acute distress . - Neurologic: Cranial nerve II to XII intact. No focal neurological deficits. - Psychatric: Alert & oriented x 3. Matching mood & appropriate affect. Judgment and insight intact. - Musculoskeletal: Cervical spine: Muscle bulk/ tone/ strength in the bilateral upper extremities normal Vertebral body tenderness to palpation over Spurling test positive Distraction test positive Facet loading test positive TTP Thoracic spine Muscle bulk / tone/ strength in the bilateral paraspinal muscles normal Vertebral body tender to palpation over Facet loading test positive TTP Lumbar spine: Motor bulk/ tone/ strength lower extremities , thigh and legs : 5/5 Deep tendon reflexes : Normal Knee Jerk. Normal Ankle Jerk . Vertebral body tenderness to palpation over Lumbar Facet Loading Test positive TTP on R L4-L,5 L5-S1 facets Straight Leg Raise: positive at 30 degrees right side/ left side Gaenslen's Test positive Sacral spine : Severe tenderness over the Sacroiliac joint: right side / left side Range of motion: Flexion of the lumbar spine <60 degrees Range of motion: Extension of the lumbar spine <20 degrees Gaenslen's Test positive right side / left side Dian test: positive right side / left side Thigh Thrust Test positive right side / left side Sacral Thrust Test positive right side / left side Assessment and plan: Chronic LBP secondary to lumbar DDD, spondylosis with facet arthropathy without myelopathy Recommendation of R RFA L4-L5, L5-S1. Pt exhibited substantial and sufficient pain relief w prior RFA procedure in Jun 2022. Risks, benefits of procedure discussed and pt verbalized understanding. Admits to anticoagulant use or medical history of diabetes. Protocol for discontinuation/ continuation of medications dimas procedure discussed. All questions answered. I have spent less than 30 minutes on patient care today. Dr Thomas was available by phone for the evaluation of this patient. The time was used to review the medical records including relevant urine studies and Prescription history (MAPs), review of the available imaging, evaluation and examination of the patient, coordination of care with the medical staff and if applicable referring physicians, as well as creation of the medical record PQRS Narrative: Smoking Status Current every day smoker Narcotic Agreement Date Signed 07/01/22 Hx Alcohol Use (MH) Yes: occ Home Medications: Ambulatory Orders lisinopriL [Zestril] 20 mg PO PC-LUNCH 01/25/18 traZODone HCL 100 mg PO HS PRN 03/12/20 Pioglitazone [Actos] 15 mg PO DAILY 05/08/20 Loratadine 10 mg PO DAILY PRN 06/15/20 Menthol [Biofreeze] 1 applic TOPICAL DAILY PRN 06/09/21 Ondansetron [Zofran] 4 mg PO Q8HR PRN 06/09/21 Nitroglycerin 0.4 mg SL Q5M #25 tab 08/21/22 Fluticasone Nasal [place] [Flonase Nasal [place]] 1 spray EA NOSTRIL DAILY PRN 11/09/22 Cyclobenzaprine [Flexeril] 5 mg PO BID PRN 30 Days #60 tab 12/16/22 HYDROcodone/APAP 10-325MG [[place] 10-325] 1 tab PO Q8HR PRN 30 Days #90 tab 12/16/22 HYDROcodone/APAP 10-325MG [[place] 10-325] 1 tab PO Q8HR PRN 30 Days #90 tab 12/16/22 Controlled Substance Measures - Controlled Substance Measures Is patient prescribed a controlled substance at discharge?: No
== END ==
LOC: PNWHC3 13:55
PROVIDERS: ATTEND Specialist
DX: M51.36 Other intervertebral disc degeneration, lumbar region (principal); M47.817 Spondylosis without myelopathy or radiculopathy, lumbosacral region; G89.29 Other chronic pain; F17.200 Nicotine dependence, unspecified, uncomplicated; Z88.8 Allergy status to other drugs, medicaments and biological substances
CPT/HCPCS: 99211

== ENCOUNTER 2023-01-25 09:13 | Day surgery (SDC) | payer OTHER ==
[~2023-01-25 09:13] MED LIST changes: -LIDOCAINE 1% (10MG/ML) FOR IV START INTRADERMA PRN
[2023-01-25 09:44] VITALS: RESP 18; TEMP 96.9
[2023-01-25 09:53] LABS: Glucose,Whole Blood 133 mg/dL (70-110)
[2023-01-25] MEDS ORDERED: methylPREDNISolone ACETATE 40 MG/ML 1 ML VIAL ONE (10:01)
[2023-01-25] MEDS ORDERED: MIDAZOLAM 2 MG/2 ML VIAL ONE (10:01)
[2023-01-25] MEDS ORDERED: ROPIVACAINE 5 MG/ML 20 ML AMPULE ONE (10:01)
--- NOTE | 2023-01-25 10:10 | P.PCN ---
Date of Procedure: 01/25/23 Operative Findings: Procedure: Right lumbar paraspinal trigger point injection Preoperative Diagnosis: myofascial pain syndrome Postoperative diagnosis: Same Anesthesia: Anesthesia given by nurse Moderate sedation Anesthesia supervision start time: 1004 Anesthesia supervision end time: Surgeon: Anuradha Stark MD Indications for procedure: Patient with myofascial pain and palpable trigger points in the above mentioned muscles. The patient consents for an injection after an explanation of risks including but not limited to bleeding and infection, benefits, and alternatives and the patient has signed a consent form indicating understanding of all of them. Description of procedure: After informed consent was obtained the patient's painful area was sterilely prepped in the usual fashion with ChloraPrep. The trigger points were identified via palpation and the muscles were marked sterilely. Each trigger point was injected with a 25-gauge one and a half inch needle. At that point a solution consisting of 9 ml of 0.5% ropivacaine with 40mg of depomedrol was distributed evenly over the trigger points. The patient's vital signs were stable afterwards and the procedure was tolerated well. Patient was discharged home with follow-up instructions. It was explained to the patient that these injections are not curative but may help with the current symptoms. In order to strengthen the muscles involved, there needs to be dedicated exercise routine to strengthen the muscles and avoid significant muscle spasms..
[2023-01-25] MEDS ORDERED: IV FLUID CONTINUATION 900 ML IV ONE (10:14)
[2023-01-25 10:41] VITALS: BP 118/78; PULSE 78
== END 2023-01-25 10:50 | disposition home or self-care (01) ==
LOC: ORPAIN 09:13
PROVIDERS: ATTEND Hospitalist
DX: M79.18 Myalgia, other site (principal); Z88.8 Allergy status to other drugs, medicaments and biological substances
CPT/HCPCS: 20553; J2250; J1030; J2795

== ENCOUNTER 2023-02-24 06:41 | Day surgery (SDC) | payer OTHER ==
[2023-02-24 07:25] VITALS: RESP 16; TEMP 98
[2023-02-24 07:33] LABS: Glucose,Whole Blood 137 mg/dL (70-110)
[2023-02-24] MEDS ORDERED: PROPOFOL 10 MG/ML 20 ML VIAL IV ONE (08:01)
[2023-02-24] MEDS ORDERED: LIDOCAINE 2% INJ 20 MG/ML (2 ML VIAL) ONE (08:01)
--- NOTE | 2023-02-24 08:13 | P.OP ---
Date of Procedure: 02/24/23 Preoperative Diagnosis: GERD Postoperative Diagnosis: Mild antral gastritis Small sliding hiatal hernia Mild esophagitis Procedure(s) Performed: EGD Anesthesia: MAC Surgeon: Jamar Lemus Pathology: other (Antrum, esophagus) Condition: stable Disposition: PACU Description of Procedure: The patient's placed on the endoscopy table in the lateral position. She received IV sedation. The gastroscope placed oropharynx passed in the esophagus and the stomach. Scope was then placed through the pylorus. The first and second portion of the duodenum appeared normal. Scope summer back the antrum and this appeared mildly inflamed. A biopsies was performed. The scope was then brought back and the remainder stomach appeared normal. The scope was then retroflexed there was a small sliding hiatal hernia. The GE junction was at 39 cm. The distal esophagus appeared inflamed. A biopsies performed. The proximal esophagus appeared normal. Scope withdrawn for patient.
[2023-02-24 08:36] VITALS: BP 122/76; PULSE 75
== END 2023-02-24 09:01 | disposition home or self-care (01) ==
LOC: ORWHC2ENDO 06:41
PROVIDERS: ATTEND Surgery
DX: K29.50 Unspecified chronic gastritis without bleeding (principal); K21.00 Gastro-esophageal reflux disease with esophagitis, without bleeding; K44.9 Diaphragmatic hernia without obstruction or gangrene; K21.9 Gastro-esophageal reflux disease without esophagitis; F41.9 Anxiety disorder, unspecified; I10 Essential (primary) hypertension; E78.5 Hyperlipidemia, unspecified; F17.200 Nicotine dependence, unspecified, uncomplicated; E11.22 Type 2 diabetes mellitus with diabetic chronic kidney disease; N18.2 Chronic kidney disease, stage 2 (mild); F32.A Depression, unspecified; Z98.890 Other specified postprocedural states; Z90.710 Acquired absence of both cervix and uterus; Z79.899 Other long term (current) drug therapy
CPT/HCPCS: 88305; 43239; J2704; J2001

== ENCOUNTER → 2023-03-09 | Outpatient (CLI) | payer OTHER ==
[2023-03-09 14:59] LABS: HCT 44.9 % (37.2-46.3); HGB 14.5 d/dL (12.0-15.0); Lymphocytes % (A) 33.4 %; MCH 27.8 pg (27.0-32.0); MCHC 32.3 d/dL (32.0-37.0); MCV 86.2 FL (80.0-97.0); Mean Platelet Volume 11.5 FL (9.5-12.2); Monocytes % (A) 6.6 %; NRBC Per 100 WBC 0 X 10*3/uL (0.00-0.01); Neutrophils % (A) 56.1 %; Platelet Count 262 X 10*3/uL (140-440); RBC 5.21 X 10*6/uL (4.10-5.20); RDW 13.2 % (11.5-14.5); WBC 8.38 X 10*3/uL (4.50-10.00)
[2023-03-09 15:00] LABS: Basophils # (A) 0.08 X 10*3/uL (0.00-0.10); Eosinophils # (A) 0.23 X 10*3/uL (0.04-0.35); Eosinophils % (A) 2.7 %; Monocytes # (A) 0.55 X 10*3/uL (0.20-1.00)
== END | disposition home or self-care (01) ==
LOC: LABPAT 08:50
PROVIDERS: ATTEND Surgery
DX: Z01.812 Encounter for preprocedural laboratory examination (principal); K21.00 Gastro-esophageal reflux disease with esophagitis, without bleeding
CPT/HCPCS: 36415; 80307; 80364; 85025; 93005

== ENCOUNTER → 2023-03-10 | Outpatient (CLI) | payer OTHER ==
[2023-03-10 14:46] VITALS: RESP 18; TEMP 97.8
--- NOTE | 2023-03-16 07:33 | P.PAINPG ---
PQRS Measure Charge Sheet Comment: A 52 yr old female with a history of severe and chronic LBP x years secondary to lumbar DDD and spondylosis with facet arthropathy without myelopathy presents today for medication refills. Pt states she experienced 60% pain relief w L TPIs of the lumbar spine x 4 wks s/p procedure. Pain level is provoked at 7 /10 in intensity, constant, localized in the lumbar spine, sharp, throbbing in character without shooting. Pain is provoked by any position for periods of 20 min or more. Pain is alleviated with PT x 6 wks in Jun 2022 which provoked pain, medications, topicals, CBD products, heat, ice, repositioning and rest. Interventional pain procedures completed include BL RFA L3-L5, LESIs Patient is currently on [place] , Flexeril Patient denies any side effects of the medication(s), denies excessive drowsiness or sleepiness, denies suicidal ideation and reports that the current pain medication is helping to control the pain and improve activities of daily living. Patient denies any motor or sensory deficits. Patient denies any fever or night sweats, denies any change in the bowel movements or urination. Physical Examination: -Constitutional: Cooperative. Not in acute distress . - Neurologic: Cranial nerve II to XII intact. No focal neurological deficits. - Psychatric: Alert & oriented x 3. Matching mood & appropriate affect. Judgment and insight intact. - Musculoskeletal: Cervical spine: Muscle bulk/ tone/ strength in the bilateral upper extremities normal Vertebral body tenderness to palpation over Spurling test positive Distraction test positive Facet loading test positive TTP Thoracic spine Muscle bulk / tone/ strength in the bilateral paraspinal muscles normal Vertebral body tender to palpation over Facet loading test positive TTP Lumbar spine: Motor bulk/ tone/ strength lower extremities , thigh and legs : 5/5 Deep tendon reflexes : Normal Knee Jerk. Normal Ankle Jerk . Vertebral body tenderness to palpation Lumbar Facet Loading Test positive BL taut bands over BL paraspinal muscles w twitch response Straight Leg Raise: positive at 30 degrees right side/ left side Gaenslen's Test positive Sacral spine : Severe tenderness over the Sacroiliac joint: right side / left side Range of motion: Flexion of the lumbar spine <60 degrees Range of motion: Extension of the lumbar spine <20 degrees Gaenslen's Test positive right side / left side Dian test: positive right side / left side Thigh Thrust Test positive right side / left side Sacral Thrust Test positive right side / left side Assessment and plan: Chronic LBP secondary to lumbar DDD, spondylosis with facet arthropathy without myelopathy Recommendation of Lumbar TPIs L1-S1. May need a series of injections for optimal pain relief. Risks, benefits of procedure discussed and patient verbalized understanding. Protocol for discontinuation/continuation of medications surrounding procedure discussed. Chronic and current use of high-risk medication (Opioids). The patient was counseled about risk of opioid use, psychological risk associated with opioids and was orally counseled to not overuse , divert or sell medications. Pt is to store medication in a safe location. The patient is counseled against driving while using narcotic medications and also not to use alcohol or any illicit recreational drugs. Patient verbalized understanding that the lack of compliance will result in failure to renew narcotic prescription(s) as well as possible discharge from the clinic Diagnoses, prognosis and treatment options including but not limited to physical therapy, surgical interventions, interventional therapies and medication management including narcotics and adjuvant medication were discussed. All patient questions answered MAPS reviewed and it was appropriate. UDS collected today 03/10/23. Prescription refill for [place] #90, Flexeril with 1 refill I have spent less than 30 minutes on patient care today. Dr Thomas was available by phone for the evaluation of this patient. The time was used to review the medical records including relevant urine studies and Prescription history (MAPs), review of the available imaging, evaluation and examination of the patient, coordination of care with the medical staff and if applicable referring physicians, as well as creation of the medical record PQRS Narrative: Smoking Status Current every day smoker Narcotic Agreement Date Signed 07/01/22 Hx Alcohol Use (MH) Yes: occ Home Medications: Ambulatory Orders lisinopriL [Zestril] 20 mg PO PC-LUNCH 01/25/18 traZODone HCL 100 mg PO HS PRN 03/12/20 Pioglitazone [Actos] 15 mg PO DAILY 05/08/20 Loratadine 10 mg PO DAILY PRN 06/15/20 Menthol [Biofreeze] 1 applic TOPICAL DAILY PRN 06/09/21 Ondansetron [Zofran] 4 mg PO Q8HR PRN 06/09/21 Nitroglycerin 0.4 mg SL Q5M #25 tab 08/21/22 Fluticasone Nasal [place] [Flonase Nasal [place]] 1 spray EA NOSTRIL DAILY PRN 11/09/22 Trulicity(4) 1 dose SQ WEEKLY 02/23/23 Cyclobenzaprine [Flexeril] 5 mg PO BID PRN 30 Days #60 tab 03/10/23 HYDROcodone/APAP 10-325MG [[place] 10-325] 1 tab PO Q8HR PRN 30 Days #90 tab 03/10/23 HYDROcodone/APAP 10-325MG [[place] 10-325] 1 tab PO TID PRN 30 Days #90 tab 03/10/23 Controlled Substance Measures - Controlled Substance Measures Is patient prescribed a controlled substance at discharge?: Yes When asked, does pt state using other controlled substances?: No If prescribed controlled substance>3 days was MAPS reviewed?: Yes
== END ==
LOC: PNWHC3 13:19
PROVIDERS: ATTEND Specialist
DX: M51.36 Other intervertebral disc degeneration, lumbar region (principal); M47.816 Spondylosis without myelopathy or radiculopathy, lumbar region; F17.200 Nicotine dependence, unspecified, uncomplicated; G89.29 Other chronic pain; Z88.8 Allergy status to other drugs, medicaments and biological substances; Z79.891 Long term (current) use of opiate analgesic
CPT/HCPCS: 99212

== ENCOUNTER 2023-03-21 06:12 | Day surgery (SDC) | payer OTHER ==
[2023-03-16 14:58] VITALS: BMI 29.5
[~2023-03-21 06:12] MED LIST changes: +ACETAMINOPHEN TAB 500 MG TAB PO PRN; +DEXAMETHASONE SOD PHOSPHATE 4 MG/ML 1 ML VIAL IV ONE; +HEPARIN SODIUM,PORCINE/PF 5,000 UNIT/0.5 ML SYRINGE SQ PRN; +ONDANSETRON 4 MG/2 ML VIAL IVP ONE; +SCOPOLAMINE 1 MG/72 HR PATCH TRANSDERM ONE
[2023-03-21] MEDS ORDERED: LIDOCAINE 1% (10MG/ML) FOR IV START INTRADERMA ONE (06:58)
[2023-03-21 07:19] LABS: Glucose,Whole Blood 114 mg/dL (70-110)
[2023-03-21] MEDS: MIDAZOLAM 2 MG/2 ML VIAL IV PRN ×3 (07:23→07:26)
[2023-03-21] MEDS ORDERED: GLYCOPYRROLATE 0.2 MG/ML 2 ML VIAL ONE (07:25)
[2023-03-21] MEDS ORDERED: SUCCINYLCHOLINE CHLORIDE 200 MG/10 ML VIAL IV ONE (07:25)
[2023-03-21] MEDS ORDERED: KETAMINE 10 MG/ML 20 ML VIAL ONE (07:25)
[2023-03-21] MEDS ORDERED: fentaNYL (PF) 50 MCG/ML 2 ML AMP ONE (07:25)
[2023-03-21] MEDS ORDERED: LIDOCAINE 4% LTA KIT (4 ML) TOPICAL ONE (07:25)
[2023-03-21] MEDS ORDERED: PHENYLEPHRINE-0.9% NACL SYG 1,000 MCG/10 ML SYRINGE ONE (07:25)
[2023-03-21] MEDS ORDERED: PROPOFOL 10 MG/ML 20 ML VIAL IV ONE (07:25)
[2023-03-21] MEDS ORDERED: NEOSTIGMINE 1 MG/ML 10 ML VIAL ONE (07:25)
[2023-03-21] MEDS ORDERED: KETOROLAC 15 MG/ML 1 ML VIAL ONE (07:25)
[2023-03-21] MEDS ORDERED: ROCURONIUM 10 MG/ML (5 ML VIAL) IV ONE (07:25)
[2023-03-21] MEDS ORDERED: LIDOCAINE 2% INJ 20 MG/ML (2 ML VIAL) ONE (07:25)
[2023-03-21 07:51] LABS: African American GFR (CKD) 90 (>60 ml/min/1.73 sqM); Albumin 4.2 g/dL (3.5-5.0); Anion Gap 9 mmol/L; Blood Urea Nitrogen 12 mg/dL (7-17); Carbon Dioxide 23 mmol/L (22-30); Chloride 108 mmol/L (98-107); Glucose 112 mg/dL (74-99); Non-African American GFR(CKD) 78 (>60 ml/min/1.73 sqM); Potassium 3.9 mmol/L (3.5-5.1); Sodium 140 mmol/L (137-145)
[2023-03-21 07:53] LABS: ALT 24 U/L (4-34); AST 23 U/L (14-36); Alkaline Phosphatase 80 U/L (38-126); Calcium 9.2 mg/dL (8.4-10.2); Total Bilirubin 0.7 mg/dL (0.2-1.3)
[2023-03-21] MEDS ORDERED: BUPIVACAINE (PF) 0.25% 30 ML VIAL SQ ONE (08:05)
--- NOTE | 2023-03-21 08:35 | P.OP ---
Date of Procedure: 03/21/23 Preoperative Diagnosis: GERD Postoperative Diagnosis: GERD Procedure(s) Performed: Laparoscopic Larry fundal plication Anesthesia: LAURA Surgeon: Jamar Lemus Estimated Blood Loss (ml): 10 Pathology: none sent Condition: stable Disposition: PACU Description of Procedure: The patient was placed on the operating table in the supine position. The patient received general anesthesia. And was placed in dorsal lithotomy position. The patient was prepped and draped in the usual sterile fashion. The skin incision sites were anesthetized with 1% local Xylocaine. The skin was incised in the left periumbilical area and then using a blade less 5 mm trocar under direct visualization panel cavity was entered. After adequate insufflation the laparoscope was then placed into the peritoneal cavity. Next a 5 mm trochars placed in the right epigastric position. Another 5 millimeter trocar the right lateral position. Another 5 millimeter trocar in the left lateral position a 5 mm trocar is placed in the left epigastric position. And then the initial 5 mm trocar was exchanged for a 10 mm trocar. The left lateral lobe liver was retracted. The hernia was seen. The crural defect was then dissected using the Harmonic scissors device. A 360 crural dissection was performed the esophagus stomach was reduced back into the peritoneal Cavity. The crural defect was then closed using 2-0 Ethibond suture. Next the fundus of the stomach was mobilized using the [place] scissors device. and then a 58- [place] bougie dilator was placed oropharynx passed into the esophagus and stomach the fundal plication wrap was then performed by grasping the fundus posteriorly and bringing it around the esophagus and stomach fundoplication was then performed using 2-0 Ethibond suture. Care was taken that the fundal location rested over top of the intra-abdominal esophagus. There was no injury seen to the stomach or esophagus. The dilator was then withdrawn. The abdomen was irrigated there is no bleeding seen. The trochars were then withdrawn and then skin incision sites were closed using 3-0 Monocryl suture Steri-Strips are applied. Patient thought procedure well and sent to recovery room in stable condition.
[2023-03-21] MEDS ORDERED: ONDANSETRON 4 MG/2 ML VIAL IVP PRN (08:36)
[2023-03-21] MEDS: HYDROmorphone 0.5 MG/0.5 ML SYRINGE IVP PRN ×2 (09:04→09:16)
[2023-03-21] MEDS ORDERED: LACTATED RINGERS 1,000 ML IV ONE (10:29)
[2023-03-21] MEDS ORDERED: DEXTROSE 50% SYRINGE 50 ML IVP PRN ×2 (11:12)
[2023-03-21 12:50] LABS: Glucose,Whole Blood 145 mg/dL (70-110)
[2023-03-21] MEDS: INSULIN ASPART (NovoLOG) 100 UNIT/ML VIAL SQ SCH ×3 (13:11→20:06)
[2023-03-21] MEDS ORDERED: LORATADINE 10 MG TAB PO PRN (14:43)
[2023-03-21] MEDS ORDERED: MENTHOL TOPICAL PRN (14:43)
[2023-03-21] MEDS ORDERED: traZODone HCL 100 MG TAB PO PRN (14:43)
[2023-03-21] MEDS ORDERED: FLUTICASONE 50MCG/SPRAY NASAL 16GM EA NOSTRIL PRN (14:43)
--- NOTE | 2023-03-21 14:46 | P.CONS ---
History of Present Illness - Reason for Consult Consult date: 03/21/23 Medical management - History of Present Illness History of present illness; Patient is a 52-year-old lady with past medical history significant for hypertension, GERD, diabetes mellitus who presented to the hospital for elective Laparoscopic Sandor fundal plication. Patient has been dealing with the plan for long time. Patient underwent recent EGD found to have evidence of chronic esophagitis and sliding hiatal hernia. Patient discussed with surgery and they recommended surgical intervention. Postoperatively the medicine team were consulted REVIEW OF SYSTEMS: CONSTITUTIONAL: No fever, no malaise, no fatigue. HEENT: No recent visual problems or hearing problems. Denied any sore throat. CARDIOVASCULAR: No chest pain, orthopnea, PND, no palpitations, no syncope. PULMONARY: No shortness of breath, no cough, no hemoptysis. GASTROINTESTINAL: No diarrhea, complaining of abdominal pain and nausea NEUROLOGICAL: No headaches, no weakness, no numbness. HEMATOLOGICAL: Denies any bleeding or petechiae. GENITOURINARY: Denies any burning micturition, frequency, or urgency. MUSCULOSKELETAL/RHEUMATOLOGICAL: Denies any joint pain, swelling, or any muscle pain. ENDOCRINE: Denies any polyuria or polydipsia. The rest of the 14-point review of systems is negative. PHYSICAL EXAMINATION: GENERAL: The patient is alert and oriented x3, not in any acute distress. Well developed, well nourished. HEENT: Pupils are round and equally reacting to light. EOMI. No scleral icterus. No conjunctival pallor. Normocephalic, atraumatic. No pharyngeal erythema. No thyromegaly. CARDIOVASCULAR: S1 and S2 present. No murmurs, rubs, or gallops. PULMONARY: Chest is clear to auscultation, no wheezing or crackles. ABDOMEN: Soft, nontender, nondistended, normoactive bowel sounds. No palpable organomegaly. Laparoscopic surgical incision seen MUSCULOSKELETAL: No joint swelling or deformity. EXTREMITIES: No cyanosis, clubbing, or pedal edema. NEUROLOGICAL: Gross neurological examination did not reveal any focal deficits. SKIN: No rashes. Assessment and plan Hiatal hernia status post Laparoscopic Sandor fundal plication Hypertension [id number]-[id number] diabetes mellitus GERD Monitor vital signs Monitor CMP Continue IV fluids Continue antiemetics Continue pain management per surgery. Continue DVT prophylaxis per surgery Advance diet per surgery Hold blood pressure medications for now as patient is normotensive Monitor blood sugar levels, continue sliding scale insulin Resume trazodone DVT prophylaxis: Past Medical History Past Medical History: Chest Pain / Angina, Diabetes Mellitus, GERD/Reflux, Hyperlipidemia, Hypertension, Osteoarthritis (OA), Renal Disease Additional Past Medical History / Comment(s): Hx Angina, herniated discs, IBS, coughing fits that result in SOB, chronic diarrhea, kidney failure stage II, states saw Dr Mclaughlin and everything ok, hasn't had to see him in 3 yrs. History of Any Multi-Drug Resistant Organisms: None Reported Past Surgical History: Appendectomy, Cholecystectomy, Heart Catheterization, Hysterectomy, Joint Replacement, Orthopedic Surgery Additional Past Surgical History / Comment(s): Left knee arthroscopy, left hand surgery for tendon injury, ANAL FISSURES, PAIN CLINIC PROCEDURES, cyst removed from left ovary, right oophorectomy, left knee replacement, failed nerve surgery to left hand, colonoscopy, EGD, SANDOR fundoplasty Past Anesthesia/Blood Transfusion Reactions: No Reported Reaction Past Psychological History: Anxiety, Bipolar, Depression Smoking Status: Current every day smoker Past Alcohol Use History: None Reported Additional Past Alcohol Use History / Comment(s): Smokes 1/2 PPD, STARTED SMOKING AT AGE 14. Past Drug Use History: None Reported - Past Family History Father Family Medical History: Cancer Medications and Allergies Home Medications Medication Instructions Recorded Confirmed Type lisinopriL [Zestril] 20 mg PO PC-LUNCH 01/25/18 03/16/23 History traZODone HCL 100 mg PO HS PRN 03/12/20 03/16/23 History Pioglitazone [Actos] 15 mg PO DAILY 05/08/20 03/16/23 History Loratadine 10 mg PO DAILY PRN 06/15/20 03/16/23 History Menthol [Biofreeze] 1 applic TOPICAL DAILY PRN 06/09/21 03/16/23 History Ondansetron [Zofran] 4 mg PO Q8HR PRN 06/09/21 03/16/23 History Fluticasone Nasal [place] [Flonase 1 spray EA NOSTRIL DAILY PRN 11/09/22 03/16/23 History Nasal [place]] HYDROcodone/APAP 10-325MG [[place] 1 tab PO Q8HR PRN 30 Days #90 tab 03/10/23 03/16/23 Rx 10-325] Cyclobenzaprine [Flexeril] 5 mg PO BID PRN 03/16/23 03/16/23 History Dulaglutide [Trulicity] 0.75 mg SQ TH 03/16/23 03/16/23 History Nitroglycerin 0.4 mg SL Q5M PRN 03/16/23 03/16/23 History Allergies Allergy/AdvReac Type Severity Reaction Status Date / Time quetiapine fumarate Allergy Swelling Verified 03/21/23 06:48 [From Seroquel] of ankles Physical Exam Vitals: Vital Signs Temp Pulse Pulse Resp BP BP Pulse Ox 03/21/23 11:57 70 95 03/21/23 11:42 74 128/81 96 03/21/23 11:27 100 146/84 97 03/21/23 11:12 75 126/83 96 03/21/23 10:57 88 132/88 96 03/21/23 10:42 84 153/84 97 03/21/23 10:05 72 16 136/73 97 03/21/23 09:35 65 16 138/80 96 03/21/23 09:20 75 16 126/74 95 03/21/23 09:05 69 16 137/74 99 03/21/23 08:50 61 18 138/84 98 03/21/23 08:35 97.0 F L 66 14 124/73 100 03/21/23 06:50 96.8 F L 84 16 128/84 98 Intake and Output 03/20/23 03/21/23 03/21/23 22:59 06:59 14:59 Intake Total 200 1150 Output Total 5 Balance 200 1145 Intake: IV 200 1150 Output: Estimated Blood Loss 5 Other: Weight 82 kg 82 kg Results CBC & Chem 7: 03/21/23 07:03 Labs: Abnormal Lab Results - Last 24 Hours (Table) 03/21/23 03/21/23 03/21/23 Range/Units 07:02 07:03 12:48 Chloride 108 H (98-107) mmol/L Glucose 112 H (74-99) mg/dL POC Glucose (mg/dL) 114 H 145 H (70-110) mg/dL
[2023-03-21] MEDS ORDERED: METHYL SALICYLATE-MENTHOL OINT (3 OZ TUBE) TOPICAL PRN (14:50)
[2023-03-21] MEDS: D5-0.45% NACL WITH KCL 20MEQ/L 1,000 ML IV SCH ×3 (14:54→22:39)
[2023-03-21 17:14] LABS: Glucose,Whole Blood 209 mg/dL (70-110)
[2023-03-21] MEDS: HYDROmorphone 1 MG/ML 1 ML SYRINGE IVP PRN ×2 (17:34→21:50)
[2023-03-21 19:23] LABS: Glucose,Whole Blood 156 mg/dL (70-110)
[2023-03-22] MEDS: HYDROmorphone 1 MG/ML 1 ML SYRINGE IVP PRN ×2 (03:16→06:58)
[2023-03-22 06:00] LABS: Glucose,Whole Blood 123 mg/dL (70-110)
[2023-03-22] MEDS: INSULIN ASPART (NovoLOG) 100 UNIT/ML VIAL SQ SCH (06:23)
[2023-03-22 07:12] VITALS: BP 167/89; PULSE 63; RESP 20; TEMP 98.6
[2023-03-22] MEDS ORDERED: HYDROcodone/APAP 5-325MG 1 EACH TAB PO PRN (07:53)
--- NOTE | 2023-03-22 11:31 | P.DS ---
Providers Expected date of discharge: 03/22/23 Attending physician: Jamar Lemus Consults: 03/21/23 08:36 Consult Physician Routine Consulting Provider: Madeline Ortiz Consult Reason/Comments: Medical management Do you want consulting provider notified?: Yes Primary care physician: Mariely Wheeler Hospital Course: Discharge diagnosis 1. GERD status post laparoscopic Larry fundoplication Hospital course This is a 52-year-old female with a known history of GERD and she is status post laparoscopic Larry fundoplication. Patient tolerated surgery well. Her pain is controlled. She has been up and ambulating. She is tolerating diet. She's afebrile. She is stable for discharge. Please refer to chart for any further details. Physician [employer] note has been reviewed by physician. Signing provider agrees with the documented findings, assessment, and plan of care. Patient Condition at Discharge: Stable Plan - Discharge Summary Discharge Rx Participant: No New Discharge Prescriptions: Continue lisinopriL [Zestril] 20 mg PO PC-LUNCH traZODone HCL 100 mg PO HS PRN PRN Reason: Insomnia Pioglitazone [Actos] 15 mg PO DAILY Loratadine 10 mg PO DAILY PRN PRN Reason: Allergy Symptoms Ondansetron [Zofran] 4 mg PO Q8HR PRN PRN Reason: Nausea Menthol [Biofreeze] 1 applic TOPICAL DAILY PRN PRN Reason: Pain Fluticasone Nasal [place] [Flonase Nasal [place]] 1 spray EA NOSTRIL DAILY PRN PRN Reason: Sinus Symptoms Dulaglutide [Trulicity] 0.75 mg SQ TH Cyclobenzaprine [Flexeril] 5 mg PO BID PRN PRN Reason: Muscle Spasm HYDROcodone/APAP 10-325MG [[place] 10-325] 1 tab PO Q8HR PRN 30 Days #90 tab PRN Reason: Pain Nitroglycerin 0.4 mg SL Q5M PRN PRN Reason: Chest Pain Discharge Medication List lisinopriL [Zestril] 20 mg PO PC-LUNCH 01/25/18 [History] traZODone HCL 100 mg PO HS PRN 03/12/20 [History] Pioglitazone [Actos] 15 mg PO DAILY 05/08/20 [History] Loratadine 10 mg PO DAILY PRN 06/15/20 [History] Menthol [Biofreeze] 1 applic TOPICAL DAILY PRN 06/09/21 [History] Ondansetron [Zofran] 4 mg PO Q8HR PRN 06/09/21 [History] Fluticasone Nasal [place] [Flonase Nasal [place]] 1 spray EA NOSTRIL DAILY PRN 11/09/22 [History] HYDROcodone/APAP 10-325MG [[place] 10-325] 1 tab PO Q8HR PRN 30 Days #90 tab 03/10/23 [Rx] Cyclobenzaprine [Flexeril] 5 mg PO BID PRN 03/16/23 [History] Dulaglutide [Trulicity] 0.75 mg SQ TH 03/16/23 [History] Nitroglycerin 0.4 mg SL Q5M PRN 03/16/23 [History] Follow up Appointment(s)/Referral(s): Jamar Lemus MD [STAFF PHYSICIAN] - 03/31/23 3:40 pm Patient Instructions/Handouts: *Surgery [facility] - Scopalamine Patch Instructions Activity/Diet/Wound Care/Special Instructions: No driving while taking [place]. Continue pain meds as already prescribed by other provider No lifting over 10 pounds Shower daily. No soaking or tub baths for 2 weeks Very light activity until you are reevaluated at your follow up appointment with your surgeon Full liquid/soft diet for the next 2 weeks Discharge Disposition: HOME SELF-CARE
--- NOTE | 2023-03-22 15:01 | P.PN ---
Subjective Progress Note Date: 03/22/23 Patient is a 52-year-old lady with past medical history significant for hypertension, GERD, diabetes mellitus who presented to the hospital for elective Laparoscopic Larry fundal plication. Patient has been dealing with the plan for long time. Patient underwent recent EGD found to have evidence of chronic esophagitis and sliding hiatal hernia. Patient discussed with surgery and they recommended surgical intervention. Postoperatively the medicine team were consulted 03/22. Patient seen and examined. No acute issues overnight. Currently tolerating liquid diet REVIEW OF SYSTEMS: CONSTITUTIONAL: No fever, no malaise,. CARDIOVASCULAR: No chest pain, no palpitations, no syncope. PULMONARY: No shortness of breath, no cough, GASTROINTESTINAL: No diarrhea, no nausea, no vomiting, no abdominal pain. NEUROLOGICAL: No headaches, no weakness, PHYSICAL EXAMINATION: GENERAL: The patient is alert and oriented x3, not in any acute distress. Well developed, well nourished. HEENT: Pupils are round and equally reacting to light. EOMI. No scleral icterus. No conjunctival pallor. Normocephalic, atraumatic. No pharyngeal erythema. No thyromegaly. CARDIOVASCULAR: S1 and S2 present. No murmurs, rubs, or gallops. PULMONARY: Chest is clear to auscultation, no wheezing or crackles. ABDOMEN: Soft, nontender, nondistended, normoactive bowel sounds. No palpable organomegaly. MUSCULOSKELETAL: No joint swelling or deformity. EXTREMITIES: No cyanosis, clubbing, or pedal edema. NEUROLOGICAL: Gross neurological examination did not reveal any focal deficits. SKIN: No rashes. Assessment and plan Hiatal hernia status post Laparoscopic Larry fundal plication Hypertension Smt-[id number] diabetes mellitus GERD Monitor vital signs Monitor CBC Monitor CMP Continue antiemetics Continue pain management per surgery. Continue DVT prophylaxis per surgery Advance diet per surgery Patient medical stable for discharge Objective - Vital Signs Vital signs: Vital Signs Temp 98.6 F 03/22/23 07:11 Pulse 63 03/22/23 07:11 Resp 20 03/22/23 07:11 BP 167/89 03/22/23 07:11 Pulse Ox 99 03/22/23 07:11 FiO2 Intake & Output 03/21/23 03/22/23 03/22/23 18:59 06:59 18:59 Intake Total 2150 Output Total 5 Balance 2145 Weight 82 kg Intake: IV 1150 Intake, IV Titration 1000 Amount D5-0.45% NaCl with KCl 1000 20Meq/l 1,000 ml @ 125 mls/hr IV .Q8H [facility] Rx#: [id number] Output: Estimated Blood Loss 5 Other: Voiding Method Toilet # Voids 2 - Labs CBC & Chem 7: 03/21/23 07:03 Labs: Abnormal Lab Results - Last 24 Hours (Table) 03/21/23 03/21/23 03/22/23 Range/Units 17:13 19:17 05:59 POC Glucose (mg/dL) 209 H 156 H 123 H (70-110) mg/dL Hemoglobin A1c (<=6.0) % 03/22/23 Range/Units 06:11 POC Glucose (mg/dL) (70-110) mg/dL Hemoglobin A1c 6.7 H (<=6.0) %
== END 2023-03-22 13:06 | disposition home or self-care (01) ==
LOC: OR 06:12 → 4SSUR 08:31 → OR 03-22 13:06
PROVIDERS: ATTEND Surgery
DX: K21.00 Gastro-esophageal reflux disease with esophagitis, without bleeding (principal); K44.9 Diaphragmatic hernia without obstruction or gangrene; I10 Essential (primary) hypertension; E11.22 Type 2 diabetes mellitus with diabetic chronic kidney disease; E78.5 Hyperlipidemia, unspecified; M19.90 Unspecified osteoarthritis, unspecified site; F41.9 Anxiety disorder, unspecified; F32.A Depression, unspecified; F17.210 Nicotine dependence, cigarettes, uncomplicated; K58.9 Irritable bowel syndrome, unspecified; Z90.89 Acquired absence of other organs; Z90.49 Acquired absence of other specified parts of digestive tract; Z90.710 Acquired absence of both cervix and uterus; Z90.721 Acquired absence of ovaries, unilateral; Z79.84 Long term (current) use of oral hypoglycemic drugs; Z79.899 Other long term (current) drug therapy
CPT/HCPCS: 80053; 43280; J2250; J1100; J0690; J2405; J1170 ×2; J1644; 83036

== ENCOUNTER → 2023-05-05 | Outpatient (CLI) | payer OTHER ==
[2023-05-05 13:37] VITALS: BP 132/90; PULSE 95; RESP 15; TEMP 98.1
--- NOTE | 2023-05-05 14:35 | P.PAINPG ---
Objective - Vital Signs Vital signs: Intake & Output 05/04/23 05/05/23 05/05/23 18:59 06:59 18:59 Weight 77.111 kg PQRS Measure Charge Sheet Comment: A 52 yr old female with a history of severe and chronic LBP x years secondary to lumbar DDD and spondylosis with facet arthropathy without myelopathy presents today for medication refills. She admits she experienced 60% pain relief w RFA of the R L4-L5, L5-S1 for 6 mo s/p procedure. Pain level is provoked at 7 /10 in intensity, constant, localized in the R lumbar spine, sharp, throbbing in character without shooting. Pain is provoked by any position for periods of 20 min or more. Pain is alleviated with PT x 6 wks in Jun 2022 which provoked pain, medications, topicals, CBD products, heat, ice, repositioning and rest. Oswestry axial pain score of 31. Interventional pain procedures completed include BL RFA L3-L5, LESIs Patient is currently on [place] , Flexeril Patient denies any side effects of the medication(s), denies excessive drowsiness or sleepiness, denies suicidal ideation and reports that the current pain medication is helping to control the pain and improve activities of daily living. Patient denies any motor or sensory deficits. Patient denies any fever or night sweats, denies any change in the bowel movements or urination. Physical Examination: -Constitutional: Cooperative. Not in acute distress . - Neurologic: Cranial nerve II to XII intact. No focal neurological deficits. - Psychatric: Alert & oriented x 3. Matching mood & appropriate affect. Judgment and insight intact. - Musculoskeletal: Cervical spine: Muscle bulk/ tone/ strength in the bilateral upper extremities normal Vertebral body tenderness to palpation over Spurling test positive Distraction test positive Facet loading test positive TTP Thoracic spine Muscle bulk / tone/ strength in the bilateral paraspinal muscles normal Vertebral body tender to palpation over Facet loading test positive TTP Lumbar spine: Motor bulk/ tone/ strength lower extremities , thigh and legs : 5/5 Deep tendon reflexes : Normal Knee Jerk. Normal Ankle Jerk . Vertebral body tenderness to palpation Lumbar Facet Loading Test positive over R L4-L5, L5-S1 Straight Leg Raise: positive at 30 degrees right side/ left side Gaenslen's Test positive Sacral spine : Severe tenderness over the Sacroiliac joint: right side / left side Range of motion: Flexion of the lumbar spine <60 degrees Range of motion: Extension of the lumbar spine <20 degrees Gaenslen's Test positive right side / left side Dian test: positive right side / left side Thigh Thrust Test positive right side / left side Sacral Thrust Test positive right side / left side Assessment and plan: Chronic LBP secondary to lumbar DDD, spondylosis with facet arthropathy without myelopathy Recommendation of R RFA L4-L5, L5-S1. Pt exhibited optimal pain relief w prior RFA from Jul 2022. Risks, benefits of procedure discussed and patient verbalized understanding. Protocol for discontinuation/continuation of medications surrounding procedure discussed. Chronic and current use of high-risk medication (Opioids). The patient was counseled about risk of opioid use, psychological risk associated with opioids and was orally counseled to not overuse , divert or sell medications. Pt is to store medication in a safe location. The patient is counseled against driving while using narcotic medications and also not to use alcohol or any illicit recreational drugs. Patient verbalized understanding that the lack of compliance will result in failure to renew narcotic prescription(s) as well as possible discharge from the clinic Diagnoses, prognosis and treatment options including but not limited to physical therapy, surgical interventions, interventional therapies and medication management including narcotics and adjuvant medication were discussed. All patient questions answered MAPS reviewed and it was appropriate. UDS from 03/10/23 reviewed and consistent. Prescription refill for [place] 10/325#90, Flexeril with 1 refill I have spent less than 30 minutes on patient care today. Dr Thomas was available by phone for the evaluation of this patient. The time was used to review the medical records including relevant urine studies and Prescription history (MAPs), review of the available imaging, evaluation and examination of the patient, coordination of care with the medical staff and if applicable referring physicians, as well as creation of the medical record PQRS Narrative: Smoking Status Current every day smoker Narcotic Agreement Date Signed 07/01/22 Hx Alcohol Use (MH) Yes: occ Home Medications: Ambulatory Orders lisinopriL [Zestril] 20 mg PO PC-LUNCH 01/25/18 traZODone HCL 100 mg PO HS PRN 03/12/20 Pioglitazone [Actos] 15 mg PO DAILY 05/08/20 Loratadine 10 mg PO DAILY PRN 06/15/20 Menthol [Biofreeze] 1 applic TOPICAL DAILY PRN 06/09/21 Ondansetron [Zofran] 4 mg PO Q8HR PRN 06/09/21 Fluticasone Nasal [place] [Flonase Nasal [place]] 1 spray EA NOSTRIL DAILY PRN 11/09/22 Cyclobenzaprine [Flexeril] 5 mg PO BID PRN 03/16/23 Dulaglutide [Trulicity] 0.75 mg SQ TH 03/16/23 Nitroglycerin 0.4 mg SL Q5M PRN 03/16/23 HYDROcodone/APAP 10-325MG [[place] 10-325] 1 tab PO Q8HR PRN 30 Days #90 tab 05/05/23 HYDROcodone/APAP 10-325MG [[place] 10-325] 1 tab PO TID PRN 30 Days #90 tab 05/05/23 Controlled Substance Measures - Controlled Substance Measures Is patient prescribed a controlled substance at discharge?: Yes When asked, does pt state using other controlled substances?: No If prescribed controlled substance>3 days was MAPS reviewed?: Yes
== END ==
LOC: PNWHC3 12:51
PROVIDERS: ATTEND Specialist
DX: M51.37 Other intervertebral disc degeneration, lumbosacral region (principal); M47.817 Spondylosis without myelopathy or radiculopathy, lumbosacral region; G89.4 Chronic pain syndrome; G90.521 Complex regional pain syndrome I of right lower limb; F17.200 Nicotine dependence, unspecified, uncomplicated; Z79.891 Long term (current) use of opiate analgesic; Z88.8 Allergy status to other drugs, medicaments and biological substances
CPT/HCPCS: 99211

== ENCOUNTER 2023-05-27 11:44 | Day surgery (SDC) | payer OTHER ==
[2023-05-23 17:00] VITALS: BMI 27.4
[2023-05-27] MEDS ORDERED: LACTATED RINGERS 1,000 ML IV SCH (12:24)
[2023-05-27] MEDS ORDERED: MIDAZOLAM 2 MG/2 ML VIAL ONE (12:31)
[2023-05-27] MEDS ORDERED: fentaNYL (PF) 50 MCG/ML 2 ML AMP ONE (12:31)
[2023-05-27 12:34] VITALS: RESP 16; TEMP 97.9
[2023-05-27 12:38] LABS: Glucose,Whole Blood 99 mg/dL (70-110)
[2023-05-27] MEDS ORDERED: methylPREDNISolone ACETATE 40 MG/ML 1 ML VIAL ONE (12:38)
[2023-05-27] MEDS ORDERED: ROPIVACAINE 5MG/ML 20ML VIAL ONE (12:38)
--- NOTE | 2023-05-27 12:49 | P.PCN ---
Date of Procedure: 05/27/23 Procedure(s) Performed: PREOPERATIVE DIAGNOSIS: 1-Lumbar Spondylosis with Facet Arthropathy without myelopathy. POSTOPERATIVE DIAGNOSIS: 1- Lumbar Spondylosis with Facet Arthropathy without myelopathy. PROCEDURES : Right Radiofrequency thermocoagulation, L3 , L4 , and L5 medial branch, with fluoroscopic guidance (fluoroscopy images available in the radiology department) ( to denervate the facet joint at right L4-5 ,and L5-S1 levels ). ANESTHESIA: Monitored anesthesia care as per anesthesia department. EBL: Minimal PROCEDURE INDICATION: The patient with low back pain secondary to lumbar facet arthropathy who had more than 50% relief of her pain with previous diagnostic lumbar medial branch block with bupivacaine. PROCEDURE DESCRIPTION / TECHNIQUE: The patient was seen and identified in the preoperative area. Risks, benefits, complications, including but not limited to risk of infection ,bleeding , allergic reactions to the medications and no complete pain releife , and alternatives were discussed with the patient, the patient agreed to proceed with the procedure and signed the consent. IV was started. Vital signs remained stable throughout the procedure. Patient was taken to the OR and time out was completed. The patient was placed in the prone position on the procedure table. The lumber area was prepped and draped in the usual sterile fashion. . Vital signs were closely monitored during the procedure .IV sedation was used during the procedure to decrease patients anxiety. Using AP and then oblique fluoroscopy, the ``eye of the Davis dog corresponding to the connection between the superior and transverse articular processes of right L3, L4, and L5 were identified, marked, and localized with 1% lidocaine. Subsequently, a 18 -tk radiofrequency cannula with a 10- mm active tip was advanced guided by fluoroscopy to each of the``eyes of the Davis dog at right L3, L4, and L5. Each site then underwent sensory testing at 50 Hz and 0 to 1 volt and motor testing at 2.5 Hz and 0 to 3 volt with local stimulation, but no radicular symptoms down the legs. Thereafter each sites underwent radiofrequency thermocoagulation at 80 degrees celsius for 90 seconds after injecting 0.5 ml of PF Ropivacaine 1ml, then after the thermocoagulation done , 1 ml of the block solution containing Depo-Medrol 40 mg and 3 ml of Ropivacaine 0.5% was injected at the right L3 , L4 , and L5 , levels after negative aspiration of CSF and blood and with no paresthesias. Cannulas were retracted while injecting lidocaine 1% until the needle is out At the end of the procedure, the skin was cleansed and bandages were applied. COMPLICATIONS: No acute complications. DISPOSITION / PLANS: The patient was placed in a supine position and transferred to the recovery area in a stable condition for observation and was discharged from the recovery room after meeting discharge criteria. Home discharge instructions given to the patient by the staff. The patient was reexamined prior to discharge. The patient will schedule a follow up in the clinic in 2-4 weeks.
[2023-05-27] MEDS ORDERED: IV FLUID CONTINUATION 900 ML IV ONE (12:58)
--- NOTE | 2023-05-27 12:58 | FL ---
Intraoperative/procedural fluoroscopic services were provided lumbar RF. Total fluoroscopy time is 6 seconds with a total of 3 submitted images to PACS. Total DAP [id number] mGym2. Please see the operativ e note for further details.
[2023-05-27 13:17] VITALS: BP 122/80; PULSE 83
== END 2023-05-27 13:38 | disposition home or self-care (01) ==
LOC: ORPAIN 11:44
PROVIDERS: ATTEND Specialist
DX: M47.816 Spondylosis without myelopathy or radiculopathy, lumbar region (principal); E78.5 Hyperlipidemia, unspecified; I12.9 Hypertensive chronic kidney disease with stage 1 through stage 4 chronic kidney disease, or unspecified chronic kidney disease; E11.22 Type 2 diabetes mellitus with diabetic chronic kidney disease; N18.2 Chronic kidney disease, stage 2 (mild); K21.9 Gastro-esophageal reflux disease without esophagitis; K58.9 Irritable bowel syndrome, unspecified; F31.9 Bipolar disorder, unspecified; F17.210 Nicotine dependence, cigarettes, uncomplicated; Z79.85 Long-term (current) use of injectable non-insulin antidiabetic drugs; Z79.811 Long term (current) use of aromatase inhibitors; Z79.899 Other long term (current) drug therapy; Z98.890 Other specified postprocedural states
CPT/HCPCS: 64635; 64636; J2250; J1030; J3010; J2795

== ENCOUNTER → 2023-07-05 | Outpatient (CLI) | payer OTHER | LOC: CPPFTMAIN 12:50 | PROVIDERS: ATTEND Family Medicine | DX: R06.02 Shortness of breath (principal); F17.200 Nicotine dependence, unspecified, uncomplicated; Z88.8 Allergy status to other drugs, medicaments and biological substances | CPT/HCPCS: 94060; 94726; 94729 ==

== ENCOUNTER → 2023-07-14 | Outpatient (CLI) | payer OTHER ==
[2023-07-14 10:57] VITALS: BP 135/88; PULSE 81; RESP 16; TEMP 98.9
--- NOTE | 2023-07-14 11:25 | P.PAINPG ---
PQRS Measure Charge Sheet Comment: A 52 yr old female with a history of severe and chronic LBP x years secondary to lumbar DDD and spondylosis with facet arthropathy without myelopathy presents today for medication refills. She admits she experienced >80% pain relief w RFA of the L L4-L5, L5-S1 for 6 mo s/p procedure from Feb 2022. Pain level is provoked at 7 /10 in intensity, constant, localized in the L lower lumbar spine, sharp, throbbing in character without shooting. Pain is provoked by any position for periods of 20 min or more. Pain is alleviated with PT x 6 wks in Jun 2022 which provoked pain, physician guided home exercises/ stretches since Jun 2022, medications, topicals, CBD products, heat, ice, repositioning and rest. Oswestry axial pain score of 31. Interventional pain procedures completed include BL RFA L3-L5, LESIs Patient is currently on [place] 10/325mg #90, Flexeril Patient denies any side effects of the medication(s), denies excessive drowsiness or sleepiness, denies suicidal ideation and reports that the current pain medication is helping to control the pain and improve activities of daily living. Patient denies any motor or sensory deficits. Patient denies any fever or night sweats, denies any change in the bowel movements or urination. Physical Examination: -Constitutional: Cooperative. Not in acute distress . - Neurologic: Cranial nerve II to XII intact. No focal neurological deficits. - Psychatric: Alert & oriented x 3. Matching mood & appropriate affect. Judgment and insight intact. - Musculoskeletal: Cervical spine: Muscle bulk/ tone/ strength in the bilateral upper extremities normal Vertebral body tenderness to palpation over Spurling test positive Distraction test positive Facet loading test positive TTP Thoracic spine Muscle bulk / tone/ strength in the bilateral paraspinal muscles normal Vertebral body tender to palpation over Facet loading test positive TTP Lumbar spine: Motor bulk/ tone/ strength lower extremities , thigh and legs : 5/5 Deep tendon reflexes : Normal Knee Jerk. Normal Ankle Jerk . Vertebral body tenderness to palpation Lumbar Facet Loading Test positive over L L4-L5, L5-S1 Straight Leg Raise: positive at 30 degrees right side/ left side Gaenslen's Test positive Sacral spine : Severe tenderness over the Sacroiliac joint: right side / left side Range of motion: Flexion of the lumbar spine <60 degrees Range of motion: Extension of the lumbar spine <20 degrees Gaenslen's Test positive right side / left side Dian test: positive right side / left side Thigh Thrust Test positive right side / left side Sacral Thrust Test positive right side / left side Assessment and plan: Chronic LBP secondary to lumbar DDD, spondylosis with facet arthropathy without myelopathy Recommendation of L RFA L4-L5, L5-S1. Pt exhibited optimal pain relief w prior RFA from Mar 2022. Risks, benefits of procedure discussed and patient verbalized understanding. Protocol for discontinuation/continuation of medications surrounding procedure discussed. Chronic and current use of high-risk medication (Opioids). The patient was counseled about risk of opioid use, psychological risk associated with opioids and was orally counseled to not overuse , divert or sell medications. Pt is to store medication in a safe location. The patient is counseled against driving while using narcotic medications and also not to use alcohol or any illicit recreational drugs. Patient verbalized understanding that the lack of compliance will result in failure to renew narcotic prescription(s) as well as possible discharge from the clinic Diagnoses, prognosis and treatment options including but not limited to physical therapy, surgical interventions, interventional therapies and medication management including narcotics and adjuvant medication were discussed. All patient questions answered MAPS reviewed and it was appropriate. UDS from 03/10/23 reviewed and consistent. Prescription refill for [place] 10/325#90, Flexeril with 1 refill I have spent less than 30 minutes on patient care today. Dr Thomas was available by phone for the evaluation of this patient. The time was used to review the medical records including relevant urine studies and Prescription history (MAPs), review of the available imaging, evaluation and examination of the patient, coordination of care with the medical staff and if applicable referring physicians, as well as creation of the medical record PQRS Narrative: Smoking Status Current every day smoker Narcotic Agreement Date Signed 07/01/22 Hx Alcohol Use (MH) Yes: occ Home Medications: Ambulatory Orders lisinopriL [Zestril] 20 mg PO PC-LUNCH 01/25/18 traZODone HCL 100 mg PO HS PRN 03/12/20 Pioglitazone [Actos] 15 mg PO DAILY 05/08/20 Loratadine 10 mg PO DAILY PRN 06/15/20 Menthol [Biofreeze] 1 applic TOPICAL DAILY PRN 09/14/21 Ondansetron [Zofran] 4 mg PO Q8HR PRN 06/09/21 Fluticasone Nasal [place] [Flonase Nasal [place]] 1 spray EA NOSTRIL DAILY PRN 11/09/22 Dulaglutide [Trulicity] 0.75 mg SQ TH 03/16/23 Nitroglycerin 0.4 mg SL Q5M PRN 03/16/23 Cyclobenzaprine [Flexeril] 5 mg PO BID PRN 30 Days #60 tab 07/14/23 HYDROcodone/APAP 10-325MG [[place] 10-325] 1 tab PO TID PRN 30 Days #90 tab 07/14/23 HYDROcodone/APAP 10-325MG [[place] 10-325] 1 tab PO TID PRN 30 Days #90 tab 07/14/23 Controlled Substance Measures - Controlled Substance Measures Is patient prescribed a controlled substance at discharge?: Yes When asked, does pt state using other controlled substances?: No If prescribed controlled substance>3 days was MAPS reviewed?: Yes
== END ==
LOC: PNWHC3 10:15
PROVIDERS: ATTEND Specialist
DX: M51.37 Other intervertebral disc degeneration, lumbosacral region (principal); M47.817 Spondylosis without myelopathy or radiculopathy, lumbosacral region; G89.29 Other chronic pain; F17.200 Nicotine dependence, unspecified, uncomplicated; Z79.891 Long term (current) use of opiate analgesic; Z88.6 Allergy status to analgesic agent; Z88.8 Allergy status to other drugs, medicaments and biological substances
CPT/HCPCS: 99211

== ENCOUNTER 2023-08-05 08:03 | Day surgery (SDC) | payer OTHER ==
[2023-08-05] MEDS ORDERED: LACTATED RINGERS 1,000 ML IV SCH (08:15)
[2023-08-05] MEDS ORDERED: ROPIVACAINE 5MG/ML 20ML VIAL ONE (08:35)
[2023-08-05] MEDS ORDERED: MIDAZOLAM 2 MG/2 ML VIAL ONE (08:35)
[2023-08-05] MEDS ORDERED: fentaNYL (PF) 50 MCG/ML 2 ML AMP ONE (08:35)
[2023-08-05 08:36] LABS: Glucose,Whole Blood 136 mg/dL (70-110)
[2023-08-05 08:49] VITALS: RESP 16; TEMP 96.9
[2023-08-05] MEDS ORDERED: IV FLUID CONTINUATION 1,000 ML IV ONE (09:04)
--- NOTE | 2023-08-05 09:11 | FL ---
EXAMINATION TYPE: FL guided pain mgmt statistic DATE OF EXAM: 08/05/2023 FLUOROSCOPY 31 sec FL 0.80585 mGycm2 DAP dose Total images 3. Imaging during lumbar radiofrequency ablation.
--- NOTE | 2023-08-05 09:24 | P.PCN ---
Date of Procedure: 08/05/23 Description of Procedure: PREOPERATIVE DIAGNOSIS: 1-Lumbar Spondylosis with Facet Arthropathy without myelopathy. 2- Lumber degenerative disc disease. POSTOPERATIVE DIAGNOSIS: 1- Lumbar Spondylosis with Facet Arthropathy without myelopathy. 2- Lumber degenerative disc disease. PROCEDURES : Left Radiofrequency thermocoagulation, L3 , L4 , and L5 medial branch, with fluoroscopic guidance (fluoroscopy images available in the radiology department) ( to denervate the facet joint at left L4-5 ,and L5-S1 levels ). ANESTHESIA: Monitored anesthesia care as per anesthesia department , EBL: Minimal PROCEDURE INDICATION: The patient with low back pain secondary to lumbar facet arthropathy who had more than 50% relief of her pain with previous diagnostic lumbar medial branch block with bupivacaine. PROCEDURE DESCRIPTION / TECHNIQUE: The patient was seen and identified in the preoperative area. Risks, benefits, complications, including but not limited to risk of infection ,bleeding , allergic reactions to the medications and no complete pain releife , and alternatives were discussed with the patient, the patient agreed to proceed with the procedure and signed the consent. IV was started. Vital signs remained stable throughout the procedure. Patient was taken to the OR and time out was completed. The patient was placed in the prone position on the procedure table. The lumber area was prepped and draped in the usual sterile fashion. Using AP and then oblique fluoroscopy, the ``eye of the Davis dog corresponding to the connection between the superior and transverse articular processes of the left L4, and L5 were identified, marked, and localized with 1% lidocaine. Subsequently, a 18 [id number] radiofrequency cannula with a 10- mm active tip was advanced guided by fluoroscopy to each of the``eyes of the Davis dog at left L4, and L5. Radiofrequency needle was placed on AP view of the fluoroscope at the junction of the superior articular process and left ala of the sacrum Each site then underwent sensory testing at 50 Hz and 0 to 1 volt and motor testing at 2.5 Hz and 0 to 3 volt with local stimulation, but no radicular symptoms down the legs. Thereafter each sites underwent radiofrequency thermocoagulation at 80 degrees celsius for 90 seconds after injecting 1 ml of PF Ropivacaine 1ml. At each point to repeat lesions were done after the 180 with same settings. RF needles were taken out after the procedure. At the end of the procedure, the skin was cleansed and bandages were applied. COMPLICATIONS: No acute complications. DISPOSITION / PLANS: The patient was placed in a supine position and transferred to the recovery area in a stable condition for observation and was discharged from the recovery room after meeting discharge criteria. Home discharge instructions given to the patient by the staff. The patient was reexamined prior to discharge. The patient will schedule a follow up in the clinic in 2-4 weeks.
[2023-08-05 09:37] VITALS: BP 116/82; PULSE 73
== END 2023-08-05 09:34 | disposition home or self-care (01) ==
LOC: ORPAIN 08:03
PROVIDERS: ATTEND Pain Medicine Interventional Pain Medicine
DX: M51.36 Other intervertebral disc degeneration, lumbar region (principal); M47.816 Spondylosis without myelopathy or radiculopathy, lumbar region; I25.10 Atherosclerotic heart disease of native coronary artery without angina pectoris; E78.5 Hyperlipidemia, unspecified; Z88.1 Allergy status to other antibiotic agents; I10 Essential (primary) hypertension; M19.90 Unspecified osteoarthritis, unspecified site; K21.9 Gastro-esophageal reflux disease without esophagitis; F17.200 Nicotine dependence, unspecified, uncomplicated; Z88.2 Allergy status to sulfonamides; Z88.8 Allergy status to other drugs, medicaments and biological substances; Z88.6 Allergy status to analgesic agent; Z79.899 Other long term (current) drug therapy
CPT/HCPCS: 64635; 64636; J2250; J2001; J3010; J2795

== ENCOUNTER → 2023-09-08 | Outpatient (CLI) | payer OTHER ==
[2023-09-08 11:44] VITALS: BP 151/90; PULSE 89; RESP 16; TEMP 98.6
--- NOTE | 2023-09-08 15:08 | P.PAINPG ---
PQRS Measure Charge Sheet Comment: A 52 yr old female with a history of severe and chronic LBP x years secondary to lumbar DDD and spondylosis with facet arthropathy without myelopathy presents today for medication refills and L RFA L3-L5. She admits she experienced 90% pain relief w RFA of the L L4-L5, L5-S1. Pain level is provoked at 7 /10 in intensity, constant, predominantly axial, localized in the L lower lumbar spine, sharp, throbbing in character without shooting pain. Pain is provoked by any position for periods of 20 min or more. Pain is alleviated with PT x 6 wks in Jun 2022 which provoked pain, physician guided home exercises/ stretches since Jun 2022, medications, topicals, CBD products, heat, ice, repositioning and rest. Oswestry axial pain score of 31. Interventional pain procedures completed include BL RFA L3-L5, LESIs Patient is currently on [place] 10/325mg #90, Flexeril Patient denies any side effects of the medication(s), denies excessive drowsiness or sleepiness, denies suicidal ideation and reports that the current pain medication is helping to control the pain and improve activities of daily living. Patient denies any motor or sensory deficits. Patient denies any fever or night sweats, denies any change in the bowel movements or urination. Physical Examination: -Constitutional: Cooperative. Not in acute distress . - Neurologic: Cranial nerve II to XII intact. No focal neurological deficits. - Psychatric: Alert & oriented x 3. Matching mood & appropriate affect. Judgment and insight intact. - Musculoskeletal: Cervical spine: Muscle bulk/ tone/ strength in the bilateral upper extremities normal Vertebral body tenderness to palpation over Spurling test positive Distraction test positive Facet loading test positive TTP Thoracic spine Muscle bulk / tone/ strength in the bilateral paraspinal muscles normal Vertebral body tender to palpation over Facet loading test positive TTP Lumbar spine: Motor bulk/ tone/ strength lower extremities , thigh and legs : 5/5 Deep tendon reflexes : Normal Knee Jerk. Normal Ankle Jerk . Vertebral body tenderness to palpation Lumbar Facet Loading Test positive over L L4-L5, L5-S1 Straight Leg Raise: positive at 30 degrees right side/ left side Gaenslen's Test positive Sacral spine : Severe tenderness over the Sacroiliac joint: right side / left side Range of motion: Flexion of the lumbar spine <60 degrees Range of motion: Extension of the lumbar spine <20 degrees Gaenslen's Test positive right side / left side Dian test: positive right side / left side Thigh Thrust Test positive right side / left side Sacral Thrust Test positive right side / left side Assessment and plan: Chronic LBP secondary to lumbar DDD, spondylosis with facet arthropathy without myelopathy Chronic and current use of high-risk medication (Opioids). The patient was counseled about risk of opioid use, psychological risk associated with opioids and was orally counseled to not overuse , divert or sell medications. Pt is to store medication in a safe location. The patient is counseled against driving while using narcotic medications and also not to use alcohol or any illicit recreational drugs. Patient verbalized understanding that the lack of compliance will result in failure to renew narcotic prescription(s) as well as possible discharge from the clinic Diagnoses, prognosis and treatment options including but not limited to physical therapy, surgical interventions, interventional therapies and medication management including narcotics and adjuvant medication were discussed. All patient questions answered MAPS reviewed and it was appropriate. UDS collected 09/08/23. Prescription refill for [place] #90, Flexeril with 1 refill I have spent less than 30 minutes on patient care today. Dr Thomas was available by phone for the evaluation of this patient. The time was used to revi ew the medical records including relevant urine studies and Prescription history (MAPs), review of the available imaging, evaluation and examination of the patient, coordination of care with the medical staff and if applicable referring physicians, as well as creation of the medical record PQRS Narrative: Smoking Status Current every day smoker Narcotic Agreement Date Signed 07/01/22 Hx Alcohol Use (MH) Yes: occ Home Medications: Ambulatory Orders lisinopriL [Zestril] 20 mg PO PC-LUNCH 01/25/18 traZODone HCL 100 mg PO HS PRN 03/12/20 Pioglitazone [Actos] 15 mg PO 1200 05/08/20 Loratadine 10 mg PO DAILY PRN 06/15/20 Menthol [Biofreeze] 1 applic TOPICAL DAILY PRN 06/09/21 Ondansetron [Zofran] 4 mg PO Q8HR PRN 06/09/21 Fluticasone Nasal [place] [Flonase Nasal [place]] 1 spray EA NOSTRIL DAILY PRN 11/09/22 Dulaglutide [Trulicity] 0.75 mg SQ TH 03/16/23 Nitroglycerin 0.4 mg SL Q5M PRN 03/16/23 Cyclobenzaprine [Flexeril] 5 mg PO BID PRN 30 Days #60 tab 09/08/23 HYDROcodone/APAP 10-325MG [[place] 10-325] 1 tab PO TID PRN 30 Days #90 tab 09/08/23 HYDROcodone/APAP 10-325MG [[place] 10-325] 1 tab PO TID PRN 30 Days #90 tab 09/08/23 Controlled Substance Measures - Controlled Substance Measures Is patient prescribed a controlled substance at discharge?: Yes When asked, does pt state using other controlled substances?: No If prescribed controlled substance>3 days was MAPS reviewed?: Yes
== END ==
LOC: PNWHC3 10:53
PROVIDERS: ATTEND Specialist
DX: M47.817 Spondylosis without myelopathy or radiculopathy, lumbosacral region (principal); M51.37 Other intervertebral disc degeneration, lumbosacral region; F17.200 Nicotine dependence, unspecified, uncomplicated; Z88.1 Allergy status to other antibiotic agents; Z79.891 Long term (current) use of opiate analgesic; Z88.8 Allergy status to other drugs, medicaments and biological substances
CPT/HCPCS: 80307; G0463; 99212

== ENCOUNTER → 2023-09-16 | Outpatient (CLI) | payer OTHER ==
--- NOTE | 2023-09-16 12:24 | FL ---
EXAMINATION TYPE: FL barium swallow DATE OF EXAM: 09/16/2023 CLINICAL INDICATION: 53-year-old female K21.9; R10.11. Hilar hernia repair 6 months ago. Recurrent sy mptoms/pain for the last one month. COMPARISON: None Total Fluoroscopy Time: 1 minute 41 seconds Total DAP: 351.92 mGycm2 47 images obtained. FINDINGS: The swallowing mechanism is normal and hypopharyngeal anatomy is preserved. The cervical and thoracic portions have a normal course and caliber. There is [id number] esopha geal dysmotility with scattered tertiary peristaltic waves noted, delayed clearance from the esophagu s, and episodes of intraesophageal reflux. Blunted secondary stripping waves are noted. The mucosa is normal and no persistent filling defect is encountered. No recurrent hiatal hernia. Unable to elicit any gastroesophageal reflux IMPRESSION: 1. [id number] esophageal dysmotility. 2. No recurrent hiatal hernia identified.
== END | disposition home or self-care (01) ==
LOC: RADUSWWP 10:57
PROVIDERS: ATTEND Surgery
DX: K22.4 Dyskinesia of esophagus (principal); K21.9 Gastro-esophageal reflux disease without esophagitis; R10.11 Right upper quadrant pain
CPT/HCPCS: 74220

== ENCOUNTER 2023-10-26 08:30 | Day surgery (SDC) | payer OTHER ==
[2023-09-07 10:39] VITALS: BMI 27.7
[~2023-10-26 08:30] MED LIST changes: -ACETAMINOPHEN TAB 500 MG TAB PO PRN; -DEXAMETHASONE SOD PHOSPHATE 4 MG/ML 1 ML VIAL IV ONE; -HEPARIN SODIUM,PORCINE/PF 5,000 UNIT/0.5 ML SYRINGE SQ PRN; +LIDOCAINE 1% (10MG/ML) FOR IV START INTRADERMA PRN; -ONDANSETRON 4 MG/2 ML VIAL IVP ONE; -SCOPOLAMINE 1 MG/72 HR PATCH TRANSDERM ONE
[2023-10-26 08:57] LABS: Glucose,Whole Blood 145 mg/dL (70-110)
[2023-10-26] MEDS ORDERED: PROPOFOL 10 MG/ML 20 ML VIAL IV ONE (09:02)
[2023-10-26 09:03] VITALS: RESP 16; TEMP 97.6
--- NOTE | 2023-10-26 09:19 | P.PCN ---
Date of Procedure: 10/26/23 Procedure(s) Performed: BRIEF HISTORY: Patient is a 53-year-old [place] -[place] female scheduled for an elective colonoscopy as a part of screening for colon cancer. PROCEDURE PERFORMED: Colonoscopy with snare polypectomy. PREOPERATIVE DIAGNOSIS: Screening for colon cancer. IV sedation per Anesthesia. PROCEDURE: After informed consent was obtained, the patient, was brought into the endoscopy unit. IV sedation was administered by Anesthesia under continuous monitoring. Digital rectal examination was normal. Initially the Olympus CF-160 flexible video colonoscope was then inserted in the rectum, gradually advanced into the cecum without any difficulty. Careful examination was performed as the scope was gradually being withdrawn. Ileocecal valve and the appendiceal orifice were visualized and appeared normal. Prep was excellent. Mucosa of the cecum, ascending colon, transverse colon, descending colon, appeared normal. In the sigmoid there was a 8 mm polyp that was removed by cold snare polypectomy. Rest of the sigmoid colon, and rectum appeared normal. Retroflexion was performed in the rectum and no lesions were seen. The patient tolerated the procedure well. IMPRESSION: 8 mm; sigmoid polyp status post cold snare polypectomy Rest of the colon appeared normal RECOMMENDATIONS: Findings of this examination were discussed with the patient as well as his family. She was advised to follow with the biopsy results. If the biopsy will adenoma she can have a repeat colonoscopy in 5 years.
[2023-10-26 09:30] LABS: Glucose,Whole Blood 141 mg/dL (70-110)
[2023-10-26 10:00] VITALS: BP 133/82; PULSE 79
== END 2023-10-26 09:49 | disposition home or self-care (01) ==
LOC: ORWHC2ENDO 08:30
PROVIDERS: ATTEND Internal Medicine Gastroenterology
DX: Z12.11 Encounter for screening for malignant neoplasm of colon (principal); D12.5 Benign neoplasm of sigmoid colon; I10 Essential (primary) hypertension; E78.5 Hyperlipidemia, unspecified; E11.9 Type 2 diabetes mellitus without complications; M19.90 Unspecified osteoarthritis, unspecified site; F17.210 Nicotine dependence, cigarettes, uncomplicated; Z79.85 Long-term (current) use of injectable non-insulin antidiabetic drugs; Z79.899 Other long term (current) drug therapy; Z90.49 Acquired absence of other specified parts of digestive tract; Z88.8 Allergy status to other drugs, medicaments and biological substances
CPT/HCPCS: 45385; J2704; 88305

== ENCOUNTER → 2023-11-17 | Outpatient (CLI) | payer OTHER ==
[2023-11-17 11:40] VITALS: BP 148/96; PULSE 96; RESP 15; TEMP 98.2
--- NOTE | 2023-11-17 14:38 | P.PAINPG ---
PQRS Measure Charge Sheet Comment: A 53 yr old female with a history of severe and chronic LBP x years secondary to lumbar DDD and spondylosis with facet arthropathy without myelopathy presents today for medication refills. Pt underwent a L RFA L3-L5 from Sep 2022 and experienced 80% pain relief x 10 mo s/p procedure. Pain level is provoked at 7 /10 in intensity, constant, predominantly axial, localized in the L lower lumbar spine, sharp, throbbing in character without shooting pain. Pain is provoked by any position for periods of 20 min or more. Pain is alleviated with PT x 6 wks in Jun 2022 which provoked pain, physician guided home exercises/ stretches since Jun 2022, medications, topicals, CBD products, heat, ice, repositioning a nd rest. Oswestry axial pain score of 31. Interventional pain procedures completed include R RFA L3-L5 (Jul 2023), L RFA L3-L5 (Sep 2022), LESIs Patient is currently on [place] 10/325mg #90, Flexeril Patient denies any side effects of the medication(s), denies excessive drowsiness or sleepiness, denies suicidal ideation and reports that the current pain medication is helping to control the pain and improve activities of daily living. Patient denies any motor or sensory deficits. Patient denies any fever or night sweats, denies any change in the bowel movements or urination. Physical Examination: -Constitutional: Cooperative. Not in acute distress . - Neurologic: Cranial nerve II to XII intact. No focal neurological deficits. - Psychatric: Alert & oriented x 3. Matching mood & appropriate affect. Judgment and insight intact. - Musculoskeletal: Cervical spine: Muscle bulk/ tone/ strength in the bilateral upper extremities normal Vertebral body tenderness to palpation over Spurling test positive Distraction test positive Facet loading test positive TTP Thoracic spine Muscle bulk / tone/ strength in the bilateral paraspinal muscles normal Vertebral body tender to palpation over Facet loading test positive TTP Lumbar spine: Motor bulk/ tone/ strength lower extremities , thigh and legs : 5/5 Deep tendon reflexes : Normal Knee Jerk. Normal Ankle Jerk . Vertebral body tenderness to palpation Lumbar Facet Loading Test positive over L L4-L5, L5-S1 Straight Leg Raise: positive at 30 degrees right side/ left side Gaenslen's Test positive Sacral spine : Severe tenderness over the Sacroiliac joint: right side / left side Range of motion: Flexion of the lumbar spine <60 degrees Range of motion: Extension of the lumbar spine <20 degrees Gaenslen's Test positive right side / left side Dian test: positive right side / left side Thigh Thrust Test positive right side / left side Sacral Thrust Test positive right side / left side Assessment and plan: Chronic LBP secondary to lumbar DDD, spondylosis with facet arthropathy without myelopathy Recommendation of L RFA L3-L5. Pt exhibited optimal pain relief w prior L RFA of the L3-L5 from 2022. Risks, benefits of procedure discussed and patient verbalized understanding. Protocol for discontinuation/continuation of medications runny procedure discussed Chronic and current use of high-risk medication (Opioids). The patient was counseled about risk of opioid use, psychological risk associated with opioids and was orally counseled to not overuse , divert or sell medications. Pt is to store medication in a safe location. The patient is counseled against driving while using narcotic medications and also not to use alcohol or any illicit recreational drugs. Patient verbalized understanding that the lack of compliance will result in failure to renew narcotic prescription(s) as well as possible discharge from the clinic Diagnoses, prognosis and treatment options including but not limited to physical therapy, surgical interventions, interventional therapies and medication management including narcotics and adjuvant medication were discussed. All patient questions answered MAPS reviewed and it was appropriate. UDS fr 09/08/23 negative for Opiates. Will recheck UDS 11/17/23. Prescription refill for [place] #90 NR I have spent less than 30 minutes on patient care today. Dr Thomas was available by phone for the evaluation of this patient. The time was used to review the medical records including relevant urine studies and Prescription history (MAPs), review of the available imaging, evaluation and examination of the patient, coordination of care with the medical staff and if applicable referring physicians, as well as creation of the medical record PQRS Narrative: Smoking Status Current every day smoker Narcotic Agreement Date Signed 07/01/22 Hx Alcohol Use (MH) Yes: occ Home Medications: Ambulatory Orders lisinopriL [Zestril] 20 mg PO PC-LUNCH 01/25/18 traZODone HCL 100 mg PO HS PRN 03/12/20 Pioglitazone [Actos] 15 mg PO 1200 05/08/20 Loratadine 10 mg PO DAILY PRN 09/20/20 Menthol [Biofreeze] 1 applic TOPICAL DAILY PRN 06/09/21 Ondansetron [Zofran] 4 mg PO Q8HR PRN 06/09/21 Fluticasone Nasal [place] [Flonase Nasal [place]] 1 spray EA NOSTRIL DAILY PRN 11/09/22 Dulaglutide [Trulicity] 0.75 mg SQ TH 03/16/23 Nitroglycerin 0.4 mg SL Q5M PRN 03/16/23 Cyclobenzaprine [Flexeril] 5 mg PO BID PRN 30 Days #60 tab 09/08/23 HYDROcodone/APAP 10-325MG [[place] 10-325] 1 tab PO TID PRN 30 Days #90 tab 11/17/23 Controlled Substance Measures - Controlled Substance Measures Is patient prescribed a controlled substance at discharge?: Yes When asked, does pt state using other controlled substances?: No If prescribed controlled substance>3 days was MAPS reviewed?: Yes
== END ==
LOC: PNWHC3 10:19
PROVIDERS: ATTEND Specialist
DX: M51.37 Other intervertebral disc degeneration, lumbosacral region (principal); M47.817 Spondylosis without myelopathy or radiculopathy, lumbosacral region; E11.9 Type 2 diabetes mellitus without complications; G89.29 Other chronic pain; F17.200 Nicotine dependence, unspecified, uncomplicated; Z79.85 Long-term (current) use of injectable non-insulin antidiabetic drugs; Z79.891 Long term (current) use of opiate analgesic; Z51.81 Encounter for therapeutic drug level monitoring; Z88.6 Allergy status to analgesic agent; Z88.8 Allergy status to other drugs, medicaments and biological substances
CPT/HCPCS: 80307; G0463; 99212

== ENCOUNTER → 2023-12-14 | Outpatient (CLI) | payer OTHER ==
--- NOTE | 2023-12-14 12:38 | CTL ---
EXAMINATION TYPE: CT Low Dose Lung DATE OF EXAM: 12/14/2023 12:29 PM CLINICAL INDICATION:Female, 53 years old with history of Z12.2 LUNG CA SCREEN F17.210 NICOTINE DEPEND ENCE; smoker , history of tobacco use. COMPARISON: None. TECHNIQUE: Multiple axial non-contrast scans were obtained from approximately the lung apices through the upper abdomen. Coronal and sagittal reformatted images were obtained. Low dose technique was uti lized. CT DLP: 87.1 mGycm, Automated exposure control for dose reduction was used. CT Contrast: Contrast used: None Oral contrast used: None FINDINGS: ======== Lack of intravenous contrast and low dose technique limits the evaluation of the vascular and soft ti ssue structures. LUNGS: No evidence of pulmonary fibrosis. No evidence of focal consolidation, pneumothorax or pleural effusion. Mild paraseptal emphysematous changes in the lung apices. Nodules: RUL: None. RML: 5 mm solid right middle lung pulmonary nodule (4:178) RLL: None. ISSA: None. LLL: None. AIRWAY: Patent and unremarkable. HEART: Size within normal limits. MEDIASTINUM: No gross evidence of adenopathy. VASCULATURE: No aortic aneurysm. MUSCULOSKELETAL: No acute osseous abnormalities SOFT TISSUES/LYMPH NODES: Unremarkable. LOWER NECK: No significant findings. UPPER ABDOMEN: No significant findings. IMPRESSION: 1. Single right middle lung 5 mm pulmonary nodule. 2. Mild emphysematous changes of the lungs. CT LUNG RAD AND CT CHEST RECOMMENDATION: Lung-Rad 2 Benign Appearance or Behavior: Continue annual sc reening with LDCT in 12 months. S Modifier (other clinically significant findings): None Recommend smoking cessation (if current smoker), or continuation of smoking cessation (if prior smoke r). Annual screening for lung cancer with low-dose computed tomography is recommended in adults ages 55 to 77 years who have a 30 pack-year smoking history and currently smoke or have quit within the pa st 15 years. Screening should be discontinued once a person has not smoked for 15 years or develops a health problem that substantially limits life expectancy or the ability or willingness to have curat trudi lung surgery.
== END | disposition home or self-care (01) ==
LOC: RADCTMAIN 11:45
PROVIDERS: ATTEND Family Medicine
DX: Z12.2 Encounter for screening for malignant neoplasm of respiratory organs (principal); J43.8 Other emphysema; R91.1 Solitary pulmonary nodule; F17.210 Nicotine dependence, cigarettes, uncomplicated
CPT/HCPCS: 71271

== ENCOUNTER → 2023-12-15 | Outpatient (CLI) | payer OTHER ==
[2023-12-15 11:32] VITALS: BP 133/68; PULSE 79; RESP 15; TEMP 97.6
--- NOTE | 2023-12-15 14:48 | P.PAINPG ---
PQRS Measure Charge Sheet Comment: A 53 yr old female with a history of severe and chronic LBP > 20 years secondary to lumbar DDD and spondylosis with facet arthropathy without myelopathy presents today for medication refills. Pt underwent a R RFA L3-L5 from May 2023 and experienced 75% pain relief x 6 mo s/p procedure. Pain level is provoked at 8 /10 in intensity, constant, predominantly axial, localized in the L lower lumbar spine, sharp, throbbing in character without shooting pain. Pain is provoked by any position for periods of 20 min or more. Pain is alleviated with PT x 6 wks in Jun 2022 which provoked pain, physician guided home exercises/ stretches since Jun 2022, medications, topicals, CBD products, heat, ice, repositioning and rest. Oswestry axial pain score of 31. Interventional pain procedures completed include R RFA L3-L5 (Jul 2023), L RFA L3-L5 (Sep 2022), LESIs Patient is currently on [place] 10/325mg #90, Flexeril Patient denies any side effects of the medication(s), denies excessive drowsiness or sleepiness, denies suicidal ideation and reports that the current pain medication is helping to control the pain and improve activities of daily living. Patient denies any motor or sensory deficits. Patient denies any fever or night sweats, denies any change in the bowel movements or urination. Physical Examination: -Constitutional: Cooperative. Not in acute distress . - Neurologic: Cranial nerve II to XII intact. No focal neurological deficits. - Psychatric: Alert & oriented x 3. Matching mood & appropriate affect. Judgment and insight intact. - Musculoskeletal: Cervical spine: Muscle bulk/ tone/ strength in the bilateral upper extremities normal Vertebral body tenderness to palpation over Spurling test positive Distraction test positive Facet loading test positive TTP Thoracic spine Muscle bulk / tone/ strength in the bilateral paraspinal muscles normal Vertebral body tender to palpation over Facet loading test positive TTP Lumbar spine: Motor bulk/ tone/ strength lower extremities , thigh and legs : 5/5 Deep tendon reflexes : Normal Knee Jerk. Normal Ankle Jerk . Vertebral body tenderness to palpation Lumbar Facet Loading Test positive over L L4-L5, L5-S1 Straight Leg Raise: positive at 30 degrees right side/ left side Gaenslen's Test positive Sacral spine : Severe tenderness over the Sacroiliac joint: right side / left side Range of motion: Flexion of the lumbar spine <60 degrees Range of motion: Extension of the lumbar spine <20 degrees Gaenslen's Test positive right side / left side Dian test: positive right side / left side Thigh Thrust Test positive right side / left side Sacral Thrust Test positive right side / left side Assessment and plan: Chronic LBP secondary to lumbar DDD, spondylosis with facet arthropathy without myelopathy Chronic and current use of high-risk medication (Opioids). The patient was counseled about risk of opioid use, psychological risk associated with opioids and was orally counseled to not overuse , divert or sell medications. Pt is to store medication in a safe location. The patient is counseled against driving while using narcotic medications and also not to use alcohol or any illicit recreational drugs. Patient verbalized understanding that the lack of compliance will result in failure to renew narcotic prescription(s) as well as possible discharge from the clinic Diagnoses, prognosis and treatment options including but not limited to physical therapy, surgical interventions, interventional therapies and medication management including narcotics and adjuvant medication were discussed. All patient questions answered MAPS reviewed and it was appropriate. UDS fr 11/17/23 reviewed and consistent. Prescription refill for [place] #90 w 1 RF. Will consider RFA of R side after hernia surgery scheduled this month. I have spent less than 30 minutes on patient care today. Dr Thomas was available by phone for the evaluation of this patient. The time was used to review the medical records including relevant urine studies and Prescription history (MAPs), review of the available imaging, evaluation and examination of the patient, coordination of care with the medical staff and if applicable referring physicians, as well as creation of the medical record PQRS Narrative: Smoking Status Current every day smoker Narcotic Agreement Date Signed 07/01/22 Hx Alcohol Use (MH) Yes: occ Home Medications: Ambulatory Orders lisinopriL [Zestril] 20 mg PO PC-LUNCH 01/25/18 traZODone HCL 100 mg PO HS PRN 03/12/20 Pioglitazone [Actos] 15 mg PO 1200 05/08/20 Loratadine 10 mg PO DAILY PRN 06/15/20 Menthol [Biofreeze] 1 applic TOPICAL DAILY PRN 06/09/21 Ondansetron [Zofran] 4 mg PO Q8HR PRN 06/09/21 Fluticasone Nasal [place] [Flonase Nasal [place]] 1 spray EA NOSTRIL DAILY PRN 11/09/22 Dulaglutide [Trulicity] 0.75 mg SQ TH 03/16/23 Nitroglycerin 0.4 mg SL Q5M PRN 03/16/23 Cyclobenzaprine [Flexeril] 5 mg PO BID PRN 30 Days #60 tab 09/08/23 HYDROcodone/APAP 10-325MG [[place] 10-325] 1 tab PO TID PRN 30 Days #90 tab 12/15/23 HYDROcodone/APAP 10-325MG [[place] 10-325] 1 tab PO TID PRN 30 Days #90 tab 12/15/23 Controlled Substance Measures - Controlled Substance Measures Is patient prescribed a controlled substance at discharge?: Yes When asked, does pt state using other controlled substances?: Yes If prescribed controlled substance>3 days was MAPS reviewed?: Yes
== END ==
LOC: PNWHC3 10:26
PROVIDERS: ATTEND Specialist
DX: M51.37 Other intervertebral disc degeneration, lumbosacral region (principal); M47.817 Spondylosis without myelopathy or radiculopathy, lumbosacral region; G89.29 Other chronic pain; F17.200 Nicotine dependence, unspecified, uncomplicated; Z79.891 Long term (current) use of opiate analgesic; Z88.6 Allergy status to analgesic agent; Z88.8 Allergy status to other drugs, medicaments and biological substances
CPT/HCPCS: 99211

== ENCOUNTER → 2024-02-09 | Outpatient (CLI) | payer OTHER ==
[2024-02-09 13:10] VITALS: BP 137/72; PULSE 81; RESP 15; TEMP 9806
--- NOTE | 2024-02-09 14:34 | P.PAINPG ---
PQRS Measure Charge Sheet History and Exam Findings: All other causes of pain ruled out Comment: A 53 yr old female w mother at side with a history of severe and chronic LBP > 20 years secondary to lumbar DDD and spondylosis with facet arthropathy without myelopathy presents today for medication refills. She underwent a hernia repair surgery in Nov 2023. Pt underwent a L RFA L3-L5 on Aug 05 2023 and experienced 75% pain relief x 6 mo s/p procedure. Pain level is provoked at 8 /10 in intensity, constant, predominantly axial, localized in the L lower lumbar spine, sharp, throbbing in character without shooting pain. Pain is provoked by any position for periods of 20 min or more. Pain is alleviated with PT x 6 wks in Jun 2022 which provoked pain, physician guided home exercises/ stretches since Jun 2022, medications, topicals, CBD products, heat, ice, repositioning and rest. Oswestry axial pain score of 32. Interventional pain procedures completed include R RFA L3-L5 (Jul 2023), L RFA L3-L5 (Sep 2022), LESWayne Patient is currently on [place] 10/325mg #90, Flexeril Patient denies any side effects of the medication(s), denies excessive drowsiness or sleepiness, denies suicidal ideation and reports that the current pain medication is helping to control the pain and improve activities of daily living. Patient denies any motor or sensory deficits. Patient denies any fever or night sweats, denies any change in the bowel movements or urination. Physical Examination: -Constitutional: Cooperative. Not in acute distress . - Neurologic: Cranial nerve II to XII intact. No focal neurological deficits. - Psychatric: Alert & oriented x 3. Matching mood & appropriate affect. Judgment and insight intact. - Musculoskeletal: Cervical spine: Muscle bulk/ tone/ strength in the bilateral upper extremities normal Vertebral body tenderness to palpation over Spurling test positive Distraction test positive Facet loading test positive TTP Thoracic spine Muscle bulk / tone/ strength in the bilateral paraspinal muscles normal Vertebral body tender to palpation over Facet loading test positive TTP Lumbar spine: Motor bulk/ tone/ strength lower extremities , thigh and legs : 5/5 Deep tendon reflexes : Normal Knee Jerk. Normal Ankle Jerk . Vertebral body tenderness to palpation Lumbar Facet Loading Test positive over L L4-L5, L5-S1 Straight Leg Raise: positive at 30 degrees right side/ left side Gaenslen's Test positive Sacral spine : Severe tenderness over the Sacroiliac joint: right side / left side Range of motion: Flexion of the lumbar spine <60 degrees Range of motion: Extension of the lumbar spine <20 degrees Gaenslen's Test positive right side / left side Dian test: positive right side / left side Thigh Thrust Test positive right side / left side Sacral Thrust Test positive right side / left side Assessment and plan: Chronic LBP secondary to lumbar DDD, spondylosis with facet arthropathy without myelopathy Recommendation of L RFA L3-L5. Pt exhibited optimal pain relief w prior L RFA of the L3-L5 from Jul 2023. Risks, benefits of procedure discussed and pt verbalized understanding. Protocol for discontinuation/ continuation of medications dimas procedure discussed. Chronic and current use of high-risk medication (Opioids). The patient was counseled about risk of opioid use, psychological risk associated with opioids and was orally counseled to not overuse , divert or sell medications. Pt is to store medication in a safe location. The patient is counseled against driving while using narcotic medications and also not to use alcohol or any illicit recreational drugs. Patient verbalized understanding that the lack of compliance will result in failure to renew narcotic prescription(s) as well as possible discharge from the clinic Diagnoses, prognosis and treatment options including but not limited to physical therapy, surgical interventions, interventional therapies and medication management including narcotics and adjuvant medication were discussed. All patient questions answered MAPS reviewed and it was appropriate. UDS fr 11/17/23 reviewed and consistent. Prescription refill for [place] #90 w 1 RF. I have spent less than 30 minutes on patient care today. Dr Thomas was available by phone for the evaluation of this patient. The time was used to review the medical records including relevant urine studies and Prescription history (MAPs), review of the available imaging, evaluation and examination of the patient, coordination of care with the medical staff and if applicable referring physicians, as well as creation of the medical record - Pain Location Bilateral Lower Back Non-Pharmacological Interventions: Heat, Ice, Inactivity, Position/Reposition Pharmacological Interventions: Epidural, Scheduled Medication PQRS Narrative: Smoking Status Current every day smoker Narcotic Agreement Date Signed 07/01/22 Hx Alcohol Use (MH) Yes: occ Home Medications: Ambulatory Orders lisinopriL [Zestril] 20 mg PO PC-LUNCH 01/25/18 traZODone HCL 100 mg PO HS PRN 03/12/20 Pioglitazone [Actos] 15 mg PO 1200 05/08/20 Loratadine 10 mg PO DAILY PRN 06/15/20 Menthol [Biofreeze] 1 applic TOPICAL DAILY PRN 06/09/21 Ondansetron [Zofran] 4 mg PO Q8HR PRN 06/09/21 Fluticasone Nasal [place] [Flonase Nasal [place]] 1 spray EA NOSTRIL DAILY PRN 11/09/22 Dulaglutide [Trulicity] 0.75 mg SQ TH 03/16/23 Nitroglycerin 0.4 mg SL Q5M PRN 03/16/23 Cyclobenzaprine [Flexeril] 5 mg PO BID PRN 30 Days #60 tab 09/08/23 HYDROcodone/APAP 10-325MG [[place] 10-325] 1 tab PO TID PRN 30 Days #90 tab 02/09/24 HYDROcodone/APAP 10-325MG [[place] 10-325] 1 tab PO TID PRN 30 Days #90 tab 02/09/24 Controlled Substance Measures - Controlled Substance Measures Is patient prescribed a controlled substance at discharge?: Yes When asked, does pt state using other controlled substances?: No If prescribed controlled substance>3 days was MAPS reviewed?: Yes
== END ==
LOC: PNWHC3 12:28
PROVIDERS: ATTEND Specialist
DX: M54.50 Low back pain, unspecified (principal); M47.816 Spondylosis without myelopathy or radiculopathy, lumbar region; M51.36 Other intervertebral disc degeneration, lumbar region; F17.200 Nicotine dependence, unspecified, uncomplicated; Z88.3 Allergy status to other anti-infective agents; Z88.1 Allergy status to other antibiotic agents
CPT/HCPCS: 99211

== ENCOUNTER → 2024-02-14 | Outpatient (CLI) | payer OTHER ==
--- NOTE | 2024-02-14 20:55 | XR ---
EXAMINATION TYPE: XR lumbar spine 2 or 3V DATE OF EXAM: 02/14/2024 2:52 PM CLINICAL INDICATION:Female, 53 years old with history of M51.36 OTHER INTERVERTEBRAL DISC DEGENERATIO N, LUM; [facility] COMPARISON: 11/27/2012 TECHNIQUE: XR lumbar spine 2 or 3V - Frontal, lateral and coned in L5-S1 lateral views of the spine. FINDINGS: No evidence of any acute osseous pathology. No evidence of loss of vertebral body height i s seen. There is grade 2 anterolisthesis of L5 on S1 with bilateral spondylolysis alignment of the fatemeh mbar vertebral bodies. Mild scattered disc space narrowing. Multilevel marginal osteophyte formation throughout the visualized spine. There is facet joint arthropathy throughout the spine. Scattered at least mild neural foraminal stenosis. Right upper quadrant course sector because. Incomplete fusion of the L5 spinous process. IMPRESSION: 1. No acute fracture. 2. Mild to moderate multilevel disc degeneration. 3. Grade 2 anterolisthesis of L5 on S1 with bilateral spondylolysis.
== END | disposition home or self-care (01) ==
LOC: RADXRMAIN 14:34
PROVIDERS: ATTEND Specialist
DX: M51.36 Other intervertebral disc degeneration, lumbar region (principal); M43.17 Spondylolisthesis, lumbosacral region; M47.817 Spondylosis without myelopathy or radiculopathy, lumbosacral region
CPT/HCPCS: 72100

== ENCOUNTER → 2024-02-23 | Outpatient (CLI) | payer OTHER ==
--- NOTE | 2024-02-25 12:50 | MR ---
EXAMINATION TYPE: MR lumbar spine wo con DATE OF EXAM: 02/23/2024 COMPARISON: None HISTORY: Lower back pain, BLE radiculopathy. CONTRAST: mL intravenous . TECHNIQUE: Multiplanar, multisequence images of the lumbar spine were acquired. FINDINGS: L5-S1: Broad-based disc bulge is present with anterior thecal sac contact. No AP spinal canal stenosi s is present. Neural foramen moderate narrowing. Grade 1 spondylolisthesis is present with disc uncov ering. Spondylolysis may be present Facet hypertrophy is present. Disc desiccation is present. L4-L5: No significant disc bulge or disc herniation. No spinal canal stenosis. No foraminal stenosi s. L3-L4: No significant disc bulge or disc herniation. No spinal canal stenosis. No foraminal stenosi s. . L2-L3: No significant disc bulge or disc herniation. No spinal canal stenosis. No foraminal stenosi s. . L1-L2: No significant disc bulge or disc herniation. No spinal canal stenosis. No foraminal stenosi s. . T12-L1: No significant disc bulge or disc herniation. No spinal canal stenosis. No foraminal stenos is. . IMPRESSION: 1. 1 spondylolisthesis with disc uncovering. Mild broad-based disc bulge is present with anterior the steve sac contact without stenosis.
== END | disposition home or self-care (01) ==
LOC: RADMRIMAIN 16:54
PROVIDERS: ATTEND Specialist
DX: M51.16 Intervertebral disc disorders with radiculopathy, lumbar region (principal); M43.16 Spondylolisthesis, lumbar region
CPT/HCPCS: 72148

== ENCOUNTER → 2024-03-05 | Outpatient (CLI) | payer OTHER ==
[2024-03-05 10:47] VITALS: BP 165/87; PULSE 80; RESP 16
--- NOTE | 2024-03-05 15:02 | P.PAINPG ---
PQRS Measure Charge Sheet Comment: A 53 yr old female w mother at side with a history of severe and chronic LBP > 20 years secondary to lumbar DDD and spondylosis with facet arthropathy without myelopathy presents today for MRI results. Pt underwent a L RFA L3-L5 on Aug 05 2023 and experienced > 75% pain relief x 6 mo s/p procedure. Pain level is provoked at 8 /10 in intensity, constant, predominantly axial, localized in the L lower lumbar spine, sharp, throbbing in character without shooting pain. Pain is provoked by any position for periods > 15 min. PT in Jun 2022 provoked more pain than caused pain relief and was discontinued. Pain is alleviated by physician guided stretches daily since Jun 2022, medications, topicals, CBD products, heat, ice, repositioning and rest. Oswestry axial pain score of 33. Interventional pain procedures completed include R RFA L3-L5 (Jul 2023), L RFA L3-L5 (Sep 2022), LESIs Patient is currently on [place] 10/325mg #90, Flexeril Patient denies any side effects of the medication(s), denies excessive drowsiness or sleepiness, denies suicidal ideation and reports that the current pain medication is helping to control the pain and improve activities of daily living. Patient denies any motor or sensory deficits. Patient denies any fever or night sweats, denies any change in the bowel movements or urination. Physical Examination: -Constitutional: Cooperative. Not in acute distress . - Neurologic: Cranial nerve II to XII intact. No focal neurological deficits. - Psychatric: Alert & oriented x 3. Matching mood & appropriate affect. Judgment and insight intact. - Musculoskeletal: Cervical spine: Muscle bulk/ tone/ strength in the bilateral upper extremities normal Vertebral body tenderness to palpation over Spurling test positive Distraction test positive Facet loading test positive TTP Thoracic spine Muscle bulk / tone/ strength in the bilateral paraspinal muscles normal Vertebral body tender to palpation over Facet loading test positive TTP Lumbar spine: Motor bulk/ tone/ strength lower extremities , thigh and legs : 5/5 Deep tendon reflexes : Normal Knee Jerk. Normal Ankle Jerk . Vertebral body tenderness to palpation Lumbar Facet Loading Test positive over L L4-L5, L5-S1 Straight Leg Raise: positive at 30 degrees right side/ left side Gaenslen's Test positive Sacral spine : Severe tenderness over the Sacroiliac joint: right side / left side Range of motion: Flexion of the lumbar spine <60 degrees Range of motion: Extension of the lumbar spine <20 degrees Gaenslen's Test positive right side / left side Dian test: positive right side / left side Thigh Thrust Test positive right side / left side Sacral Thrust Test positive right side / left side Imaging: Noncontrast of the lumbar spine from 02/23/2024 reviewed Assessment and plan: Chronic LBP secondary to lumbar DDD, spondylosis with facet arthropathy without myelopathy Recommendation of L RFA L3-L5. Pt exhibited optimal pain relief w prior L RFA of the L3-L5 from Jul 2023. Risks, benefits of procedure discussed and pt verbalized understanding. Protocol for discontinuation/ continuation of medications dimas procedure discussed. Minimal anesthesia including Fentanyl and Versed if clinically indicated. Chronic and current use of high-risk medication (Opioids). The patient was counseled about risk of opioid use, psychological risk associated with opioids and was orally counseled to not overuse , divert or sell medications. Pt is to store medication in a safe location. The patient is counseled against driving while using narcotic medications and also not to use alcohol or any illicit recreational drugs. Patient verbalized understanding that the lack of compliance will result in failure to renew narcotic prescription(s) as well as possible discharge from the clinic Diagnoses, prognosis and treatment options including but not limited to physical therapy, surgical interventions, interventional therapies and medication management including narcotics and adjuvant medication were discussed. All patient questions answered MAPS reviewed and it was appropriate. UDS fr 11/17/23 reviewed and consistent. Has ample supply of [place] 10/325#90 w 1 RF. I have spent less than 30 minutes on patient care today. Dr Thomas was a vailable by phone for the evaluation of this patient. The time was used to review the medical records including relevant urine studies and Prescription history (MAPs), review of the available imaging, evaluation and examination of the patient, coordination of care with the medical staff and if applicable referring physicians, as well as creation of the medical record PQRS Narrative: Smoking Status Current every day smoker Narcotic Agreement Date Signed 07/01/22 Hx Alcohol Use (MH) Yes: occ Home Medications: Ambulatory Orders lisinopriL [Zestril] 20 mg PO PC-LUNCH 01/25/18 traZODone HCL 100 mg PO HS PRN 06/17/20 Pioglitazone [Actos] 15 mg PO 1200 05/08/20 Loratadine 10 mg PO DAILY PRN 06/15/20 Menthol [Biofreeze] 1 applic TOPICAL DAILY PRN 06/09/21 Ondansetron [Zofran] 4 mg PO Q8HR PRN 06/09/21 Fluticasone Nasal [place] [Flonase Nasal [place]] 1 spray EA NOSTRIL DAILY PRN 11/09/22 Dulaglutide [Trulicity] 0.75 mg SQ TH 03/16/23 Nitroglycerin 0.4 mg SL Q5M PRN 03/16/23 Cyclobenzaprine [Flexeril] 5 mg PO BID PRN 30 Days #60 tab 09/08/23 HYDROcodone/APAP 10-325MG [[place] 10-325] 1 tab PO TID PRN 30 Days #90 tab 02/09/24 HYDROcodone/APAP 10-325MG [[place] 10-325] 1 tab PO TID PRN 30 Days #90 tab 02/09/24 Controlled Substance Measures - Controlled Substance Measures Is patient prescribed a controlled substance at discharge?: No
== END ==
LOC: PNWHC3 09:50
PROVIDERS: ATTEND Specialist
DX: M51.37 Other intervertebral disc degeneration, lumbosacral region (principal); M47.817 Spondylosis without myelopathy or radiculopathy, lumbosacral region; F17.200 Nicotine dependence, unspecified, uncomplicated; Z79.891 Long term (current) use of opiate analgesic; Z88.1 Allergy status to other antibiotic agents; Z88.8 Allergy status to other drugs, medicaments and biological substances
CPT/HCPCS: 99211

== ENCOUNTER → 2024-04-05 | Outpatient (CLI) | payer OTHER ==
[2024-04-05 13:48] VITALS: BP 147/94; PULSE 74; RESP 16
--- NOTE | 2024-04-05 14:58 | P.PAINPG ---
PQRS Measure Charge Sheet Comment: A 53 yr old female w mother at side with a history of severe and chronic LBP > 20 years secondary to lumbar DDD and spondylosis with facet arthropathy without myelopathy presents today for medication refills. Pt underwent a L RFA L3-L5 on Aug 05 2023 and experienced > 75% pain relief x 6 mo s/p procedure. Pain level is provoked at 8 /10 in intensity, constant, predominantly axial, localized in the L lower lumbar spine, sharp, throbbing in character without shooting pain. Pain is provoked by any position for periods > 15 min. PT in Jun 2022 provoked more pain than caused pain relief and was discontinued. Pain is alleviated by physician guided stretches daily since Jun 2022, medications, topicals, CBD products, heat, ice, repositioning and rest. Oswestry axial pain score of 33. Interventional pain procedures completed include R RFA L3-L5 (Jul 2023), L RFA L3-L5 (Sep 2022), LESIs Patient is currently on [place] 10/325mg #90, Flexeril Patient denies any side effects of the medication(s), denies excessive drowsiness or sleepiness, denies suicidal ideation and reports that the current pain medication is helping to control the pain and improve activities of daily living. Patient denies any motor or sensory deficits. Patient denies any fever or night sweats, denies any change in the bowel movements or urination. Physical Examination: -Constitutional: Cooperative. Not in acute distress . - Neurologic: Cranial nerve II to XII intact. No focal neurological deficits. - Psychatric: Alert & oriented x 3. Matching mood & appropriate affect. Judgment and insight intact. - Musculoskeletal: Cervical spine: Muscle bulk/ tone/ strength in the bilateral upper extremities normal Vertebral body tenderness to palpation over Spurling test positive Distraction test positive Facet loading test positive TTP Thoracic spine Muscle bulk / tone/ strength in the bilateral paraspinal muscles normal Vertebral body tender to palpation over Facet loading test positive TTP Lumbar spine: Motor bulk/ tone/ strength lower extremities , thigh and legs : 5/5 Deep tendon reflexes : Normal Knee Jerk. Normal Ankle Jerk . Vertebral body tenderness to palpation Lumbar Facet Loading Test positive over L L4-L5, L5-S1 Straight Leg Raise: positive at 30 degrees right side/ left side Gaenslen's Test positive Sacral spine : Severe tenderness over the Sacroiliac joint: right side / left side Range of motion: Flexion of the lumbar spine <60 degrees Range of motion: Extension of the lumbar spine <20 degrees Gaenslen's Test positive right side / left side Dian test: positive right side / left side Thigh Thrust Test positive right side / left side Sacral Thrust Test positive right side / left side Imaging: Noncontrast of the lumbar spine from 02/23/2024 reviewed Assessment and plan: Chronic LBP secondary to lumbar DDD, spondylosis with facet arthropathy without myelopathy Scheduled L RFA L3-L5. Pt exhibited optimal pain relief w prior L RFA of the L3-L5 from Jul 2023. Risks, benefits of procedure discussed and pt verbalized understanding. Protocol for discontinuation/ continuation of medications dimas procedure discussed. Minimal anesthesia including Fentanyl and Versed if clinically indicated. Chronic and current use of high-risk medication (Opioids). The patient was counseled about risk of opioid use, psychological risk associated with opioids and was orally counseled to not overuse , divert or sell medications. Pt is to store medication in a safe location. The patient is counseled against driving while using narcotic medications and also not to use alcohol or any illicit recreational drugs. Patient verbalized understanding that the lack of compliance will result in failure to renew narcotic prescription(s) as well as possible discharge from the clinic Diagnoses, prognosis and treatment options including but not limited to physical therapy, surgical interventions, interventional therapies and medication management including narcotics and adjuvant medication were discussed. All patient questions answered MAPS reviewed and it was appropriate. UDS fr 11/17/23 reviewed and consistent. Opiate/ narcotic agreement up to date. Refill [place] #90 w 1 RF. I have spent less than 30 minutes on patient care today. Dr Thomas was available by phone for the evaluation of this patient. The time was used to review the medical records including relevant urine studies and Prescription history (MAPs), review of the available imaging, evaluation and examination of the patient, coordination of care with the medical staff and if applicable referring physicians, as well as creation of the medical record PQRS Narrative: Smoking Status Current every day smoker Narcotic Agreement Date Signed 07/01/22 Hx Alcohol Use (MH) Yes: occ Home Medications: Ambulatory Orders lisinopriL [Zestril] 20 mg PO PC-LUNCH 01/25/18 traZODone HCL 100 mg PO HS PRN 03/12/20 Pioglitazone [Actos] 15 mg PO 1200 05/08/20 Loratadine 10 mg PO DAILY PRN 06/15/20 Menthol [Biofreeze] 1 applic TOPICAL DAILY PRN 06/09/21 Ondansetron [Zofran] 4 mg PO Q8HR PRN 06/09/21 Fluticasone Nasal [place] [Flonase Nasal [place]] 1 spray EA NOSTRIL DAILY PRN 11/09/22 Dulaglutide [Trulicity] 0.75 mg SQ TH 03/16/23 Nitroglycerin 0.4 mg SL Q5M PRN 03/16/23 Cyclobenzaprine [Flexeril] 5 mg PO BID PRN 30 Days #60 tab 09/08/23 HYDROcodone/APAP 10-325MG [[place] 10-325] 1 tab PO TID PRN 30 Days #90 tab 04/05/24 HYDROcodone/APAP 10-325MG [[place] 10-325] 1 tab PO TID PRN 30 Days #90 tab 04/05/24 Controlled Substance Measures - Controlled Substance Measures Is patient prescribed a controlled substance at discharge?: Yes When asked, does pt state using other controlled substances?: No If prescribed controlled substance>3 days was MAPS reviewed?: Yes
== END ==
LOC: PNWHC3 12:32
PROVIDERS: ATTEND Specialist
DX: M51.37 Other intervertebral disc degeneration, lumbosacral region (principal); M47.817 Spondylosis without myelopathy or radiculopathy, lumbosacral region; F17.200 Nicotine dependence, unspecified, uncomplicated; Z79.891 Long term (current) use of opiate analgesic; Z88.6 Allergy status to analgesic agent; Z88.8 Allergy status to other drugs, medicaments and biological substances
CPT/HCPCS: 99211

== ENCOUNTER 2024-04-20 07:13 | Day surgery (SDC) | payer OTHER ==
[2024-04-20] MEDS: IV FLUID CONTINUATION 1,000 ML IV ONE ×2 (07:52→09:15)
[2024-04-20 08:01] VITALS: RESP 16; TEMP 97.8
[2024-04-20 08:16] LABS: Glucose,Whole Blood 110 mg/dL (70-110)
[2024-04-20] MEDS: LACTATED RINGERS 1,000 ML IV SCH (08:20)
[2024-04-20] MEDS ORDERED: MIDAZOLAM 2 MG/2 ML VIAL ONE (08:47)
[2024-04-20] MEDS ORDERED: fentaNYL (PF) 50 MCG/ML 2 ML AMP ONE (08:47)
[2024-04-20] MEDS ORDERED: ROPIVACAINE 5MG/ML 20ML VIAL ONE (08:47)
[2024-04-20] MEDS ORDERED: TRIAMCINOLONE ACETONIDE 40 MG/ML 1 ML VIAL ONE (08:47)
--- NOTE | 2024-04-20 09:12 | P.PCN ---
Date of Procedure: 04/20/24 Surgeon: Margarette Collins Pathology: none sent Condition: stable Disposition: PACU Description of Procedure: PREOPERATIVE DIAGNOSIS: Lumbar spondylosis without myelopathy POSTOPERATIVE DIAGNOSIS: Lumbar spondylosis without myelopathy PROCEDURES : Left Radiofrequency thermocoagulation L4-L5, and L5-S1 medial branch with fluoroscopic guidance ANESTHESIA: Local with lidocaine 1% using 25-gauge needle and IV moderate conscious sedation with 3 mg of Versed and 100 g of fentanyl Sedation time:[id number] Physician: Margarette Collins MD EBL: Minimal PROCEDURE INDICATION: The patient with low back pain secondary to lumbar facet arthropathy who had significant relief of pain with previous diagnostic lumbar medial branch block with Ropivacaine0.5%. PROCEDURE DESCRIPTION / TECHNIQUE: The patient was seen and identified in the preoperative area. Risks, benefits, complications, including but not limited to risk of infection ,bleeding , allergic reactions to the medications and no complete pain relief , and alternatives were discussed with the patient, the patient agreed to proceed with the procedure and signed the consent. IV was started. Vital signs remained stable throughout the procedure. Patient was taken to the OR and time out was completed. The patient was placed in the prone position on the procedure table. The lumber area was prepped and draped in the usual sterile fashion. . Vital signs were closely monitored during the procedure .IV sedation was used during the procedure to decrease patients anxiety. The target points were identified as follows: For the L5-S1 level which corresponds to the dorsal ramus of L5 the target point was at the superior medial aspect of the sacral ala on the Left side of the spine on the AP view of fluoroscopy and for the L3, and L4 medial branches the target points were at the connection between the transverse process and the superior articular process of L4, and L5 vertebra respectively on the Left oblique view of fluoroscopy. skin was marked, and localized with 1% lidocaineat these points. Subsequently, an 18 [id number] radiofrequency needles with a 10-mm curved active tips were advanced guided by fluoroscopy to each of the target points mentioned above in a superior medial direction to get the active tips as parallel as possible to the medial branches tracks. AP, oblique, and lateral views of fluoroscopy were used to verify needle tips position. Each level then underwent motor testing at 2.5 Hz and 0 to 3 volt with local stimulation, but no radicular symptoms down the legs. I then injected 1 mL of lidocaine 1% in each needle before starting radiofrequency thermocoagulation at 80 degrees celsius for 90 seconds. After that I injected 1 ml of PF Ropivacaine 0.5%(3 mls) with 40 mg of Kenalog, 1 mL of this mixture was given in each needle before taking the needles out intact. Of note the patient has lumbarization of the first sacral vertebra. At the end of the procedure, the skin was cleansed and bandages were applied. A copy of needle placement fluoroscopy was saved on the C-arm machine. COMPLICATIONS: No acute complications.
--- NOTE | 2024-04-20 09:24 | FL ---
Intraoperative/procedural fluoroscopic services were provided for left lumbar RF. Total fluoroscopy t raul is 16.8 seconds with a total of 2 submitted images to PACS. Total DAP [id number] [id number]. Please see the operative note for further details.
[2024-04-20 09:30] VITALS: BP 143/92; PULSE 77
== END 2024-04-20 09:45 | disposition home or self-care (01) ==
LOC: ORPAIN 07:13
PROVIDERS: ATTEND Anesthesiology
DX: M47.816 Spondylosis without myelopathy or radiculopathy, lumbar region (principal); E11.9 Type 2 diabetes mellitus without complications; Z79.85 Long-term (current) use of injectable non-insulin antidiabetic drugs; Z88.8 Allergy status to other drugs, medicaments and biological substances
CPT/HCPCS: 64635; 64636; 99152; J2250; J3301; J3010; J2795

== ENCOUNTER → 2024-05-31 | Outpatient (CLI) | payer OTHER ==
[2024-05-31 13:34] VITALS: BP 145/97; PULSE 94; RESP 16; TEMP 98.7
--- NOTE | 2024-05-31 14:15 | P.PAINPG ---
Objective - Vital Signs Vital signs: Intake & Output 05/30/24 05/31/24 05/31/24 18:59 06:59 18:59 Weight 77.111 kg PQRS Measure Charge Sheet Comment: A 53 yr old female w mother at side with a history of severe and chronic LBP > 20 years secondary to radiculopathy, spondylosis and facet arthropathy without myelopathy presents today for medication refills and evaluation s/p L RFA L4-L5/ L5-S1. Pt states she experienced 80 % pain relief s/p procedure. Pain level is provoked at 8 /10 in intensity, constant, predominantly axial, localized in the lower lumbar spine, sharp/ throbbing in character without shooting pain. Pain is provoked by any position for periods > 15 min. PT in Jun 2022 provoked more pain than caused pain relief and was discontinued. Pain is alleviated by physician guided stretches daily since Jun 2022, medications, topicals, CBD products, heat, ice, repositioning and rest. Interventional pain procedures completed include R RFA L3-L5 (Jul 2023), L RFA L3-L5 (Sep 2022, Apr 2024), LESIs Patient is currently on [place] 10/325mg #90, Flexeril Patient denies any side effects of the medication(s), denies excessive drowsiness or sleepiness, denies suicidal ideation and reports that the current pain medication is helping to control the pain and improve activities of daily living. Patient denies any motor or sensory deficits. Patient denies any fever or night sweats, denies any change in the bowel movements or urination. Physical Examination: -Constitutional: Cooperative. Not in acute distress . - Neurologic: Cranial nerve II to XII intact. No focal neurological deficits. - Psychatric: Alert & oriented x 3. Matching mood & appropriate affect. Judgment and insight intact. - Musculoskeletal: Cervical spine: Muscle bulk/ tone/ strength in the bilateral upper extremities normal Vertebral body tenderness to palpation over Spurling test positive Distraction test positive Facet loading test positive TTP Thoracic spine Muscle bulk / tone/ strength in the bilateral paraspinal muscles normal Vertebral body tender to palpation over Facet loading test positive TTP Lumbar spine: Motor bulk/ tone/ strength lower extremities , thigh and legs : 5/5 Deep tendon reflexes : Normal Knee Jerk. Normal Ankle Jerk . Vertebral body tenderness to palpation L5 Lumbar Facet Loading Test positive over L L4-L5, L5-S1 Straight Leg Raise: positive at 30 degrees right side/ left side Gaenslen's Test positive Sacral spine : Severe tenderness over the Sacroiliac joint: right side / left side Range of motion: Flexion of the lumbar spine <60 degrees Range of motion: Extension of the lumbar spine <20 degrees Gaenslen's Test positive right side / left side Dian test: positive right side / left side Thigh Thrust Test positive right side / left side Sacral Thrust Test positive right side / left side Imaging: MRI non contrast of the lumbar spine from 02/23/2024 reviewed Assessment and plan: Chronic LBP secondary to radiculopathy, spondylosis with facet arthropathy without myelopathy Chronic and current use of high-risk medication (Opioids). The patient was counseled about risk of opioid use, psychological risk associated with opioids and was orally counseled to not overuse , divert or sell medications. Pt is to store medication in a safe location. The patient is counseled against driving while using narcotic medications and also not to use alcohol or any illicit recreational drugs. Patient verbalized understanding that the lack of compliance will result in failure to renew narcotic prescription(s) as well as possible discharge from the clinic Diagnoses, prognosis and treatment options including but not limited to physical therapy, surgical interventions, interventional therapies and medication management including narcotics and adjuvant medication were discussed. All patient questions answered MAPS reviewed and it was appropriate. UDS collected 05/31/24. Opiate/ narcotic agreement signed 05/11/24. Incr [place] 10/325 #120 w 1 RF. Discont Lyrica. Use, side effects, adverse reactions and safe storage discussed. I have spent less than 30 minutes on patient care today. Dr Thomas was available by phone for the evaluation of this patient. The time was used to review the medical records including relevant urine studies and Prescription history (MAPs), review of the available imaging, evaluation and examination of the patient, coordination of care with the medical staff and if applicable referring physicians, as well as creation of the medical record PQRS Narrative: Smoking Status Current every day smoker Narcotic Agreement Date Signed 07/01/22 Hx Alcohol Use (MH) Yes: occ Home Medications: Ambulatory Orders lisinopriL [Zestril] 20 mg PO PC-LUNCH 01/25/18 traZODone HCL 100 mg PO HS PRN 06/17/20 Pioglitazone [Actos] 15 mg PO 1200 05/08/20 Loratadine 10 mg PO DAILY PRN 06/15/20 Menthol [Biofreeze] 1 applic TOPICAL DAILY PRN 06/09/21 Ondansetron [Zofran] 4 mg PO Q8HR PRN 06/09/21 Fluticasone Nasal [place] [Flonase Nasal [place]] 1 spray EA NOSTRIL DAILY PRN 11/09/22 Dulaglutide [Trulicity] 0.75 mg SQ [place] 03/16/23 Nitroglycerin 0.4 mg SL Q5M PRN 03/16/23 Cyclobenzaprine [Flexeril] 5 mg PO BID PRN 30 Days #60 tab 09/08/23 HYDROcodone/APAP 10-325MG [[place] 10-325] 1 tab PO QID PRN 30 Days #120 tab 05/31/24 HYDROcodone/APAP 10-325MG [[place] 10-325] 1 tab PO QID PRN 30 Days #120 tab 05/31/24 Controlled Substance Measures - Controlled Substance Measures Is patient prescribed a controlled substance at discharge?: Yes When asked, does pt state using other controlled substances?: No If prescribed controlled substance>3 days was MAPS reviewed?: Yes
== END ==
LOC: PNWHC3 12:55
PROVIDERS: ATTEND Specialist
DX: M47.817 Spondylosis without myelopathy or radiculopathy, lumbosacral region
CPT/HCPCS: 80307; 99212

== ENCOUNTER → 2024-07-09 | Outpatient (CLI) | payer OTHER ==
[2024-07-09 13:20] VITALS: BP 138/98; PULSE 93; RESP 16
--- NOTE | 2024-07-09 14:52 | P.PAINPG ---
PQRS Measure Charge Sheet Comment: A 54 yr old female w mother at side with a history of severe and chronic LBP > 20 years secondary to radiculopathy, spondylosis and facet arthropathy without myelopathy presents today for evaluation. Pain level is provoked at 8 /10 in intensity, constant, predominantly axial, localized in the lower lumbar spine, sharp/ throbbing in character without shooting pain. Pain is provoked by any position for periods > 15 min. PT in Jun 2022 provoked more pain than caused pain relief and was discontinued. Pain is alleviated by physician guided stretches daily since Jun 2022, medications, topicals, CBD products, heat, ice, repositioning and rest. Interventional pain procedures completed include R RFA L3-L5 (Jul 2023), L RFA L3-L5 (Sep 2022, Apr 2024), PARAMIs Patient is currently on [place] 10/325mg #90, Flexeril, BioFreeze Gel Patient denies any side effects of the medication(s), denies excessive drowsines s or sleepiness, denies suicidal ideation and reports that the current pain medication is helping to control the pain and improve activities of daily living. Patient denies any motor or sensory deficits. Patient denies any fever or night sweats, denies any change in the bowel movements or urination. Physical Examination: -Constitutional: Cooperative. Not in acute distress . - Neurologic: Cranial nerve II to XII intact. No focal neurological deficits. - Psychatric: Alert & oriented x 3. Matching mood & appropriate affect. Judgment and insight intact. - Musculoskeletal: Cervical spine: Muscle bulk/ tone/ strength in the bilateral upper extremities normal Vertebral body tenderness to palpation over Sp[place]ling test positive Distraction test positive Facet loading test positive TTP Thoracic spine Muscle bulk / tone/ strength in the bilateral paraspinal muscles normal Vertebral body tender to palpation over Facet loading test positive TTP Lumbar spine: Motor bulk/ tone/ strength lower extremities , thigh and legs : 5/5 Deep tendon reflexes : Normal Knee Jerk. Normal Ankle Jerk . Vertebral body tenderness to palpation L5 Lumbar Facet Loading Test positive over L L4-L5, L5-S1 Straight Leg Raise: positive at 30 degrees right side/ left side Gaenslen's Test positive Sacral spine : Severe tenderness over the Sacroiliac joint: right side / left side Range of motion: Flexion of the lumbar spine <60 degrees Range of motion: Extension of the lumbar spine <20 degrees Gaenslen's Test positive right side / left side Dian test: positive right side / left side Thigh Thrust Test positive right side / left side Sacral Thrust Test positive right side / left side Imaging: MRI non contrast of the lumbar spine from 02/23/2024 reviewed Assessment and plan: Chronic LBP secondary to radiculopathy, spondylosis with facet arthropathy without myelopathy Chronic and current use of high-risk medication (Opioids). The patient was counseled about risk of opioid use, psychological risk associated with opioids and was orally counseled to not overuse , divert or sell medications. Pt is to store medication in a safe location. The patient is counseled against driving while using narcotic medications and also not to use alcohol or any illicit recreational drugs. Patient verbalized understanding that the lack of compliance will result in failure to renew narcotic prescription(s) as well as possible discharge from the clinic Diagnoses, prognosis and treatment options including but not limited to physical therapy, surgical interventions, interventional therapies and medication management including narcotics and adjuvant medication were discussed. All patient questions answered MAPS reviewed and it was appropriate. UDS from 05/31/24 +Opiates, +ETOH metabolites. Recheck UDS 07/09/24. Opiate/ narcotic agreement renewed 07/09/24. Refilled [place] #120 w 1 RF. Use, side effects, adverse reactions and safe storage discussed. I have spent less than 30 minutes on patient care today. Dr Thomas was available by phone for the evaluation of this patient. The time was used to review the medical records including relevant urine studies and Prescription history (MAPs), review of the available imaging, evaluation and examination of the patient, coordination of care with the medical staff and if applicable referring physicians, as well as creation of the medical record PQRS Narrative: Smoking Status Current every day smoker Narcotic Agreement Date Signed 07/01/22 Hx Alcohol Use (MH) Yes: occ Home Medications: Ambulatory Orders lisinopriL [Zestril] 20 mg PO PC-LUNCH 01/25/18 traZODone HCL 100 mg PO HS PRN 03/12/20 Pioglitazone [Actos] 15 mg PO 1200 05/08/20 Loratadine 10 mg PO DAILY PRN 06/15/20 Menthol [Biofreeze] 1 applic TOPICAL DAILY PRN 06/09/21 Ondansetron [Zofran] 4 mg PO Q8HR PRN 06/09/21 Fluticasone Nasal [place] [Flonase Nasal [place]] 1 spray EA NOSTRIL DAILY PRN 11/09/22 Dulaglutide [Trulicity] 0.75 mg SQ WAITE 03/16/23 Nitroglycerin 0.4 mg SL Q5M PRN 03/16/23 Cyclobenzaprine [Flexeril] 5 mg PO BID PRN 30 Days #60 tab 09/08/23 HYDROcodone/APAP 10-325MG [[place] 10-325] 1 tab PO QID PRN 30 Days #120 tab 07/09 HYDROcodone/APAP 10-325MG [[place] 10-325] 1 tab PO QID PRN 30 Days #120 tab 07/09/24 Controlled Substance Measures - Controlled Substance Measures Is patient prescribed a controlled substance at discharge?: Yes When asked, does pt state using other controlled substances?: No If prescribed controlled substance>3 days was MAPS reviewed?: Yes
== END ==
LOC: PNWHC3 12:34
PROVIDERS: ATTEND Specialist
DX: M47.26 Other spondylosis with radiculopathy, lumbar region (principal); F17.200 Nicotine dependence, unspecified, uncomplicated; Z79.891 Long term (current) use of opiate analgesic; Z88.1 Allergy status to other antibiotic agents; Z88.8 Allergy status to other drugs, medicaments and biological substances
CPT/HCPCS: 99211

== ENCOUNTER → 2024-10-01 | Outpatient (CLI) | payer OTHER ==
[2024-10-01 13:43] VITALS: BP 133/91; PULSE 88; RESP 19; TEMP 97.6
--- NOTE | 2024-10-01 17:20 | P.PAINPG ---
PQRS Measure Charge Sheet Comment: A 54 yr old female w mother at side with a history of severe and chronic LBP > 20 years secondary to radiculopathy, spondylosis and facet arthropathy without myelopathy presents today for evaluation. Pain level is provoked at 8 /10 in intensity, constant, predominantly axial, localized in the lower lumbar spine, sharp/ throbbing in character without shooting pain. Pain is provoked by any position for periods > 15 min. PT in Jun 2022 provoked more pain than caused pain relief and was discontinued. Pain is alleviated by physician guided stretches daily since Jun 2022, medications, topicals, CBD products, heat, ice, repositioning and rest. Had an inguinal hernia repair surgery by Dr Maradiaga whom prescribed her Oxycodone IR5mg #63 as a 21 day supply and pt states she has not taken [place] while on that regimen. Interventional pain procedures completed include R RFA L3-L5 (Jul 2023), L RFA L3-L5 (Sep 2022, Apr 2024), PARAMIs Patient is currently on [place] 10/325mg #90, Flexeril, BioFreeze Gel Patient denies any side effects of the medication(s), denies excessive drowsiness or sleepiness, denies suicidal ideation and reports that the current pain medication is helping to control the pain and improve activities of daily living. Patient denies any motor or sensory deficits. Patient denies any fever or night sweats, denies any change in the bowel movements or urination. Physical Examination: -Constitutional: Cooperative. Not in acute distress . - Neurologic: Cranial nerve II to XII intact. No focal neurological deficits. - Psychatric: Alert & oriented x 3. Matching mood & appropriate affect. Judgment and insight intact. - Musculoskeletal: Cervical spine: Muscle bulk/ tone/ strength in the bilateral upper extremities normal Vertebral body tenderness to palpation over Sp[place]ling test positive Distraction test positive Facet loading test positive TTP Thoracic spine Muscle bulk / tone/ strength in the bilateral paraspinal muscles normal Vertebral body tender to palpation over Facet loading test positive TTP Lumbar spine: Motor bulk/ tone/ strength lower extremities , thigh and legs : 5/5 Deep tendon reflexes : Normal Knee Jerk. Normal Ankle Jerk . Vertebral body tenderness to palpation L5 Lumbar Facet Loading Test positive over L L4-L5, L5-S1 Straight Leg Raise: positive at 30 degrees right side/ left side Gaenslen's Test positive Sacral spine : Severe tenderness over the Sacroiliac joint: right side / left side Range of motion: Flexion of the lumbar spine <60 degrees Range of motion: Extension of the lumbar spine <20 degrees Gaenslen's Test positive right side / left side Dian test: positive right side / left side Thigh Thrust Test positive right side / left side Sacral Thrust Test positive right side / left side Imaging: MRI non contrast of the lumbar spine from 02/23/2024 reviewed Assessment and plan: Chronic LBP secondary to radiculopathy, spondylosis with facet arthropathy without myelopathy Chronic and current use of high-risk medication (Opioids). The patient was counseled about risk of opioid use, psychological risk associated with opioids and was orally counseled to not overuse , divert or sell medications. Pt is to store medication in a safe location. The patient is counseled against driving while using narcotic medic ations and also not to use alcohol or any illicit recreational drugs. Patient verbalized understanding that the lack of compliance will result in failure to renew narcotic prescription(s) as well as possible discharge from the clinic Diagnoses, prognosis and treatment options including but not limited to physical therapy, surgical interventions, interventional therapies and medicati on management including narcotics and adjuvant medication were discussed. All patient questions answered MAPS reviewed and it was appropriate. UDS from 05/31/24 +Opiates, +ETOH metabolites. Recheck UDS from 07/09/24 is not found in the system, paper chart, nor lab despite myself ordering it. Will withhold narcotics until receive UDS or Blood tox screen to be completed today. Opiate/ narcotic agreement renewed 07/09/24. At this liliam will hold on [place] #120 refill. Use, side effects, adverse reactions and safe storage discussed. I have spent less than 30 minutes on patient care today. Dr Thomas was available by phone for the evaluation of this patient. The time was used to review the medical records including relevant urine studies and Prescription history (MAPs), review of the available imaging, evaluation and examination of the patient, coordination of care with the medical staff and if applicable referring physicians, as well as creation of the medical record PQRS Narrative: Smoking Status Current every day smoker Narcotic Agreement Date Signed 07/01/22 Hx Alcohol Use (MH) Yes: occ Home Medications: Ambulatory Orders lisinopriL [Zestril] 20 mg PO PC-LUNCH 01/25/18 traZODone HCL 100 mg PO HS PRN 03/12/20 Pioglitazone [Actos] 15 mg PO 1200 05/08/20 Loratadine 10 mg PO DAILY PRN 06/15/20 Menthol [Biofreeze] 1 applic TOPICAL DAILY PRN 06/09/21 Ondansetron [Zofran] 4 mg PO Q8HR PRN 06/09/21 Fluticasone Nasal [place] [Flonase Nasal [place]] 1 spray EA NOSTRIL DAILY PRN 11/09/22 Dulaglutide [Trulicity] 0.75 mg SQ WAITE 03/16/23 Nitroglycerin 0.4 mg SL Q5M PRN 03/16/23 Cyclobenzaprine [Flexeril] 5 mg PO BID PRN 30 Days #60 tab 09/08/23 HYDROcodone/APAP 10-325MG [[place] 10-325] 1 tab PO QID PRN 30 Days #120 tab 07/09/24 HYDROcodone/APAP 10-325MG [[place] 10-325] 1 tab PO QID PRN 30 Days #120 tab 07/09/24 Controlled Substance Measures - Controlled Substance Measures Is patient prescribed a controlled substance at discharge?: No
== END ==
LOC: PNWHC3 12:50
PROVIDERS: ATTEND Specialist
DX: M47.26 Other spondylosis with radiculopathy, lumbar region (principal); F11.90 Opioid use, unspecified, uncomplicated; F17.200 Nicotine dependence, unspecified, uncomplicated; Z88.8 Allergy status to other drugs, medicaments and biological substances
CPT/HCPCS: 80307; G0463; 99211

== ENCOUNTER → 2024-11-26 | Outpatient (CLI) | payer OTHER ==
[2024-11-26 14:16] VITALS: BP 158/97; PULSE 87; RESP 16; TEMP 96.8
--- NOTE | 2024-11-26 15:42 | P.PAINPG ---
PQRS Measure Charge Sheet Comment: A 54 yr old female w mother at side with a history of severe and chronic LBP > 20 years secondary to radiculopathy, spondylosis and facet arthropathy without myelopathy presents today for medication refills. Pain level is provoked at 8 /10 in intensity, constant, predominantly axial, localized in the lower lumbar spine, sharp/ throbbing in character without shooting pain. Pain is provoked by any position for periods > 15 min. PT in Jun 2022 provoked more pain than caused pain relief and was discontinued. Pain is alleviated by physician guided stretches daily since Jun 2022, medications, topicals, CBD products, heat, ice, repositioning and rest. States she will no longer see Dr Maradiaga for Oxycodone IR and no longer needs Lyrica. Understands she is not to take [place] w other narcotics, alcohol or cannabis. Interventional pain procedures completed include R RFA L3-L5 (Jul 2023), L RFA L3-L5 (Sep 2022, Apr 2024), [place] Patient is currently on [place] 10/325mg #90, Flexeril, BioFreeze Gel Patient denies any side effects of the medication(s), denies excessive drowsiness or sleepiness, denies suicidal ideation and reports that the current pain medication is helping to control the pain and improve activities of daily living. Patient denies any motor or sensory deficits. Patient denies any fever or night sweats, denies any change in the bowel movements or urination. Physical Examination: -Constitutional: Cooperative. Not in acute distress . - Neurologic: Cranial nerve II to XII intact. No focal neurological deficits. - Psychatric: Alert & oriented x 3. Matching mood & appropriate affect. Judgment and insight intact. - Musculoskeletal: Cervical spine: Muscle bulk/ tone/ strength in the bilateral upper extremities normal Vertebral body tenderness to palpation over Spurling test positive Distraction test positive Facet loading test positive TTP Thoracic spine Muscle bulk / tone/ strength in the bilateral paraspinal muscles normal Vertebral body tender to palpation over Facet loading test positive TTP Lumbar spine: Motor bulk/ tone/ strength lower extremities , thigh and legs : 5/5 Deep tendon reflexes : Normal Knee Jerk. Normal Ankle Jerk . Vertebral body tenderness to palpation L5 Lumbar Facet Loading Test positive over L L4-L5, L5-S1 Straight Leg Raise: positive at 30 degrees right side/ left side Gaenslen's Test positive Sacral spine : Severe tenderness over the Sacroiliac joint: right side / left side Range of motion: Flexion of the lumbar spine <60 degrees Range of motion: Extension of the lumbar spine <20 degrees Gaenslen's Test positive right side / left side Dian test: positive right side / left side Thigh Thrust Test positive right side / left side Sacral Thrust Test positive right side / left side Imaging: MRI non contrast of the lumbar spine from 02/23/2024 reviewed Assessment and plan: Chronic LBP secondary to radiculopathy, spondylosis with facet arthropathy without myelopathy Chronic and current use of high-risk medication (Opioids). The patient was counseled about risk of opioid use, psychological risk associated with opioids and was orally counseled to not overuse , divert or sell medications. Pt is to store medication in a safe location. The patient is counseled against driving while using narcotic medica tions and also not to use alcohol or any illicit recreational drugs. Patient verbalized understanding that the lack of compliance will result in failure to renew narcotic prescription(s) as well as possible discharge from the clinic Diagnoses, prognosis and treatment options including but not limited to physical therapy, surgical interventions, interventional therapies and medicatio n management including narcotics and adjuvant medication were discussed. All patient questions answered MAPS reviewed and it was appropriate. UDS 10/06/24 reviewed and consistent, +Opiates. Opiate/ narcotic agreement renewed 07/09/24. [place] 10/325mg #120 w 1 RF. Use, side effects, adverse reactions and safe storage discussed. All questions answered. I have spent less than 30 minutes on patient care today. Dr Thomas was available by phone for the evaluation of this patient. The time was used to review the medical records including relevant urine studies and Prescription history (MAPs), review of the available imaging, evaluation and examination of the patient, coordination of care with the medical staff and if applicable referring physicians, as well as creation of the medical record - Pain Location Bilateral Lower Back Non-Pharmacological Interventions: Heat, Ice, Inactivity, Physical Therapy, Position/Reposition, Relaxation Technique, Sitting, Standing Pharmacological Interventions: Block, Epidural, PRN Medication, Scheduled Medication, Topical Medication PQRS Narrative: Smoking Status Current every day smoker Narcotic Agreement Date Signed 10/01/24 Hx Alcohol Use (MH) Yes: occ Home Medications: Ambulatory Orders lisinopriL [Zestril] 20 mg PO PC-LUNCH 01/25/18 traZODone HCL 100 mg PO HS PRN 03/12/20 Pioglitazone [Actos] 15 mg PO 1200 05/08/20 Loratadine 10 mg PO DAILY PRN 06/15/20 Menthol [Biofreeze] 1 applic TOPICAL DAILY PRN 06/09/21 Ondansetron [Zofran] 4 mg PO Q8HR PRN 06/09/21 Fluticasone Nasal [place] [Flonase Nasal [place]] 1 spray EA NOSTRIL DAILY PRN 11/09/22 Dulaglutide [Trulicity] 0.75 mg SQ WAITE 03/16/23 Nitroglycerin 0.4 mg SL Q5M PRN 03/16/23 Cyclobenzaprine [Flexeril] 5 mg PO BID PRN 30 Days #60 tab 09/08/23 Pregabalin [Lyrica] 75 mg PO BID 30 Days #60 cap 10/22/24 HYDROcodone/APAP 10-325MG [[place] 10-325] 1 tab PO QID PRN 30 Days #120 tab 11/26/24 HYDROcodone/APAP 10-325MG [[place] 10-325] 1 tab PO QID PRN 30 Days #120 tab 11/26/24 Controlled Substance Measures - Controlled Substance Measures Is patient prescribed a controlled substance at discharge?: Yes When asked, does pt state using other controlled substances?: No If prescribed controlled substance>3 days was MAPS reviewed?: Yes
== END ==
LOC: PNWHC3 13:21
PROVIDERS: ATTEND Specialist
DX: M47.26 Other spondylosis with radiculopathy, lumbar region (principal); G89.29 Other chronic pain; Z79.899 Other long term (current) drug therapy; Z88.1 Allergy status to other antibiotic agents; F17.210 Nicotine dependence, cigarettes, uncomplicated; Z88.8 Allergy status to other drugs, medicaments and biological substances
CPT/HCPCS: 99211

== ENCOUNTER → 2025-01-08 | Outpatient (CLI) | payer OTHER ==
--- NOTE | 2025-01-08 12:47 | CTL ---
EXAMINATION TYPE: CT Low Dose Lung DATE OF EXAM ORDERED: 01/08/2025 COMPARISON: CT low-dose lung 12/14/2023 CLINICAL INDICATION: Female, 54 years old with history of Z12.2 SCREENING F17.210 JENNIFER DEP; [facility], perso nal tobacco use, Lung cancer screening, History of Smoking/tobacco use. TECHNIQUE: Low dose computed tomography scan was performed through the chest at 1 mm thick sections a nd reconstructed images in multiple planes at 1 mm and [address] DLP: 82.[address] CTDI: 2.4 mGy Automated exposure control for dose reduction was used. CT DIAGNOSTIC QUALITY: Satisfactory FINDINGS: Nodules: Stable right middle lobe 3.9 mm pulmonary nodule (series 6, image 35). No new or enlarging pulmonary nodules. LUNGS: COPD: Severity: Mild Fibrosis: Severity: None Lymph nodes: None Other findings: None RIGHT PLEURAL SPACE: Effusion: None Calcification: None Thickening: None Pneumothorax: None LEFT PLEURAL SPACE: Effusion: None Calcification: None Thickening: None Pneumothorax: None HEART: Heart Size: Normal Coronary Calcification: None Pericardial Effusion: None OTHER FINDINGS: Upper abdomen: Surgical changes at the GE junction. The gallbladder is surgically absent. The visuali zed liver is diffusely hypoattenuating. Bony thorax: None Supraclavicular region: None Other: None IMPRESSION: 1. Stable right middle lobe 3.9 mm pulmonary nodule. No new or enlarging pulmonary nodules. 2. Mild emphysema changes. 3. Hepatic steatosis. CT LUNG RAD AND CT CHEST RECOMMENDATION: Lung-Rad 2 Benign Appearance or Behavior: Continue annual sc reening with LDCT in 12 months. S Modifier (other clinically significant findings): None [facility], , 01/08/2025 12:44 PM
== END | disposition home or self-care (01) ==
LOC: RADCTMAIN 10:58
PROVIDERS: ATTEND Family Medicine
DX: Z12.2 Encounter for screening for malignant neoplasm of respiratory organs (principal); F17.210 Nicotine dependence, cigarettes, uncomplicated; K76.0 Fatty (change of) liver, not elsewhere classified; R91.8 Other nonspecific abnormal finding of lung field; J43.9 Emphysema, unspecified
CPT/HCPCS: 71271

== ENCOUNTER → 2025-01-28 | Outpatient (CLI) | payer OTHER ==
[2025-01-28 14:34] VITALS: BP 152/88; PULSE 79; RESP 16; TEMP 97.3
--- NOTE | 2025-01-28 16:40 | P.PAINPG ---
Objective - Vital Signs Vital signs: Vital Signs Temp 97.3 F L 01/28/25 14:24 Pulse 79 01/28/25 14:24 Resp 16 01/28/25 14:24 BP 152/88 01/28/25 14:24 Pulse Ox 96 01/28/25 14:24 FiO2 Intake & Output 01/27/25 01/28/25 01/28/25 18:59 06:59 18:59 Weight 79.832 kg PQRS Measure Charge Sheet Mode of Arrival: Ambulatory Comment: A 54 yr old female w mother at side with a history of severe and chronic LBP > 20 years secondary to radiculopathy, spondylosis and facet arthropathy without myelopathy presents today for medication refills. Pt underwent R RFA L4-L5/ L5- S1 in Fall 2022 where she experienced 80% pain relief x 1 yr s/p procedure. Pain level is provoked at 8 /10 in intensity, constant, predominantly axial, localized in the lower lumbar spine, sharp/ throbbing in character without shooting pain. Pain is provoked by any position for periods > 15 min. PT in Jun 2022 provoked more pain than caused pain relief and was discontinued. Pain is alleviated by physician guided stretches daily since Jun 2022, medications, topicals, CBD products, heat, ice, repositioning and rest. Had recent abd surgery and is having increased pain while weaning down Lyrica. Will incr dosage intermittently during this time. Interventional pain procedures completed include R RFA L3-L5 (Jul 2023), L RFA L3-L5 (Sep 2022, Apr 2024), Satinder Patient is currently on [place] 10/325mg #90, Flexeril, BioFreeze Gel Patient denies any side effects of the medication(s), denies excessive drowsiness or sleepiness, denies suicidal ideation and reports that the current pain medication is helping to control the pain and improve activities of daily living. Patient denies any motor or sensory deficits. Patient denies any fever or night sweats, denies any change in the bowel movements or urination. Physical Examination: -Constitutional: Cooperative. Not in acute distress . - Neurologic: Cranial nerve II to XII intact. No focal neurological deficits. - Psychatric: Alert & oriented x 3. Matching mood & appropriate affect. Judgment and insight intact. - Musculoskeletal: Cervical spine: Muscle bulk/ tone/ strength in the bilateral upper extremities normal Vertebral body tenderness to palpation over Spurling test positive Distraction test positive Facet loading test positive TTP Thoracic spine Muscle bulk / tone/ strength in the bilateral paraspinal muscles normal Vertebral body tender to palpation over Facet loading test positive TTP Lumbar spine: Motor bulk/ tone/ strength lower extremities , thigh and legs : 5/5 Deep tendon reflexes : Normal Knee Jerk. Normal Ankle Jerk . Vertebral body tenderness to palpation L5 Lumbar Facet Loading Test positive over R L4-L5, L5-S1 Straight Leg Raise: positive at 30 degrees right side/ left side Gaenslen's Test positive Sacral spine : Severe tenderness over the Sacroiliac joint: right side / left side Range of motion: Flexion of the lumbar spine <60 degrees Range of motion: Extension of the lumbar spine <20 degrees Gaenslen's Test positive right side / left side Dian test: positive right side / left side Thigh Thrust Test positive right side / left side Sacral Thrust Test positive right side / left side Imaging: MRI non contrast of the lumbar spine from 02/23/2024 reviewed Assessment and plan: Chronic LBP secondary to radiculopathy, spondylosis with facet arthropathy without myelopathy Recommendation of R RFA L4-L5, L5-S1. Risks, benefits of procedure discussed and patient verbalized understanding. Protocol for discontinuation/continuation of medication surrounding procedure discussed. Minimal anesthesia including Fentanyl and Versed if clinically indicated. Chronic and current use of high-risk medication (Opioids). The patient was counseled about risk of opioid use, psychological risk associated with opioids and was orally counseled to not overuse , divert or sell medications. Pt is to store medication in a safe location. The patient is counseled against driving while using narcotic medications and also not to use alcohol or any illicit recreational drugs. Patient verbalized understanding that the lack of compliance will result in failure to renew narcotic prescription(s) as well as possible discharge from the clinic Diagnoses, prognosis and treatment options including but not limited to physical therapy, surgical interventions, interventional therapies and medication management including narcotics and adjuvant medication were discussed. All patient questions answered MAPS reviewed and it was appropriate. UDS 10/06/24 reviewed and consistent, +Opiates. Opiate/ narcotic agreement renewed 07/09/24. [place] 10/325mg #120, Lyrica 100mg #60, Flexeril 5mg w 1 RF. Use, side effects, adverse reactions and safe storage discussed. All questions answered. I have spent less than 30 minutes on patient care today. Dr Thomas was available by phone for the evaluation of this patient. The time was used to review the medical records including relevant urine studies and Prescription history (MAPs), review of the available imaging, evaluation and examination of the patient, coordination of care with the medical staff and if applicable referring physicians, as well as creation of the medical record - Pain Location Bilateral Lower Back Non-Pharmacological Interventions: Exercise, Heat, Home Exercise, Ice, Inactivity, Physical Therapy, Position/Reposition, Relaxation Technique, Stretching Pharmacological Interventions: Block, Epidural, PRN Medication, Scheduled Medication, Topical Medication PQRS Narrative: Smoking Status Current every day smoker Narcotic Agreement Date Signed 10/01/24 Blood Pressure 152/88 Pain Intensity [Bilateral 8 Lower Back] Scale Used Numeric (1 - 10) Hx Alcohol Use (MH) Yes: occ Home Medications: Ambulatory Orders lisinopriL [Zestril] 20 mg PO PC-LUNCH 01/25/18 traZODone HCL 100 mg PO HS PRN 03/12/20 Pioglitazone [Actos] 15 mg PO 1200 05/08/20 Loratadine 10 mg PO DAILY PRN 06/15/20 Menthol [Biofreeze] 1 applic TOPICAL DAILY PRN 06/09/21 Ondansetron [Zofran] 4 mg PO Q8HR PRN 06/09/21 Fluticasone Nasal [place] [Flonase Nasal [place]] 1 spray EA NOSTRIL DAILY PRN 11/09/22 Dulaglutide [Trulicity] 0.75 mg SQ WAITE 03/16/23 Nitroglycerin 0.4 mg SL Q5M PRN 03/16/23 Cyclobenzaprine [Flexeril] 5 mg PO BID PRN 30 Days #60 tab 01/28/25 HYDROcodone/APAP 10-325MG [[place] 10-325] 1 tab PO QID PRN 30 Days #120 tab 01/28/25 HYDROcodone/APAP 10-325MG [[place] 10-325] 1 tab PO QID PRN 30 Days #120 tab 01/28/25 Pregabalin [Lyrica] 100 mg PO BID 30 Days #60 cap 01/28/25 Controlled Substance Measures - Controlled Substance Measures Is patient prescribed a controlled substance at discharge?: Yes When asked, does pt state using other controlled substances?: Yes If prescribed controlled substance>3 days was MAPS reviewed?: Yes
== END ==
LOC: PNWHC3 14:18
PROVIDERS: ATTEND Specialist
DX: M47.26 Other spondylosis with radiculopathy, lumbar region (principal); F17.200 Nicotine dependence, unspecified, uncomplicated; Z88.1 Allergy status to other antibiotic agents; Z88.8 Allergy status to other drugs, medicaments and biological substances; Z79.891 Long term (current) use of opiate analgesic
CPT/HCPCS: 99211